=== PATIENT | male | born 1940 | race Caucasian/White ===

== ENCOUNTER 2017-07-11 16:57 | Emergency (ER) | payer MEDICARE ==
[2017-07-11] MEDS ORDERED: Acetaminophen TAB* 325 MG PO ONE (20:06)
[2017-07-11] MEDS ORDERED: Acetaminophen TAB* 325 MG ONE (20:07)
[2017-07-11 20:30] LABS: Hematocrit 34 % (42-52); Hemoglobin 11.5 g/dl (14.0-18.0); Mean Corpuscular HGB Conc 34 g/dl (31-36); Mean Corpuscular Hemoglobin 31 pg (27-31); Mean Corpuscular Volume 90 fL (80-94); Mean Platelet Volume 9 um3 (7.4-10.4); Red Blood Count 3.75 10^6/ul (4.0-5.4); Red Cell Distribution Width 14 % (10.5-15); White Blood Count 7.1 10^3/ul (3.5-10.8)
[2017-07-11 20:42] LABS: Albumin 4.1 g/dL (3.2-5.2); BUN/Creatinine Ratio 18.1 (8-20); Calcium 9.8 mg/dL (8.6-10.3); EGFR African American 56.3 (>60); EGFR Non-African American 43.8 (>60); Globulin 3.1 g/dL (2-4); Magnesium 1.4 mg/dL (1.9-2.7); Potassium 4.4 mmol/L (3.5-5.0); Total Bilirubin 0.4 mg/dL (0.2-1.0); Total Protein 7.2 g/dL (6.4-8.9)
--- NOTE | 2017-07-11 20:54 | RAD ---
INDICATION: Fever COMPARISON: August 25, 2015 TECHNIQUE: An AP portable view obtained at 2042 hours is submitted. FINDINGS: Bones/Soft Tissues: There are no acute bony findings. Cardiomediastinal: The cardiomediastinal silhouette is normal. Lungs: There are no infiltrates. Pleura: There are no pleural effusions. Other: None IMPRESSION: NO ACTIVE DISEASE. INTERVAL RESOLUTION OF A PREVIOUSLY IDENTIFIED RIGHT-SIDED INFILTRATE
[2017-07-11] MEDS ORDERED: NS 0.9% 1000 ML* 1,000 ML IV ONE (21:17)
[2017-07-11] MEDS ORDERED: Oseltamivir CAP* 75 MG PO ONE (21:22)
[2017-07-11] MEDS ORDERED: oxyCODONE/Acetamin 5/325 MG* TAB PO ONE (21:23)
[2017-07-11 21:27] LABS: Urine Bacteria Absent (Absent); Urine Bilirubin Negative (Negative); Urine Glucose Negative (Negative); Urine Nitrite Negative (Negative)
[2017-07-11] MEDS ORDERED: Morphine INJ* 4 MG/ML 1 ML CARPUJECT IV ONE (21:34)
[2017-07-11 22:45] VITALS: BP 139/59
--- NOTE | 2017-07-12 04:31 | ED ---
Kimberlee Rodriguez Emily, scribed for Phyllis Bryant MD on 07/11/17 at 2107 . HPI Febrile Illness - HPI Summary HPI Summary: This patient is a 77 year old M [facility] accompanied by with a chief complaint of cough and fever that began this morning. The patient rates the pain 0/10 in severity. Symptoms aggravated by nothing. Symptoms alleviated by nothing. Patient reports nausea, general myalgias, headache, sore throat, and bruising. Patient denies vomiting, diarrhea, blurred vision, double vision, ear ache, neck pain, CP, abd pain, back pain, and negative urinary symptoms. Pt denies sick contacts at home. - History of Current Complaint Chief Complaint: EDUpperRespComplaint Time Seen by Provider: 07/11/17 20:01 Hx Obtained From: Patient Onset/Duration: Started Hours Ago, Still Present Timing: Constant Initial Severity: Mild Current Severity: Mild Pain Intensity: 0 Pain Scale Used: 0-10 Numeric Aggravating Factors: Nothing Alleviating Factors: Nothing Associated Signs and Symptoms: Weakness - Positive nausea, general myalgias, headache, sore throat, and bruising. Negative vomiting, diarrhea, blurred vision , double vision, ear ache, neck pain, CP, abd pain, back pain, and urinary symptoms. - Allergy/Home Medications Allergies/Adverse Reactions: Allergies Allergy/AdvReac Type Severity Reaction Status Date / Time Atorvastatin [From Lipitor] Allergy Unknown Verified 07/11/17 17:22 Reaction Details Rosuvastatin [From Crestor] Allergy Unknown Verified 07/11/17 17:22 Reaction Details PMH/Surg Hx/FS Hx/Imm Hx Previously Healthy: No Endocrine/Hematology History: Reports: Hx Diabetes Denies: Hx Anticoagulant Therapy, Hx Blood Disorders, Hx Blood Transfusions, Hx Bone Marrow Disease, Hx Systemic Lupus Erythematosus, Hx Sickle Cell Disease , Hx Thyroid Disease, Hx Anemia, Hx Unexplained Bleeding, Other Endocrine/ Hematological Disorders Cardiovascular History: Reports: Hx Hypertension Denies: Hx Aneurysm, Hx Angina, Hx Angioplasty, Hx Auto Implanted Cardiovert Defib, Hx Cardiac Arrest, Hx Cardiomegaly, Hx Congenital Heart Disease, Hx Congestive Heart Failure, Hx Coronary Artery Disease, Hx Deep Vein Thrombosis, Hx Embolism, Hx Hypercholesterolemia, Hx Hypotension, Hx Pacemaker/ICD, Hx Peripheral Vascular Disease, Hx Rheumatic Fever, Hx Syncope, Hx Valvular Heart Disease, Other Cardiovascular Problems/Disorders Musculoskeletal History: Reports: Hx Arthritis, Hx Back Problems, Hx Orthopedic Injury - pelvic fx Denies: Hx Rheumatoid Arthritis, Hx Bursitis, Hx Congenital Bone Abnormalities, Hx Fibromyalgia, Hx Gout, Hx Osteoporosis, Hx Scoliosis, Hx Tendonitis, Other Musculoskeletal History Sensory History: Reports: Hx Contacts or Glasses Denies: Hx Cataracts, Hx Eye Injury, Hx Eye Prosthesis, Hx Glaucoma, Hx Legally Blind, Hx Macular Degeneration, Hx Vision Problem, Hx Deafness, Hx Hearing Aid, Hx Hearing Problem, Other Sensory Impairments Opthamlomology History: Reports: Hx Contacts or Glasses Denies: Hx Cataracts, Hx Eye Injury, Hx Eye Prosthesis, Hx Glaucoma, Hx Legally Blind, Hx Macular Degeneration, Hx Vision Problem, Other Sensory Impairments Neurological History: 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 reconstruction of pelvic fx with plates 1986 Hx Anesthesia Reactions: No Infectious Disease History: No Infectious Disease History: Denies: Traveled Outside the [place] in Last 30 Days - Family History Known Family History: Positive: Other - Lung CA - Social History Occupation: Retired Lives: With Family Alcohol Use: None Substance Use Type: Reports: None Smoking Status (MU): Former Smoker Type: Cigarettes Have You Smoked in the Last Year: No Review of Systems Positive: Fever Negative: Blurred Vision, Diplopia Positive: Sore Throat. Negative: Ear Ache Negative: Chest Pain Positive: Cough Positive: Nausea. Negative: Abdominal Pain, Vomiting, Diarrhea Positive: no symptoms reported Positive: Myalgia Positive: Bruising Positive: Headache Negative: Anxious, Depressed All Other Systems Reviewed And Are Negative: No Physical Exam - Summary Physical Exam Summary: Appearance: Alert, conversive, nontoxic appearing Skin: Warm, dry, no mottling, no rashes. Bruising to bilateral arms. HEENT: EOMI, PERRL, moist mucous membranes. Oral mucosa is slightly dry. Neck: No masses on the neck, supple Respiratory: Clear to auscultation, breath sounds present, no rales, no rhonchi , no wheezes Cardiovascular: RRR, pulses are symmetrical in both lower and upper extremities Abdomen: Soft, non-tender Bowel Sounds: Present Musculoskeletal: No CVA tenderness, no obvious deformity, moving all extremities in a grossly normal manner Neurological: A&Ox3, CN II-XII Intact, moving all extremities symmetrically Psychiatric: Normal affect and mood Triage Information Reviewed: Yes Vital Signs On Initial Exam: Initial Vitals Temp Pulse Resp BP Pulse Ox 100.8 F 81 16 200/84 97 07/11/17 17:05 07/11/17 17:05 07/11/17 17:05 07/11/17 17:05 07/11/17 17:05 Vital Signs Reviewed: Yes - Jasbir Coma Scale Coma Scale Total: 15 Diagnostics - Vital Signs Vital Signs Temp Pulse Resp BP Pulse Ox 07/11/17 20:00 185/43 07/11/17 19:59 103.7 F 91 14 95 07/11/17 19:05 102.4 F 72 16 168/51 97 07/11/17 17:05 100.8 F 81 16 200/84 97 - Laboratory Lab Results: Lab Results 07/11/17 07/11/17 07/11/17 Range/Units 20:16 20:16 20:30 WBC 7.1 (3.5-10.8) 10^3/ul RBC 3.75 L (4.0-5.4) 10^6/ul Hgb 11.5 L (14.0-18.0) g/dl Hct 34 L (42-52) % MCV 90 (80-94) fL MCH 31 (27-31) pg MCHC 34 (31-36) g/dl RDW 14 (10.5-15) % Plt Count 186 (150-450) 10^3/ul MPV 9 (7.4-10.4) um3 Neut % (Auto) 82.0 (38-83) % Lymph % (Auto) 3.2 L (25-47) % [place] % (Auto) 11.5 H (1-9) % Eos % (Auto) 2.5 (0-6) % Baso % (Auto) 0.8 (0-2) % Absolute Neuts (auto) 5.8 (1.5-7.7) 10^3/ul Absolute Lymphs (auto) 0.2 L (1.0-4.8) 10^3/ul Absolute Monos (auto) 0.8 (0-0.8) 10^3/ul Absolute Eos (auto) 0.2 (0-0.6) 10^3/ul Absolute Basos (auto) 0.1 (0-0.2) 10^3/ul Absolute Nucleated RBC 0.01 10^3/ul Nucleated RBC % 0.1 Sodium 132 L (133-145) mmol/L Potassium 4.4 (3.5-5.0) mmol/L Chloride 98 L (101-111) mmol/L Carbon Dioxide 25 (22-32) mmol/L Anion Gap 9 (2-11) mmol/L BUN 28 H (6-24) mg/dL Creatinine 1.55 H (0.67-1.17) mg/dL Est GFR ( Amer) 56.3 (>60) Est GFR (Non-Af Amer) 43.8 (>60) BUN/Creatinine Ratio 18.1 (8-20) Glucose 170 H (70-100) mg/dL Calcium 9.8 (8.6-10.3) mg/dL Magnesium 1.4 L (1.9-2.7) mg/dL Total Bilirubin 0.40 (0.2-1.0) mg/dL AST 14 (13-39) U/L ALT 7 (7-52) U/L Alkaline Phosphatase 57 (34-104) U/L Total Protein 7.2 (6.4-8.9) g/dL Albumin 4.1 (3.2-5.2) g/dL Globulin 3.1 (2-4) g/dL Albumin/Globulin Ratio 1.3 (1-3) Influenza A (Rapid) Positive H (Negative) Influenza B (Rapid) Negative (Negative) Result Diagrams: 07/11/17 20:16 07/11/17 20:16 Lab Statement: Any lab studies that have been ordered have been reviewed, and results considered in the medical decision making process. - Radiology CXR Radiology Interpretation Completed By: Radiologist - CXR reveals, per radiologist, no active disease. Interval resolution of a previously identified right-sided infiltrate. Dr. Bryant has reviewed this radiology report. Re-Evaluation - Re-Evaluation First Eval Re-Evaluation Time: 21:37 Change: Unchanged Comment: Discussed plan of care with pt. Course/Dx - Course Assessment/Plan: This patient is a 77 year old M [facility] accompanied by with a chief complaint of cough and fever that began this morning. Physical Exam Findings. Bruising to bilateral arms. Oral mucosa is slightly dry. CXR reveals, per radiologist, no active disease. Interval resolution of a previously identified right-sided infiltrate. Test results with no significant abnormalities except for positive influenza A. In the ED course the patient was given fluids, Tamiflu, Percocet, and Tylenol. Notified pt of plan to adminster fluids, tamiflu, and morphine. Pt will be discharged. Pt is agreeable with this plan. - Diagnoses Provider Diagnoses: Influenza A, Dehydration Discharge - Discharge Plan Condition: Stable Disposition: HOME Prescriptions: Oseltamivir CAP* [Tamiflu CAP*] 75 mg PO BID #10 cap Patient Education Materials: Influenza (ED) Referrals: Dorothea Joaquin MD [Primary Care Provider] - Additional Instructions: Take the tamiflu as instructed. return if worse or any new symptoms. It is important to follow up with your doctor in 1-2 days. return if worse or any new symptoms. Drink plenty of fluids. The documentation as recorded by the Kimberlee bojorquez Emily accurately reflects the service I personally performed and the decisions made by , Phyllis Bryant MD.
== END 2017-07-11 22:40 | disposition home or self-care (01) ==
LOC: ED 16:57
DX: R11.0 Nausea (principal); R51 Headache; R53.1 Weakness; Z87.891 Personal history of nicotine dependence; R05 Cough; J09.X2 Influenza due to identified novel influenza A virus with other respiratory manifestations; E86.0 Dehydration
CPT/HCPCS: 36415; 71010; 80053; 81003; 81015; 83735; 85025; 87040; 87502; 96361; 96374; 99283; A9270-GY; J2270

== ENCOUNTER 2017-08-10 17:40 | Inpatient (IN) | payer MEDICARE ==
[2017-08-10] MEDS ORDERED: Ondansetron INJ* 2 MG/ML VIAL IV ONE ×2 (19:50→21:15)
[2017-08-10] MEDS ORDERED: NS 0.9% 1000 ML* 2,000 ML IV ONE (19:50)
[2017-08-10 20:34] LABS: ABS Basophils 0.1 10^3/ul (0-0.2); ABS Eosinophils 0 10^3/ul (0-0.6); ABS Lymphocytes 1.4 10^3/ul (1.0-4.8); ABS Monocytes 1.1 10^3/ul (0-0.8); ABS Neutrophils 10.7 10^3/ul (1.5-7.7); ABS Nucleated RBC 0 10^3/ul; Eosinophil % 0.1 % (0-6); Hematocrit 45 % (42-52); Lymphocyte % 10.2 % (25-47); Mean Corpuscular HGB Conc 34 g/dl (31-36); Mean Corpuscular Hemoglobin 29 pg (27-31); Mean Corpuscular Volume 87 fL (80-94); Mean Platelet Volume 8 um3 (7.4-10.4); Nucleated Red Blood Cells % 0; Platelet Count 450 10^3/ul (150-450); Red Cell Distribution Width 14 % (10.5-15); White Blood Count 13.3 10^3/ul (3.5-10.8)
--- NOTE | 2017-08-10 20:51 | RAD ---
Indication: Abdominal pain, vomiting. CT of the abdomen and pelvis was performed without oral or IV contrast administration. Coronal and sagittal reconstructed images were obtained. The lung bases demonstrate scarring in the left lung base. No pleural fluid is identified. The heart demonstrates no pericardial effusion. Liver is normal in size. No focal lesions or intrahepatic ductal dilatation although the exam is limited due to lack of IV contrast. Gallbladder demonstrates no calcified gallstones. No pericholecystic fluid or wall thickening is identified. The pancreas demonstrates no mass or pancreatic ductal dilatation. Common duct is not dilated. The gallbladder demonstrates no calcified gallstones. The kidneys demonstrates no hydronephrosis in either kidney. No focal masses are noted. No adrenal lesions are noted. Atherosclerotic aorta is noted. There is suggestion of wall thickening of the colon with pericolonic infiltration of fat especially around the ascending colon. There is also edematous duodenum noted. No hernias are noted. CT of the pelvis demonstrates no dilated loops of bowel. No hernias are noted. Urinary bladder is partially collapsed with wall thickening. Marked degenerative changes of the left hip joint is noted. The bony structures are grossly unremarkable. IMPRESSION: No evidence of obstructive uropathy is noted. There is suggestion of wall thickening of the colon especially the right colon and of the duodenum. Possibility of gastroenteritis or colitis should be considered. Marked degenerative changes of left hip is noted.
[2017-08-10 20:55] LABS: EGFR Non-African American 58.3 (>60)
--- NOTE | 2017-08-10 21:02 | RAD ---
Indication: Vomiting, tachycardia. Single frontal view of the chest performed at 2004 hours was reviewed. Comparison is made with previous exam dated July 11, 2017. No mediastinal shift is noted. Heart is of normal size and configuration. Lung martinez appear clear. IMPRESSION: NO ACTIVE CARDIOPULMONARY DISEASE IS NOTED.
[2017-08-10] MEDS ORDERED: Magnesium Sulfate 2 GM IV* 2 GM/50 ML BAG IVPB ONE (21:05)
[2017-08-10 21:09] LABS: INR 0.9 (0.77-1.02)
[2017-08-10] MEDS ORDERED: Labetalol IV* 5 MG/ML 20 ML VIAL IV PUSH ONE (21:13)
[2017-08-10] MEDS ORDERED: Labetalol IV* 5 MG/ML 20 ML VIAL IV PUSH PRN (21:16)
[2017-08-10] MEDS ORDERED: Morphine INJ* 4 MG/ML 1 ML CARPUJECT IV ONE (21:23)
[2017-08-10 22:10] LABS: Urine Appearance Cloudy; Urine Blood 2+ (Negative); Urine Color Yellow; Urine Ketones Trace (Negative); Urine Protein 3+(>=500 mg/dL) (Negative); Urine Specific Gravity 1.033 (1.010-1.030); Urine Urobilinogen Negative (Negative)
[2017-08-10] MEDS ORDERED: Ciprofloxacin 400MG IVPREMIX(* 400 MG/200 ML BAG IVPB ONE (22:44)
--- NOTE | 2017-08-10 23:02 | ED ---
Pia Rodriguez Thomas, scribed for Carlos Dumas MD on 08/10/17 at 1954 . GI/ HPI - HPI Summary HPI Summary: The patient is a 77 year old male presenting to the emergency department complaining of abdominal pain, nausea, vomiting, and diarrhea for the last two days. The patient has been unable to keep fluids down. He was evaluated earlier today at his PMDs office, where he was given Zofran to no relief of symptoms. The patient additionally complains of intermittent lightheadedness. The patient denies fever, chills, and bloody stools. - History of Current Complaint Chief Complaint: EDNauseaVomitDiarrh Time Seen by Provider: 08/10/17 19:42 Stated Complaint: VOMITTING Hx Obtained From: Patient Onset/Duration: Started Days Ago - 2, Still Present Timing: Constant Current Severity: Moderate Pain Intensity: 8 Associated Signs and Symptoms: Positive: Other: - Abd pain, nausea, vomiting, diarrhea, lightheadedness; NEGATIVE: fever, chills, bloody stools Aggravating Factor(s): Nothing Alleviating Factor(s): Nothing - Allergy/Home Medications Allergies/Adverse Reactions: Allergies Allergy/AdvReac Type Severity Reaction Status Date / Time Atorvastatin [From Lipitor] Allergy Unknown Verified 08/10/17 17:42 Reaction Details Rosuvastatin [From Crestor] Allergy Unknown Verified 08/10/17 17:42 Reaction Details PMH/Surg Hx/FS Hx/Imm Hx Previously Healthy: No Endocrine/Hematology History: Reports: Hx Diabetes Denies: Hx Anticoagulant Therapy, Hx Blood Disorders, Hx Blood Transfusions, Hx Bone Marrow Disease, Hx Systemic Lupus Erythematosus, Hx Sickle Cell Disease , Hx Thyroid Disease, Hx Anemia, Hx Unexplained Bleeding, Other Endocrine/ Hematological Disorders Cardiovascular History: Reports: Hx Hypertension Denies: Hx Aneurysm, Hx Angina, Hx Angioplasty, Hx Auto Implanted Cardiovert Defib, Hx Cardiac Arrest, Hx Cardiomegaly, Hx Congenital Heart Disease, Hx Congestive Heart Failure, Hx Coronary Artery Disease, Hx Deep Vein Thrombosis, Hx Embolism, Hx Hypercholesterolemia, Hx Hypotension, Hx Pacemaker/ICD, Hx Peripheral Vascular Disease, Hx Rheumatic Fever, Hx Syncope, Hx Valvular Heart Disease, Other Cardiovascular Problems/Disorders Musculoskeletal History: Reports: Hx Arthritis, Hx Back Problems, Hx Orthopedic Injury - pelvic fx Denies: Hx Rheumatoid Arthritis, Hx Bursitis, Hx Congenital Bone Abnormalities, Hx Fibromyalgia, Hx Gout, Hx Osteoporosis, Hx Scoliosis, Hx Tendonitis, Other Musculoskeletal History Sensory History: Reports: Hx Contacts or Glasses Denies: Hx Cataracts, Hx Eye Injury, Hx Eye Prosthesis, Hx Glaucoma, Hx Legally Blind, Hx Macular Degeneration, Hx Vision Problem, Hx Deafness, Hx Hearing Aid, Hx Hearing Problem, Other Sensory Impairments Opthamlomology History: Reports: Hx Contacts or Glasses Denies: Hx Cataracts, Hx Eye Injury, Hx Eye Prosthesis, Hx Glaucoma, Hx Legally Blind, Hx Macular Degeneration, Hx Vision Problem, Other Sensory Impairments Neurological History: 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 reconstruction of pelvic fx with plates 1986 Hx Anesthesia Reactions: No Infectious Disease History: No Infectious Disease History: Denies: Traveled Outside the [place] in Last 30 Days - Family History Known Family History: Positive: Other - Lung CA - Social History Alcohol Use: None Substance Use Type: Reports: None Smoking Status (MU): Former Smoker Type: Cigarettes Have You Smoked in the Last Year: No Review of Systems Positive: Other - lightheadedness. Negative: Fever, Chills Positive: Abdominal Pain, Vomiting, Diarrhea, Nausea. Negative: Other - bloody stools All Other Systems Reviewed And Are Negative: Yes Physical Exam - Summary Physical Exam Summary: General: Moderate ill-appearing. Mild to moderate pain distress. Skin: warm, color reflects adequate perfusion, dry Head: normal Eyes: EOMI, NITZA ENT: Dry oral mucosa. Neck: supple, nontender Respiratory: CTA, breath sounds present Cardiovascular: Tachycardia. Regular rhythm. Abdomen: Soft. Mild diffuse tenderness. Bowel: Hypoactive bowel sounds. Musculoskeletal: normal, strength/ROM intact Neurological: normal, sensory/motor intact, A&O x3 Psychological: affect/mood appropriate Triage Information Reviewed: Yes Vital Signs On Initial Exam: Initial Vitals Temp Pulse Resp BP Pulse Ox 97.9 F 106 16 212/99 100 08/10/17 17:42 08/10/17 17:42 08/10/17 17:42 08/10/17 17:42 08/10/17 17:42 Vital Signs Reviewed: Yes Diagnostics - Vital Signs Vital Signs Temp Pulse Resp BP Pulse Ox 08/10/17 19:26 97.8 F 124 28 234/97 97 08/10/17 17:42 97.9 F 106 16 212/99 100 - Laboratory Lab Results: Lab Results 08/10/17 08/10/17 08/10/17 Range/Units 20:20 20:20 20:20 WBC (3.5-10.8) 10^3/ul RBC (4.0-5.4) 10^6/ul Hgb (14.0-18.0) g/dl Hct (42-52) % MCV (80-94) fL MCH (27-31) pg MCHC (31-36) g/dl RDW (10.5-15) % Plt Count (150-450) 10^3/ul MPV (7.4-10.4) um3 Neut % (Auto) (38-83) % Lymph % (Auto) (25-47) % [place] % (Auto) (1-9) % Eos % (Auto) (0-6) % Baso % (Auto) (0-2) % Absolute Neuts (auto) (1.5-7.7) 10^3/ul Absolute Lymphs (auto) (1.0-4.8) 10^3/ul Absolute Monos (auto) (0-0.8) 10^3/ul Absolute Eos (auto) (0-0.6) 10^3/ul Absolute Basos (auto) (0-0.2) 10^3/ul Absolute Nucleated RBC 10^3/ul Nucleated RBC % INR (Anticoag Therapy) 0.90 (0.77-1.02) APTT 25.3 L (26.0-36.3) seconds Sodium 130 L (133-145) mmol/L Potassium 4.2 (3.5-5.0) mmol/L Chloride 94 L (101-111) mmol/L Carbon Dioxide 25 (22-32) mmol/L Anion Gap 11 (2-11) mmol/L BUN 26 H (6-24) mg/dL Creatinine 1.21 H (0.67-1.17) mg/dL Est GFR ( Amer) 75.0 (>60) Est GFR (Non-Af Amer) 58.3 (>60) BUN/Creatinine Ratio 21.5 H (8-20) Glucose 216 H (70-100) mg/dL Lactic Acid (0.5-2.0) mmol/L Calcium 10.1 (8.6-10.3) mg/dL Magnesium 1.4 L (1.9-2.7) mg/dL Total Bilirubin 0.60 (0.2-1.0) mg/dL AST 16 (13-39) U/L ALT 12 (7-52) U/L Alkaline Phosphatase 61 (34-104) U/L Troponin I 0.06 H* (<0.04) ng/mL C-Reactive Protein 9.99 H (< 5.00) mg/L B-Natriuretic Peptide 530 H ( - 100) pg/mL Total Protein 7.5 (6.4-8.9) g/dL Albumin 3.9 (3.2-5.2) g/dL Globulin 3.6 (2-4) g/dL Albumin/Globulin Ratio 1.1 (1-3) Lipase 88 H (11.0-82.0) U/L Urine Color Urine Appearance Urine pH (5-9) Ur Specific [place] (1.010-1.030) Urine Protein (Negative) Urine Ketones (Negative) Urine Blood (Negative) Urine Nitrate (Negative) Urine Bilirubin (Negative) Urine Urobilinogen (Negative) Ur Leukocyte Esterase (Negative) Urine WBC (Auto) (Absent) Urine RBC (Auto) (Absent) Ur Squamous Epith Cells (Absent) Urine Bacteria (Absent) Urine Glucose (Negative) 08/10/17 08/10/17 08/10/17 Range/Units 20:20 20:20 21:41 WBC 13.3 H (3.5-10.8) 10^3/ul RBC 5.10 (4.0-5.4) 10^6/ul Hgb 15.0 (14.0-18.0) g/dl Hct 45 (42-52) % MCV 87 (80-94) fL MCH 29 (27-31) pg MCHC 34 (31-36) g/dl RDW 14 (10.5-15) % Plt Count 450 (150-450) 10^3/ul MPV 8 (7.4-10.4) um3 Neut % (Auto) 80.9 (38-83) % Lymph % (Auto) 10.2 L (25-47) % [place] % (Auto) 8.3 (1-9) % Eos % (Auto) 0.1 (0-6) % Baso % (Auto) 0.5 (0-2) % Absolute Neuts (auto) 10.7 H (1.5-7.7) 10^3/ul Absolute Lymphs (auto) 1.4 (1.0-4.8) 10^3/ul Absolute Monos (auto) 1.1 H (0-0.8) 10^3/ul Absolute Eos (auto) 0 (0-0.6) 10^3/ul Absolute Basos (auto) 0.1 (0-0.2) 10^3/ul Absolute Nucleated RBC 0 10^3/ul Nucleated RBC % 0 INR (Anticoag Therapy) (0.77-1.02) APTT (26.0-36.3) seconds Sodium (133-145) mmol/L Potassium (3.5-5.0) mmol/L Chloride (101-111) mmol/L Carbon Dioxide (22-32) mmol/L Anion Gap (2-11) mmol/L BUN (6-24) mg/dL Creatinine (0.67-1.17) mg/dL Est GFR ( Amer) (>60) Est GFR (Non-Af Amer) (>60) BUN/Creatinine Ratio (8-20) Glucose (70-100) mg/dL Lactic Acid 2.0 (0.5-2.0) mmol/L Calcium (8.6-10.3) mg/dL Magnesium (1.9-2.7) mg/dL Total Bilirubin (0.2-1.0) mg/dL AST (13-39) U/L ALT (7-52) U/L Alkaline Phosphatase (34-104) U/L Troponin I (<0.04) ng/mL C-Reactive Protein (< 5.00) mg/L B-Natriuretic Peptide ( - 100) pg/mL Total Protein (6.4-8.9) g/dL Albumin (3.2-5.2) g/dL Globulin (2-4) g/dL Albumin/Globulin Ratio (1-3) Lipase (11.0-82.0) U/L Urine Color Yellow Urine Appearance Cloudy Urine pH 6.0 (5-9) Ur Specific [place] 1.033 H (1.010-1.030) Urine Protein 3+(>=500 mg/dl) H (Negative) Urine Ketones Trace H (Negative) Urine Blood 2+ H (Negative) Urine Nitrate Negative (Negative) Urine Bilirubin Negative (Negative) Urine Urobilinogen Negative (Negative) Ur Leukocyte Esterase Negative (Negative) Urine WBC (Auto) 1+(6-10/hpf) H (Absent) Urine RBC (Auto) 2+(6-10/hpf) H (Absent) Ur Squamous Epith Cells Present H (Absent) Urine Bacteria Absent (Absent) Urine Glucose 3+(>=500 mg/dl) H (Negative) Result Diagrams: 08/10/17 20:20 08/10/17 20:20 Lab Statement: Any lab studies that have been ordered have been reviewed, and results considered in the medical decision making process. - Radiology CXR Xray Interpretation: No Acute Changes - No evidence of cardiopulmonary disease is identified. Dr. Dumas has reviewed this report. Radiology Interpretation Completed By: Radiologist - CT CT Abd/Pel CT Interpretation: No Acute Changes - No evidence of obstructive uropathy is noted. Dr. Dumas has reviewed this report. CT Interpretation Completed By: Radiologist - EKG 19:53 Cardiac Rate: NL EKG Rhythm: Sinus Rhythm - [address] Segment: Normal Ectopy: PACs GIGU Course/Dx - Course Course Of Treatment: Medications reviewed. Allergies noted. BP noted and advised follow up with PMD. DISCUSSED RESULTS WITH PATIENT AND HIS FAMILY. 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 CRITICAL CARE TIME LESS THAN 30 MINUTES. - Diagnoses Provider Diagnoses: Uncontrolled hypertension, Colitis, Abdominal pain, Headache Discharge - Discharge Plan Condition: Stable Disposition: ADMITTED TO [facility] Referrals: Dorothea Joaquin MD [Primary Care Provider] - The documentation as recorded by the Pia bojorquez Thomas accurately reflects the service I personally performed and the decisions made by Alesia encarnacion William, MD.
--- NOTE | 2017-08-10 23:34 | HP ---
H&P (Free Text) History and Physical: PCP: Lorena Joaquin MD Date/Time: 08/10/2017 2330 CC: "stomach virus" HPI: Mr Ambriz is a 77YO male HX CVA s/p intra-cerebral stents x3, cerebral aneurysm being monitored, pulmonary embolism, DM2, ulcerative colitis, HTN, & HLD presents reporting onset Monday of diffuse abdominal pain. Monday he began having loose stools and N/V. He continued to worsen with subjective F/C & sweats. He denies chest pain, SOB, palpitations, focal W/N/T, change in speech/ swallow/vision, or other issues. While in ED he was noted to have blood pressures in excess of 200 systolic which his states are very high compared to his normal, but were present at his PCPs office Monday. At one point in the ED his systolic maxed at 260 and he became hypo-responsive which resolved by bringing his pressure down with IV labetalol. CT brain WO was negative for acute finding. CT abd/pel WO revealed colitis. He will be admitted to ICU for hypertensive emergency on nicardipine GTT and treated with IVFs & ABX for colitis and dehydration. PMedHx CVA s/p intra-cranial stents x3 cerebral aneurysm w/ annual monitoring pulmonary embolism DM2 ulcerative colitis HTN HLD Ambulatory Orders Amlodipine Besylate 10 mg PO BID 11/27/13 Aspirin TAB* 325 mg PO DAILY 11/27/13 Clonidine HCl 0.2 mg PO BID 11/27/13 Clopidogrel Bisulfate [Clopidogrel] 75 mg PO DAILY 11/27/13 Hydrocodone-Acetaminophen [Hydrocodone/Acetaminophen] 2 tab PO Q4HR PRN Metformin HCl 500 mg PO QID 11/27/13 [place]-3 Fatty Acids [Fish Oil] 1 cap PO DAILY 11/27/13 Quinapril HCl 40 mg PO BID 11/27/13 Vitamin D 1 tab PO DAILY 11/27/13 Furosemide TAB* [Lasix TAB*] 40 mg PO DAILY 08/25/15 Cyanocobalamin TAB* [Vitamin B12 TAB*] 1,000 mcg PO DAILY #30 tab 08/27/15 Oseltamivir CAP* [Tamiflu CAP*] 75 mg PO BID #10 cap 07/11/17 Prednisone 80 mg PO DAILY 08/11/17 Allergies Atorvastatin [From Lipitor] Allergy (Verified 08/10/17 17:42) Unknown Reaction Details Rosuvastatin [From Crestor] Allergy (Verified 08/10/17 17:42) Unknown Reaction Details PSurgHx intra-cranial stents x3 R carotid endarterectomy ORIF L hip SocHx: quit smoking >30 years ago, denies alcohol & recreational drugs; lives with his ; 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 Father passed at 68 2nd asthma. ROS: as above, otherwise reviewed and all were negative vitals: Vital Signs Temp 37.1 C 08/11/17 00:56 Pulse 78 08/11/17 03:15 Resp 20 08/11/17 03:15 BP 175/85 08/11/17 03:15 Pulse Ox 95 08/11/17 03:15 Intake & Output 08/10/17 08/10/17 08/11/17 11:59 23:59 11:59 Intake Total 2049 Output Total 200 Balance 2049 - Weight 74.843 kg 70.8 kg Intake: IV Fluids 2049 Output: Urine 200 Constitutional: NAD, normally developed, well-nourished white male HEENM: atraumatic; sclera/conjunctiva: anicteric/clear; hearing: clinically intact; oropharynx: clear, mucosa moist Neck: soft tissue: non-tender; thyroid: normal Pulmonary: clear to auscultation bilaterally, good aeration, no accessory muscle use CV: RR/RR, normal S1S2, no carotid bruit, no jugular venous distention, 2+ B DP/ PT, no edema Abdominal: soft, non-distended, non-tender, no rebound/guarding/rigidity, normoactive bowel sounds, no hepatosplenomegaly or masses, no costovertebral angle tenderness Musculoskeletal: general: grossly intact, no pain with palpation Integumental: normal appearance and texture of exposed skin Psychiatric orientation: AA&O to PPS affect: calm mood: cooperative eye contact: good content: reliable responses: timely insight: good Testing: Lab Results 08/10/17 08/10/17 08/10/17 Range/Units 20:20 20:20 20:20 WBC (3.5-10.8) 10^3/ul RBC (4.0-5.4) 10^6/ul Hgb (14.0-18.0) g/dl Hct (42-52) % MCV (80-94) fL MCH (27-31) pg MCHC (31-36) g/dl RDW (10.5-15) % Plt Count (150-450) 10^3/ul MPV (7.4-10.4) um3 Neut % (Auto) (38-83) % Lymph % (Auto) (25-47) % [place] % (Auto) (1-9) % Eos % (Auto) (0-6) % Baso % (Auto) (0-2) % Absolute Neuts (auto) (1.5-7.7) 10^3/ul Absolute Lymphs (auto) (1.0-4.8) 10^3/ul Absolute Monos (auto) (0-0.8) 10^3/ul Absolute Eos (auto) (0-0.6) 10^3/ul Absolute Basos (auto) (0-0.2) 10^3/ul Absolute Nucleated RBC 10^3/ul Nucleated RBC % INR (Anticoag Therapy) 0.90 (0.77-1.02) APTT 25.3 L (26.0-36.3) seconds Sodium 130 L (133-145) mmol/L Potassium 4.2 (3.5-5.0) mmol/L Chloride 94 L (101-111) mmol/L Carbon Dioxide 25 (22-32) mmol/L Anion Gap 11 (2-11) mmol/L BUN 26 H (6-24) mg/dL Creatinine 1.21 H (0.67-1.17) mg/dL Est GFR ( Amer) 75.0 (>60) Est GFR (Non-Af Amer) 58.3 (>60) BUN/Creatinine Ratio 21.5 H (8-20) Glucose 216 H (70-100) mg/dL Lactic Acid (0.5-2.0) mmol/L Calcium 10.1 (8.6-10.3) mg/dL Magnesium 1.4 L (1.9-2.7) mg/dL Total Bilirubin 0.60 (0.2-1.0) mg/dL AST 16 (13-39) U/L ALT 12 (7-52) U/L Alkaline Phosphatase 61 (34-104) U/L Troponin I 0.06 H* (<0.04) ng/mL C-Reactive Protein 9.99 H (< 5.00) mg/L B-Natriuretic Peptide 530 H ( - 100) pg/mL Total Protein 7.5 (6.4-8.9) g/dL Albumin 3.9 (3.2-5.2) g/dL Globulin 3.6 (2-4) g/dL Albumin/Globulin Ratio 1.1 (1-3) Lipase 88 H (11.0-82.0) U/L Urine Color Urine Appearance Urine pH (5-9) Ur Specific [place] (1.010-1.030) Urine Protein (Negative) Urine Ketones (Negative) Urine Blood (Negative) Urine Nitrate (Negative) Urine Bilirubin (Negative) Urine Urobilinogen (Negative) Ur Leukocyte Esterase (Negative) Urine WBC (Auto) (Absent) Urine RBC (Auto) (Absent) Ur Squamous Epith Cells (Absent) Urine Bacteria (Absent) Urine Glucose (Negative) 08/10/17 08/10/17 08/10/17 Range/Units 20:20 20:20 21:41 WBC 13.3 H (3.5-10.8) 10^3/ul RBC 5.10 (4.0-5.4) 10^6/ul Hgb 15.0 (14.0-18.0) g/dl Hct 45 (42-52) % MCV 87 (80-94) fL MCH 29 (27-31) pg MCHC 34 (31-36) g/dl RDW 14 (10.5-15) % Plt Count 450 (150-450) 10^3/ul MPV 8 (7.4-10.4) um3 Neut % (Auto) 80.9 (38-83) % Lymph % (Auto) 10.2 L (25-47) % [place] % (Auto) 8.3 (1-9) % Eos % (Auto) 0.1 (0-6) % Baso % (Auto) 0.5 (0-2) % Absolute Neuts (auto) 10.7 H (1.5-7.7) 10^3/ul Absolute Lymphs (auto) 1.4 (1.0-4.8) 10^3/ul Absolute Monos (auto) 1.1 H (0-0.8) 10^3/ul Absolute Eos (auto) 0 (0-0.6) 10^3/ul Absolute Basos (auto) 0.1 (0-0.2) 10^3/ul Absolute Nucleated RBC 0 10^3/ul Nucleated RBC % 0 INR (Anticoag Therapy) (0.77-1.02) APTT (26.0-36.3) seconds Sodium (133-145) mmol/L Potassium (3.5-5.0) mmol/L Chloride (101-111) mmol/L Carbon Dioxide (22-32) mmol/L Anion Gap (2-11) mmol/L BUN (6-24) mg/dL Creatinine (0.67-1.17) mg/dL Est GFR ( Amer) (>60) Est GFR (Non-Af Amer) (>60) BUN/Creatinine Ratio (8-20) Glucose (70-100) mg/dL Lactic Acid 2.0 (0.5-2.0) mmol/L Calcium (8.6-10.3) mg/dL Magnesium (1.9-2.7) mg/dL Total Bilirubin (0.2-1.0) mg/dL AST (13-39) U/L ALT (7-52) U/L Alkaline Phosphatase (34-104) U/L Troponin I (<0.04) ng/mL C-Reactive Protein (< 5.00) mg/L B-Natriuretic Peptide ( - 100) pg/mL Total Protein (6.4-8.9) g/dL Albumin (3.2-5.2) g/dL Globulin (2-4) g/dL Albumin/Globulin Ratio (1-3) Lipase (11.0-82.0) U/L Urine Color Yellow Urine Appearance Cloudy Urine pH 6.0 (5-9) Ur Specific [place] 1.033 H (1.010-1.030) Urine Protein 3+(>=500 mg/dl) H (Negative) Urine Ketones Trace H (Negative) Urine Blood 2+ H (Negative) Urine Nitrate Negative (Negative) Urine Bilirubin Negative (Negative) Urine Urobilinogen Negative (Negative) Ur Leukocyte Esterase Negative (Negative) Urine WBC (Auto) 1+(6-10/hpf) H (Absent) Urine RBC (Auto) 2+(6-10/hpf) H (Absent) Ur Squamous Epith Cells Present H (Absent) Urine Bacteria Absent (Absent) Urine Glucose 3+(>=500 mg/dl) H (Negative) ECG, personally reviewed: NSR rate 91, mild ST depression V4-6, occasional PAC & junctional escape CXR, personally reviewed: IMPRESSION: NO ACTIVE CARDIOPULMONARY DISEASE IS NOTED. CT brain WO, personally reviewed: FINDINGS: There is no intra- or extra-axial hemorrhage or collection. No mass lesion or midline shift. Area of encephalomalacia in the high right parietal lobe compatible with old infarct. Old right cerebellar lacunar infarct. There is moderate cortical atrophy. The ventricles are normal in size and midline in position. Normal amin-white differentiation. The calvarium is intact. Right vertebral artery stent. The visualized paranasal sinuses and mastoid air cells are clear. CT abd/pel WO, personally reviewed: IMPRESSION: No evidence of obstructive uropathy is noted. There is suggestion of wall thickening of the colon especially the right colon and of the duodenum. Possibility of gastroenteritis or colitis should be considered. Marked degenerative changes of left hip is noted. Impression: 77M presenting with hypertensive emergency & concomitant colitis, likely infectious DIAGNOSIS & PLAN Primary hypertensive emergency : HX cerebral aneurysm w/ outpatient monitoring : nicardipine GTT with parameters : continue quinapril, amlodipine, & clonindine : hold furosemide in setting of N/V/D from colitis : control of N/V : supplemental oxygen : supportive care colitis w/ dehydration : IV ciprofloxacin & metronidazole : IVFs : supportive care elevated troponin : likely 2nd demand ischemia from severe HTN : telemetry : trend Secondary CVA s/p intra-cranial stents x3 : continue aspirin & clopidogrel HX pulmonary embolism : SCDs & heparin SQ DM2 : continue metformin : check A1c : consistent carb diet : ACHS glucometry : correctional insulin ulcerative colitis : no acute issues HLD : heart healthy diet Ambulatory Orders Prednisone 80 mg PO DAILY 08/11/17 Admission Rational: inpatient for hypertensive emergency in patient at very high risk of morbidity/mortality; inappropriate for outpatient setting DVTp: SCDs Code Status: full HCP:
[2017-08-11] MEDS: niCARdipine 0.1MG/ML IVPREMIX* 20 MG/200 ML BAG IV SCH ×6 (01:07→12:37)
[2017-08-11] MEDS: NS 0.9% 1000 ML* 1,000 ML IV SCH ×3 (02:29→13:50)
[2017-08-11] MEDS ORDERED: CMCS: Melatonin (NF) 3 MG TAB PO PRN (03:55)
[2017-08-11] MEDS ORDERED: Albuterol 2.5 MG/3 ML NEB.SOL* (0.083%) INH PRN (03:55)
[2017-08-11] MEDS ORDERED: oxyCODONE TAB* 5 MG TAB PO PRN (03:55)
[2017-08-11] MEDS ORDERED: Acetaminophen TAB* 325 MG PO PRN (03:55)
[2017-08-11] MEDS: Ondansetron INJ* 2 MG/ML VIAL IV PRN ×2 (04:10→08:39)
[2017-08-11 04:38] LABS: ABS Basophils 0.1 10^3/ul (0-0.2); ABS Eosinophils 0 10^3/ul (0-0.6); ABS Lymphocytes 1.4 10^3/ul (1.0-4.8); ABS Neutrophils 10.9 10^3/ul (1.5-7.7); ABS Nucleated RBC 0 10^3/ul; Eosinophil % 0.1 % (0-6); Hematocrit 41 % (42-52); Hemoglobin 13.5 g/dl (14.0-18.0); Lymphocyte % 10.1 % (25-47); Mean Corpuscular HGB Conc 33 g/dl (31-36); Mean Corpuscular Hemoglobin 29 pg (27-31); Mean Corpuscular Volume 88 fL (80-94); Mean Platelet Volume 8 um3 (7.4-10.4); Nucleated Red Blood Cells % 0; Platelet Count 378 10^3/ul (150-450); Red Blood Count 4.64 10^6/ul (4.0-5.4); Red Cell Distribution Width 14 % (10.5-15); White Blood Count 13.4 10^3/ul (3.5-10.8)
[2017-08-11 04:53] LABS: INR 0.95 (0.77-1.02)
[2017-08-11 05:02] LABS: EGFR Non-African American 58.9 (>60)
[2017-08-11] MEDS: metroNIDAZOLE IV 500 MG/100ML* 500 MG/100 ML BAG IVPB SCH ×3 (05:07→21:18)
[2017-08-11] MEDS: CMCS: Pantoprazole TAB (NF) 40 MG TAB PO SCH (06:09)
--- NOTE | 2017-08-11 07:42 | RAD ---
INDICATION: Headaches COMPARISON: None TECHNIQUE: Noncontrast axial source images were acquired from the skull base to the vertex. FINDINGS: Ventricles/sulci: There is cortical atrophy with compensatory dilatation of the CSF spaces. Brain parenchyma: There is no acute focal parenchymal finding, evidence of intracranial mass, or intracranial mass effect. There are chronic microvascular ischemic changes. There is a remote high right parietal infarct with resultant encephalomalacia. Intracranial hemorrhage:None. Extra-axial spaces: There are no abnormal extra axial fluid collections or evidence of extra-axial mass. Calvarium: There is no calvarial fracture or other calvarial abnormality. Scalp: There is no evidence of scalp or extracalvarial soft tissue abnormality. Paranasal sinuses/mastoid: The paranasal sinuses and mastoid air cells are clear. Other: There are prominent vertebral arterial calcifications on the right. IMPRESSION: Cortical atrophy with chronic microvascular ischemic changes. No acute findings
[2017-08-11] MEDS ORDERED: Ondansetron INJ* 2 MG/ML VIAL IV PRN (08:30)
[2017-08-11] MEDS ORDERED: Ondansetron INJ* 2 MG/ML VIAL ONE (08:37)
[2017-08-11] MEDS ORDERED: predniSONE TAB* 20 MG PO SCH (09:00)
[2017-08-11] MEDS: amLODIPine TAB* 5 MG PO SCH ×2 (09:31→20:15)
[2017-08-11] MEDS: Aspirin TAB* 325 MG PO SCH (09:33)
[2017-08-11] MEDS: Lisinopril TAB* 10 MG PO SCH ×2 (09:33→20:15)
[2017-08-11] MEDS: Clopidogrel TAB* 75 MG PO SCH (09:33)
[2017-08-11] MEDS: metFORMIN* 500 MG TAB PO SCH ×3 (09:33→20:15)
[2017-08-11] MEDS: cloNIDine TAB* 0.1 MG PO SCH ×2 (09:37→20:15)
[2017-08-11] MEDS ORDERED: Scopolamine 1.5 mg* PATCH TRANSDERM SCH (10:00)
[2017-08-11] MEDS ORDERED: hydrALAZINE IV* 20 MG/ML VIAL IV SLOW PU PRN (10:06)
[2017-08-11] MEDS: Ciprofloxacin IV(*) 400 MG in D5W 250 ML BAG* 160 ML IVPB SCH ×2 (11:34→23:25)
[2017-08-11] MEDS: Carvedilol TAB* 6.25 MG PO SCH ×2 (11:34→20:16)
--- NOTE | 2017-08-11 15:23 | PN ---
Subjective Date of Service: 08/11/17 Interval History: Pt with improved nausea after scopalomine patch and continued zofran prns. Able to tolerate po meds. Pt with headache prior to admission. Very tired now. No sick contacts. Has neuro ophthalmologist and Neurologist in [place], [place]. Titrated up to 15 then weaned off the nicardipine gtt. Objective Active Medications: Acetaminophen (Tylenol Tab*) 650 mg PO Q6H PRN PRN Reason: FEVER/PAIN Last Admin: 08/11/17 04:10 Dose: 650 mg Albuterol (Ventolin 2.5 Mg/3 Ml Neb.Deborah*) 2.5 mg INH Q2H PRN PRN Reason: SOB/WHEEZING Amlodipine Besylate (Norvasc Tab*) 5 mg PO BID [facility] Last Admin: 08/11/17 09:31 Dose: 5 mg Aspirin (Aspirin Tab*) 325 mg PO DAILY [facility] Last Admin: 08/11/17 09:33 Dose: 325 mg Carvedilol (Coreg Tab*) 6.25 mg PO BID [facility] Last Admin: 08/11/17 11:34 Dose: 6.25 mg Clonidine HCl (Catapres Tab*) 0.2 mg PO BID [facility] Last Admin: 08/11/17 09:37 Dose: 0.2 mg Clopidogrel Bisulfate (Plavix Tab*) 75 mg PO DAILY [facility] Last Admin: 08/11/17 09:33 Dose: 75 mg Heparin Sodium (Porcine) (Heparin Vial(*)) 5,000 units SUBCUT Q8HR [facility] Hydralazine HCl (Apresoline Iv*) 10 mg IV SLOW PU Q2H PRN PRN Reason: SYSTOLIC BP GREATER THAN: Sodium Chloride (Ns 0.9% 1000 Ml*) 1,000 mls @ 125 mls/hr IV PER RATE [facility] Last Admin: 08/11/17 13:50 Dose: 125 mls/hr Ciprofloxacin 400 mg/ Dextrose 200 mls @ 200 mls/hr IVPB Q12H [facility] Last Admin: 08/11/17 11:34 Dose: 200 mls/hr Metronidazole/Sodium Chloride (Flagyl 500 Mg Ivpb*) 500 mg in 100 mls @ 100 mls /hr IVPB Q8H [facility] Last Admin: 08/11/17 13:49 Dose: 100 mls/hr Lisinopril (Prinivil Tab*) 20 mg PO BID [facility] Last Admin: 08/11/17 09:33 Dose: 20 mg Melatonin (Melatonin (Nf)) 3 mg PO BEDTIME PRN; Protocol PRN Reason: Sleep Metformin HCl (Glucophage*) 500 mg PO QID [facility] Last Admin: 08/11/17 12:36 Dose: 500 mg Ondansetron HCl (Zofran Inj*) 4 mg IV Q4H PRN PRN Reason: NAUSEA Oxycodone HCl (Roxycodone Tab*) 5 mg PO Q4H PRN PRN Reason: PAIN Pantoprazole Sodium (Protonix Tab (Nf)) 40 mg PO DAILY@0600 [facility] Last Admin: 08/11/17 06:09 Dose: 40 mg Pharmacy Profile Note (Scopolamine Patch Remove*) 1 note PATCH OFF .AFTER 72 HOURS [facility] Scopolamine (Transderm-Scop 1.5 Mg Patch*) 1 patch TRANSDERM Q72H [facility] Last Admin: 08/11/17 09:29 Dose: 1 patch Vital Signs - 8 hr 08/11/17 08/11/17 08/11/17 07:30 07:42 07:46 Temperature 98.8 F Pulse Rate 80 87 Respiratory 19 17 Rate Blood Pressure 171/77 170/75 (mmHg) O2 Sat by Pulse 95 96 Oximetry 08/11/17 08/11/17 08/11/17 08:00 08:03 08:14 Temperature Pulse Rate 85 88 84 Respiratory 18 22 22 Rate Blood Pressure 187/92 166/66 (mmHg) O2 Sat by Pulse 98 98 96 Oximetry 08/11/17 08/11/17 08/11/17 08:30 08:42 08:46 Temperature Pulse Rate 89 85 86 Respiratory 18 21 17 Rate Blood Pressure 190/89 192/85 187/104 (mmHg) O2 Sat by Pulse 99 98 93 Oximetry 08/11/17 08/11/17 08/11/17 09:00 09:15 09:31 Temperature Pulse Rate 85 91 89 Respiratory 17 18 19 Rate Blood Pressure 188/76 175/79 183/72 (mmHg) O2 Sat by Pulse 95 98 98 Oximetry 08/11/17 08/11/17 08/11/17 09:46 10:00 10:01 Temperature Pulse Rate 83 80 85 Respiratory 23 16 17 Rate Blood Pressure 188/71 163/65 (mmHg) O2 Sat by Pulse 97 97 96 Oximetry 0108/11/17 08/11/17 10:15 10:30 10:45 Temperature Pulse Rate 86 79 86 Respiratory 15 21 20 Rate Blood Pressure 164/82 151/83 160/67 (mmHg) O2 Sat by Pulse 98 97 97 Oximetry 08/11/17 08/11/17 08/11/17 10:53 11:00 11:10 Temperature Pulse Rate 82 82 Respiratory 22 18 11 Rate Blood Pressure 138/45 170/51 (mmHg) O2 Sat by Pulse 95 98 Oximetry 08/11/17 08/11/17 08/11/17 11:16 11:30 11:45 Temperature Pulse Rate 76 78 82 Respiratory 20 17 20 Rate Blood Pressure 154/64 139/68 143/62 (mmHg) O2 Sat by Pulse 97 96 96 Oximetry 08/11/17 08/11/17 08/11/17 12:00 12:15 12:30 Temperature 98.6 F Pulse Rate 75 76 82 Respiratory 20 20 22 Rate Blood Pressure 137/62 148/67 160/67 (mmHg) O2 Sat by Pulse 95 95 96 Oximetry 08/11/17 08/11/17 08/11/17 12:45 13:00 13:16 Temperature Pulse Rate 78 77 73 Respiratory 20 22 18 Rate Blood Pressure 145/59 154/55 152/61 (mmHg) O2 Sat by Pulse 97 96 97 Oximetry 08/11/17 08/11/17 08/11/17 13:31 13:45 14:00 Temperature Pulse Rate 82 74 68 Respiratory 16 17 18 Rate Blood Pressure 121/103 146/58 146/56 (mmHg) O2 Sat by Pulse 98 98 96 Oximetry Oxygen Devices in Use Now: None Appearance: Very tired appearing. Eyes: No Scleral Icterus, PERRLA Neck: NL Appearance and Movements; NL JVP, Trachea Midline Respiratory: Symmetrical Chest Expansion and Respiratory Effort, Clear to Auscultation Cardiovascular: NL Sounds; No Murmurs; No JVD, RRR Abdominal: NL Sounds; No Tenderness; No Distention, No Hepatosplenomegaly Extremities: No Edema, No Clubbing, Cyanosis Skin: No Rash or Ulcers, No Nodules or Sclerosis Neurological: Alert and Oriented x 3, NL Sensation, NL Muscle Strength and Tone Nutrition: Taking PO's Result Diagrams: 08/11/17 04:25 08/11/17 04:25 Additional Lab and Data: Microbiology and Other Data: Microbiology 08/11/17 00:50 Nasal Screen MRSA (PCR)(MEÑO) - Final Nasal Mrsa Negative Assess/Plan/Problems-Billing Assessment: 77 yo male PMH CVA, intercerbral stents, cerebral aneursym, PE, DM, HTN, HLD p/ w abdominal pain, N/V, diarrhea and hypertensive emergency (unable to keep his 4 home antihypertensives down) requiring nicardipine gtt in ICU initially. N/V now controlled and off gtt back on oral meds. - Patient Problems (1) Hypertensive emergency Current Visit: Yes Status: Acute Code(s): I16.1 - HYPERTENSIVE EMERGENCY SNOMED Code(s): 273126185814174 Comment: s/p nicardipine gtt in ICU. Transfer to floor. continue lisinopril 20mg po bid (substitute for quinapril 40mg bid), amlodipine 5mg po bid (though listed as taking 10mg bid), clonidine 0.2mg BID, added coreg 6.25mg BID held lasix given N/V/diarrhea/emesis hydralazine 10mg q2hr prn for SBM >170 (2) Colitis Current Visit: Yes Status: Acute Code(s): K52.9 - NONINFECTIVE GASTROENTERITIS AND COLITIS, UNSPECIFIED SNOMED Code(s): 02851258 Comment: Continue cipro, flagyl. (3) Nausea & vomiting Current Visit: Yes Status: Acute Code(s): R11.2 - NAUSEA WITH VOMITING, UNSPECIFIED SNOMED Code(s): 91843397 Comment: continue zofran, scopalomine patch. CT with e/o colitis. (4) Cerebral aneurysm Current Visit: Yes Status: Acute Comment: stable on CTH. BP control. Neuro checks q4 (5) History of CVA (cerebrovascular accident) Current Visit: Yes Status: Acute Code(s): Z86.73 - PRSNL HX OF TIA (TIA), AND CEREB INFRC W/O RESID DEFICITS SNOMED Code(s): 242063056 Comment: continue aspirin and plavix. (6) Diabetes Current Visit: No Status: Acute Priority: Medium Code(s): E11.9 - TYPE 2 DIABETES MELLITUS WITHOUT COMPLICATIONS SNOMED Code(s): 56979339 Comment: was continued on home metformin on admission. add POCT and lispro SSI qachs Status and Disposition: medicine inpatient. transfer to floor. Attending: Dhruv Tesfaye
[2017-08-11] MEDS ORDERED: Dextrose 50% Syringe 50 ML* 25 GM/50 ML SYRINGE IV PUSH PRN (17:53)
[2017-08-11] MEDS: Insulin LISPRO* 1 UNITS UNIT SUBCUT SCH (21:17)
[2017-08-12] MEDS: NS 0.9% 1000 ML* 1,000 ML IV SCH (04:20)
[2017-08-12] MEDS: metroNIDAZOLE IV 500 MG/100ML* 500 MG/100 ML BAG IVPB SCH (05:29)
[2017-08-12] MEDS: CMCS: Pantoprazole TAB (NF) 40 MG TAB PO SCH (05:33)
[2017-08-12] MEDS ORDERED: Heparin VIAL(*) 5000 UNITS/ML VIAL (FIVE THOUSAND) SUBCUT SCH (06:00)
[2017-08-12] MEDS: metFORMIN* 500 MG TAB PO SCH ×3 (08:06→13:02)
[2017-08-12] MEDS: Insulin LISPRO* 1 UNITS UNIT SUBCUT SCH ×2 (08:29→13:01)
[2017-08-12] MEDS: Clopidogrel TAB* 75 MG PO SCH (08:29)
[2017-08-12] MEDS: Aspirin TAB* 325 MG PO SCH (08:29)
[2017-08-12] MEDS: amLODIPine TAB* 5 MG PO SCH (08:29)
[2017-08-12] MEDS: Lisinopril TAB* 10 MG PO SCH (08:30)
[2017-08-12] MEDS: cloNIDine TAB* 0.1 MG PO SCH (08:30)
[2017-08-12] MEDS: Carvedilol TAB* 6.25 MG PO SCH (08:30)
[2017-08-12 08:31] VITALS: BP 157/61
[2017-08-12] MEDS: Ciprofloxacin IV(*) 400 MG in D5W 250 ML BAG* 160 ML IVPB SCH (11:04)
--- NOTE | 2017-08-13 01:20 | DS ---
DISCHARGE SUMMARY: DATE OF ADMISSION: 08/10/17 DATE OF DISCHARGE: 08/12/17 ADMITTING PHYSICIAN: Kenji Salgado MD ATTENDING PHYSICIAN: Dhruv Tesfaye MD PRIMARY CARE PHYSICIAN: Dr. Joaquin. CHIEF COMPLAINT: Nausea, vomiting, hypertension in the setting of inability to keep down oral medications. PRINCIPAL DIAGNOSIS: Hypertensive emergency; likely viral gastroenteritis versus other colitis. HISTORY OF PRESENT ILLNESS AND HOSPITAL COURSE: Joes Ambriz is a 77-year-old male with past medical history of stroke, status post intracerebral stents x3, cerebral aneurysm, diabetes mellitus, ulcerative colitis, hypertension, hyperlipidemia, who presented with episode of diffuse abdominal pain, loose stools, nausea, vomiting, subjective fevers, chills, diaphoresis. He denied any chest pain, shortness of breath, palpitations. He presented to his primary care doctor and was found to be hypertensive, was referred to the emergency room at [facility] where he was found to have systolics well above 200 (maxed out at 260), at which point in time he became hyporesponsive and he was given 40 mg IV labetalol and transferred to the intensive care unit on nicardipine drip. He was treated with IV Zofran and then a scopolamine patch, which improved his nausea. He was able to start taking his p.o. medications and the nicardipine drip was able to be removed by the mid afternoon of hospital day #2, at which point in time he was transferred to medical floor and continued to rapidly improve with blood pressures in the mostly 140s to 150s. There was addition of Coreg 6.25 mg p.o. b.i.d. to his home medications, he was on only on half of his home amlodipine, reportedly which was 10 mg twice a day. He was given only 5 mg twice a day here and recommended this dose on discharge. He had a CT of his abdomen and pelvis on admission, which demonstrated some thickening of the right colon and duodenum with suggestion of possible gastroenteritis or colitis and he was started on Cipro and Flagyl upon admission. He will be continued on a 5-day course of p.o. Cipro and Flagyl upon discharge for a total of 7 days of antibiotics. The patient had a chest x-ray, which showed no active cardiopulmonary disease. CT of his head, which demonstrated some cortical atrophy with chronic microvascular ischemic changes, no acute findings. There was a remote right parietal infarct with resultant encephalomalacia. The patient is being discharged with a plan to follow up with Dr. Joaquin early next week. DISCHARGE MEDICATIONS: Include: 1. Amlodipine 5 mg p.o. b.i.d. (of note, this is half of his previous home dose ). 2. Aspirin 325 mg p.o. daily. 3. Carvedilol 6.25 mg p.o. b.i.d. (new). 4. Clonidine 0.2 mg p.o. b.i.d. 5. Plavix 75 mg p.o. daily. 6. Metformin 500 mg p.o. 4 times daily. 7. Quinapril 40 mg p.o. b.i.d. 8. Ciprofloxacin 500 mg p.o. b.i.d. for 5 more days/10 tablets. 9. Lasix 40 mg p.o. daily. 10. Hydrocodone and acetaminophen 2 tablets p.o. q.4 h. p.r.n. back pain. 11. [place]-3 fatty acid 1 capsule p.o. daily. 12. Sopalamine patch 1.5 mg transdermal patch q.72 h. for 2 patches. 13. Flagyl 500 mg p.o. t.i.d. 15 tablets/5 days. DISCHARGE DIET: Carbohydrate consistent, heart healthy, no salt. ACTIVITY: No restrictions. FOLLOWUP: Please follow up with Dr. 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 Joaquin 's suggestions. TIME SPENT ON DISCHARGE: Thirty five minutes. [id number]/[facility] #: [id number] [facility]ITALMerced
[2017-08-14] MEDS ORDERED: Scopolamine PATCH Remove* 1 NOTE MISC PATCH OFF SCH (09:00)
== END 2017-08-12 14:45 | disposition home or self-care (01) | DRG 392 ==
LOC: ED 17:40 → ICU 23:32 → MEDTELE 08-11 17:35
PROVIDERS: ADMIT Hospitalist; ATTEND Internal Medicine
DX: A08.4 Viral intestinal infection, unspecified (principal); I67.1 Cerebral aneurysm, nonruptured; G93.89 Other specified disorders of brain; E86.0 Dehydration; I16.1 Hypertensive emergency; K51.90 Ulcerative colitis, unspecified, without complications; E11.9 Type 2 diabetes mellitus without complications; I10 Essential (primary) hypertension; E78.5 Hyperlipidemia, unspecified; R74.8 Abnormal levels of other serum enzymes; M19.90 Unspecified osteoarthritis, unspecified site; K52.9 Noninfective gastroenteritis and colitis, unspecified; Z79.82 Long term (current) use of aspirin; Z86.73 Personal history of transient ischemic attack (TIA), and cerebral infarction without residual deficits; Z86.711 Personal history of pulmonary embolism; Z88.8 Allergy status to other drugs, medicaments and biological substances; Z80.49 Family history of malignant neoplasm of other genital organs; Z82.5 Family history of asthma and other chronic lower respiratory diseases; Z87.891 Personal history of nicotine dependence; Z80.1 Family history of malignant neoplasm of trachea, bronchus and lung; Z79.02 Long term (current) use of antithrombotics/antiplatelets; Z79.84 Long term (current) use of oral hypoglycemic drugs
CPT/HCPCS: 36415; 70450; 71045; 74176; 80048; 80053; 81003; 81015; 83036; 83605; 83690; 83735; 83880; 84484; 85025; 85610; 85730; 86140; 87040; 87641; 93005; A9270-GY; J0744; J1644; J2270; J2405; J3475; J3490; J7512

== ENCOUNTER 2017-12-08 10:38 | Emergency (ER) | payer MEDICARE ==
[2017-12-08] MEDS ORDERED: Aspirin 81 mg CHEW TAB* 81 MG TAB.CHEW PO ONE (11:17)
[2017-12-08 11:38] VITALS: BP 158/63
--- NOTE | 2017-12-08 14:51 | UC ---
Pia Rodriguez Thomas, scribed for Kimmy Soler DO on 12/08/17 at 1116 . General HPI - HPI Summary HPI Summary: The patient is a 77 year old male who went to bed last night without any symptoms. In the middle of night, the patient began to experience chills, generalized weakness, diaphoresis, a mild headache, and tingling to his bilateral upper extremities and abdomen. He had some dull epigastric pain but this pain resolved. He no longer has the tingling at urgent care. He took his temperature at home and it was 101. He reports feeling unsteady on his feet. The patient denies dizziness, shortness of breath, chest pain, jaw/neck/back pain, and focal weakness. Past medical history includes CVA, A-Fib, colitis, brain aneurysm, HTN, DM, and peripheral vascular disease. He was recently changed from Plavix to Eliquis. He is on ASA 81. - History of Current Complaint Stated Complaint: ABD PAIN WEAK ARM SORE Time Seen by Provider: 12/08/17 10:42 Hx Obtained From: Patient Onset/Duration: Lasting Hours, Still Present Timing: Constant Current Severity: Moderate Aggravating: None Alleviating: None Associated Signs & Symptoms: Positive: Other - Chills, diaphoresis, MENON, tingling , epigastric pain, fever, unsteady on feet; NEGATIVE: dizziness, SOB, CP, jaw/ neck/back pain, focal weakness - Allergy/Home Medications Allergies/Adverse Reactions: Allergies Allergy/AdvReac Type Severity Reaction Status Date / Time atorvastatin AdvReac Muscle Ache Verified 12/08/17 12:19 rosuvastatin [From Crestor] AdvReac Muscle Ache Verified 12/08/17 12:19 Home Medications: Home Medications Apixaban* [Eliquis] 5 mg PO BID 12/08/17 [History Confirmed 12/08/17] Ferrous Sulfate TAB* 325 mg PO DAILY 12/08/17 [History Confirmed 12/08/17] PMH/Surg Hx/FS Hx/Imm Hx Previously Healthy: No - A-Fib, colitis, brain aneurysm, HTN, CVA, DM, and PVD Other History Of: Negative For: Anticoagulant Therapy - Surgical History Surgical History: Yes Surgery Procedure, Year, and Place: 4-5 yrs ago stents in brain placed [place] ( 2009 - AFTER MRI @[facility] [place] reconstruction of pelvic fx with plates 1986 - Family History Known Family History: Positive: Other - Lung CA - Social History Alcohol Use: None Substance Use Type: None Smoking Status (MU): Former Smoker Type: Cigarettes Have You Smoked in the Last Year: No When Did the Patient Quit Smoking/Using Tobacco: 30 yrs ago - Immunization History Most Recent Influenza Vaccination: none Most Recent Tetanus Shot: unknown Most Recent Pneumonia Vaccination: none Review of Systems Constitutional: Fever, Chills, Other - Diaphoresis, generalized weakness Neurological: Headache, Other - Unsteady on feet Is Patient Immunocompromised?: No All Other Systems Reviewed And Are Negative: Yes Physical Exam - Summary Physical Exam Summary: Appearance: He appears to be chronically ill, and acutely ill on top of that. No Pain Distress, Well-Nourished Eyes: conjunctiva clear, no discharge ENT: Hearing grossly normal, no muffled/hoarse voice. Neck: Normal, Supple. There is not a carotid bruit. Respiratory/Lung Sounds: Lungs clear, Normal breath sounds, No respiratory distress, No accessory muscle use Cardiovascular: Irregularly irregular rhythm, regular rate, No murmur Abdomen: Nontender, Soft, no guarding, not distended Musculoskeletal: He has obvious hip and spine dysfunction that is chronic. There is not any edema or calf tenderness. Neurological: A&Ox3, CN II-XII INTACT. SENSORY/MOTOR INTACT, although he has some decreased strength in the left lower extremity that the patient reports to be longstanding. REFLEXES INTACT, NO CEREBELLAR SIGNS, FACIAL SYMMETRY Psychiatric: Normal, age appropriate behavior Skin: Warm, Diaphoretic, Normal color. He has multiple bruises to bilateral upper extremities (likely due to anticoagulation). Triage Information Reviewed: Yes Vital Signs Reviewed: Yes Diagnostics - Laboratory Diagnostic Studies Completed/Ordered: EKG. Obtained at 10:45. A-Fib at [address] changes, no changes since prior EKG and 10/05/17. Course/Dx - Course Course Of Treatment: The patient is a 77 year old male with a history of A-Fib, HTN, and DM who went to bed last night without any symptoms. In the middle of night, the patient began to experience chills, generalized weakness, diaphoresis , a mild headache, fever, epigastric pain, and tingling to his bilateral upper extremities and abdomen. He had some dull epigastric pain but this pain resolved. He reports feeling unsteady on his feet. He was given four baby aspirins at urgent care. He was satting in the low 90s so he was put on oxygen. We obtained IV access. EKG was obtained and it shows A-Fib at [address] changes and no changes since prior EKG on 10/05/17. The patient was transferred by ambulance to [facility] ED for further workup and management. The patient is agreeable to this plan. - Differential Dx - Multi-Symptom Provider Diagnoses: Weakness, epigastric pain, atypical chest pain (rule out ACS ) Discharge - Sign-Out/Discharge Documenting (check all that apply): Discharge/Admit/Transfer - Patient will be taken by ambulance to [facility] ED - Discharge Plan Condition: Fair Disposition: TRANS HIGHER LVL OF CARE FAC Discharge Disposition Comment: Patient will travel by ambulance to [facility] ED Referrals: Dorothea Joaquin MD [Primary Care Provider] - The documentation as recorded by the Pia bojorquez Thomas accurately reflects the service I personally performed and the decisions made by , Kimmy Soler DO.
== END 2017-12-08 11:38 | disposition short-term general hospital (02) ==
LOC: UCEAST 10:38
DX: R53.1 Weakness (principal); R10.13 Epigastric pain; R07.89 Other chest pain; Z86.73 Personal history of transient ischemic attack (TIA), and cerebral infarction without residual deficits; I48.91 Unspecified atrial fibrillation; Z79.01 Long term (current) use of anticoagulants; Z79.82 Long term (current) use of aspirin; I10 Essential (primary) hypertension; E11.9 Type 2 diabetes mellitus without complications; I73.9 Peripheral vascular disease, unspecified; Z86.79 Personal history of other diseases of the circulatory system; Z88.8 Allergy status to other drugs, medicaments and biological substances
CPT/HCPCS: 93005; 99214; A9270-GY; G0463

== ENCOUNTER 2017-12-08 12:11 | Emergency (ER) | payer MEDICARE ==
[2017-12-08 13:27] LABS: ABS Basophils 0 10^3/ul (0-0.2); ABS Eosinophils 0 10^3/ul (0-0.6); ABS Lymphocytes 0.9 10^3/ul (1.0-4.8); ABS Nucleated RBC 0 10^3/ul; Eosinophil % 0.5 % (0-6); Hematocrit 36 % (42-52); Hemoglobin 11.8 g/dl (14.0-18.0); Lymphocyte % 10.4 % (25-47); Mean Corpuscular HGB Conc 33 g/dl (31-36); Mean Corpuscular Hemoglobin 30 pg (27-31); Mean Corpuscular Volume 89 fL (80-94); Mean Platelet Volume 8.7 um3 (7.4-10.4); Nucleated Red Blood Cells % 0; Platelet Count 171 10^3/ul (150-450); Red Blood Count 3.97 10^6/ul (4.0-5.4); Red Cell Distribution Width 16 % (10.5-15)
[2017-12-08] MEDS ORDERED: NS 0.9% 1000 ML* 1,000 ML IV ONE (13:29)
[2017-12-08 13:35] LABS: INR 1.15 (0.77-1.02)
[2017-12-08 13:53] LABS: EGFR Non-African American 44.5 (>60)
--- NOTE | 2017-12-08 14:08 | RAD ---
HISTORY: Neurological symptoms, fever, shortness of breath, generalized illness COMPARISONS: August 10, 2017 VIEWS: 1: frontal portable view of the chest at 1:50 PM FINDINGS: LINES AND TUBES: None. CARDIOMEDIASTINAL SILHOUETTE: The cardiomediastinal silhouette is normal for portable technique. PLEURA: The costophrenic angles are sharp. No pleural abnormalities are noted. LUNG PARENCHYMA: The lungs are clear. ABDOMEN: The upper abdomen is clear. There is no subphrenic gas. BONES AND SOFT TISSUES: No bone or soft tissue abnormalities are noted. IMPRESSION: NO ACTIVE CARDIOPULMONARY DISEASE.
--- NOTE | 2017-12-08 14:26 | RAD ---
HISTORY: Altered mental status COMPARISONS: August 10, 2017 TECHNIQUE: Multiple contiguous axial CT scans were obtained of the head without intravenous contrast. FINDINGS: HEMORRHAGE/INFARCT: There is no hemorrhage or acute infarct. MASSES/SHIFT: There is no mass or shift. EXTRA-AXIAL SPACES: There are no extra-axial fluid collections. SULCI AND VENTRICLES: The sulci and ventricles are normal in size and position for the patient's stated age. CEREBRUM: There is right posterior frontal and anterior parietal encephalomalacia consistent with remote infarct, stable BRAINSTEM: There are no focal parenchymal abnormalities. CEREBELLUM: There are chronic infarcts of the cerebral hemispheres. VESSELS: There is calcification of the cavernous segments of the internal carotid arteries bilaterally and of the distal right vertebral artery. PARANASAL SINUSES: The paranasal sinuses are clear. ORBITS: The orbits are unremarkable. BONES AND SOFT TISSUE: No bone or soft tissue abnormalities are noted. OTHER: None IMPRESSION: 1. NO ACUTE INTRACRANIAL PATHOLOGY. 2. STABLE MULTIFOCAL CHRONIC INFARCTS.
[2017-12-08] MEDS ORDERED: Labetalol IV* 5 MG/ML 20 ML VIAL IV PUSH ONE (14:50)
[2017-12-08 20:33] VITALS: BP 169/76
--- NOTE | 2017-12-09 02:21 | CONS ---
CONSULTATION REPORT: DATE OF CONSULT: 12/08/17 - EMERGENCY DEPT PATIENT OF: Dr. Pineda. HISTORY OF PRESENT ILLNESS: This is a 77-year-old man, who I was asked to evaluate for bilateral arm numbness with some possible speech problems. I came in with this concern that there may have been some basilar artery stroke; however, when I came, both the and the patient note that he had no numbness and no problems speaking or alternation of conscious. They note that since 3 a.m., he has had some bilateral arm cramping and leg cramping associated with a low-grade fever. He has also had some chronic upper abdominal pain. He has had stroke and cerebral aneurysm, being monitored in [place], and he has had 3 cerebral stents. He has had no residual from his stroke. He is status post endarterectomy for carotid stenosis with asymptomatic stroke on the right side. He had no symptoms associated with that. His problems include colitis, history of stroke, aneurysm, diabetes, peripheral artery disease, hypertension, kidney injuries, and anemia. He has had a low-grade fever, but no cough or other clear explanation. His care team includes Dr. Joaquin. He has left hip pain and it has affected his walking has caused some chronic pain there as well. MEDICATIONS: 1. He has had recent onset of atrial fibrillation and he is on Eliquis 5 mg twice a day. 2. He is on aspirin 81 mg daily. 3. He has high blood pressure and he is on furosemide 40 mg daily. 4. Accupril 40 mg b.i.d. 5. Aldactone 12.5 daily. 6. Norvasc 5 mg b.i.d. 7. Clonidine 0.2 b.i.d. 8. Metformin 500 four times a day. ALLERGIES: He is allergic to ROSUVASTATIN and ATORVASTATIN. REVIEW OF SYSTEMS: Negative in all 14 spheres other than HPI. PHYSICAL EXAM: Temperature 99.2, pulse 75, respirations 17, blood pressure 175/ 79. He is alert and oriented with normal speech and comprehension. Cranial nerves II through XII were intact. Motor exam revealed normal tone, strength, and finger-to- nose. Chest: Clear. Cardiovascular: Irregular rate. Abdomen is soft with positive bowel sounds. DIAGNOSTIC STUDIES/LAB DATA: I reviewed his CT scan, which showed an old right frontal and anterior parietal stroke. Blood work included white count of 9, hematocrit of 36, platelets of 171, INR 1.15. Chemistry: Sodium of 138, BUN 37, creatinine 1.53, otherwise intact, glucose 159. IMPRESSION AND PLAN: With Dr. Pineda, we interviewed the patient and his . He clearly states that he had no numbness within the past day or two and not in general and he has had no speaking problems or confusion. The nurse said that when asked about if he had chest pain, said yes, so I went back in and asked if he had chest pain and he then said he had some upper abdominal pain, which his said he has been chronic and old. I do not think that he is having ongoing acute neurological problems as best I can tell. I think his history has been confusing, but we are not recommending any further neurological testing at this point. Dr. Marquez is on-call beginning in 20 minutes just in case something changes. Thank you for sharing his case. [id number]/[facility] #: [id number] RAY
--- NOTE | 2017-12-15 01:09 | ED ---
John Rodriguez Natalie, scribed for Braydon Olea MD on 12/08/17 at 1412 . Abdominal Pain/Male - HPI Summary HPI Summary: The patient is a 77 y/o M presenting to the ED from [facility] c/o RLQ abd and arm pain starting at 03:00 this morning. He had fallen asleep in the chair, woke up and went to bed, then woke up with terrible tingling pains where he couldn't move and felt off. The pains lasted into this morning. Pt additionally c/o CP, arm pain, diaphoresis and headache. He denies vomiting. In the ED, the tingling has stopped. He isn't sure if he's had a similar experience before. He has hx of stroke in the left side, where he couldn't move anything. All feeling came back after the stroke. He broke his left hip, and has used a cane for walking. He also has hx of Afib, colitis, diabetes, and HTN. He does not drink, and is a past smoker. - History of Current Complaint Chief Complaint: EDGeneral Stated Complaint: ABD PAIN Hx Obtained From: Patient Onset/Duration: Sudden Onset, Lasting Hours - starting at 03:00, Still Present Timing: Constant Severity Initially: Moderate Severity Currently: Moderate Pain Intensity: 0 Pain Scale Used: 0-10 Numeric Location: Discrete At: RLQ Radiates: No Aggravating Factor(s): Nothing Alleviating Factor(s): Nothing Associated Signs And Symptoms: Positive: Diaphoresis, Chest Pain, Other - headache, arm pain. Negative: Vomiting - Allergies/Home Medications Allergies/Adverse Reactions: Allergies Allergy/AdvReac Type Severity Reaction Status Date / Time atorvastatin AdvReac Muscle Ache Verified 12/14/17 11:09 rosuvastatin [From Crestor] AdvReac Muscle Ache Verified 12/14/17 11:09 Home Medications: Home Medications cloNIDine TAB* [Catapres 0.1 MG TAB*] 0.2 mg PO BID 12/08/17 [History Confirmed 12/08/17] metFORMIN* [Glucophage 500 MG TAB *] 500 mg PO QID 12/08/17 [History Confirmed 12/08/17] PMH/Surg Hx/FS Hx/Imm Hx Endocrine/Hematology History: Reports: Hx Diabetes Denies: Hx Anticoagulant Therapy, Hx Blood Disorders, Hx Blood Transfusions, Hx Bone Marrow Disease, Hx Systemic Lupus Erythematosus, Hx Sickle Cell Disease , Hx Thyroid Disease, Hx Anemia, Hx Unexplained Bleeding, Other Endocrine/ Hematological Disorders Cardiovascular History: Reports: Hx Hypertension, Hx Peripheral Vascular Disease Denies: Hx Aneurysm, Hx Angina, Hx Angioplasty, Hx Auto Implanted Cardiovert Defib, Hx Cardiac Arrest, Hx Cardiomegaly, Hx Congenital Heart Disease, Hx Congestive Heart Failure, Hx Coronary Artery Disease, Hx Deep Vein Thrombosis, Hx Embolism, Hx Hypercholesterolemia, Hx Hypotension, Hx Pacemaker/ICD, Hx Rheumatic Fever, Hx Syncope, Hx Valvular Heart Disease Comment Only: Other Cardiovascular Problems/Disorders - TIA Musculoskeletal History: Reports: Hx Arthritis, Hx Back Problems, Hx Orthopedic Injury - pelvic fx Denies: Hx Rheumatoid Arthritis, Hx Bursitis, Hx Congenital Bone Abnormalities, Hx Fibromyalgia, Hx Gout, Hx Osteoporosis, Hx Scoliosis, Hx Tendonitis, Other Musculoskeletal History Sensory History: Reports: Hx Contacts or Glasses Denies: Hx Cataracts, Hx Eye Injury, Hx Eye Prosthesis, Hx Glaucoma, Hx Legally Blind, Hx Macular Degeneration, Hx Vision Problem, Hx Deafness, Hx Hearing Aid, Hx Hearing Problem, Other Sensory Impairments Opthamlomology History: Reports: Hx Contacts or Glasses Denies: Hx Cataracts, Hx Eye Injury, Hx Eye Prosthesis, Hx Glaucoma, Hx Legally Blind, Hx Macular Degeneration, Hx Vision Problem, Other Sensory Impairments Neurological History: Reports: Hx Transient Ischemic Attacks (TIA) Denies: Hx Dementia, Hx Developmental Delay, Hx Headaches, Hx Migraine, Hx Nerve Disease, Hx Seizures, Hx Spinal Cord Injury, Other Neuro Impairments/ Disorders Psychiatric History: Denies: Hx Panic Disorder - Surgical History Surgery Procedure, Year, and Place: 4-5 yrs ago stents in brain [facility] ( 2009 [place] [place] reconstruction of pelvic fx with plates 1986. Carotiod Surgery. Right leg surgery Hx Anesthesia Reactions: No Infectious Disease History: No Infectious Disease History: Denies: Traveled Outside the [place] in Last 30 Days - Family History Known Family History: Positive: Other - Lung CA - Social History Alcohol Use: None Substance Use Type: Reports: None Hx Tobacco Use: No Smoking Status (MU): Former Smoker Type: Cigarettes Have You Smoked in the Last Year: No Review of Systems Positive: Skin Diaphoresis Positive: Chest Pain Positive: Abdominal Pain. Negative: Vomiting Positive: Other - arm pain/tingling Positive: Headache All Other Systems Reviewed And Are Negative: Yes Physical Exam - Summary Physical Exam Summary: Appearance: Well-appearing, Well-nourished Skin: Warm Eyes: Normal ENT: Normal Neck: Supple, nontender Respiratory: Clear to auscultation Cardiovascular: No murmurs. Normal distal pulses in tibial and radial bilaterally. Irregular to regular rhythm on monitor. Normal heart sounds. Abdomen: Soft, mild diffuse tenderness in lower abdomen. No rebound or guarding. Musculoskeletal: Normal, Strength/ROM Intact. Normal sensation in upper extremities. Mild weakness in right lower extremities secondary to chronic hip pain. Neurological: Normal, A&Ox3. Cranial nerves 2-12 intact. No dysarthria. Negative [place] Stroke Scale. No obvious neurological deficits. Psychiatric: Normal General: No acute distress Triage Information Reviewed: Yes Vital Signs On Initial Exam: Initial Vitals Temp Pulse Resp BP Pulse Ox 99.2 F 73 18 185/78 97 12/08/17 12:12 12/08/17 12:12 12/08/17 12:12 12/08/17 12:12 12/08/17 12:12 Vital Signs Reviewed: Yes Diagnostics - Vital Signs Vital Signs Temp Pulse Resp BP Pulse Ox 12/08/17 12:35 82 24 177/85 96 12/08/17 12:12 99.2 F 73 18 185/78 97 - Laboratory Lab Results: Lab Results 12/08/17 12/08/17 12/08/17 Range/Units 13:16 13:16 13:16 WBC 9.0 (3.5-10.8) 10^3/ul RBC 3.97 L (4.0-5.4) 10^6/ul Hgb 11.8 L (14.0-18.0) g/dl Hct 36 L (42-52) % MCV 89 (80-94) fL MCH 30 (27-31) pg MCHC 33 (31-36) g/dl RDW 16 H (10.5-15) % Plt Count 171 (150-450) 10^3/ul MPV 8.7 (7.4-10.4) um3 Neut % (Auto) 77.4 (38-83) % Lymph % (Auto) 10.4 L (25-47) % [place] % (Auto) 11.2 H (0-7) % Eos % (Auto) 0.5 (0-6) % Baso % (Auto) 0.5 (0-2) % Absolute Neuts (auto) 7.0 (1.5-7.7) 10^3/ul Absolute Lymphs (auto) 0.9 L (1.0-4.8) 10^3/ul Absolute Monos (auto) 1.0 H (0-0.8) 10^3/ul Absolute Eos (auto) 0 (0-0.6) 10^3/ul Absolute Basos (auto) 0 (0-0.2) 10^3/ul Absolute Nucleated RBC 0 10^3/ul Nucleated RBC % 0 INR (Anticoag Therapy) 1.15 H (0.77-1.02) Sodium 138 L (139-145) mmol/L Potassium 4.6 (3.5-5.0) mmol/L Chloride 104 (101-111) mmol/L Carbon Dioxide 26 (22-32) mmol/L Anion Gap 8 (2-11) mmol/L BUN 37 H (6-24) mg/dL Creatinine 1.53 H (0.67-1.17) mg/dL Est GFR ( Amer) 57.2 (>60) Est GFR (Non-Af Amer) 44.5 (>60) BUN/Creatinine Ratio 24.2 H (8-20) Glucose 159 H (70-100) mg/dL Calcium 10.2 (8.6-10.3) mg/dL Total Bilirubin 0.40 (0.2-1.0) mg/dL AST 26 (13-39) U/L ALT 16 (7-52) U/L Alkaline Phosphatase 50 (34-104) U/L Troponin I 0.03 (<0.04) ng/mL Total Protein 6.8 (6.4-8.9) g/dL Albumin 4.1 (3.2-5.2) g/dL Globulin 2.7 (2-4) g/dL Albumin/Globulin Ratio 1.5 (1-3) Result Diagrams: 12/08/17 13:16 12/08/17 13:16 Lab Statement: Any lab studies that have been ordered have been reviewed, and results considered in the medical decision making process. - Radiology CXR Xray Interpretation: No Acute Changes - No active cardiopulmonary disease. ED physician has reviewed this report. Radiology Interpretation Completed By: Radiologist - CT Brain CT CT Interpretation: No Acute Changes - 1. No acute intracranial pathology. 2. Stable multifocal chronic infarcts. ED physician has reviewed this report. CT Interpretation Completed By: Radiologist - EKG 13:08 Cardiac Rate: Other Rate - Atrial fibrillation EKG Rhythm: Atrial Fibrillation EKG Interpretation: Probable LVH with secondary repol abnormality. EKG Comparison: No Significant Change - TWI LH-V6 seen on prior EKG. Re-Evaluation - Re-Evaluation First Eval Re-Evaluation Time: 18:11 Change: Improved - The pt states he is improving. Abdominal Pain Fem Course/Dx - Course Assessment/Plan: after an extensive conversation with the patient and his , it became clear that patient was brought to the ED for 1 day of fever, and that other symptoms were chronic complaints that the patient has had for many months. workup negative, pt feels well, I instructed to the pt and his to return for any worsening or concerning sxs, they agree to and understand dc instructions - Diagnoses Provider Diagnoses: Fever Discharge - Sign-Out/Discharge Documenting (check all that apply): Discharge/Admit/Transfer - Discharge Plan Condition: Improved Disposition: HOME Patient Education Materials: Fever in Adults (ED) Referrals: Dorothea Joaquin MD [Primary Care Provider] - Additional Instructions: PLEASE RETURN TO THE EMERGENCY ROOM IF YOU HAVE ANY WORSENING OR CONCERNING SYMPTOMS PLEASE MAKE AN APPOINTMENT FIRST THING IN THE MORNING TO BE SEEN BY YOUR PRIMARY CARE DOCTOR WITHIN 1 WEEK - Billing Disposition and Condition Condition: IMPROVED Disposition: HOME The documentation as recorded by the John bojorquez Natalie accurately reflects the service I personally performed and the decisions made by Emmie encarnacion Dong, MD.
== END 2017-12-08 20:59 | disposition home or self-care (01) ==
LOC: ED 12:11
DX: R50.9 Fever, unspecified (principal); R10.31 Right lower quadrant pain; M79.603 Pain in arm, unspecified; I10 Essential (primary) hypertension; E11.9 Type 2 diabetes mellitus without complications; I48.91 Unspecified atrial fibrillation; Z86.73 Personal history of transient ischemic attack (TIA), and cerebral infarction without residual deficits; Z79.82 Long term (current) use of aspirin; Z79.84 Long term (current) use of oral hypoglycemic drugs; Z79.899 Other long term (current) drug therapy; Z87.891 Personal history of nicotine dependence; Z88.8 Allergy status to other drugs, medicaments and biological substances
CPT/HCPCS: 36415; 70450; 71045; 80053; 84484; 85025; 85379; 85610; 86617; 86618; 87502; 93005; 96360; 96361; 99285

== ENCOUNTER 2018-08-29 12:59 | Observation (INO) | payer MEDICARE ==
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
[2018-08-29] MEDS ORDERED: NS 0.9% 1000 ML** 1,000 ML IV ONE (14:04)
[2018-08-29 14:58] LABS: Activated Partial Thrombo Time 30.3 seconds (26.0-36.3); INR 1.11 (0.77-1.02)
[2018-08-29 15:04] LABS: ABS Basophils 0.1 10^3/ul (0-0.2); ABS Eosinophils 0.4 10^3/ul (0-0.6); ABS Lymphocytes 1.8 10^3/ul (1.0-4.8); ABS Monocytes 0.6 10^3/ul (0-0.8); ABS Neutrophils 4.1 10^3/ul (1.5-7.7); ABS Nucleated RBC 0 10^3/ul; Eosinophil % 5.5 %; Hematocrit 36 % (42-52); Hemoglobin 11.9 g/dl (14.0-18.0); Lymphocyte % 25.6 %; Mean Corpuscular HGB Conc 34 g/dl (31-36); Mean Corpuscular Hemoglobin 31 pg (27-31); Mean Corpuscular Volume 91 fL (80-94); Mean Platelet Volume 9.3 fL (7.4-10.4); Nucleated Red Blood Cells % 0; Platelet Count 174 10^3/ul (150-450); Red Blood Count 3.91 10^6/ul (4.00-5.40); Red Cell Distribution Width 15 % (10.5-15)
[2018-08-29 15:12] LABS: Troponin I 0.03 ng/mL (<0.04)
[2018-08-29] MEDS ORDERED: Hydrocodone/Acetamin 10/325 1 TAB PO ONE (15:16)
[2018-08-29 15:24] LABS: Albumin 4.4 g/dL (3.2-5.2); Albumin/Globulin Ratio 1.8 (1-3); BUN/Creatinine Ratio 22.9 (8-20); Calcium 9.7 mg/dL (8.6-10.3); EGFR African American 44.8 (>60); Globulin 2.4 g/dL (2-4); Total Bilirubin 0.3 mg/dL (0.2-1.0); Total Protein 6.8 g/dL (6.4-8.9)
[2018-08-29 15:26] LABS: Potassium 5.5 mmol/L (3.5-5.0)
[2018-08-29] MEDS ORDERED: Iodixanol* (CONTRAST) 320 MG/ML 100 ML SDV IV ONE (15:55)
[2018-08-29] MEDS ORDERED: Patiromer POWDER* 8.4 GM PAK PO ONE (16:00)
[2018-08-29] MEDS ORDERED: Hydrocodone/Acetamin 10/325 1 TAB PO PRN (18:40)
[2018-08-29] MEDS ORDERED: Dextrose 50% Syringe 50 ML* 25 GM/50 ML SYRINGE IV PUSH PRN (18:45)
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
[2018-08-29 19:42] LABS: Urine Appearance Clear; Urine Bilirubin Negative (Negative); Urine Blood Negative (Negative); Urine Color Yellow; Urine Glucose Negative (Negative); Urine Ketones Negative (Negative); Urine Nitrite Negative (Negative); Urine Protein Negative (Negative); Urine Specific Gravity 1.026 (1.010-1.030); Urine Urobilinogen Negative (Negative)
[2018-08-29] MEDS ORDERED: cloNIDine TAB* 0.1 MG PO SCH (21:00)
--- NOTE | 2018-08-29 21:40 | CONS ---
NEUROLOGY CONSULTATION NOTE: DATE OF CONSULT: 08/29/18 CONSULTING PROVIDER: Dr. Wing. REASON FOR CONSULT: Transient vertigo. CHIEF COMPLAINT: Vertigo and right-sided neck pain. HISTORY OF PRESENT ILLNESS: Mr. 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 Trujillo in [place], hypertension, atrial fibrillation on Eliquis 2.5 mg twice daily, who presented to [facility] as a code amin today for sudden onset of vertigo. The patient was driving at 11:30 a.m. Suddenly, he developed a spinning sensation associated with right-sided anterior neck pain. The pain is ache in nature, nonradiating, 4/10 in severity, constant, and still persists today. The patient 's onset was at 11:31. He denied any visual disturbance. He denied any focal weakness or paresthesias. In the ED, the patient had a CTA of the head that showed no acute intracranial abnormality with hypodensity in the left occipital and right parieto-occipital region as well as small hypodensity in the right cerebellum. The patient was not a candidate for IV TPA as his NIH stroke scale today was 0. He is not a candidate for thrombectomy as he does not have any significant neurological deficits and the CT of head is still pending. I reviewed the patient's previous record as well as history. The patient had a CTA of the neck completed on 04/16/18. During that time, the patient stated that he has had a sudden onset of right homonymous hemianopia. 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 The CTA of the head and neck completed on 04/16/18 showed a complete occlusion of the proximal segment of the right external carotid artery with collateral reconstitution, approximately 60% stenosis of the left internal carotid artery, high-grade stenosis in the dominant right vertebral artery distally and occluded left vertebral artery. The patient was previously evaluated by Dr. Rae on 12/08/[address] Nieto on 06/15/18. When he was seen by Dr. Nieto, the patient was having headaches and he was discharged home to see Dr. Trujillo. In November [address] Rae, the patient was evaluated for numbness in both upper extremities and then resolved. The diagnosis was unclear at that time, but Dr. Rae did not think that he had ongoing acute neurological problems. The patient's current point of care glucose is 112. PAST MEDICAL HISTORY: Multiple ischemic strokes, hypertension, dyslipidemia, peripheral vascular disease, vertebral artery occlusion on the left and stenotic on the right, internal carotid artery stenosis on the left, chronic renal insufficiency reported by Dr. Nieto's note, but he informed me that he does not have any history of kidney disease. MEDICATIONS: 1. Amlodipine 5 mg p.o. b.i.d. 2. Klonopin 0.2 mg p.o. b.i.d. 3. Metformin 500 mg p.o. 4 times a day. 4. Spironolactone 12.5 mg p.o. daily. 5. Hydrocodone/acetaminophen 2 tablets p.o. q.4 hours. 6. Quinapril 20 mg p.o. daily. 7. Furosemide 20 mg p.o. daily. 8. Clopidogrel 75 mg p.o. daily. 9. Pantoprazole 40 mg p.o. daily. Please note that Eliquis is not on the medication list, but the patient reports taking Eliquis 2.5 mg twice daily. ALLERGIES: ATORVASTATIN and ROSUVASTATIN. FAMILY HISTORY: No family history of stroke or seizures. SOCIAL HISTORY: The patient was a former smoker, he quit 40 years ago. He denied any excessive alcohol use. He lives with his spouse. He is retired. REVIEW OF SYSTEMS: A 14-point review of systems was obtained and otherwise negative except for what is mentioned in the HPI. PHYSICAL EXAMINATION: Vitals: Temperature of 96.9, heart rate of 60, respiratory rate of 22, blood pressure 157/70. General: A well-nourished, well -developed man in no apparent distress. Head atraumatic, normocephalic. He has some tenderness to the occipital notch region on the left more than the right. Eyes: Conjunctivae/corneas are clear. Neck: Supple and symmetrical with no carotid bruits. He does have a previous CA on the right with a well- appearing clean scar. Cardiovascular: Irregular rhythm with bradycardia with rates going down to the 40s. Extremities: Normal range of motion with no cyanosis. Skin: No skin lesions or lacerations. Psych: Affect is broad and normal mood. Neurologic Examination: Mental Status: Awake, alert, and oriented to person, place, time and general circumstances. Speech and language including expression, naming, repetition, and comprehension were assessed and found to be normal. Cranial Nerves: Normal confrontation bilaterally. There is a right homonymous hemianopia. No ptosis. Sensation is intact on the forehead, cheeks, and jaw region bilaterally. No facial droop. He is able to hear throughout the history process. Symmetrical palate elevation. Tongue is symmetrical and midline with no atrophy or fasciculation. Motor: No abnormal movement or pronator drift. The patient has a hip injury on the left side and is unable to move the left leg, but is able to give some normal strength to distal lower extremity as well as all throughout the other extremities. No pronator drift. Reflexes: Right/left 1/1, biceps 1/1, triceps 1/1, patella 1/1 , ankle 0/0, plantarflexor/flexor, sensation is intact throughout. Coordination : Normal [id number] and rapid alternating movement. Gait was not assessed as the patient was emergently assessed in the ED for acute stroke. ASSESSMENT/PLAN: Mr. Jose Ambriz is a 78-year-old man with history of hypertension, dyslipidemia, multiple recurrent strokes due to intracranial stenosis mostly involving the vertebral arteries and mostly the strokes are in the posterior hemisphere, who presented with sudden onset of transient vertigo that lasted approximately 2 minutes. The patient's NIH stroke scale was 0. He is currently not a candidate for IV TPA due to his being on Eliquis as well as a normal NIH stroke scale. He was not evaluated urgently for large vessel occlusion because he has no deficits. The differential diagnosis here was concerning vertebrobasilar insufficiency in a patient that has complete occlusion of the left vertebral artery as well as high-grade stenosis of the right vertebral artery. He did come in with brain stem symptoms, so brain stem transient ischemic attacks involving the pontine perforators is highly on the differential. Other differential diagnosis including a systemic process such as bradycardia or bradyarrhythmia-induced reduced cerebral perfusion to the posterior fossa given the patient was bradycardic in the ER. Unfortunately, there is nothing to change in his medication regimen other than possibly increasing the Eliquis since he is only taking it 2.5 mg twice daily and it is recommended given his age and weight that he probably should take it 5 mg twice daily; however, he is on Plavix. The combination of Plavix and Eliquis will significantly increase his risk for intracranial hemorrhage. I personally contacted Dr. Trujillo to obtain a second opinion and discussed the case with him. In the meantime, the patient should be admitted for 24-hour observation to monitor his heart rate as well as to make sure he does not have any progression or recurrence of symptoms. Please admit to the hospitalist service. Perform neuro checks every 4 hours. Maintain his blood pressure in a normal range. Please order CTA head and neck. Also order an MRI of the brain without contrast. No need for PT/OT/LIBRARY TECHNICAL ASSISTANT evaluation and treatment at this time since the patient is back to his normal self. I would not change his medication regimen, but give him his Plavix dose now instead of later on today. He stated that he took his Eliquis dose this morning. Other differential diagnosis include ruling out any carotid dissection or complete occlusion of the vertebral artery given his right-sided neck pain. Other differential for that is also degenerative disk disease of the cervical spine. He does not have any focal weakness or reflex asymmetry to suggest myelopathy. Discussed with the patient, his spouse, and Dr. Wing. Also discussed with Corry, the humanities coordinator. TIME SPENT: A total of 65 minutes of critical care time was spent evaluating the patient, obtaining history, examining the patient, and making decision regarding IV TPA. The patient is not a candidate. Also discussed the treatment plan with the patient and his spouse at the bedside. [id number]/[facility] #: [id number] RAY
[2018-08-29] MEDS: Apixaban* 2.5 MG TAB PO SCH (21:49)
[2018-08-29] MEDS: Insulin LISPRO* 1 UNITS UNIT SUBCUT SCH (21:49)
--- NOTE | 2018-08-29 22:37 | PN ---
Hospitalist Progress Note Date of Service: 08/29/18 Having frequent pauses and bradycardia, will discontinue clonidine
[2018-08-30] MEDS: Insulin LISPRO* 1 UNITS UNIT SUBCUT SCH ×2 (07:39→12:21)
[2018-08-30] MEDS: Apixaban* 2.5 MG TAB PO SCH (08:38)
--- NOTE | 2018-08-30 08:57 | PN ---
Subjective Date of Service: 08/30/18 Interval History: No more neuro sx's. No lightheadedness, LOC, Walks to [place]. Uses cane. Family History: Findings - Father age 68 of asthma, mother of uterine cancer. Social History: Findings - Quit smoking 30-40 yrs ago. No alcohol abuse. Lives with his who is his SDM. Past Medical History: Findings - L pelvis/hip fx many yrs ago, ORIF, had his PE then. R CEA and vein graft in [facility], intracranial stents x 3 at [facility]. Objective Active Medications: Hydrocodone Bitart/Acetaminophen (Chelsea 10/325 (Nf)) 1 tab PO Q4HR PRN PRN Reason: PAIN Amlodipine Besylate (Norvasc Tab*) 10 mg PO DAILY [facility] Dextrose (D50w Syringe 50 Ml*) 12.5 gm IV PUSH .FOR FS < 60 - SS PRN PRN Reason: FS < 60 Furosemide (Lasix Tab*) 20 mg PO DAILY [facility] Insulin Human Lispro (Humalog*) 0 units SUBCUT [facility]; Protocol Last Admin: 08/30/18 07:39 Dose: Not Given Lisinopril (Prinivil Tab*) 20 mg PO DAILY [facility] Pantoprazole Sodium (Protonix Tab*) 40 mg PO DAILY [facility] Vital Signs - 8 hr 08/30/18 08/30/18 03:34 07:32 Temperature 98.1 F Pulse Rate 44 79 Respiratory 16 Rate Blood Pressure 151/66 183/77 (mmHg) O2 Sat by Pulse 100 Oximetry Oxygen Devices in Use Now: None Appearance: Alert, partly up in bed. In good spirits. Looks comfortable. Eyes: No Scleral Icterus Neck: NL Appearance and Movements; NL JVP, No Thyroid Enlargement, Masses Respiratory: Symmetrical Chest Expansion and Respiratory Effort, Clear to Auscultation, Clear to Percussion Cardiovascular: NL Sounds; No Murmurs; No JVD, No Edema - irreg Extremities: No Edema, No Clubbing, Cyanosis, - - L hip deformity as before. Skin: No Rash or Ulcers, No Nodules or Sclerosis, - Neurological: Alert and Oriented x 3, NL Sensation Result Diagrams: 08/29/18 14:23 08/29/18 14:23 Assess/Plan/Problems-Billing Assessment: - Patient Problems (1) History of CVA (cerebrovascular accident) Current Visit: No Status: Acute Code(s): Z86.73 - PRSNL HX OF TIA (TIA), AND CEREB INFRC W/O RESID DEFICITS SNOMED Code(s): 949570050 Comment: Hold clopidogrel until decision on PPM made. Not on ASA at home, gave him 650 mg ASA in the car today. Tele. Dr. Wolff will discuss case with outside neurologists again 08/30. (2) Atrial fibrillation Current Visit: Yes Status: Acute Code(s): I48.91 - UNSPECIFIED ATRIAL FIBRILLATION SNOMED Code(s): 67136965 Comment: HR about 45-55, frequent pauses 1.4 - 2.4 sec. Not symptomatic. Tele. On no chronotropic meds. Hold apixaban until decison on PPM made. Some pauses over 3 sec, period of HR > 140. Dr. Guerra consulted, discussed case with him 08/30. (3) Cerebral aneurysm Current Visit: No Status: Acute Comment: Tele. Neuro checks q4 h. (4) Diabetes Current Visit: No Status: Acute Priority: Medium Code(s): E11.9 - TYPE 2 DIABETES MELLITUS WITHOUT COMPLICATIONS SNOMED Code(s): 11402815 Comment: Hold metformin. Lispro by SS.
[2018-08-30] MEDS ORDERED: Lisinopril TAB* 10 MG PO SCH (09:00)
[2018-08-30] MEDS ORDERED: Pantoprazole TAB * 40 MG TAB PO SCH (09:00)
[2018-08-30] MEDS ORDERED: Clopidogrel TAB* 75 MG PO SCH ×2 (09:00→11:00)
[2018-08-30] MEDS ORDERED: Furosemide TAB* 20 MG PO SCH (09:00)
[2018-08-30] MEDS ORDERED: amLODIPine TAB* 5 MG PO SCH ×2 (09:00)
[2018-08-30] MEDS ORDERED: Apixaban* 5 MG TAB PO SCH (11:00)
[2018-08-30 12:26] VITALS: BP 185/66
--- NOTE | 2018-08-30 12:26 | ECHO ---
Patient: YADIEL PAL Rec#: [id number] : 1940 Date: 08/30/2018 Age: 78y Height: 175 cm / 68.9 in Weight: 76 kg / 167.5 lbs Sex: M BSA: 1.91 Room#: [facility] Admit Date#: 08/29/2018 Type: Inpatient Referring: Anthony Washington MD Reading: Tacos Guerra MD Pin Attacher: Smita Hernandez RDCS,RDMS CC: Dorothea Joaquin MD Transthoracic Echocardiogram Indication: ABN EKG, CVA BP: 183/77 HR: 83 Rhythm: A-Fib Findings History: Mutiple CVAs, AFIB, DM, HTN, HLD, carotid stenosis, PVD Technical Comments: The study quality is fair. Left Ventricle: The left ventricular chamber size is normal. Mild to moderate concentric left ventricular hypertrophy is observed. Global left ventricular wall motion and contractility are within normal limits. There is normal left ventricular systolic function. The estimated ejection fraction is 60-65%. The assessment of diastolic function is non-diagnostic. Left Atrium: The left atrial chamber size is normal. Right Ventricle: The right ventricular chamber size and systolic function are within normal limits. Right Atrium: The right atrium is mild to moderately dilated. Aortic Valve: The aortic valve is trileaflet. The aortic valve leaflets are mildly thickened. Systolic excursion of the aortic valve is normal. There is aortic annular calcification. There is no evidence of aortic regurgitation. There is no evidence of aortic stenosis. Mitral Valve: There is mitral annular calcification. The mitral valve leaflets are mildly thickened. There is a trace of mitral regurgitation. Tricuspid Valve: The tricuspid valve leaflets are normal. There is trace tricuspid regurgitation. Unable to estimate the right ventricular systolic pressure. Pulmonic Valve: The pulmonic valve structure is not well visualized. There is no evidence of pulmonic regurgitation. There is no pulmonic stenosis. Pericardium: There is no significant pericardial effusion. Aorta: The aortic root appears normal. There is no dilatation of the aortic arch. Pulmonary Artery: The main pulmonary artery is not well visualized. Venous: The inferior vena cava appears normal in size. There is a greater than 50% respiratory change in the inferior vena cava dimension. Conclusions There is normal left ventricular systolic function. The estimated ejection fraction is 60-65%. Global left ventricular wall motion and contractility are within normal limits. Mild to moderate concentric left ventricular hypertrophy is observed. The left ventricular chamber size is normal. The right atrium is mild to moderately dilated. Functionally benigh heart valves. Since the prior echocardiogram completed 08/25/15, there appears to be little change. Measurements Name Value Normal Range RVIDd (AP) 2D 2.8 cm (0.9 - 2.6) RVDdMajor (2D) 2.2 cm (2.2 - 4.4) RAd ISD 4CH 5.5 cm (3.4 - 4.9) RA (A4C)W 4.3 cm (2.9 - 4.6) IVSd (2D) 1.5 cm (0.6 - 1) LVPWd (2D) 1.2 cm (0.6 - 1) LVIDd (2D) 4.3 cm (3.6 - 5.4) LVIDs (2D) 2.8 cm - LV FS (2D) 34 % (25 - 45) Aortic Annulus 2.3 cm (1.4 - 2.6) Ao root diameter (2D) 3.2 cm (2.1 - 3.5) Ascending Ao 2.9 cm (2.1 - 3.4) Aortic arch 2.6 cm (1.8 - 3.4) LAd ISD 4CH 5.3 cm (2.9 - 5.3) LA ISD 4CH W 4.1 cm (2.5 - 4.5) Name Value Normal Range LA ESV BP (A/L) index 30 ml/m2 - Name Value Normal Range MV E-wave Vmax 0.9 m/sec - MV deceleration time 123 msec - LV lateral e' Vmax 0.06 m/sec - LV E:e' lateral ratio 14 ratio - Name Value Normal Range AV Vmax 1 m/sec - AV peak gradient 4 mmHg - LVOT Vmax 0.8 m/sec - LVOT peak gradient 2.6 mmHg - JULIENNE Vmax 0.5 m/sec - Name Value Normal Range RAP 8 mmHg - IVC diameter 1.9 cm - Name Value Normal Range PV Vmax 0.8 m/sec - PV peak gradient 2.6 mmHg -
[2018-08-30 12:58] LABS: BUN/Creatinine Ratio 21.8 (8-20); Calcium 9.3 mg/dL (8.6-10.3); EGFR African American 56.2 (>60); EGFR Non-African American 46.5 (>60); Potassium 4.2 mmol/L (3.5-5.0)
--- NOTE | 2018-08-30 14:13 | PN ---
Subjective Date of Service: 08/30/18 Length of Stay: 1 Days Neurology is following for transient vertigo that resolved. Interval History: He is resting comfortable. He has no neck pain. He has not had any recurrence of vertigo. HR still ranges from 40-140's. He is asymptomatic. Review of Systems: Denied CP, SOB, or palpitations. Family History: Findings - Father age 68 of asthma, mother of uterine cancer. Social History: Findings - Quit smoking 30-40 yrs ago. No alcohol abuse. Lives with his who is his SDM. Past Medical History: Findings - L pelvis/hip fx many yrs ago, ORIF, had his PE then. R CEA and vein graft in [facility], intracranial stents x 3 at [facility]. Objective Active Medications: Hydrocodone Bitart/Acetaminophen ([place]ow 10/325 (Nf)) 1 tab PO Q4HR PRN PRN Reason: PAIN Amlodipine Besylate (Norvasc Tab*) 10 mg PO DAILY [facility] Last Admin: 08/30/18 09:44 Dose: 10 mg Apixaban (Eliquis*) 5 mg PO BID [facility] Last Admin: 08/30/18 11:53 Dose: 5 mg Clopidogrel Bisulfate (Plavix Tab*) 75 mg PO DAILY [facility] Last Admin: 08/30/18 11:53 Dose: 75 mg Dextrose (D50w Syringe 50 Ml*) 12.5 gm IV PUSH .FOR FS < 60 - SS PRN PRN Reason: FS < 60 Furosemide (Lasix Tab*) 20 mg PO DAILY [facility] Last Admin: 08/30/18 09:32 Dose: 20 mg Insulin Human Lispro (Humalog*) 0 [facility]UT [facility]; Protocol Last Admin: 08/30/18 12:21 Dose: 6 units Lisinopril (Prinivil Tab*) 20 mg PO DAILY [facility] Last Admin: 08/30/18 09:32 Dose: 20 mg Pantoprazole Sodium (Protonix Tab*) 40 mg PO DAILY [facility] Last Admin: 08/30/18 09:31 Dose: 40 mg Vital Signs 08/30/18 08/30/18 08/30/18 07:32 08:00 11:45 Temperature 97.5 F Pulse Rate 79 79 Respiratory 20 Rate Blood Pressure 183/77 185/66 (mmHg) O2 Sat by Pulse 99 98 Oximetry Intake and Output Last 24 Hours 08/28/18 08/29/18 08/30/18 08/31/18 06:59 06:59 06:59 06:59 Intake Total 1000 Balance 1000 Weight 166 lb 9.6 oz Intake: IV Fluids 1000 Oral 0 Oxygen Devices in Use Now: None Neurology Exam: General: Well appearing thin man in no acute distress. HEENT: Normocephalic/atraumatic, sclera anicteric, mucous membranes moist Neck: Supple Chest: Clear to auscultation bilaterally Cardiovascular: Regular rate and rhythm without murmurs, rubs, gallops Extremities: No clubbing, cyanosis, or edema Neurological Findings: Awake, Alert, Oriented x3 Speech: fluent without dysrhythmia, repetition intact Cranial Nerve: PERRL, right homonomous hemianopsia (chronic) EOM-I, no facial asymmetry. Motor: s/s throughout, proximal and distal extremities x4 tone/bulk normal Sensation: intact to LT/PP bilaterally upper and lower extremities Deep Tendon Reflex: 1+ symmetric in the upper/lower extremities, Babinski - down going Finger to nose, rapid alternating movements intact without tremor, no dysdiadochokinesia Gait: wide based gait. No ataxia. Uses a cane. Result Diagrams: 08/29/18 14:23 08/30/18 12:26 Diagnostic Imaging: CTA head and neck 08/29/2018: No evidence of carotid or vertebral artery dissection. Left vertebral artery occluded. Transthoracic ECHO: EF 60-65% Assessment/Plan 1. Brainstem TIA presenting with sudden onset vertigo that lasted for less than 2 minutes. He is at high risk for stroke given his history of bilateral occipital stroke, left vertebral artery occlusion, and right vertebral artery stenosis s/p stent placement 2. Right neck pain- most likely cervicogenic headache. Ruled out dissection with CTA head and neck. Symptoms resolved. 3. Hx of atrial fibrillation with episodes of kathryn and tachycardia. I am concerned that he is symptomatic from the episodes of bradycardia given his intracranial stenosis. Recommendations: - Discussed the case with Dr. Guerra from Cardiology. We're not sure why the patient is on a subtherapeutic dose of Eliquis. Although he is at high risk for stroke with full dose Eliquis, to prevent any cardioembolic stroke, I recommend increasing it to [address] Guerra agreed. - The patient should continue Plavix. I spent 25 minutes discussing the risk of ICH with the combination of Eliquis and Plavix. I even informed them that that risk would be lower with aspirin. Mr. Ambriz had already discussed this with his neurosurgeon Dr. Gilmore who recommended Plavix. The patient was having recurrent TIAs on Aspirin, but he was on lower dose of Eliquis. - Secondary stroke prevention were maximized. Patient is currently asymptomatic. He will be going home today. No need for MRI studies since his symptoms quickly recovered. We do not suspect that the symptoms are related to a brain tumor. The patient last had an MRI brain on 02/26/2018. MRI was not obtained yesterday when the patient was admitted as the MRI machine was down. The patient is ready for discharged this morning. Time spent: 25 minutes of which >50% was spent reviewing the medical history, examining the patient, and discussing the treatment team as mentioned above. The family agreed with the above plan. He was instructed to come back to the ED immediately if he develops any symptoms of increased headache, neck pain, double vision, swallowing difficulty, or weakness or paresthesia. He verbalized understanding.
--- NOTE | 2018-08-30 14:39 | DS ---
CC: Dr. Kuhn; Dr. Macias. DISCHARGE SUMMARY: DATE OF ADMISSION: DATE OF DISCHARGE: 08/30/18 HISTORY AND HOSPITAL COURSE: This 78-year-old man presented after a 1-1/2-minute episode of feeling he was spinning around, he was driving the car, his was in the car. He pulled the car to the si de of the road and stopped. His drove him home and then to the emergency room. He had no furth er neurologic symptoms while in the hospital up through the time of discharge. There was no loss of consciousness or dizziness. He has had similar problems, he said, a few times before. One time in [facility], he remembers he had his carotid endarterectomy and in the recovery area started to have a stroke and had the same spinning type of symptoms. He was immediately brought back to the OR and had a vein graft to the right carotid. Dr. Wolff saw the patient in consultation in the emergency room. The patient had a CTA of the head. This did not show any significant findings. He had a CT scan of the brain. Dr. Wolff consulted wi the patient's outside neurologist. It was felt to keep him on the same medications. He is at a d elicate balance between the risk of bleeding and the risk of stroke. His apixaban dose was increased to 5 mg b.i.d. as he only met 1 of the 3 criteria for dose reduction. Dr. Guerra saw the patient in consultation and agreed with this. The patient's creatinine was 1.79 on the day of admission, but wa s 1.47 the following day. He did receive a dose of Kayexalate in the emergency room because his pota ssium was 5.5, he received at least 1 L of normal saline. His potassium on the day of discharge was 4.2. BUN has come down to 32. He is pretty much at his baseline in terms of his renal function. On telemetry, the patient is in chronic atrial fibrillation. His rate varies widely from the 30s to the 140s without any real precipitating factor. He had pauses of up to 3.5 seconds. He was asymptom atic through all of these rate changes. It is possible that he has a more extreme rate abnormality at times causing neurologic symptoms. I aye baltazar consider putting a loop recorder in him. We may need to hold his apixaban for a day or two for this to be done. That should be up to the long wall shear operator's discretion. I have arranged for him to have an earlier appointment with Dr. Macias on 09/05/18 at 9:30 a.m. FINAL DIAGNOSES: 1. History of cerebrovascular accident and concerning symptoms. 2. Atrial fibrillation. 3. Cerebral aneurysm. 4. Diabetes. DISCHARGE MEDICATIONS: 1. Apixaban 5 mg b.i.d. 2. Amlodipine 5 mg b.i.d. 3. Metformin 500 mg q.i.d. to start on 09/01/18. 4. Hydrocodone/acetaminophen 10/325 as prescribed. 5. Quinapril 20 mg daily. 6. Clopidogrel 75 mg daily. 7. Pantoprazole 40 mg daily. The following medications have been discontinued: 1. Clonidine. 2. Spironolactone. 3. Furosemide. CONDITION ON DISCHARGE: Stable. DISPOSITION ON DISCHARGE: Discharge to home. [id number]/[facility] #: [id number]
--- NOTE | 2018-08-30 15:39 | CONS ---
CC: Dr. Zaki Macias * CARDIOLOGY CONSULTATION: DATE OF CONSULT: 08/30/18 REFERRING PHYSICIAN: Dr. Louie Washington. REASON FOR CARDIOLOGY CONSULTATION: Atrial fibrillation with tachybrady features. HISTORY OF PRESENT ILLNESS: Mr. Ambriz is a pleasant 78-year-old gentleman admitted to [facility] yesterday after having a 1.5- to 2-minute episode of vertiginous type symptoms with spinning in his visual field while driving at 11 AM. This self- resolved. He has been brought to the hospital and it is felt that he has had a TIA. We were kindly asked to see the patient because he has had atrial fibrillation and while his average heart rate is in the 90s, on review of telemetry for the past at least 12 hours, he does have some periods where his heart rate can get up to 140s with exertion, but then he has other periods where his heart rate is in the 40s, especially at night with pauses no longer than 3.42 seconds. Patient himself denies fainting, lightheadedness, or other symptoms of chronotropic incompetence. He also denies any recurrence of visual spinning including during his relative bradycardia as well as he denies chest pain and describes his breathing is okay.Of note, he is accompanied by his daughter. PAST MEDICAL HISTORY: Past cardiac history is significant for chronic atrial fibrillation. He follows with my partner, Dr. Zaki Macias of [facility], whom he saw several months ago. 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 He has a history of cerebral aneurysm with stenting , mild aortic stenosis, and pulmonary embolus in 1986 post hip surgery when the patient states he was trapped in mud, pulmonary HTN, ulcerative colitis. MEDICATIONS: Outpatient medications include: 1. Amlodipine 5 mg p.o. b.i.d. 2. Klonopin 0.2 mg p.o. b.i.d. 3. Metformin 500 mg p.o. 4 times a day. 4. Aldactone 12.5 mg once a day. 5. Quinapril 20 mg once a day. 6. Lasix 20 mg once a day. 7. Plavix 75 mg once a day. 8. Protonix 40 mg once a day. 9. Eliquis 2.5 mg po bid. ALLERGIES: To medications are reported as ATORVASTATIN and ROSUVASTATIN. FAMILY HISTORY: Negative for cardiac disease or stroke. There is a family history of cancer and diabetes. SOCIAL HISTORY: The patient quit smoking 40 years ago. He does not abuse alcohol nor use illicit drugs. He is and lives with his . 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 He has not graduated high school. He does not participate in regular exercise at this time and there is a cane at his bedside which he uses. REVIEW OF SYSTEMS: Patient has had prior stoke. He denies a prior history of cancer. He denies vomiting, blood with coughing, bright red blood per rectum, bleeding stomach ulcers, renal calculi, cholelithiasis, asthma, emphysema. He has had prior pneumonia and he was hospitalized for that. Denies tuberculosis, sleep apnea, home oxygen use. He has diabetes. He has hypertension. He denies prior MT, congestive heart failure, cardiac surgery, cardiac murmurs. He denies any palpitations including with his diagnosis of chronic atrial fibrillation. He denies psychiatric illnesses, lupus, psoriasis, seizures, Parkinson disease, myasthenia gravis, thyroid disorders, liver disorders, kidney disorders, claudication symptoms. He has had pulmonary embolus in the past as described above in 1986, none since. He does have left lower extremity edema. He has a history of heartburn. All other review of systems are negative x14, except as per this documentation. PHYSICAL EXAM: Height 5 feet 9 inches, weight 166 pounds. Temperature 98.1 degrees Fahrenheit, pulse is ranging from 42 to 79. Again, telemetry review shows average heart rate of 90s with no pause greater than 3.42 seconds identified and at times, his pulse can get up into the 140s with his chronic atrial fibrillation. O2 saturation 100%, blood pressure 183/77 to 155/52. HEENT: Shows a cranium that is normocephalic and atraumatic. He has moist mucosal membranes. Neck veins are not distended. There is a right carotid bruit. Visible skin warm and well perfused. Affect is appropriate. He appears oriented. No significant kyphoscoliosis on back exam. Lungs are clear to auscultation. No wheezes, no rales. Cardiac Exam: S1, S2. Irregular rate, controlled. No significant murmurs, rubs, or gallops. PMI is undisplaced. Abdomen is soft, nondistended, appears benign. Extremities without significant edema. Neuro grossly non-focal (other per the neurology service whom he has also seen this admission). Pulses appear grossly intact. DIAGNOSTIC STUDIES/LAB DATA: Patient completed a transthoracic echocardiogram on 11/24/07. It showed hyperdynamic left ventricular ejection fraction with biatrial enlargement, mild pulmonary hypertension with estimated PA systolic pressure of 42 to 47 mmHg. Twelve-lead EKG reviewed 08/29/18 shows atrial fibrillation at 58 beats per minute with LVH and some T-wave changes. This appears similar to prior EKG completed 06/15/08. Suspect T-wave changes related to LVH. Telemetry reviewed, longest pause 3.42 seconds. White blood cell count 7.0, hematocrit 37, platelet count 174. Sodium 135, potassium 5.5, chloride 102, bicarbonate 26, BUN 41, creatinine 1.79. Troponin 0.03 x2. BNP 519 (likely related to AF/pulmonary HTN). IMPRESSION: Mr. Ambriz is a pleasant 78-year-old gentleman with a history of chronic atrial fibrillation admitted with concern for neurological symptoms i.e. TIA and he has an extensive past neurological history. At this time, there does not appear to be any evidence of chronotropic incompetence including by symptoms. 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 At this time , there is no firm indication met for a pacemaker and his overall average heart rate in the 90s seems reasonable. RECOMMENDATIONS: 1. Regarding his chronic AF with tachy-kathryn features, will tolerate his heart rate as is and again, his average heart rate is in the 90 beats per minute with longest pause 3.42 seconds, with concern for vagotonia and [place] effect as described above. If his heart rate will be persistently elevated, could try Lopressor 12.5 mg p.o. daily, but again at this time, especially in the absence of symptoms and overall reasonable average heart rate, I think this can be monitored for now. 2. Other managements as per the hospitalist service and neurological service. I have discussed the case with both Dr. Washington and Dr. Guzman respectively of those services. 3. Cardiac dykes, it is okay to increase the Eliquis 5 mg p.o. b.i.d. (in answer to his neurologist's question to me) if felt hemostatically feasible by his hospitalist attending physician as there is some concern that his neurological event may have been related to subtherapeutic anticoagulation status. He also has a history of pulmonary embolus in the past. 4. Recommend adjustment of diuretics as I suspect he is vagal from the intravascular volume depletion and dose of clonidine may need to be reduced in the future as clearly can promote bradyarrhythmias. 5. 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 Macias, following discharge regarding his chronic AF with tachy-kathryn features as outlined above. Dear Dr. Washington, many thanks for asking me to participate in the cardiovascular consultative care of Mr. Ambriz. Please do not hesitate to contact me if you have any questions or concerns regarding the patient's cardiovascular consultative care. [id number]/[facility] #: [id number] MTDMerced
[2018-08-30] MEDS ORDERED: cloNIDine TAB* 0.1 MG PO SCH (21:00)
== END 2018-08-30 14:19 | disposition home or self-care (01) ==
LOC: ED 12:59 → MEDTELE 18:36
PROVIDERS: ADMIT Internal Medicine; ATTEND Internal Medicine
DX: I48.2 Chronic atrial fibrillation (principal); Z86.73 Personal history of transient ischemic attack (TIA), and cerebral infarction without residual deficits; I67.1 Cerebral aneurysm, nonruptured; I73.9 Peripheral vascular disease, unspecified; E11.9 Type 2 diabetes mellitus without complications; R42 Dizziness and giddiness; E78.5 Hyperlipidemia, unspecified; M54.2 Cervicalgia; R51 Headache; I10 Essential (primary) hypertension; Z86.79 Personal history of other diseases of the circulatory system; Z87.891 Personal history of nicotine dependence
CPT/HCPCS: 36415; 70450; 70496; 70498; 71045; 80048; 80053; 81003; 83605; 83880; 84484; 85025; 85610; 85730; 86850; 86900; 86901; 93005; 93306; 96374; 99284; A9270-GY; G0378; Q9967

== ENCOUNTER 2018-12-23 21:58 | Inpatient (IN) | payer MEDICARE ==
[2018-12-23] MEDS ORDERED: cefTRIAXone(*) 1 GM in NS 0.9% 50 ML* 50 ML IVPB ONE (22:10)
[2018-12-23] MEDS ORDERED: NS 0.9% 1000 ML** 1,000 ML IV.FLUID IV ONE (22:10)
[2018-12-23] MEDS ORDERED: Azithromycin 500 mg/250 ml NS 500 MG/250 ML BAG IVPB ONE (22:10)
--- OUTSIDE RECORDS SUMMARY | 2018-12-23 22:11 | XMS REPORT | Continuity of Care Document ---
:1940 External Reference #:[id number] Author Name Anitha Gamez O.D. Address [address] [place] [address] Care Team Providers Name Role Phone Dorothea Joaquin M.D. Primary Care Physician Unavailable Payers Date Identification Numbers Payment Provider Subscriber Policy Number: [id number] [facility] Jose Ambriz PayID: [id number] [address] [address] [place] [address] Problems Active Problems Provider Date Type 2 diabetes mellitus Onset: Atrial fibrillation Onset: Essential hypertension Onset: Colitis Onset: Homonymous hemianopia Jose Larson M.D. 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 ETOH Use Denies alcohol use Tobacco Use Start: Unknown Patient has never smoked Recreational Drug Use Denies Drug Use Smoking Status Reviewed: 12/13/18 Patient has never smoked Allergies, Adverse Reactions, Alerts Description No Known Drug Allergies Medications Active Medications SIG Qnty Indications Ordering Provider Date Clonidine HCL Unknown 0.2mg Tablets Metformin HCL Unknown 500mg Tablets Amlodipine Besylate Unknown 5mg Tablets Furosemide Unknown 40mg Tablets Hydrocodone-Acetaminoph Unknown en 7.5-325mg Tablets Quinapril HCL Unknown 20mg Tablets Eliquis Unknown 5mg Tablets Turmeric Curcumin 2 by mouth every Unknown 500mg day Capsules Vitamin D3 Unknown 1000Unit Capsules History Medications Spironolactone 25mg Tablets Unknown - Pantoprazole Sodium 40mg Unknown - 05/[address] Procedures Date Code Description Status 12/18/2018 30537 Patient No Show For Appt Completed 12/13/2018 17639 Est Patient Comprehensive Exam Completed 11/07/2018 92782 Patient No Show For Appt Completed 05/03/2018 51810 Determination Of Refractive State Completed 02/21/2018 98779 Visual Field Exam Extended Completed 02/20/2018 16565 New Patient Comprehensive Exam Completed Plan of Treatment Future Appointment(s):12/13/2019 9:00 am - Anitha Gamez O.D. at Jose Larson MD, pc12/20/2018 - Anitha Gamez O.D.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, right side
--- OUTSIDE RECORDS SUMMARY | 2018-12-23 22:11 | XMS REPORT | Continuity of Care Document ---
:1940 External Reference #:[id number] Author Name Anitha Gamez O.D. Address [address] [place] [address] Care Team Providers Name Role Phone Dorothea Joaquin M.D. Primary Care Physician Unavailable Payers Date Identification Numbers Payment Provider Subscriber Policy Number: [id number] [facility] Jose Ambriz PayID: [id number] [address] [address] [place] [address] Problems Active Problems Provider Date Type 2 [...] Sodium 40mg Unknown - 05/[address] Lorenzo Date Code Description Status 11/07/2018 93433 Patient No Show For Appt Completed 05/03/2018 43760 Determination Of Refractive State Completed 02/21/2018 58531 Visual Field Exam Extended Completed 02/20/2018 09256 New Patient Comprehensive Exam Completed Plan of Treatment 12/13/2018 - Anitha Gamez O.D.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, right sideComments:Smoking can increase the risk of developing or worsening any eye related disease, as well as affect your overall health. If you are a smoker , we strongly recommend that you quit.If you are not a smoker, we strongly recommend that you do not start.Follow up:next available VF onlyE11.9 Type 2 diabetes mellitus without complicationsComments:You have diabetes. I do not detect any changes in both of your retinas from diabetes at this time. Proper control of your diabetes is important for the health of your eyes. Changes in your eyes from diabetes can happen without symptoms, so it is important that you have your eyes examined.Follow up:1 year You can expect to have your eyes dilated at your next visit. If Dr. Gamez orders any additional testing, it may require extra time. We recommend that you bring sunglasses, as dilation drops often make you light sensitive until they wear off. We always recommend you bring someone to drive you home if you are uncomfortable driving with your eyes dilated. If you have any questions before your next visit, feel free to call our office at .h25.13 Age-related nuclear cataract, bilateralComments:You have nuclear sclerosis, which is hardening of your natural lens. This is normal as a person ages.
--- NOTE | 2018-12-23 22:16 | ED ---
Complex/Multi-Sys Presentation - HPI Summary HPI Summary: This patient is a 78 year old M brought to ED via EMS with a chief complaint of weakness since this afternoon. Patient reports feeling tired this weekend but a lot worse today. The weakness is all over. Patient reports subjective fever, shaking, and chills. Patient recently had PNA last week. He had SOB then, and patient received antibiotics. Patient reports feeling better after treatment, but he has worsened. In the room, patient reports mild SOB. The patient rates the pain 0/10 in severity. Symptoms aggravated by nothing. Symptoms alleviated by nothing. Patient reports mild SOB. Patient denies N/V. PMHx of DM, a-fib, HTN , PNA. FHx of lung CA. Patient rarely drinks alcohol, is a former smoker, and does not use substances. - History Of Current Complaint Time Seen by Provider: 12/23/18 22:04 Hx Obtained From: Patient Onset/Duration: Gradual Onset, Still Present, Worse Since Timing: Constant Aggravating Factor(s): Nothing Alleviating Factor(s): Nothing Associated Signs And Symptoms: Positive: Weakness, Fever. Negative: Nausea, Vomiting Related History: Recent Illness - PNA - Allergies/Home Medications Allergies/Adverse Reactions: Allergies Allergy/AdvReac Type Severity Reaction Status Date / Time atorvastatin AdvReac Muscle Ache Verified 06/15/18 14:55 rosuvastatin [From Crestor] AdvReac Muscle Ache Verified 06/15/18 14:55 Home Medications: Home Medications Furosemide TAB* [Lasix TAB*] 40 mg PO DAILY 12/23/18 [History Confirmed 12/23/18 ] Ranitidine TAB (NF) [Zantac TAB (NF)] 150 mg PO DAILY PRN 12/23/18 [History Confirmed 12/23/18] Spironolactone TAB* [Aldactone TAB 25 MG*] 12.5 mg PO DAILY 12/23/18 [History Confirmed 12/23/18] PMH/Surg Hx/FS Hx/Imm Hx Endocrine/Hematology History: Reports: Hx Diabetes Denies: Hx Anticoagulant Therapy, Hx Blood Disorders, Hx Blood Transfusions, Hx Bone Marrow Disease, Hx Systemic Lupus Erythematosus, Hx Sickle Cell Disease , Hx Thyroid Disease, Hx Anemia, Hx Unexplained Bleeding, Other Endocrine/ Hematological Disorders Cardiovascular History: Reports: Hx Atrial Fibrillation, Hx Hypertension, Hx Peripheral Vascular Disease Denies: Hx Aneurysm, Hx Angina, Hx Angioplasty, Hx Auto Implanted Cardiovert Defib, Hx Cardiac Arrest, Hx Cardiomegaly, Hx Congenital Heart Disease, Hx Congestive Heart Failure, Hx Coronary Artery Disease, Hx Deep Vein Thrombosis, Hx Embolism, Hx Hypercholesterolemia, Hx Hypotension, Hx Pacemaker/ICD, Hx Rheumatic Fever, Hx Syncope, Hx Valvular Heart Disease Comment Only: Other Cardiovascular Problems/Disorders - TIA Respiratory History: Reports: Hx Pneumonia Denies: Hx Asthma History: Reports: Hx Renal Disease - abnormal gfr Denies: Hx Dialysis Musculoskeletal History: Reports: Hx Arthritis, Hx Back Problems, Hx Orthopedic Injury - pelvic fx Denies: Hx Rheumatoid Arthritis, Hx Bursitis, Hx Congenital Bone Abnormalities, Hx Fibromyalgia, Hx Gout, Hx Osteoporosis, Hx Scoliosis, Hx Tendonitis, Other Musculoskeletal History Sensory History: Reports: Hx Contacts or Glasses Denies: Hx Cataracts, Hx Eye Injury, Hx Eye Prosthesis, Hx Glaucoma, Hx Legally Blind, Hx Macular Degeneration, Hx Vision Problem, Hx Deafness, Hx Hearing Aid, Hx Hearing Problem, Other Sensory Impairments Opthamlomology History: Reports: Hx Contacts or Glasses Denies: Hx Cataracts, Hx Eye Injury, Hx Eye Prosthesis, Hx Glaucoma, Hx Legally Blind, Hx Macular Degeneration, Hx Vision Problem, Other Sensory Impairments Neurological History: Reports: Hx Transient Ischemic Attacks (TIA) Denies: Hx Dementia, Hx Developmental Delay, Hx Headaches, Hx Migraine, Hx Nerve Disease, Hx Seizures, Hx Spinal Cord Injury, Other Neuro Impairments/ Disorders Psychiatric History: Denies: Hx Panic Disorder - Surgical History Surgery Procedure, Year, and Place: 2008 stents behind left eye placed [place] (OK'D BY DR MARIE FOR 1.5 ONLY)OP REPORT - DR MCADAMS - LOWGAP - BARE METAL - MRI CONDITIONAL - 1.5T & 3.0 720 GAUSS/CM. reconstruction of pelvic fx with plates 1986. Carotid endarectomy Surgery - right. metal FB noticed in skull(patient does not recall injury) on MRI 02/26/18-DR Marie said ok was in the soft tissue Hx Anesthesia Reactions: No Infectious Disease History: Denies: Traveled Outside the [place] in Last 30 Days - Family History Known Family History: Positive: Other - Lung CA - Social History Alcohol Use: Rare Hx Substance Use: No Substance Use Type: Reports: None Hx Tobacco Use: Yes Smoking Status (MU): Former Smoker Type: Cigarettes Have You Smoked in the Last Year: No Review of Systems Constitutional: Other - Shaking Positive: Fever, Chills Positive: Shortness Of Breath Negative: Vomiting, Nausea Positive: Weakness All Other Systems Reviewed And Are Negative: Yes Physical Exam - Summary Physical Exam Summary: Appearance: ill-appearing man, febrile, no respiratory distress Skin: Warm, dry, no obvious rash Eyes: sclera anicteric, no conjunctival pallor ENT: mucous membranes moist Neck: deferred Respiratory: bronchial breath sounds and egophony in right lower chest Cardiovascular: Appears well perfused, pulses are nml Abdomen: Soft, nontender Musculoskeletal: Moving all 4 extremities without obvious discomfort Extremities: warmth and swelling with pitting edema and mild erythema in left lower extremity Neurological: Awake and alert, mentation is normal, speech is fluent and appropriate Psychiatric: affect is normal, does not appear anxious or depressed Triage Information Reviewed: Yes Vital Signs On Initial Exam: Initial Vitals Temp Pulse Resp BP Pulse Ox 100.9 F 106 22 179/124 95 12/23/18 22:10 12/23/18 22:10 12/23/18 22:10 12/23/18 22:10 12/23/18 22:10 Vital Signs Reviewed: Yes Diagnostics - Laboratory Result Diagrams: 12/23/18 22:20 12/23/18 22:20 Lab Statement: Any lab studies that have been ordered have been reviewed, and results considered in the medical decision making process. - Radiology CXR Radiology Interpretation Completed By: ED Physician Summary of Radiographic Findings: Right lower lobe infiltrate, pending official radiology report. - EKG 2216 Cardiac Rate: Tachycardia - 112 BPM EKG Rhythm: Atrial Fibrillation Summary of EKG Findings: Atrial fibrillation at 112 BPM with rapid ventricular response, otherwise normal EKG. Complex Multi-Symp Course/Dx Course Of Treatment: This patient is a 78 year old M brought to ED via EMS with a chief complaint of weakness since this afternoon after having PNA dx last week. EKG revealed: Atrial fibrillation at 112 BPM with rapid ventricular response, otherwise normal EKG. In the ED course, patient received Zithromax, fluids, and Rocephin. CXR revealed: Right lower lobe infiltrate, pending official radiology report. Discussed patient case with Dr. Mallory, who accepts the patient for admission to [facility]. Patient will be admitted with dx of PNA. Patient understands and agrees with this plan. - Diagnoses Provider Diagnoses: PNA (pneumonia), Severe sepsis - Physician Notifications Discussed Care Of Patient With: Evon Mallory Time Discussed With Above Provider: 23:03 Instructed by Provider To: Admit As Inpatient - Discussed patient case with Dr. Mallory, who accepts the patient for admission to [facility]. - Critical Care Time Critical Care Time: 30-74 min Discharge - Sign-Out/Discharge Documenting (check all that apply): Patient Departure - Admit Patient Received Moderate/Deep Sedation with Procedure: No - Discharge Plan Condition: Fair Disposition: ADMITTED TO [facility] Referrals: Dorothea Joaquin MD [Primary Care Provider] - - Billing Disposition and Condition Condition: FAIR Disposition: Admitted to [facility] - Attestation Statements Document Initiated by Jose: Yes Documenting Scribe: Mino Lopes Provider For Whom Jose is Documenting (Include Credential): Ruy Cardozo MD Scribe Attestation: Mino Rodriguez, scribed for Ruy Cardozo MD on 12/24/18 at 0317. Scribe Documentation Reviewed: Yes Provider Attestation: The documentation as recorded by the Mino bojorquez accurately reflects the service I personally performed and the decisions made by Ruy encarnacion MD Status of Scribe Document: Viewed
[2018-12-23 22:28] LABS: ABS Basophils 0.1 10^3/ul (0-0.2); ABS Lymphocytes 0.7 10^3/ul (1.0-4.8); ABS Monocytes 0.6 10^3/ul (0-0.8); ABS Neutrophils 9.1 10^3/ul (1.5-7.7); Eosinophil % 0.2 %; Hematocrit 36 % (42-52); Hemoglobin 12.1 g/dL (14.0-18.0); Lymphocyte % 6.3 %; Mean Corpuscular HGB Conc 33 g/dL (31-36); Mean Corpuscular Hemoglobin 30 pg (27-31); Mean Corpuscular Volume 91 fL (80-94); Mean Platelet Volume 8.4 fL (7.4-10.4); Platelet Count 189 10^3/uL (150-450); Red Blood Count 4.01 10^6 /uL (4.18-5.48); Red Cell Distribution Width 14 % (10.5-15); White Blood Count 10.4 10^3/uL (3.5-10.8)
[2018-12-23 22:36] LABS: INR 1.27 (0.82-1.09)
[2018-12-23 22:47] LABS: ALT 16 U/L (7-52); AST 31 U/L (13-39); Albumin 4.4 g/dL (3.2-5.2); Albumin/Globulin Ratio 1.6 (1-3); Alkaline Phosphatase 61 U/L (34-104); Anion Gap 11 mmol/L (2-11); BUN/Creatinine Ratio 18.9 (8-20); Blood Urea Nitrogen 24 mg/dL (6-24); C Reactive Protein 3.34 mg/L (<8.01); CO2 Carbon Dioxide 22 mmol/L (22-32); Calcium 9.6 mg/dL (8.6-10.3); Chloride 101 mmol/L (101-111); EGFR African American 66.5 (>60); Globulin 2.7 g/dL (2-4); Glucose 171 mg/dL (70-100); Potassium 4.4 mmol/L (3.5-5.0); Sodium 134 mmol/L (135-145); Total Protein 7.1 g/dL (6.4-8.9)
[2018-12-23 22:50] LABS: Troponin I 0.05 ng/mL (<0.04)
[2018-12-23 23:31] LABS: Urine Appearance Clear; Urine Bacteria Absent (Absent); Urine Bilirubin Negative (Negative); Urine Blood Negative (Negative); Urine Color Yellow; Urine Glucose Negative (Negative); Urine Ketones 1+ (Negative); Urine Nitrite Negative (Negative); Urine Protein 2+(100 mg/dL) (Negative); Urine Red Blood Cell Absent (Absent); Urine Specific Gravity 1.014 (1.010-1.030); Urine Squamous Epithelial Cell Present (Absent); Urine Urobilinogen Negative (Negative); Urine White Blood Cell Absent (Absent)
[2018-12-23 23:35] LABS: Influenza A Molecular NEGATIVE (Negative); Influenza B Molecular NEGATIVE (Negative)
[2018-12-23] MEDS ORDERED: Lactated Ringers 1000 ML Bag* 1,000 ML IV SCH (23:45)
[2018-12-23] MEDS ORDERED: Iodixanol* (CONTRAST) 320 MG/ML 100 ML SDV IV ONE (23:49)
[2018-12-23] MEDS ORDERED: Senna TAB PO PRN (23:53)
[2018-12-23] MEDS ORDERED: Al Hydrox/Mg Hydrox/Simet LIQ* 30 ML UDC PO PRN (23:53)
[2018-12-23] MEDS ORDERED: Acetaminophen TAB* 325 MG PO PRN (23:53)
[2018-12-23] MEDS ORDERED: Ondansetron INJ* 2 MG/ML VIAL IV PRN (23:53)
[2018-12-23] MEDS ORDERED: Docusate CAP* 100 MG PO PRN (23:53)
[2018-12-24 00:03] LABS: Magnesium 1.4 mg/dL (1.9-2.7)
[2018-12-24 00:17] LABS: TSH (Thyroid Stimulating Horm) 0.86 mcIU/mL (0.34-5.60)
[2018-12-24] MEDS ORDERED: Magnesium Sulfate IV* 3 GM in NS 0.9% 100 ML* 100 ML IVPB ONE (00:27)
[2018-12-24] MEDS ORDERED: Magnesium Sulfate IV* 0.5 GM/ML 2 ML VIAL (1 GM) ONE (00:57)
[2018-12-24] MEDS ORDERED: methylPREDNISolone 125 MG* 2 ML VIAL IV ONE (01:50)
[2018-12-24 02:15] LABS: Troponin I 0.33 ng/mL (<0.04)
--- NOTE | 2018-12-24 02:21 | PN ---
Progress Note - Progress Note Date of Service: 12/24/18 Note: Bump in troponin - likely demand ishcemia. CTA - no PE but severe emphysema with mod bronchial wall thickening and patchy consolidation. Will give Solumedrol 125 mg x 1 and start prednisone. Will trend troponin and obtain echo. Patient on Eliquis and plavix.
--- NOTE | 2018-12-24 02:23 | HP ---
CC: Dr. Dorothea Joaquin HISTORY AND PHYSICAL: DATE OF ADMISSION: 12/23/18 TIME OF EVALUATION: 2200 PRIMARY CARE PHYSICIAN: Dorothea Joaquin MD CHIEF COMPLAINT: Shortness of breath. HISTORY OF PRESENT ILLNESS: This is a 78-year-old male with a past medical history of atrial fibrill ation, on anticoagulation and diabetes, who presented to the emergency room with worsening shortness of breath, weakness, and low-grade temp. The who is at the bedside provides most of the history, states about a month ago, he developed right-sided chest pain. She states he had somewhat of a coug h, but no significant cough and he had felt short of breath. He was started on amoxicillin at that t mayte and seen by his primary. He did get better and then shortly thereafter developed more coughing a nd right-sided pain. They returned to the primary care physician's office and they state that they h eard persistent pneumonia there and diagnosed him with walking pneumonia and states he was started on levofloxacin, she thinks 500 mg and completed this course about 2 weeks ago. Again, he did seem some what better, but not completely resolved. This morning, he was feeling okay and then this evening, liyah leon became febrile with a temp of greater than 100, more weak and short of breath and they decided to c ome to the emergency room for further evaluation. He has had a decrease in appetite. No nausea, vom iting, diarrhea. No abdominal pain. No urinary symptoms. No falls. The patient denies any right-s ided chest pain at this time. Otherwise, review of systems is negative. In the emergency room, the patient had labs, imaging. He was given 2400 mL of normal saline, ceftriaxone 1 g, azithromycin and referred to the hospitalist service for further evaluation. PAST MEDICAL HISTORY: 1. Hypertension. 2. Atrial fibrillation, on anticoagulation. 3. Peripheral arterial disease. 4. Diabetes. 5. CKD. 6. History of chronic left hip pain. 7. History of a CVA with intervention. 8. History of vertebral artery occlusion and carotid stenosis. 9. History of cerebral aneurysm, status post stenting. 10. History of a PE in 1986, followed post hip surgery. 11. Mild pulmonary hypertension. MEDICATIONS: 1. Spironolactone 12.5 mg p.o. daily. 2. Lasix 40 mg p.o. daily. 3. Amlodipine 5 mg p.o. b.i.d. 4. Quinapril 20 mg p.o. b.i.d. 5. Plavix 75 mg p.o. daily. 6. Glucophage 500 mg p.o. 4 times a day 7. Eliquis 5 mg p.o. b.i.d. 8. Zantac 150 mg daily as needed. 9. [place] 10/325 two tabs q.4 hours as needed. ALLERGIES: ATORVASTATIN, ROSUVASTATIN. SOCIAL HISTORY: The patient lives at home with his , who is healthcare proxy and ambulates with a cane. He quit smoking more than 40 years ago. No alcohol or illicit drug use. Code status, full code. FAMILY HISTORY: Reviewed and noncontributory. REVIEW OF SYSTEMS: A 14-point review of systems as mentioned in the HPI, otherwise negative. PHYSICAL EXAMINATION GENERAL: Mild ill-appearing man, in no acute distress, intermittently moaning, and children at the bedside. VITAL SIGNS: T-max 100.9, pulse rate 102, respiratory rate 15, oxygen saturation 96% on OxyMask, blo od pressure 167/72. HEENT: Head: Normocephalic. Pupils equal and reactive. Anicteric. Oropharynx: Mucous membranes m oist. NECK: Supple. No lymphadenopathy. RESPIRATORY: Diminished breath sounds. Poor aeration. No increased work of breathing. No tachypne a. CARDIAC: Irregularly irregular rate and rhythm. Soft systolic murmur heard throughout. ABDOMEN: Soft, nontender, nondistended. EXTREMITIES: +1 DP's. Left lower extremity more edematous and swollen than his right lower extremit y. NEUROLOGIC: Alert and oriented x3. No gross focal neurologic deficits. LABORATORY DATA: White count 10.4, hemoglobin 12.1, hematocrit 36, platelets 189. INR is 1.27. Sod ium 134, potassium 4.4, chloride 101, bicarb 22, BUN 24, creatinine 1.27, glucose 171. Troponin 0.05 . Lactate is 1.5. UA shows +1 ketones. Flu is negative. RADIOGRAPHIC DATA: Chest x-ray, there is question of a right lower lobe pneumonia. EKG shows atrial fibrillation with a rate of 112. ASSESSMENT AND PLAN: This is a 78-year-old male with a past medical history of atrial fibrillation, on anticoagulation, who presents to the emergency room with worsening shortness of breath in the sett ing of a new onset of fever. 1. Shortness of breath with fever. Assessment: Concerning that this has been ongoing for about a m ont on 2 rounds of antibiotics, which raises a flag that other etiologies aside from community-acqui red pneumonia is occurring including a pulmonary embolism, though the patient is on Eliquis. The oth er concern is that he has left lower extremity asymmetry and swelling, which is further concerning fo r DVT/PE. He also has a history of this in the past. Plan: I spoke with the family and the patient to obtain a CTA to rule out a PE. If that is negative, I would continue him on ceftriaxone, azithro mycin. I also will start him on a short burst of prednisone as there is some evidence that improves morbidity, mortality related to community-acquired pneumonia. We will follow up on his blood culture s, check Legionella, pneumococcal antigen, and repeat his labs in the morning. If he does have a pul monary embolism, we will stop his Eliquis and start him on heparin drip and bridge him to Coumadin. 2. Chronic medical problems. Diabetes. We will place him on lispro sliding scale. Hold his Glucop ailyn. 3. Hypertension. Continue his Norvasc and substitute for his quinapril. We will hold his Lasix and Aldactone in the setting of sepsis related to his community- acquired pneumonia. 4. Chronic hip pain. Continue his [place]. 5. Gastroesophageal reflux disease. Continue ranitidine as needed. 6. FEN. Diabetic diet with IV fluids. 7. DVT prophylaxis. The patient scores moderate risk. He is currently on Eliquis. 8. Code status. Full code. PATIENT TIME: Greater than 30 minutes was spent doing the history and physical, more than half the t mayte was direct patient contact. [id number]/[facility] #: [id number]
[2018-12-24] MEDS ORDERED: Heparin VIAL(*) 5000 UNITS/ML VIAL (FIVE THOUSAND) SUBCUT SCH (06:00)
[2018-12-24 06:45] LABS: ABS Lymphocytes 0.6 10^3/ul (1.0-4.8); ABS Monocytes 0.4 10^3/ul (0-0.8); ABS Neutrophils 10.5 10^3/ul (1.5-7.7); Eosinophil % 0.1 %; Hematocrit 37 % (42-52); Hemoglobin 12.3 g/dL (14.0-18.0); Lymphocyte % 5.1 %; Mean Corpuscular HGB Conc 33 g/dL (31-36); Mean Corpuscular Hemoglobin 30 pg (27-31); Mean Corpuscular Volume 91 fL (80-94); Mean Platelet Volume 8.7 fL (7.4-10.4); Platelet Count 162 10^3/uL (150-450); Red Blood Count 4.08 10^6 /uL (4.18-5.48); Red Cell Distribution Width 14 % (10.5-15); White Blood Count 11.5 10^3/uL (3.5-10.8)
[2018-12-24 07:09] LABS: BUN/Creatinine Ratio 16.9 (8-20); EGFR African American 72.4 (>60); EGFR Non-African American 59.9 (>60); Magnesium 1.8 mg/dL (1.9-2.7)
[2018-12-24 07:18] LABS: Troponin I 0.67 ng/mL (<0.04)
[2018-12-24] MEDS: Hydrocodone/Acetamin 10/325 1 TAB PO PRN (08:25)
[2018-12-24] MEDS: predniSONE TAB* 20 MG PO SCH (08:27)
[2018-12-24] MEDS: Apixaban* 5 MG TAB PO SCH ×2 (08:28→19:50)
[2018-12-24] MEDS: amLODIPine TAB* 5 MG PO SCH ×2 (08:28→19:50)
[2018-12-24] MEDS ORDERED: Clopidogrel TAB* 75 MG PO SCH (09:00)
[2018-12-24] MEDS ORDERED: Lisinopril TAB* 10 MG PO SCH (09:00)
[2018-12-24] MEDS ORDERED: Magnesium Sulfate 2 GM IV* 2 GM/50 ML BAG IVPB ONE (10:24)
--- NOTE | 2018-12-24 11:01 | PN ---
Subjective Date of Service: 12/24/18 Interval History: Mr. Ambriz is feeling slightly better today. SOB and cough have improved, though still present. No sputum production. Does endorse some diaphoresis, but denies CP, N/V, dizziness, arm pain, jaw pain. Has not been OOB. Good appetite. Has been feeling increased SOB since this winter, especially on exertion. Has had occupational exposure to asbestos, but was a light smoker and quit 40 years ago. Nursing reports increasing trops, though asymptomatic. Tele: afib in the 80-90s. Family History: Unchanged from Admission Social History: Unchanged from Admission Past Medical History: Unchanged from Admission Objective Active Medications: Acetaminophen (Tylenol Tab*) 650 mg PO Q4H PRN FEVER/PAIN Hydrocodone Bitart/Acetaminophen ([place] 10/325 (Nf)) 2 tab PO Q4HR PRN PAIN Al Hydrox/Mg Hydrox/Simethicone (Maalox Plus*) 30 ml PO Q6H PRN INDIGESTION Amlodipine Besylate (Norvasc Tab*) 5 mg PO BID BALA Apixaban (Eliquis*) 5 mg PO BID BALA Clopidogrel Bisulfate (Plavix Tab*) 75 mg PO 1200 BALA Docusate Sodium (Colace Cap*) 100 mg PO BID PRN CONSTIPATION Famotidine (Pepcid Tab*) 20 mg PO DAILY PRN; Protocol HEARTBURN Lactated Ringer's (Lactated Ringers 1000 Ml Bag*) 1,000 mls @ 125 mls/hr IV PER RATE BALA Azithromycin 250 mg/ Sodium (Chloride) 250 mls @ 250 mls/hr IVPB Q24H BALA Ceftriaxone Sodium 1 gm/ (Sodium Chloride) 50 mls @ 200 mls/hr IVPB Q24H BALA Magnesium Sulfate (Magnesium Sulfate 2 Gm Iv*) 2 gm in 50 mls @ 50 mls/hr IVPB ONCE ONE Lisinopril (Prinivil Tab*) 20 mg PO DAILY BALA Ondansetron HCl (Zofran Inj*) 4 mg IV Q4H PRN NAUSEA/VOMITING Prednisone (Deltasone Tab*) 40 mg PO DAILY BALA Senna (Senokot Tab*) 1 tab PO BID PRN CONSTIPATION Vital Signs - 8 hr 12/24/18 12/24/18 12/24/18 03:00 03:09 03:24 Temperature Pulse Rate 93 Respiratory 9 13 8 Rate Blood Pressure 179/72 169/82 (mmHg) O2 Sat by Pulse 95 Oximetry 12/24/18 12/24/18 12/24/18 03:39 03:54 04:00 Temperature Pulse Rate 81 Respiratory 12 11 16 Rate Blood Pressure 168/69 168/98 (mmHg) O2 Sat by Pulse 95 Oximetry 12/24/18 12/24/18 12/24/18 04:09 04:24 04:36 Temperature Pulse Rate 88 Respiratory 10 10 8 Rate Blood Pressure 170/96 190/69 189/78 (mmHg) O2 Sat by Pulse 98 Oximetry 12/24/18 12/24/18 12/24/18 04:39 04:53 05:25 Temperature 100.4 F 99.4 F Pulse Rate 92 91 71 Respiratory 13 20 22 Rate Blood Pressure 170/87 170/87 168/74 (mmHg) O2 Sat by Pulse 97 98 92 Oximetry 12/24/18 12/24/18 08:00 08:25 Temperature Pulse Rate Respiratory 18 18 Rate Blood Pressure (mmHg) O2 Sat by Pulse 92 Oximetry Oxygen Devices in Use Now: None Appearance: Elderly male laying in bed in NAD Eyes: No Scleral Icterus Ears/Nose/Mouth/Throat: Mucous Membranes Moist Neck: NL Appearance and Movements; NL JVP, Trachea Midline Respiratory: Symmetrical Chest Expansion and Respiratory Effort, - - Coarse crackles bilat bases, otherwise clear Cardiovascular: NL Sounds; No Murmurs; No JVD, RRR Abdominal: NL Sounds; No Tenderness; No Distention Skin: No Rash or Ulcers Neurological: Alert and Oriented x 3 Lines/Tubes/Other Access: Clean, Dry and Intact Peripheral IV Nutrition: Taking PO's Result Diagrams: 12/25/18 06:20 12/25/18 06:20 Assess/Plan/Problems-Billing Assessment: Mr. Ambriz is a 78 yo M with PMH of HTN, afib, PAD, DM, CKD, CVA, cerebral aneurysm, and carotid stenosis; who presented to the ED with c/o SOB and was found to have pneumonia, now with elevated troponins. - Patient Problems (1) Community acquired pneumonia Code(s): J18.9 - PNEUMONIA, UNSPECIFIED ORGANISM Comment: - Presented with SOB and cough, symptoms occurring over the last month and failing outpatient treatment with amoxicillin - CTA shows bronchial wall thickening in lower lobes consistent with infection/ inflammation and severe emphysema - Negative Strep pneumonia and legionella urine antigens - Continue ceftriaxone, azithromycin (2) COPD exacerbation Code(s): J44.1 - CHRONIC OBSTRUCTIVE PULMONARY DISEASE W (ACUTE) EXACERBATION Comment: - Secondary to pneumonia - No past history of COPD, but CTA shows severe emphysema - Distant smoking history >40 years ago and occupational exposure to asbestos - Will need outpatient follow up for formal diagnosis with PFTs - Continue prednisone (3) Elevated troponin Code(s): R79.89 - OTHER SPECIFIED ABNORMAL FINDINGS OF BLOOD CHEMISTRY Comment : - Asymptomatic - Peaked at 0.82 - Questionable T wave changes on EKG - Appreciate Cardiology consult (4) Sepsis Comment: - Resolved - Met criteria on admission with fever, tachycardia, tachypnea; source is pneumonia - Plan as above (5) Hypertension Code(s): I10 - ESSENTIAL (PRIMARY) HYPERTENSION Comment: - Hypertensive - Increase lisinopril and amlodipine; add PRN hydralazine; resume furosemide (6) Abnormal CT scan of lung Code(s): R91.8 - OTHER NONSPECIFIC ABNORMAL FINDING OF LUNG FIELD Comment: - 2.4cm right lobe thyroid nodule will need outpatient f/u with US - 5.7mm RLL lung nodule will need repeat CT in 6-12mo - These results and follow ups were discussed with the patient and his family (7) Diabetes Code(s): E11.9 - TYPE 2 DIABETES MELLITUS WITHOUT COMPLICATIONS Comment: - Poor glucose control in the setting of steroids - Hold metformin - Start Lispro SS (8) Atrial fibrillation Code(s): I48.91 - UNSPECIFIED ATRIAL FIBRILLATION Comment: - Rate controlled - Continue Eliquis (9) History of CVA (cerebrovascular accident) Code(s): Z86.73 - PRSNL HX OF TIA (TIA), AND CEREB INFRC W/O RESID DEFICITS Comment: - Continue Eliquis, Plavix (10) DVT prophylaxis Code(s): Z29.9 - ENCOUNTER FOR PROPHYLACTIC MEASURES, UNSPECIFIED Comment: - Eliquis (11) Full code status Code(s): Z78.9 - OTHER SPECIFIED HEALTH STATUS Comment: Status and Disposition: Inpatient. Anticipate d/c home when medically stable. Attending: Selene Forbes
[2018-12-24] MEDS: Clopidogrel TAB* 75 MG PO SCH (11:40)
[2018-12-24 11:42] LABS: Troponin I 0.77 ng/mL (<0.04)
--- NOTE | 2018-12-24 14:04 | ECHO ---
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 CVA. History: Chest pain. Murmur. Atrial fibrillation. Risk factors: Diabetes mellitus. Conclusions Summary: 1. Left ventricle: The cavity size is normal. Wall thickness is moderately increased. Systolic function is normal. The estimated ejection fraction is 55-60%. Wall motion is normal; there are no regional wall motion abnormalities. 2. Mitral valve: There is trivial regurgitation. 3. Aortic valve: There is no evidence of stenosis. 4. Tricuspid valve: There is mild-moderate regurgitation. 5. Pulmonary arteries: Systolic pressure is mildly increased, estimated to be 40 mm Hg. The peak pressure during systole by Doppler is 40.0 mm Hg. 6. Compared to study of 08/30/18, there is little change. Study data: Transthoracic echocardiogram. Procedure: Transthoracic echocardiography was performed. Image quality was good. Complete 2D, spectral Doppler, and color flow Doppler. Patient status: Inpatient. Patient room number: 419-2. Rhythm: Atrial fibrillation. Findings Left ventricle: The cavity size is normal. Wall thickness is moderately increased. Systolic function is normal. The estimated ejection fraction is 55-60%. Wall motion is normal; there are no regional wall motion abnormalities. Left ventricular diastolic function parameters are indeterminate. Right ventricle: Well visualized. The cavity size is normal. Wall thickness is normal. Systolic function is normal. Ventricular septum: Well visualized. Left atrium: Well visualized. The atrium is moderately dilated. Right atrium: Well visualized. The atrium is mildly dilated. Atrial septum: Well visualized. No defect or patent foramen ovale is identified. Mitral valve: Well visualized. The leaflets are mildly thickened. No echocardiographic evidence for prolapse. There is no evidence of stenosis. There is trivial regurgitation. Aortic valve: Well visualized. The valve is trileaflet. The leaflets are normal thickness. There is no evidence of stenosis. There is no significant regurgitation. Tricuspid valve: Well visualized. The leaflets are normal thickness. There is no evidence of stenosis. There is mild-moderate regurgitation. Pulmonic valve: Well visualized. The leaflets are normal thickness. There is no evidence of stenosis. There is trivial regurgitation. Aorta: The aorta is well visualized and normal size. Aortic arch: The aortic arch is appears normal. The aortic root is not dilated. Pericardium: There is no pericardial effusion. No evidence of pleural fluid accumulation. Pulmonary arteries: Well visualized. Systolic pressure is mildly increased, estimated to be 40 mm Hg. Systemic veins: Not well visualized. Measurements Left ventricle Value Ref Aortic valve Value Ref KENYA, LAX (L) 4.1 cm 4.2 - Andria diam, ED 2.2 cm ----- 5.8 Andria diam/bsa, ED 1.2 cm/m^2 ----- ESD, LAX 2.8 cm 2.5 - Peak v, S 1.07 m/sec ----- 4.0 VTI, S 15.4 cm ----- FS, LAX 33 % 25 - 43 Mean grad, S 1.0 mm Hg ----- PW, ED, LAX (H) 1.7 cm 0.6 - Peak grad, S 5.0 mm Hg ----- 1.0 FS 33 % 25 - 43 Mitral valve Value Ref Mid-wall FS 9 % -------- Peak E 1.17 m/sec ----- PW, ED (H) 1.7 cm 0.6 - Decel time 219 ms ----- 1.0 Peak grad, D 5.5 mm Hg ----- PW/ID, ED 0.41 -------- E', lat andria, TDI (L) 9.8 cm/sec >=10.0 Pulmonic valve Value Re f E/e', lat andria, TDI 12 -------- Peak v, S 0.93 m/sec ----- E', med andria, TDI 10.3 cm/sec >=7.0 Peak grad, S 3.0 mm Hg -- --- E/e', med andria, TDI 11 -------- E', avg, TDI 10.1 cm/sec -------- Tricuspid valve Value Ref E/e', avg, TDI 12 <=14 TR peak v (H) 3.16 m/sec &l t;=2.8 Peak RV-RA grad, S 40 mm Hg ----- LVOT Value Ref Max TR stevo 3.35 m/sec ----- Peak stevo, S 0.89 m/sec -------- Mean grad, S 1 mm Hg -------- Aortic root Value Ref Root diam 3.2 cm <4.0 Ventricular septum Value Ref Root max diam, ED 3.2 cm <4.0 IVS, ED (H) 1.5 cm 0.6 - 1.0 Ascending aorta Value Ref AAo AP diam, S 3.2 cm ----- Right ventricle Value Ref AAo AP diam/bsa, S 1.7 cm/m^2 ----- KENYA, LAX 3.6 cm -------- KENYA minor ax, A4C (H) 3.6 cm 1.9 - Aortic arch Value Ref mid 3.5 Arch diam 2.8 cm ----- Pressure, S 43 mm Hg -------- Decending aorta Value Ref Left atrium Value Ref Gurvinder peak stevo 0.37 m/sec ----- ML dim, A4C 5.0 cm -------- SI dim, A4C 7.2 cm -------- Pulmonary artery Value Ref Vol/bsa, ES, 1-p (H) 57 ml/m^2 12 - 37 Pressure, S 40.0 mm Hg ----- A4C Vol/bsa, ES, A/L (H) 48 ml/m^2 16 - 34 Inferior vena cava Value Ref Diam 1.8 cm ----- Right atrium Value Ref SI dim, ES (H) 6.4 cm 3.4 - 5.3 ML dim, ES, A4C 4.4 cm 2.6 - 4.4 SI dim, ES, A4C (H) 6.4 cm 3.4 - 5.3 SI dim/bsa, ES, A4C (H) 3.4 cm/m^2 1.8 - 3.0 Estimated RAP 3 mm Hg -------- Legend: (L) and (H) nader values outside specified reference range. Prepared and electronically signed by Zaki Macias MD 12/24/2018 14:03
[2018-12-24 14:15] LABS: Troponin I 0.82 ng/mL (<0.04)
[2018-12-24] MEDS ORDERED: hydrALAZINE IV* 20 MG/ML VIAL IV SLOW PU PRN (16:12)
[2018-12-24 17:14] LABS: Troponin I 0.67 ng/mL (<0.04)
[2018-12-24] MEDS: Famotidine TAB* 20 MG PO PRN (18:18)
[2018-12-24] MEDS: cefTRIAXone(*) 1 GM in NS 0.9% 50 ML* 50 ML IVPB SCH (19:51)
[2018-12-24] MEDS ORDERED: Dextrose 50% Syringe 50 ML* 25 GM/50 ML SYRINGE IV PUSH PRN (21:14)
[2018-12-24] MEDS ORDERED: Lisinopril TAB* 10 MG PO ONE (21:15)
[2018-12-24] MEDS: Azithromycin IV(*) 250 MG in NS 0.9% 250 ML* 250 ML IVPB SCH (22:21)
[2018-12-25] MEDS: hydrALAZINE IV* 20 MG/ML VIAL IV SLOW PU PRN ×2 (04:02→11:40)
[2018-12-25 07:08] LABS: ABS Lymphocytes 1.5 10^3/ul (1.0-4.8); ABS Monocytes 1.1 10^3/ul (0-0.8); ABS Neutrophils 12.7 10^3/ul (1.5-7.7); Eosinophil % 0.2 %; Hematocrit 36 % (42-52); Hemoglobin 12.3 g/dL (14.0-18.0); Lymphocyte % 9.7 %; Mean Corpuscular HGB Conc 34 g/dL (31-36); Mean Corpuscular Hemoglobin 30 pg (27-31); Mean Corpuscular Volume 89 fL (80-94); Mean Platelet Volume 8.8 fL (7.4-10.4); Platelet Count 188 10^3/uL (150-450); Red Blood Count 4.06 10^6 /uL (4.18-5.48); Red Cell Distribution Width 14 % (10.5-15); White Blood Count 15.4 10^3/uL (3.5-10.8)
[2018-12-25 07:20] LABS: BUN/Creatinine Ratio 23.2 (8-20); EGFR African American 76.9 (>60); EGFR Non-African American 63.6 (>60); Potassium 3.8 mmol/L (3.5-5.0)
[2018-12-25] MEDS: Insulin LISPRO* 1 UNITS UNIT SUBCUT SCH ×4 (07:56→21:30)
[2018-12-25] MEDS: Apixaban* 5 MG TAB PO SCH ×2 (08:17→21:31)
[2018-12-25] MEDS: amLODIPine TAB* 5 MG PO SCH ×2 (08:17→21:31)
[2018-12-25] MEDS: predniSONE TAB* 20 MG PO SCH (08:17)
[2018-12-25] MEDS ORDERED: Lisinopril TAB* 10 MG PO SCH (09:00)
[2018-12-25] MEDS ORDERED: Furosemide TAB* 40 MG PO SCH (09:00)
[2018-12-25] MEDS ORDERED: Aminophylline IV* 25 MG/ML 10 ML VIAL ONE (09:17)
[2018-12-25] MEDS ORDERED: Regadenoson* 0.4 MG/5 ML SYRINGE ONE (09:17)
[2018-12-25] MEDS: Clopidogrel TAB* 75 MG PO SCH (11:34)
[2018-12-25] MEDS: Lactated Ringers 1000 ML Bag* 1,000 ML IV SCH ×2 (11:40→21:24)
[2018-12-25] MEDS: Hydrocodone/Acetamin 10/325 1 TAB PO PRN (11:56)
--- NOTE | 2018-12-25 15:04 | PN ---
Subjective Date of Service: 12/25/18 Interval History: Mr. Ambriz is feeling ok today. He has had a headache most of the morning which is constant, 7/10. No relieved by Tylenol or [place]. He denies SOB. Occasional cough which is improving. No CP at rest, though did have some CP during his stress test. Denies N/V. Appetite is good. Nursing reports continued hypertension and headache despite medication. Tele: Afib in the 70-80s. Family History: Unchanged from Admission Social History: Unchanged from Admission Past Medical History: Unchanged from Admission Objective Active Medications: Acetaminophen (Tylenol Tab*) 650 mg PO Q4H PRN FEVER/PAIN Hydrocodone Bitart/Acetaminophen ([place] 10/325 (Nf)) 2 tab PO Q4HR PRN PAIN Al Hydrox/Mg Hydrox/Simethicone (Maalox Plus*) 30 ml PO Q6H PRN INDIGESTION Amlodipine Besylate (Norvasc Tab*) 10 mg PO BID BALA Apixaban (Eliquis*) 5 mg PO BID BALA Clopidogrel Bisulfate (Plavix Tab*) 75 mg PO 1200 BALA Dextrose (D50w Syringe 50 Ml*) 12.5 gm IV PUSH .FOR FS < 60 - SS PRN FS < 60 Docusate Sodium (Colace Cap*) 100 mg PO BID PRN CONSTIPATION Ezetimibe (Zetia Tab*) 10 mg PO 1700 BALA Famotidine (Pepcid Tab*) 20 mg PO DAILY PRN; Protocol HEARTBURN Furosemide (Lasix Tab*) 40 mg PO DAILY BALA Hydralazine HCl (Apresoline Iv*) 10 mg IV SLOW PU Q4HR PRN BLOOD PRESSURE Azithromycin 250 mg/ Sodium (Chloride) 250 mls @ 250 mls/hr IVPB Q24H [facility] Ceftriaxone Sodium 1 gm/ (Sodium Chloride) 50 mls @ 200 mls/hr IVPB Q24H [facility] Lactated Ringer's (Lactated Ringers 1000 Ml Bag*) 1,000 mls @ 100 mls/hr IV PER RATE [facility] Insulin Human Lispro (Humalog*) 0 units SUBCUT ACHS BALA; Protocol Lisinopril (Prinivil Tab*) 30 mg PO DAILY [facility] Metoprolol Tartrate (Lopressor Tab*) 12.5 mg PO Q12HR BALA Ondansetron HCl (Zofran Inj*) 4 mg IV Q4H PRN NAUSEA/VOMITING Prednisone (Deltasone Tab*) 40 mg PO DAILY BALA Senna (Senokot Tab*) 1 tab PO BID PRN CONSTIPATION Vital Signs - 8 hr 12/25/18 12/25/18 12/25/18 07:45 08:18 09:09 Temperature 98.2 F Pulse Rate 81 Respiratory 20 20 Rate Blood Pressure 188/80 (mmHg) O2 Sat by Pulse 98 98 Oximetry 12/25/18 12/25/18 12/25/18 11:27 11:56 14:25 Temperature 97.5 F Pulse Rate 65 Respiratory 19 18 16 Rate Blood Pressure 185/80 (mmHg) O2 Sat by Pulse 99 Oximetry 12/25/18 14:55 Temperature Pulse Rate Respiratory Rate Blood Pressure 175/60 (mmHg) O2 Sat by Pulse Oximetry Oxygen Devices in Use Now: None Appearance: Elderly male laying in bed in NAD Eyes: No Scleral Icterus Ears/Nose/Mouth/Throat: Mucous Membranes Moist Neck: NL Appearance and Movements; NL JVP, Trachea Midline Respiratory: Symmetrical Chest Expansion and Respiratory Effort, Clear to Auscultation Cardiovascular: NL Sounds; No Murmurs; No JVD, - - Irregular rhythm Abdominal: NL Sounds; No Tenderness; No Distention Extremities: No Edema Skin: No Rash or Ulcers Neurological: Alert and Oriented x 3 Lines/Tubes/Other Access: Clean, Dry and Intact Peripheral IV Nutrition: Taking PO's Result Diagrams: 12/25/18 06:20 12/25/18 06:20 Assess/Plan/Problems-Billing Assessment: Mr. Ambriz is a 78 yo M with PMH of HTN, afib, PAD, DM, CKD, CVA, cerebral aneurysm, and carotid stenosis; who presented to the ED with c/o SOB and was found to have pneumonia, now with elevated troponins. - Patient Problems (1) Community acquired pneumonia Code(s): J18.9 - PNEUMONIA, UNSPECIFIED ORGANISM Comment: - Presented with SOB and cough, symptoms occurring over the last month and failing outpatient treatment with amoxicillin - CTA shows bronchial wall thickening in lower lobes consistent with infection/ inflammation and severe emphysema - Negative Strep pneumonia and legionella urine antigens - Continue ceftriaxone, azithromycin (2) COPD exacerbation Code(s): J44.1 - CHRONIC OBSTRUCTIVE PULMONARY DISEASE W (ACUTE) EXACERBATION Comment: - Secondary to pneumonia - No past history of COPD, but CTA shows severe emphysema - Distant smoking history >40 years ago and occupational exposure to asbestos - Will need outpatient follow up for formal diagnosis with PFTs - Continue prednisone (3) Elevated troponin Code(s): R79.89 - OTHER SPECIFIED ABNORMAL FINDINGS OF BLOOD CHEMISTRY Comment : - Asymptomatic - Peaked at 0.82 - Questionable T wave changes on EKG - Stress test today shows small area of reversible hypoperfusion, but low risk - Appreciate Cardiology consult; no plan for intervention at this time d/t very complex medical picture but will need close outpatient follow up - Start metoprolol per Cardiology (4) Abdominal bruit Code(s): R09.89 - OTH SYMPTOMS AND SIGNS INVOLVING THE CIRC AND RESP SYSTEMS Comment: - Noted on exam today - Renal artery stenosis may be contributing factor to HTN - Renal US tomorrow (5) Sepsis Comment: - Resolved - Met criteria on admission with fever, tachycardia, tachypnea; source is pneumonia - Plan as above (6) Hypertension Code(s): I10 - ESSENTIAL (PRIMARY) HYPERTENSION Comment: - Hypertensive - Continue lisinopril, amlodipine, hydralazine, furosemide; add metoprolol per Cardiology (7) Abnormal CT scan of lung Code(s): R91.8 - OTHER NONSPECIFIC ABNORMAL FINDING OF LUNG FIELD Comment: - 2.4cm right lobe thyroid nodule will need outpatient f/u with US - 5.7mm RLL lung nodule will need repeat CT in 6-12mo - These results and follow ups were discussed with the patient and his family (8) Atrial fibrillation Code(s): I48.91 - UNSPECIFIED ATRIAL FIBRILLATION Comment: - Rate controlled - Continue Eliquis; start metoprolol (9) Diabetes Code(s): E11.9 - TYPE 2 DIABETES MELLITUS WITHOUT COMPLICATIONS Comment: - Poor glucose control in the setting of steroids - Hold metformin - Contiune Lispro SS (10) History of CVA (cerebrovascular accident) Code(s): Z86.73 - PRSNL HX OF TIA (TIA), AND CEREB INFRC W/O RESID DEFICITS Comment: - Continue Eliquis, Plavix; start Zetia per Cardiology (11) DVT prophylaxis Code(s): Z29.9 - ENCOUNTER FOR PROPHYLACTIC MEASURES, UNSPECIFIED Comment: - Eliquis (12) Full code status Code(s): Z78.9 - OTHER SPECIFIED HEALTH STATUS Comment: Status and Disposition: Inpatient. Anticipate d/c home when medically stable, timeframe unknown. Attending: Meg Matos
[2018-12-25] MEDS ORDERED: Metoprolol Tartrate IV* 1 MG/ML 5 ML VIAL IV PRN (15:05)
--- NOTE | 2018-12-25 16:40 | CONS ---
CONSULTATION REPORT: DATE OF CONSULT: 12/25/18 PRIMARY ATTENDING [place]: Dr. Zaki Macias.* (DICTATED BY TY SEBASTIAN NP) PRIMARY NEUROLOGIST: Dr. Wolff. PRIMARY NEUROSURGEON: Dr. Trujillo, [place], [place]. CHIEF COMPLAINT: Sudden onset dyspnea with chills and diaphoresis. HISTORY OF PRESENT ILLNESS: This is a pleasant 78-year-old male patient who follows Dr. Macias of our practice due to notable history of paroxysmal AFib, hypertension, diabetes mellitus, prior right carotid endarterectomy with multiple prior cerebral events. He has known vertebral artery occlusion on the left side and stenosis involving the right vertebral artery with known moderate 50% to 69% stenosis involving the left internal carotid artery. He states that in October 2018, he was treated for pneumonia with a course of antibiotic therapy by his primary physician. He added that symptoms resolved and he was doing well up until Monday. He states on Monday while at a mud race, apparently he developed chills and diaphoresis. He went home, had a second episode around 3: 30 p.m. with associated shortness of breath. Upon further review of symptomatology, he reports new onset dyspnea on exertion that has been progressive in regards to severity over the course of 6 months. He adds that in the past month he had not even been able to ambulate to his garage without stopping due to dyspnea on exertion. He denies chest pain. While being evaluated in the emergency department on 12/23/18, according to emergency room medical records, his temperature was 100.9, pulse of 106, blood pressure of 179/ 24. He had basic blood work drawn. Troponin was elevated at 0.05. It peaked at 0.82 on 12/24/18. White blood cell count was initially normal, however, today at 15.4. His influenza A and B rapid screens were negative. He underwent chest and thoracic CTA on 12/23/18, which was negative for pulmonary embolism or aortic dissection. There was a 2.4 cm nodule involving the right lobe of thyroid, in addition there was severe emphysema with upper lobe prominence. A 5.7 mm indeterminant pulmonary nodule superior segment of the right lower lobe per radiology report. Venous Doppler of left lower extremity was negative for DVT. The patient was admitted to telemetry and we were asked to see the patient in consultation due to troponin elevation. The patient has been hypertensive during hospital stay. Most recent blood pressure was 188/80. He underwent Lexiscan nuclear stress test this morning. He had baseline ECG changes that were exacerbated with administration of regadenoson. The patient did develop complaints of chest pain that warranted 50 mg of aminophylline. Myocardial perfusion imaging is pending at this time. Again, he denies any history of prior chest pain, predominantly new onset progressive dyspnea on exertion with sudden onset of chills, diaphoresis, and shortness of breath on . Denies recent cough, sputum production, nausea, vomiting or diarrhea. Last echocardiogram according to our medical records is 12/24/18. At that time , LVEF was 55% to 60%. No regional wall motion abnormalities per report. There was [id number] tricuspid regurgitation, no aortic stenosis, trivial mitral insufficiency, right ventricular systolic pressure was 40 mmHg. In regards to prior ischemic evaluation, he states remotely he had a stress test; however, more than up to 10 years ago. The patient has been in AFib with rapid ventricular rate, but denies palpitations or sensation of heart racing. PAST MEDICAL HISTORY: Notable for: 1. Hypertension. 2. Diabetes. 3. Ulcerative colitis. 4. PE after hip fracture in 1986. 5. Chronic kidney disease, stage 3. 6. 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 7. Carotid artery stenosis. 8. Cerebral aneurysm. 9. Paroxysmal AFib. PAST SURGICAL HISTORY: 1. Right carotid endarterectomy. 2. Intracranial, vertebral artery stenting. HOME MEDICATIONS: According to initial medical records: 1. Aldactone 12.5 mg a day. 2. Lasix 40 mg a day. 3. Norvasc 5 mg b.i.d. 4. Quinapril 20 mg b.i.d. 5. Plavix 75 mg daily. 6. Metformin 500 mg 4 times a day. 7. Eliquis 5 mg p.o. b.i.d. 8. Ranitidine 150 mg daily p.r.n. 9. Lortab 10/325 mg tablet q.4 h. p.r.n. ALLERGIES: Include: 1. LIPITOR, which causes myalgias. 2. CRESTOR, myalgias. FAMILY HISTORY: Noncontributory. SOCIAL HISTORY: The patient is a former tobacco user that quit at age 31. 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 He is , lives at home with his , denies alcohol or drug use. He remains active at home although he admits that due to new onset dyspnea on exertion, he has been more sedentary than usual and is unable to ambulate to his garage without stopping due to dyspnea. REVIEW OF SYSTEMS: All systems have been reviewed and otherwise negative except as mentioned in the HPI. PHYSICAL EXAM: Temperature 98.2, pulse 81, respirations 20, oxygenation 98% on room air, blood pressure 188/80. General: The patient is lying in bed in [facility] upon entering the room, had just completed regadenoson stress ECG. He was diaphoretic, slightly tachypneic and had been reporting chest pain is improving since the administration of regadenoson. HEENT: Head is atraumatic and normocephalic. Oral mucosa is moist. Tongue is midline. Neck: Supple. Trachea midline. Positive left carotid bruit. No thyromegaly noted on exam. Cardiac: Normal S1 and S2. irregular rate and rhythm. No murmur, rub or gallop noted. Lungs: Auscultated posteriorly, no evidence of adventitious breath sounds. Respirations nonlabored at a rate of 20. /GI: Abdomen is soft , nontender. Normoactive bowel sounds x4. There is a positive right renal artery bruit on exam. Extremities: No pedal edema, no clubbing, no cyanosis. Peripheral Vascular: 2+ brachial and dorsalis pedis pulses palpated bilaterally and symmetrically. Neuro: No focal neuro deficits noted. I state this because he was complaining of a headache although again this is after administration of regadenoson. DIAGNOSTIC STUDIES/LAB DATA: Blood work obtained at [facility]. CBC on 12/25/18: White count 15.4, hemoglobin 12.3, hematocrit 36, platelets 188. INR on 12/23/18, 1.27. On 12/25/18, BMP: Sodium 136, potassium 3.8, chloride 105, carbon dioxide 21, BUN 10, creatinine 1.1, glucose 141. Again troponin peaked on 12/24/18 at 0.82. TSH was 0.86 on 12/23/18. C-reactive protein was normal on 12/23/18. ECG reviewed on 12/24/18, EKG reveals AFib, heart rate 99. There is lateral minimal ST segment depression with T-wave inversion; however, upon review of prior ECGs, it appears that the patient has known lateral T-wave inversion. Lexiscan nuclear stress test pending. ASSESSMENT AND PLAN: 1. Troponinemia with complaints of new onset dyspnea on exertion that has been accelerating over the past 6 months, now occurring with activities that he used to be able to tolerate, such as ambulating to his garage. He denies chest pain. On 12/23/18, he presented due to weakness with diaphoresis and shortness of breath. He had a temperature of 100.6. Troponin peaked at 0.82 on 12/24/18. EKG does not reveal acute changes. He has known lateral T-wave inversion upon review of prior ECGs. The patient did have concerning regadenoson stress ECG today with complaints of chest pain and further progression of baseline abnormalities. We will await myocardial perfusion imaging as a final ischemic interpretation. Recommend continuing clopidogrel therapy. The patient has been hypertensive with AFib with poor rate control. We will add Lopressor 12.5 mg p.o. b.i.d. Please note that during his prior hospitalization in August 2018, he had a period of tachybrady syndrome with a 3.4-second pause. He will need to be monitored closely on telemetry. We will make formal recommendations after MPI is available and follow closely. He is currently asymptomatic, chest pain resolved prior to leaving the stress lab. 2. History of paroxysmal atrial fibrillation. CHADS-VASc score of 7. On Eliquis 5 mg p.o. b.i.d. We will add Lopressor 12.5 mg p.o. b.i.d. and monitor closely. 3. Resistant hypertension. Amlodipine and lisinopril have been uptitrated. The patient has positive renal artery bruit on physical examination. We will update renal Duplex, add Lopressor and follow closely. 4. History of multiple cerebrovascular accidents with statin intolerance. Recommend LDL less than 70. It is unclear whether or not the patient has been on Zetia therapy. There has been mortality reduction in patients with cerebrovascular events on Zetia therapy, plus we would recommend 10 mg a day if the patient is agreeable. 5. Disposition. Pending course. Dr. Zaki Macias has personally seen and examined the patient and agrees with the above assessment and plan. Thank you for this kind consultation. We will follow the patient closely. Add Lopressor therapy and await for myocardial perfusion imaging and renal Duplex. TY SEBASTIAN NP [id number]/[facility] #: [id number] RAY
--- NOTE | 2018-12-25 17:13 | CONS ---
CC: Dr. Joaquin * CONSULTATION REPORT: DATE OF CONSULT: 12/25/18 INDICATION FOR CONSULTATION: AFib, shortness of breath, positive troponins. HISTORY OF PRESENT ILLNESS: Please see Raisa Landin, nurse practitioner's full consultation for details of the patient's presentation, past medical history, and physical exam. The patient has a history of chronic atrial fibrillation, history of severe peripheral vascular disease with carotid endarterectomy in the past. He was admitted to the hospital with shortness of breath and chest pain. The patient was diagnosed with pneumonia. He was also noted to have elevated troponin levels, maximum troponin was 0.8. The patient underwent an echocardiogram, which showed essentially normal LV systolic function, no significant valvular abnormalities, mild pulmonary hypertension. The patient underwent a chemical nuclear stress test, which did show a moderate area of ischemia to his inferolateral wall with normal LV function and a normal TID. IMPRESSION AND PLAN: After full review of his cardiac status, cardiac testing and lab work, it is my recommendation that the patient be continued on maximal medical therapy. I think it is highly likely that the patient does have coronary artery disease given his history of peripheral vascular disease. At this point, I do not think it is warranted to pursue cardiac catheterization as it is a high risk procedure in this patient. The patient is scheduled for a renal artery ultrasound due to a bruit that was heard on exam. The patient is already on appropriate medications as an outpatient. The patient is on Eliquis, Plavix, MULUGETA inhibitor, diuretics. The patient will be started on low-dose beta-blockers here in the hospital with close observation of his heart rate. In the past, the patient had been somewhat intolerant of AV regina agents because of bradycardia. Further recommendations after his renal ultrasound. The patient is hypertensive, blood pressure of 170/90. The patient may benefit from adding an ARB on top of his MULGUETA inhibitor for control of his blood pressure. We will be glad to see the patient in followup as an outpatient. [id number]/[facility] #: [id number] RAY
[2018-12-25] MEDS: Ezetimibe TAB* 10 MG PO SCH (17:47)
[2018-12-25] MEDS ORDERED: Metoprolol Tartrate TAB* 25 MG PO SCH (21:00)
[2018-12-25] MEDS: cefTRIAXone(*) 1 GM in NS 0.9% 50 ML* 50 ML IVPB SCH (21:25)
[2018-12-25] MEDS: Azithromycin IV(*) 250 MG in NS 0.9% 250 ML* 250 ML IVPB SCH (22:12)
[2018-12-25] MEDS: Famotidine TAB* 20 MG PO PRN (22:22)
[2018-12-26] MEDS: hydrALAZINE IV* 20 MG/ML VIAL IV SLOW PU PRN (03:40)
[2018-12-26] MEDS: Hydrocodone/Acetamin 10/325 1 TAB PO PRN ×2 (06:23→10:42)
[2018-12-26 06:54] LABS: ABS Lymphocytes 1.6 10^3/ul (1.0-4.8); ABS Neutrophils 14.2 10^3/ul (1.5-7.7); Eosinophil % 0.2 %; Hematocrit 39 % (42-52); Hemoglobin 12.7 g/dL (14.0-18.0); Lymphocyte % 9.6 %; Mean Corpuscular HGB Conc 33 g/dL (31-36); Mean Corpuscular Hemoglobin 30 pg (27-31); Mean Corpuscular Volume 91 fL (80-94); Platelet Count 229 10^3/uL (150-450); Red Cell Distribution Width 15 % (10.5-15); White Blood Count 16.8 10^3/uL (3.5-10.8)
[2018-12-26 07:01] LABS: BUN/Creatinine Ratio 20.2 (8-20); Calcium 9.8 mg/dL (8.6-10.3); EGFR African American 83.8 (>60); EGFR Non-African American 69.3 (>60); Potassium 3.4 mmol/L (3.5-5.0)
[2018-12-26] MEDS: Insulin LISPRO* 1 UNITS UNIT SUBCUT SCH ×4 (07:43→20:52)
[2018-12-26] MEDS ORDERED: Potassium Chlor TAB* 20 MEQ TAB.ER PO ONE (08:17)
--- NOTE | 2018-12-26 08:34 | PN ---
<Raisa Landin - Last Filed: 12/26/18 13:17> Subjective Date of Service: 12/26/18 - Abnormal stress test, troponin elevation, PNA Interval History: Patient states he did not sleep well last night due to environmental noise. He denies chest pain, dizziness, palpitations or sensation of heart racing. He continues to report ongoing headache( frontal) that is constant in nature described as " sharp" . Denies changes in vision, weakness, speech abnormalities. His daughter is at his bedside. He has a specimen container filled with clear-thick brown sputum. He now reports + productive cough. He offers no other complaints at this time. Medications Active Medications: Acetaminophen (Tylenol Tab*) 650 mg PO Q4H PRN PRN Reason: FEVER/PAIN Last Admin: 12/25/18 07:40 Dose: 650 mg Hydrocodone Bitart/Acetaminophen ([place]ill[place] 10/325 (Nf)) 2 tab PO Q4HR PRN PRN Reason: PAIN Last Admin: 12/26/18 06:23 Dose: 2 tab Al Hydrox/Mg Hydrox/Simethicone (Maalox Plus*) 30 ml PO Q6H PRN PRN Reason: INDIGESTION Amlodipine Besylate (Norvasc Tab*) 10 mg PO DAILY [facility] Apixaban (Eliquis*) 5 mg PO BID [facility] Last Admin: 12/25/18 21:31 Dose: 5 mg Clopidogrel Bisulfate (Plavix Tab*) 75 mg PO 1200 [facility] Last Admin: 12/25/18 11:34 Dose: 75 mg Dextrose (D50w Syringe 50 Ml*) 12.5 gm IV PUSH .FOR FS < 60 - SS PRN PRN Reason: FS < 60 Docusate Sodium (Colace Cap*) 100 mg PO BID PRN PRN Reason: CONSTIPATION Ezetimibe (Zetia Tab*) 10 mg PO 1700 [facility] Last Admin: 12/25/18 17:47 Dose: 10 mg Famotidine (Pepcid Tab*) 20 mg PO DAILY PRN; Protocol PRN Reason: HEARTBURN Last Admin: 12/25/18 22:22 Dose: 20 mg Hydralazine HCl (Apresoline Iv*) 10 mg IV SLOW PU Q4HR PRN PRN Reason: BLOOD PRESSURE Last Admin: 12/26/18 03:40 Dose: 10 mg Azithromycin 250 mg/ Sodium (Chloride) 250 mls @ 250 mls/hr IVPB Q24H [facility] Last Admin: 12/25/18 22:12 Dose: 250 mls/hr Ceftriaxone Sodium 1 gm/ (Sodium Chloride) 50 mls @ 200 mls/hr IVPB Q24H [facility] Last Admin: 12/25/18 21:25 Dose: 200 mls/hr Lactated Ringer's (Lactated Ringers 1000 Ml Bag*) 1,000 mls @ 100 mls/hr IV PER RATE [facility] Last Admin: 12/25/18 21:24 Dose: 100 mls/hr Insulin Human Lispro (Humalog*) 0 units SUBCUT ACHS [facility]; Protocol Last Admin: 12/26/18 07:43 Dose: Not Given Lisinopril (Prinivil Tab*) 40 mg PO DAILY [facility] Metoprolol Tartrate (Lopressor Iv*) 5 mg IV Q6H PRN PRN Reason: Systolic Bp Greater Than: 170 Metoprolol Tartrate (Lopressor Tab*) 25 mg PO DAILY [facility] Metoprolol Tartrate (Lopressor Tab*) 12.5 mg PO DAILY [facility] Ondansetron HCl (Zofran Inj*) 4 mg IV Q4H PRN PRN Reason: NAUSEA/VOMITING Pravastatin Sodium (Pravachol (Nf)) 40 mg PO DAILY [facility]; Protocol Prednisone (Deltasone Tab*) 40 mg PO DAILY [facility] Last Admin: 12/25/18 08:17 Dose: 40 mg Senna (Senokot Tab*) 1 tab PO BID PRN PRN Reason: CONSTIPATION Objective Vital Signs: Temp Pulse Resp BP Pulse Ox 99.1 F 94 18 182/72 98 12/26/18 07:45 12/26/18 07:45 12/26/18 07:45 12/26/18 07:45 12/26/18 07:45 Oxygen Devices in Use Now: None Appearance: lying in bed, daughter at bedside. NAD, A+O x3 Ears/Nose/Mouth/Throat: NL Teeth, Lips, Gums, Mucous Membranes Moist Neck: NL Appearance and Movements; NL JVP, Trachea Midline, No Thyroid Enlargement, Masses Respiratory: - - Diminished in right upper lobe otherwise CTA, non labored Cardiovascular: - - Tachycardic S1, S2 Irregular rate and rhythm. No murmur, gallop or rub Abdominal: NL Sounds; No Tenderness; No Distention, No Hepatosplenomegaly Extremities: No Edema Skin: No Rash or Ulcers Neurological: Alert and Oriented x 3 Lines/Tubes/Other Access: Clean, Dry and Intact Peripheral IV Laboratory Results: 12/26/18 06:05 12/26/18 06:05 INR (Anticoag Therapy) 1.27 (0.82-1.09) H 12/23/18 22:20 APTT 36.0 seconds (26.0-38.0) 12/23/18 22:20 Total Bilirubin 0.60 mg/dL (0.2-1.0) 12/23/18 22:20 AST 31 U/L (13-39) 12/23/18 22:20 ALT 16 U/L (7-52) 12/23/18 22:20 Alkaline Phosphatase 61 U/L (34-104) 12/23/18 22:20 Total Protein 7.1 g/dL (6.4-8.9) 12/23/18 22:20 Albumin 4.4 g/dL (3.2-5.2) 12/23/18 22:20 Globulin 2.7 g/dL (2-4) 12/23/18 22:20 Albumin/Globulin Ratio 1.6 (1-3) 12/23/18 22:20 TSH 0.86 mcIU/mL (0.34-5.60) 12/23/18 22:20 12/23/18 12/24/18 12/24/18 22:20 01:47 06:17 Troponin I 0.05 H* 0.33 H* 0.67 H* 12/24/18 12/24/18 12/24/18 11:09 13:38 16:45 Troponin I 0.77 H* 0.82 H* 0.67 H* Laboratory Results - last 24 hr 12/25/18 12/25/18 12/25/18 11:32 16:58 20:33 WBC RBC Hgb Hct MCV MCH MCHC RDW Plt Count MPV Neut % (Auto) Lymph % (Auto) [place] % (Auto) Eos % (Auto) Baso % (Auto) Absolute Neuts (auto) Absolute Lymphs (auto) Absolute Monos (auto) Absolute Eos (auto) Absolute Basos (auto) Absolute Nucleated RBC Nucleated RBC % Sodium Potassium Chloride Carbon Dioxide Anion Gap BUN Creatinine Est GFR ( Amer) Est GFR (Non-Af Amer) BUN/Creatinine Ratio Glucose POC Glucose (mg/dL) 222 H 241 H 310 H Calcium 12/26/18 12/26/18 12/26/18 06:05 06:05 07:36 WBC 16.8 H RBC 4.30 Hgb 12.7 L Hct 39 L MCV 91 MCH 30 MCHC 33 RDW 15 Plt Count 229 MPV 9.0 Neut % (Auto) 84.3 Lymph % (Auto) 9.6 [place] % (Auto) 5.7 Eos % (Auto) 0.2 Baso % (Auto) 0.2 Absolute Neuts (auto) 14.2 H Absolute Lymphs (auto) 1.6 Absolute Monos (auto) 1.0 H Absolute Eos (auto) 0.0 Absolute Basos (auto) 0.0 Absolute Nucleated RBC 0.0 Nucleated RBC % 0.0 Sodium 136 Potassium 3.4 L Chloride 103 Carbon Dioxide 20 L Anion Gap 13 H BUN 21 Creatinine 1.04 Est GFR ( Amer) 83.8 Est GFR (Non-Af Amer) 69.3 BUN/Creatinine Ratio 20.2 H Glucose 124 H POC Glucose (mg/dL) 132 H Calcium 9.8 Diagnostic Imaging: *[facility]* [place] [address] Fax #: [phone] Transthoracic Echocardiogram Patient: Pb, Height: 69 in / Jose Ortiz 175.3 cm : 1940 Weight: 154.7 lb / Study Date: 12/24/2018 70.3 kg Age: 78 BP: 168 / 74 Gender: M BMI/BSA: 22.9 kg/m^2 HR: 73 bpm / 1.85 m^2 *Motion Graphics Designer: * Smita Walton RDCS *Referring Physician: * Evon Mallory *Reading Physician: * Zaki Macias MD Indications: Chest Pain, unspecified. CVA. History: Chest pain. Murmur. Atrial fibrillation. Risk factors: Diabetes mellitus. Conclusions Summary: 1. Left ventricle: The cavity size is normal. Wall thickness is moderately increased. Systolic function is normal. The estimated ejection fraction is 55-60%. Wall motion is normal; there are no regional wall motion abnormalities. 2. Mitral valve: There is trivial regurgitation. 3. Aortic valve: There is no evidence of stenosis. 4. Tricuspid valve: There is mild-moderate regurgitation. 5. Pulmonary arteries: Systolic pressure is mildly increased, estimated to be 40 mm Hg. The peak pressure during systole by Doppler is 40.0 mm Hg. 6. Compared to study of 08/30/18, there is little change. This report is only to be considered final once signed by the Provider(s) as displayed in the "<Electronically Signed by >" field (s). Absence of a signature indicates the report is in a draft status and still needs to be finalized. In the event this document was created by someone other than the signing Provider, the individual initiating the document will be listed in the "Entered by:" or "Dictated by:" martinez. 12/25/2018 Lexiscan stress test; Per report small area of reversible ischemia in apical region with septal hypokinesis. Stress Regadenson portion was concerning for ischemia however baseline abnormalities preclude assessment per report. EKG Data: 12/24/2018; Afib rate 99 with inferior TW flattening and lateral TW depression comparable to prior EKG. isolated PVC. Assessment/Plan #1 Troponinemia with abnormal lexiscan stress test 12/25/2018 + apical ischemia and septal hypokinesis. Troponin peaked on 12/24/2018 at .82. No c/o Chest pain. Retrospectively he informed me over the past 6 months he has had MARKS that has progressed to the point of not being able to ambulate to garage without stopping. He denies ever having chest pain. He did develop chest pain with administration of regadenoson. Patient needs eventual LHC. There will need to be coordination of care with primary neurologist Dr. Wolff. Patient informed me yesterday he had a stroke in Aug 2018. I did review medical records from that time it is not clear that he actually had a stroke. Given eventual need for LHC I set up a f/u with Dr. Trujillo given potential need for DAPT if patient needs cardiac stent ( patient is also on Eliquis). will start Pravastatin 40mg/day, continue Zetia 10mg/day and Lopressor 12.5mg Po BID. #2 h/o PAF; HR has been in 80-110's. Chads Vasc 7 on eliquis 5mg PO BID. During Aug 2018 admission it appears there was a component of SSS with HR ranging from 30-130s with 3.5 second pauses. There has been events since initiation of Lopressor therapy. There was concern for possible hypoperfusion to posterior fossa related to kathryn arrhythmia during 08/2018 admit thus will monitor closely. #3 Uncontrolled HTN; SBP 160-180's. On Lisinopril 30mg/day Norvasc 10mg/ BID, Lopressor 12.5mg Po BID. Will increase Lisinopril to 40mg/day. Decrease Norvasc to 10/day ( Max dose) continue Lopressor 12.5mg PO BID. I was going to increase Lopressor however given concern last admit for symptomatology being related to hypoperfusion from bradyarrythmias will continue Lopressor 12.5mg Po BID and monitor closely. Patient to have renal duplex today r/o DANIEL. #4 PNA; On antibiotics. Rapid flu test negative. Differ to hospitalist. #5 Ongoing c/o headache; no focal neuro deficits. Denies h/o headaches. BP is hypertensive. I increased Lisinopril to 40mg/day. 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 #6 Disposition pending course. Will d/w Dr. Salcido. Attending: Denise Salcido <Denise Salcido - Last Filed: 12/26/18 18:10> Medications Active Medications: Acetaminophen (Tylenol Tab*) 650 mg PO Q4H PRN PRN Reason: FEVER/PAIN Last Admin: 12/25/18 07:40 Dose: 650 mg Hydrocodone Bitart/Acetaminophen (Lillie 10/325 (Nf)) 2 tab PO Q4HR PRN PRN Reason: PAIN Last Admin: 12/26/18 10:42 Dose: 2 tab Al Hydrox/Mg Hydrox/Simethicone (Maalox Plus*) 30 ml PO Q6H PRN PRN Reason: INDIGESTION Amlodipine Besylate (Norvasc Tab*) 10 mg PO DAILY [facility] Last Admin: 12/26/18 10:42 Dose: 10 mg Apixaban (Eliquis*) 5 mg PO BID [facility] Last Admin: 12/26/18 10:42 Dose: 5 mg Clopidogrel Bisulfate (Plavix Tab*) 75 mg PO 1200 [facility] Last Admin: 12/26/18 13:14 Dose: 75 mg Dextrose (D50w Syringe 50 Ml*) 12.5 gm IV PUSH .FOR FS < 60 - SS PRN PRN Reason: FS < 60 Docusate Sodium (Colace Cap*) 100 mg PO BID PRN PRN Reason: CONSTIPATION Ezetimibe (Zetia Tab*) 10 mg PO 1700 [facility] Last Admin: 12/25/18 17:47 Dose: 10 mg Famotidine (Pepcid Tab*) 20 mg PO DAILY [facility]; Protocol PRN Reason: HEARTBURN Last Admin: 12/25/18 22:22 Dose: 20 mg Hydralazine HCl (Apresoline Iv*) 10 mg IV SLOW PU Q4HR PRN PRN Reason: BLOOD PRESSURE Last Admin: 12/26/18 03:40 Dose: 10 mg Azithromycin 250 mg/ Sodium (Chloride) 250 mls @ 250 mls/hr IVPB Q24H [facility] Last Admin: 12/25/18 22:12 Dose: 250 mls/hr Ceftriaxone Sodium 1 gm/ (Sodium Chloride) 50 mls @ 200 mls/hr IVPB Q24H [facility] Last Admin: 12/25/18 21:25 Dose: 200 mls/hr Insulin Human Lispro (Humalog*) 0 units SUBCUT ACHS [facility]; Protocol Last Admin: 12/26/18 13:14 Dose: 3 units Lisinopril (Prinivil Tab*) 40 mg PO DAILY [facility] Last Admin: 12/26/18 10:41 Dose: 40 mg Melatonin (Melatonin) 3 mg PO BEDTIME [facility] Metoprolol Tartrate (Lopressor Iv*) 5 mg IV Q6H PRN PRN Reason: Systolic Bp Greater Than: 170 Metoprolol Tartrate (Lopressor Tab*) 12.5 mg PO BID [facility] Last Admin: 12/26/18 10:41 Dose: 12.5 mg Ondansetron HCl (Zofran Inj*) 4 mg IV Q4H PRN PRN Reason: NAUSEA/VOMITING Pravastatin Sodium (Pravachol (Nf)) 40 mg PO DAILY [facility]; Protocol Prednisone (Deltasone Tab*) 30 mg PO DAILY [facility] Senna (Senokot Tab*) 1 tab PO BID PRN PRN Reason: CONSTIPATION Objective Vital Signs: Temp Pulse Resp BP Pulse Ox 98.0 F 72 18 162/74 98 12/26/18 15:35 12/26/18 15:35 12/26/18 15:35 12/26/18 15:51 12/26/18 15:35 Laboratory Results: 12/26/18 06:05 12/26/18 06:05 INR (Anticoag Therapy) 1.27 (0.82-1.09) H 12/23/18 22:20 APTT 36.0 seconds (26.0-38.0) 12/23/18 22:20 Total Bilirubin 0.60 mg/dL (0.2-1.0) 12/23/18 22:20 AST 31 U/L (13-39) 12/23/18 22:20 ALT 16 U/L (7-52) 12/23/18 22:20 Alkaline Phosphatase 61 U/L (34-104) 12/23/18 22:20 Total Protein 7.1 g/dL (6.4-8.9) 12/23/18 22:20 Albumin 4.4 g/dL (3.2-5.2) 12/23/18 22:20 Globulin 2.7 g/dL (2-4) 12/23/18 22:20 Albumin/Globulin Ratio 1.6 (1-3) 12/23/18 22:20 TSH 0.86 mcIU/mL (0.34-5.60) 12/23/18 22:20 12/23/18 12/24/18 12/24/18 22:20 01:47 06:17 Troponin I 0.05 H* 0.33 H* 0.67 H* 12/24/18 12/24/18 12/24/18 11:09 13:38 16:45 Troponin I 0.77 H* 0.82 H* 0.67 H* Assessment/Plan I saw and examined the patient personally. MENON's resolved. No CP. Breathing is improved, no further fevers. Coughing up phlegm with dark/ed component. The patient's is very concerned about his HR being fast and labile and his BP being elevated. She asked for CT abdomen results, I reviewed diffuse plaque in aorta, mesenteric and iliac arteries. For troponins and mildly abnormal stress test I agree with Dr Macias and above that medical management advised. I am going to decrease Pravastatin to 2x / week due to hx of myalgias and intolerance of daily Lipator and Crestor in the past. AFIB: Per Dr Macias's notes this is chronic with tachybrady component. On chronic anticoagulation. I explained afib to the patient's . Lability not unexpected with pneumonia/pulmonary issues. Future consideration/recommendation of pacemaker implantation to allow for more optimal rate lowering agents (and this could help with ischemic management). Atherosclerosis and lipids: Statin retrial as above. If statin intolerant, future option could include PCSK9 inhibitor. HTN: Titration of meds in progress as above, home BP's per pt 140-150 SBP, I would use this as a goal due to NURSE NAVIGATOR plaque, may need higher than normal BP's to perfuse. 30 minutes spent with the patient in the presence of his family personally in addition to the time spent by Raisa Landin NP above.
[2018-12-26] MEDS ORDERED: Metoprolol Tartrate TAB* 25 MG PO SCH ×2 (09:00→22:00)
[2018-12-26] MEDS: predniSONE TAB* 20 MG PO SCH (10:41)
[2018-12-26] MEDS: Metoprolol Tartrate TAB* 25 MG PO SCH ×2 (10:41→20:53)
[2018-12-26] MEDS: Lisinopril TAB* 10 MG PO SCH (10:41)
[2018-12-26] MEDS: amLODIPine TAB* 5 MG PO SCH (10:42)
[2018-12-26] MEDS: Apixaban* 5 MG TAB PO SCH ×2 (10:42→20:54)
--- NOTE | 2018-12-26 12:36 | PN ---
Subjective Date of Service: 12/26/18 Interval History: Mr. Ambriz is feeling much better today. He is in good spirits. He denies any further CP or SOB. No cough. He is hungry as he has been NPO for imaging this morning. Continues to have a headache which is significantly improved. He rates the pain "less than 5/10" but is unable to further quantify. Family is at bedside. No concerns from nursing. Tele: Afib in the 90s. Family History: Unchanged from Admission Social History: Unchanged from Admission Past Medical History: Unchanged from Admission Objective Active Medications: Acetaminophen (Tylenol Tab*) 650 mg PO Q4H PRN FEVER/PAIN Hydrocodone Bitart/Acetaminophen ([place] 10/325 (Nf)) 2 tab PO Q4HR PRN PAIN Al Hydrox/Mg Hydrox/Simethicone (Maalox Plus*) 30 ml PO Q6H PRN INDIGESTION Amlodipine Besylate (Norvasc Tab*) 10 mg PO DAILY [facility] Apixaban (Eliquis*) 5 mg PO BID [facility] Clopidogrel Bisulfate (Plavix Tab*) 75 mg PO 1200 [facility] Dextrose (D50w Syringe 50 Ml*) 12.5 gm IV PUSH .FOR FS < 60 - SS PRN FS < 60 Docusate Sodium (Colace Cap*) 100 mg PO BID PRN CONSTIPATION Ezetimibe (Zetia Tab*) 10 mg PO 1700 [facility] Famotidine (Pepcid Tab*) 20 mg PO DAILY [facility] Hydralazine HCl (Apresoline Iv*) 10 mg IV SLOW PU Q4HR PRN BLOOD PRESSURE Azithromycin 250 mg/ Sodium (Chloride) 250 mls @ 250 mls/hr IVPB Q24H [facility] Ceftriaxone Sodium 1 gm/ (Sodium Chloride) 50 mls @ 200 mls/hr IVPB Q24H [facility] Insulin Human Lispro (Humalog*) 0 units SUBCUT ACHS [facility]; Protocol Lisinopril (Prinivil Tab*) 40 mg PO DAILY [facility] Metoprolol Tartrate (Lopressor Iv*) 5 mg IV Q6H PRN Systolic Bp Greater Than: 170 Metoprolol Tartrate (Lopressor Tab*) 12.5 mg PO BID [facility] Ondansetron HCl (Zofran Inj*) 4 mg IV Q4H PRN NAUSEA/VOMITING Pravastatin Sodium (Pravachol (Nf)) 40 mg PO DAILY [facility]; Protocol Prednisone (Deltasone Tab*) 40 mg PO DAILY [facility] Senna (Senokot Tab*) 1 tab PO BID PRN CONSTIPATION Vital Signs - 8 hr 12/26/18 12/26/18 12/26/18 06:23 06:26 07:45 Temperature 99.1 F Pulse Rate 94 Respiratory 18 18 Rate Blood Pressure 160/80 182/72 (mmHg) O2 Sat by Pulse 98 Oximetry 12/26/18 12/26/18 12/26/18 08:00 10:42 11:42 Temperature 98.1 F Pulse Rate 70 Respiratory 18 16 18 Rate Blood Pressure 143/85 (mmHg) O2 Sat by Pulse 98 99 Oximetry Oxygen Devices in Use Now: None Appearance: Elderly male sitting in bed in NAD Eyes: No Scleral Icterus Ears/Nose/Mouth/Throat: Mucous Membranes Moist Neck: NL Appearance and Movements; NL JVP, Trachea Midline Respiratory: Symmetrical Chest Expansion and Respiratory Effort, Clear to Auscultation Cardiovascular: NL Sounds; No Murmurs; No JVD, - - Irregular rhythm Abdominal: NL Sounds; No Tenderness; No Distention, - - Visible epigastric pulsations; No bruits appreciated Extremities: No Edema Skin: No Rash or Ulcers Neurological: Alert and Oriented x 3 Lines/Tubes/Other Access: Clean, Dry and Intact Peripheral IV Nutrition: Taking PO's Result Diagrams: 12/26/18 06:05 12/26/18 06:05 Assess/Plan/Problems-Billing Assessment: Mr. Ambriz is a 78 yo M with PMH of HTN, afib, PAD, DM, CKD, CVA, cerebral aneurysm, and carotid stenosis; who presented to the ED with c/o SOB and was found to have pneumonia, now with elevated troponins. - Patient Problems (1) Elevated troponin Code(s): R79.89 - OTHER SPECIFIED ABNORMAL FINDINGS OF BLOOD CHEMISTRY Comment : - Asymptomatic - Peaked at 0.82 - Questionable T wave changes on EKG - Stress test shows small area of reversible hypoperfusion, but low risk - Appreciate Cardiology consult; no plan for intervention at this time d/t very complex medical picture but will need close outpatient follow up; they are actively following and titrating meds - Continue metoprolol (2) Headache Code(s): R51 - HEADACHE Comment: - Suspect secondary to HTN as onset of hypertension and headache correlate and headache is now improved with decrease in blood pressure - Will check CT brain as a precaution as he is on anticoagulation (3) Abdominal bruit Code(s): R09.89 - OTH SYMPTOMS AND SIGNS INVOLVING THE CIRC AND RESP SYSTEMS Comment: - Noted on exam yesterday and pulsation noted on exam today - Very high vascular risk d/t history - Renal US unremarkable for clinically significant stenosis - Check CTA abd/pelvis; spoke with patient and family about the risk of contrast d/t previous CTA this admission, but they would like to proceed with CTA rather than US (4) Community acquired pneumonia Code(s): J18.9 - PNEUMONIA, UNSPECIFIED ORGANISM Comment: - Presented with SOB and cough, symptoms occurring over the last month and failing outpatient treatment with amoxicillin - CTA shows bronchial wall thickening in lower lobes consistent with infection/ inflammation and severe emphysema - Negative Strep pneumonia and legionella urine antigens - Continue ceftriaxone (day 4/7), azithromycin (day 4/5) (5) COPD exacerbation Code(s): J44.1 - CHRONIC OBSTRUCTIVE PULMONARY DISEASE W (ACUTE) EXACERBATION Comment: - Secondary to pneumonia - No past history of COPD, but CTA shows severe emphysema - Distant smoking history >40 years ago and occupational exposure to asbestos - Will need outpatient follow up for formal diagnosis with PFTs - Continue prednisone (decreased to 30mg) (6) Sepsis Comment: - Resolved - Met criteria on admission with fever, tachycardia, tachypnea; source is pneumonia (7) Hypertension Code(s): I10 - ESSENTIAL (PRIMARY) HYPERTENSION Comment: - Hypertensive - Continue lisinopril, amlodipine, hydralazine, furosemide; add metoprolol per Cardiology (8) Abnormal CT scan of lung Code(s): R91.8 - OTHER NONSPECIFIC ABNORMAL FINDING OF LUNG FIELD Comment: - 2.4cm right lobe thyroid nodule will need outpatient f/u with US - 5.7mm RLL lung nodule will need repeat CT in 6-12mo - These results and follow ups were discussed with the patient and his family and they are aware of the necessary f/u (9) Atrial fibrillation Code(s): I48.91 - UNSPECIFIED ATRIAL FIBRILLATION Comment: - Rate controlled - Continue Eliquis, metoprolol (10) Diabetes Code(s): E11.9 - TYPE 2 DIABETES MELLITUS WITHOUT COMPLICATIONS Comment: - Poor glucose control in the setting of steroids - Hold metformin - Contiune Lispro SS (11) History of CVA (cerebrovascular accident) Code(s): Z86.73 - PRSNL HX OF TIA (TIA), AND CEREB INFRC W/O RESID DEFICITS Comment: - Continue Eliquis, Plavix, Zetia; started on pravastatin by Cardiology (has not tolerated other statins in the past) (12) DVT prophylaxis Code(s): Z29.9 - ENCOUNTER FOR PROPHYLACTIC MEASURES, UNSPECIFIED Comment: - Eliquis (13) Full code status Code(s): Z78.9 - OTHER SPECIFIED HEALTH STATUS Comment: Status and Disposition: Inpatient. Anticipate d/c home when medically stable and cleared by Cardiology, possibly as early as tomorrow. Attending: Meg Matos
[2018-12-26] MEDS: Clopidogrel TAB* 75 MG PO SCH (13:14)
[2018-12-26] MEDS ORDERED: Iohexol 350* (CONTRAST) 500 ML MDV IV ONE (14:02)
[2018-12-26] MEDS ORDERED: Iodixanol* (CONTRAST) 320 MG/ML 100 ML SDV IV ONE (14:07)
[2018-12-26] MEDS: Ezetimibe TAB* 10 MG PO SCH (18:00)
[2018-12-26] MEDS: Melatonin 3 MG TAB PO SCH (20:54)
[2018-12-26] MEDS: cefTRIAXone(*) 1 GM in NS 0.9% 50 ML* 50 ML IVPB SCH (20:56)
[2018-12-26] MEDS ORDERED: CMC:Pravastatin (NF) 20 MG TAB PO SCH (21:00)
[2018-12-26] MEDS: Azithromycin IV(*) 250 MG in NS 0.9% 250 ML* 250 ML IVPB SCH (21:30)
[2018-12-27 06:52] LABS: BUN/Creatinine Ratio 21.7 (8-20); Calcium 10.1 mg/dL (8.6-10.3); EGFR Non-African American 67.7 (>60)
[2018-12-27] MEDS: Lisinopril TAB* 10 MG PO SCH (07:41)
[2018-12-27] MEDS: predniSONE TAB* 10 MG PO SCH (07:42)
[2018-12-27] MEDS: Apixaban* 5 MG TAB PO SCH ×2 (07:42→21:07)
[2018-12-27] MEDS: Metoprolol Tartrate TAB* 25 MG PO SCH ×2 (07:42→21:06)
[2018-12-27] MEDS: amLODIPine TAB* 5 MG PO SCH (07:42)
[2018-12-27] MEDS: Hydrocodone/Acetamin 10/325 1 TAB PO PRN (07:42)
[2018-12-27] MEDS: Insulin LISPRO* 1 UNITS UNIT SUBCUT SCH ×4 (07:45→21:04)
[2018-12-27 09:47] LABS: ABS Lymphocytes 1.2 10^3/ul (1.0-4.8); ABS Monocytes 0.8 10^3/ul (0-0.8); ABS Neutrophils 13.8 10^3/ul (1.5-7.7); Eosinophil % 0.3 %; Hematocrit 41 % (42-52); Hemoglobin 13.7 g/dL (14.0-18.0); Lymphocyte % 7.8 %; Mean Corpuscular HGB Conc 33 g/dL (31-36); Mean Corpuscular Hemoglobin 30 pg (27-31); Mean Corpuscular Volume 90 fL (80-94); Mean Platelet Volume 8.3 fL (7.4-10.4); Nucleated Red Blood Cells % 0.1; Platelet Count 260 10^3/uL (150-450); Red Blood Count 4.59 10^6 /uL (4.18-5.48); Red Cell Distribution Width 14 % (10.5-15); White Blood Count 15.9 10^3/uL (3.5-10.8)
--- NOTE | 2018-12-27 10:11 | PN ---
Subjective Date of Service: 12/27/18 Interval History: Pt is feeling well. He denies any SOB at this time. He is not bringing up any sputum. He has not done any walking yet. He did have a headache this am but it is now better. Family History: Unchanged from Admission Social History: Unchanged from Admission Past Medical History: Unchanged from Admission Objective Active Medications: Acetaminophen (Tylenol Tab*) 650 mg PO Q4H PRN PRN Reason: FEVER/PAIN Last Admin: 12/25/18 07:40 Dose: 650 mg Hydrocodone Bitart/Acetaminophen ([place] 10/325 (Nf)) 2 tab PO Q4HR PRN PRN Reason: PAIN Last Admin: 12/27/18 07:42 Dose: 2 tab Al Hydrox/Mg Hydrox/Simethicone (Maalox Plus*) 30 ml PO Q6H PRN PRN Reason: INDIGESTION Amlodipine Besylate (Norvasc Tab*) 10 mg PO DAILY [facility] Last Admin: 12/27/18 07:42 Dose: 10 mg Apixaban (Eliquis*) 5 mg PO BID [facility] Last Admin: 12/27/18 07:42 Dose: 5 mg Clopidogrel Bisulfate (Plavix Tab*) 75 mg PO 1200 [facility] Last Admin: 12/26/18 13:14 Dose: 75 mg Dextrose (D50w Syringe 50 Ml*) 12.5 gm IV PUSH .FOR FS < 60 - SS PRN PRN Reason: FS < 60 Docusate Sodium (Colace Cap*) 100 mg PO BID PRN PRN Reason: CONSTIPATION Ezetimibe (Zetia Tab*) 10 mg PO 1700 [facility] Last Admin: 12/26/18 18:00 Dose: 10 mg Famotidine (Pepcid Tab*) 20 mg PO DAILY PRN; Protocol PRN Reason: HEARTBURN Last Admin: 12/25/18 22:22 Dose: 20 mg Hydralazine HCl (Apresoline Iv*) 10 mg IV SLOW PU Q4HR PRN PRN Reason: BLOOD PRESSURE Last Admin: 12/26/18 03:40 Dose: 10 mg Hydralazine HCl (Apresoline Tab*) 10 mg PO TID [facility] Azithromycin 250 mg/ Sodium (Chloride) 250 mls @ 250 mls/hr IVPB Q24H [facility] Last Admin: 12/26/18 21:30 Dose: 250 mls/hr Ceftriaxone Sodium 1 gm/ (Sodium Chloride) 50 mls @ 200 mls/hr IVPB Q24H [facility] Last Admin: 12/26/18 20:56 Dose: 200 mls/hr Insulin Human Lispro (Humalog*) 0 units SUBCUT ACHS [facility]; Protocol Last Admin: 12/27/18 07:45 Dose: Not Given Lisinopril (Prinivil Tab*) 40 mg PO DAILY [facility] Last Admin: 12/27/18 07:41 Dose: 40 mg Melatonin (Melatonin) 3 mg PO BEDTIME [facility] Last Admin: 12/26/18 20:54 Dose: 3 mg Metoprolol Tartrate (Lopressor Iv*) 5 mg IV Q6H PRN PRN Reason: Systolic Bp Greater Than: 170 Metoprolol Tartrate (Lopressor Tab*) 12.5 mg PO BID [facility] Last Admin: 12/27/18 07:42 Dose: 12.5 mg Ondansetron HCl (Zofran Inj*) 4 mg IV Q4H PRN PRN Reason: NAUSEA/VOMITING Pravastatin Sodium (Pravachol (Nf)) 40 mg PO SuWe@2100 [facility]; Protocol Last Admin: 12/26/18 20:54 Dose: 40 mg Prednisone (Deltasone Tab*) 30 mg PO DAILY [facility] Last Admin: 12/27/18 07:42 Dose: 30 mg Senna (Senokot Tab*) 1 tab PO BID PRN PRN Reason: CONSTIPATION Vital Signs - 8 hr 12/27/18 12/27/18 12/27/18 04:23 07:35 07:42 Temperature 97.3 F 99.0 F Pulse Rate 80 88 Respiratory 16 16 16 Rate Blood Pressure 162/85 192/88 (mmHg) O2 Sat by Pulse 99 98 Oximetry 12/27/18 12/27/18 12/27/18 07:55 09:37 09:48 Temperature Pulse Rate Respiratory 16 16 Rate Blood Pressure 168/76 (mmHg) O2 Sat by Pulse Oximetry Oxygen Devices in Use Now: None Appearance: Elderly thin male sitting up in bed, NAD Eyes: No Scleral Icterus Ears/Nose/Mouth/Throat: Mucous Membranes Moist Respiratory: Symmetrical Chest Expansion and Respiratory Effort, Clear to Auscultation - diminished breath sounds Cardiovascular: NL Sounds; No Murmurs; No JVD, No Edema, - - irregularly irregular, controlled rate Abdominal: NL Sounds; No Tenderness; No Distention Extremities: No Clubbing, Cyanosis Skin: No Nodules or Sclerosis Neurological: Alert and Oriented x 3 Result Diagrams: 12/27/18 09:23 12/27/18 06:07 Microbiology and Other Data: Microbiology 12/23/18 22:33 Aerobic Blood Culture - Preliminary Blood Venous No Growth Day 1 Anaerobic Blood Culture - Preliminary No Growth Day 1 12/23/18 22:20 Aerobic Blood Culture - Preliminary Blood Venous No Growth Day 1 Anaerobic Blood Culture - Preliminary No Growth Day 1 12/23/18 22:33 Legionella Urinary Antigen - Final Urine Negative Legionella Antigen Streptococcus pneumoniae Ag Screen - Final Negative S. pneumo Antigen Assess/Plan/Problems-Billing Mr. Ambriz is a 78 yo M with PMHx of HTN, afib, PAD, DM, CKD, CVA, cerebral aneurysm, and carotid stenosis; who presented to the ED with c/o SOB and was found to have pneumonia, now with elevated troponins. - Patient Problems (1) Community acquired pneumonia Current Visit: Yes Status: Acute Code(s): J18.9 - PNEUMONIA, UNSPECIFIED ORGANISM SNOMED Code(s): 741459464 Comment: By history and imagining it appears the patient had a pneumonia. His respiratory status is improved. He has had 5 days of ceftriaxone and completed the azithromycin. (2) Sepsis Current Visit: Yes Status: Acute Comment: The patient was septic on admission. Now resolved. (3) Elevated troponin Current Visit: Yes Status: Acute Priority: Medium Code(s): R79.89 - OTHER SPECIFIED ABNORMAL FINDINGS OF BLOOD CHEMISTRY SNOMED Code(s): 882628659 Comment: Pt is asymptomatic. He had a troponin that peaked at 0.82 . Stress test showed an area of reversible hypoperfusion. Cardiology saw the patient and plan will be for outpatient follow up. Continue plavix, metoprolol, zetia, lisinopril. (4) Hypertension Current Visit: Yes Status: Acute Priority: Medium Code(s): I10 - ESSENTIAL (PRIMARY) HYPERTENSION SNOMED Code(s): 84354788 Comment: Pt with persistently elevated blood pressures up to 190's systolic. This is on amlodipine 10mg daily, metoprolol 12.5mg BID and lisinopril 40mg daily. Adding losartan had been recommended but he has had issues with elevated creatinine and because of this, will add hydralazine 10mg TID. (5) COPD exacerbation Current Visit: Yes Status: Acute Code(s): J44.1 - CHRONIC OBSTRUCTIVE PULMONARY DISEASE W (ACUTE) EXACERBATION SNOMED Code(s): 574256361 Comment: [place] to be due to pneumonia. Exacerbation has resolved. He has no history of COPD, but CTA shows severe emphysema. 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 He will need outpatient follow up with pulmonology for formal diagnosis with PFTs. Slow prednisone taper. (6) Atrial fibrillation Current Visit: Yes Status: Acute Code(s): I48.91 - UNSPECIFIED ATRIAL FIBRILLATION SNOMED Code(s): 36380301 Comment: HR is controlled. Continue low dose metoprolol and eliquis. (7) Headache Current Visit: Yes Status: Acute Code(s): R51 - HEADACHE SNOMED Code(s): 29450997 Comment: ? secondary to HTN. Continue prn pain control. (8) Abdominal bruit Current Visit: Yes Status: Acute Code(s): R09.89 - OTH SYMPTOMS AND SIGNS INVOLVING THE CIRC AND RESP SYSTEMS SNOMED Code(s): 350291582 Comment: CTA negative for aneurysm but does show significant atherosclerotic disease. Continue zetia. (9) Abnormal CT scan of lung Current Visit: Yes Status: Acute Code(s): R91.8 - OTHER NONSPECIFIC ABNORMAL FINDING OF LUNG FIELD SNOMED Code(s): 271542395 Comment: Pt with a 2.4cm right lobe thyroid nodule will need outpatient f/u with US. He also has a 5.7mm RLL lung nodule will need repeat CT in 6-12mo. These findings were discussed with his family by prior provider. Will include information on the d/c paperwork. (10) Diabetes Current Visit: Yes Status: Acute Priority: Medium Code(s): E11.9 - TYPE 2 DIABETES MELLITUS WITHOUT COMPLICATIONS SNOMED Code(s): 85258964 Comment: Pt on metformin at home. Creatinine is now improved can resume metformin on d/c. Sugars are not optimally controlled on prednisone. (11) DVT prophylaxis Current Visit: Yes Status: Acute Code(s): Z29.9 - ENCOUNTER FOR PROPHYLACTIC MEASURES, UNSPECIFIED SNOMED Code(s): 307196455 Comment: [place] (12) Full code status Current Visit: Yes Status: Acute Code(s): Z78.9 - OTHER SPECIFIED HEALTH STATUS SNOMED Code(s): 408593070 Comment: Status and Disposition: Inpatient. Anticipate d/c home when medically stable and cleared by Cardiology, possibly as early as tomorrow.
[2018-12-27] MEDS: hydrALAZINE TAB* 10 MG PO SCH ×2 (10:15→14:24)
[2018-12-27] MEDS: Clopidogrel TAB* 75 MG PO SCH (12:30)
[2018-12-27] MEDS ORDERED: Zolpidem TAB* 5 MG PO PRN (15:58)
[2018-12-27] MEDS: Ezetimibe TAB* 10 MG PO SCH (17:39)
[2018-12-27] MEDS ORDERED: hydrALAZINE TAB* 25 MG PO SCH (21:00)
[2018-12-27] MEDS: cefTRIAXone(*) 1 GM in NS 0.9% 50 ML* 50 ML IVPB SCH (21:01)
[2018-12-27] MEDS: Melatonin 3 MG TAB PO SCH (21:07)
[2018-12-27] MEDS: cloNIDine TAB* 0.1 MG PO SCH (21:07)
[2018-12-27] MEDS: Azithromycin IV(*) 250 MG in NS 0.9% 250 ML* 250 ML IVPB SCH (22:40)
[2018-12-28] MEDS: Insulin LISPRO* 1 UNITS UNIT SUBCUT SCH (07:54)
[2018-12-28] MEDS: Metoprolol Tartrate TAB* 25 MG PO SCH (07:55)
[2018-12-28] MEDS: amLODIPine TAB* 5 MG PO SCH (07:55)
[2018-12-28] MEDS: Apixaban* 5 MG TAB PO SCH (07:55)
[2018-12-28] MEDS: predniSONE TAB* 10 MG PO SCH (07:55)
[2018-12-28] MEDS: cloNIDine TAB* 0.1 MG PO SCH (07:55)
[2018-12-28] MEDS: Lisinopril TAB* 10 MG PO SCH (07:56)
[2018-12-28 10:17] VITALS: BP 141/68
--- NOTE | 2018-12-28 20:30 | DS ---
CC: Dr. Joaquin; Dr. Macias * DISCHARGE SUMMARY: DATE OF ADMISSION: 12/23/18 DATE OF DISCHARGE: 12/28/18 PRIMARY CARE PROVIDER: Dr. Joaquin. PRINCIPAL DIAGNOSES: 1. Sepsis secondary to pneumonia. 2. Elevated troponin with stress test concerning for underlying coronary artery disease. 3. Difficult to control hypertension. 4. Chronic obstructive pulmonary disease exacerbation. 5. Atrial fibrillation. SECONDARY DIAGNOSES: 1. Abdominal bruit with significant atherosclerosis of the abdominal aorta. 2. A 5.7 mm right lower lobe lung nodule, which will need repeat CT scan in 6 to 12 months. 3. Type 2 diabetes. DISCHARGE MEDICATIONS: 1. Clonidine 0.2 mg p.o. twice daily. 2. Spironolactone 12.5 mg p.o. daily. 3. Lasix 40 mg p.o. daily. 4. Amlodipine 10 mg p.o. daily (change in frequency). 5. Plavix 75 mg p.o. daily. 6. Metformin 500 mg p.o. 4 times daily (unclear if this is the patient's actual home dose). 7. Eliquis 5 mg p.o. b.i.d. 8. Ranitidine 150 mg p.o. daily p.r.n. GERD. 9. [place] 10/325 two tabs p.o. q.4 hours p.r.n. pain. 10. Prednisone 20 mg p.o. daily x2 days, then 10 mg p.o. daily x2 days. 11. Pravastatin 40 mg p.o. Monday and Monday. 12. Metoprolol tartrate 12.5 mg p.o. b.i.d. (new). 13. Lisinopril 40 mg p.o. daily (new). HOSPITAL COURSE: Mr. Ambriz is a 78-year-old male who presented to the emergency room on 12/23/18 with complaints of shortness of breath. He was ultimately admitted for concern of community-acquired pneumonia. The patient was started on ceftriaxone and azithromycin. He also received a short burst of prednisone. He was treated with a 5-day course of azithromycin and ceftriaxone. The patient has dramatic improvement in his respiratory symptoms. Also on admission , the patient was found to have an elevated troponin level of 0.05. This ultimately peaked at 0.82. Because of this, cardiology consultation was requested. The patient was seen in consultation by Dr. Macias, who recommended stress test. The patient underwent nuclear stress test, which revealed small area of reversible apical hypoperfusion suggestive of ischemia. The patient's medication regimen was adjusted. He had difficult to control hypertension throughout his hospitalization; however, the day prior to discharge, the patient 's medications were being reviewed by myself and he stated that he was typically taking clonidine, which was not on his home medication list. Once the clonidine was added back, his blood pressure improved. The patient has been up and ambulating without any chest pain or shortness of breath. Overall, he feels dramatically better. The patient did have a COPD exacerbation related to the pneumonia. The patient carried no history of COPD prior to this hospitalization; however, CTA showed evidence of severe emphysema. The patient may benefit from pulmonology outpatient visit for PFTs and management. The patient will continue on prednisone taper over the next 4 days. In terms of the patient's history of atrial fibrillation, his heart rate was controlled. He was managed with low dose metoprolol and Eliquis. The patient was found to have an abdominal bruit. CTA was negative for evidence of aneurysm, but did show significant atherosclerotic disease. The patient was continued on Zetia and twice weekly pravastatin. The patient was also found to have a 2.4 cm right lobe thyroid nodule and a 5.7 mm right lower lobe lung nodule, which will need repeat imaging. On the day of discharge, the patient is awake, alert and oriented, sitting up in bed, in no acute distress. Cardiac exam revealed a normal S1, S2 with an irregularly irregular rhythm, but a controlled rate. Pulmonary revealed clear lungs bilaterally. Abdomen, bowel sounds present. Abdomen is soft, nontender, nondistended. There was no lower extremity edema. The patient moves all 4 extremities symmetrically. FOLLOWUP CONCERNS: The patient is being discharged home today, 12/28/18. Activity level is as tolerated. Diet is heart-healthy, diabetic. Condition on discharge is stable. The patient should follow up with his PCP, Dr. Joaquin in the next 4 to 7 days and the patient already has an appointment scheduled with Dr. Macias for at 9:15 a.m. TIME SPENT: Thirty five minutes was spent discharging this patient. [id number]/[facility] #: [id number] [facility]
== END 2018-12-28 12:00 | disposition home or self-care (01) | DRG 871 ==
LOC: ED 21:58 → MED 12-24 04:49 → MEDTELE 12-24 10:26
PROVIDERS: ADMIT Pediatrics; ATTEND Hospitalist
DX: A41.9 Sepsis, unspecified organism (principal); J18.9 Pneumonia, unspecified organism; K51.90 Ulcerative colitis, unspecified, without complications; I25.10 Atherosclerotic heart disease of native coronary artery without angina pectoris; I70.0 Atherosclerosis of aorta; R91.1 Solitary pulmonary nodule; E11.9 Type 2 diabetes mellitus without complications; J43.9 Emphysema, unspecified; R09.89 Other specified symptoms and signs involving the circulatory and respiratory systems; E04.1 Nontoxic single thyroid nodule; I12.9 Hypertensive chronic kidney disease with stage 1 through stage 4 chronic kidney disease, or unspecified chronic kidney disease; E11.22 Type 2 diabetes mellitus with diabetic chronic kidney disease; N18.3 Chronic kidney disease, stage 3 (moderate); E11.51 Type 2 diabetes mellitus with diabetic peripheral angiopathy without gangrene; M19.90 Unspecified osteoarthritis, unspecified site; M25.552 Pain in left hip; G89.29 Other chronic pain; I27.20 Pulmonary hypertension, unspecified; K21.9 Gastro-esophageal reflux disease without esophagitis; I08.1 Rheumatic disorders of both mitral and tricuspid valves; I48.0 Paroxysmal atrial fibrillation; Z79.01 Long term (current) use of anticoagulants; Z79.02 Long term (current) use of antithrombotics/antiplatelets; Z79.84 Long term (current) use of oral hypoglycemic drugs; Z87.01 Personal history of pneumonia (recurrent); Z80.1 Family history of malignant neoplasm of trachea, bronchus and lung; Z72.89 Other problems related to lifestyle; Z87.891 Personal history of nicotine dependence; Z88.8 Allergy status to other drugs, medicaments and biological substances; Z86.73 Personal history of transient ischemic attack (TIA), and cerebral infarction without residual deficits; Z96.89 Presence of other specified functional implants; Z86.711 Personal history of pulmonary embolism; Z86.718 Personal history of other venous thrombosis and embolism; Z77.090 Contact with and (suspected) exposure to asbestos
CPT/HCPCS: 36415; 70450; 71046; 71275; 74174; 78452; 80048; 80053; 81003; 81015; 83605; 83735; 84443; 84484; 85025; 85610; 85730; 86140; 87040; 87070; 87106; 87205; 87899; 93005; 93017; 93306; 93975; 99285; A9270-GY; A9502; J0280; J0360; J0456; J0696; J2785; J2930; J3475; J7512; Q9967

== ENCOUNTER 2019-04-30 07:01 | Inpatient (IN) | payer MEDICARE ==
--- OUTSIDE RECORDS SUMMARY | 2019-04-30 07:21 | XMS REPORT | Continuity of Care Document ---
:1940 External Reference #:[id number] Author Name Dorothea Joaquin M.D. 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 Onset: 01/10/2012 Type II diabetes mellitus uncontrolled Dorothea Joaquin M.D. Onset: 2011 Mixed hyperlipidemia Dorothea Joaquin M.D. Onset: 01/10/2012 Low back pain Dorothea Joaquin M.D. Onset: 01/10/2012 Degeneration of lumbar intervertebral disc Dorothea Joaquin M.D. Onset: 01/09 Arthralgia of the lower leg Dorothea Joaquin M.D. Onset: 06/18/2012 Peptic reflux disease Dorothea Joaquin M.D. Onset: 06/18/2012 Edema Dorothea Joaquin M.D. Onset: 11/23/2012 Binocular vision disorder Dorothea Joaquin M.D. Onset: 08/15/2014 Essential hypertension Dorothea Joaquin M.D. Onset: 04/23/2015 Type II diabetes mellitus uncontrolled Dorothea Joaquin M.D. Onset: 2014 Degeneration of lumbosacral intervertebral Dorothea Joaquin M.D. Onset: 04/23 disc Knee pain Dorothea Joaquin M.D. Onset: 04/23/2015 Social History Type Date Description Comments Sex Unknown Tobacco Use Start: Unknown End: Former Cigarette Smoker pt quit smoking 30 Unknown years ago after smoking half a pack a day ETOH Use Denies alcohol use Tobacco Use Start: Unknown End: Patient is a former smoker Unknown Smoking Status Reviewed: 08/10/17 Patient is a former smoker Allergies, Adverse Reactions, Alerts Active Allergies Reaction Severity Comments Date Lipitor 10/19/2011 Crestor 10/19/2011 Medications Active Medications SIG Qnty Indications Ordering Date Provider Vitamin D3 1 cap by mouth 12caps E55.9 Dorothea Joaquin, 03/07/2019 [id number] every week M.D. Capsules Cyanocobalamin inject 1000mcg 1ml D51.9 Dorothea Joaquin, 04/19/2018 1000mcg/ML today given to r M.DGalina Solution deltoid Clopidogrel Bisulfate Take One Tablet 90tabs I10 Dorothea Joaquin, 2017 75mg By Mouth Every M.D. Tablets Day I65.23 I67.1 Ferrous Sulfate Take One Tablet By 90tabs Dorothea Joaquin, 01/15/2018 325(65Fe) Mouth Every Day M.D. mg Tablets Quinapril HCL 1 tab by mouth every 90tabs I10 Dorothea Joaquin, 12/15/2017 20mg Tablets day M.D. I25.10 Lasix 1 tab by mouth 90tabs R60.0 Dorothea Joaquin, 12/15/2017 20mg Tablets three times a wk M.D. I10 Eliquis 1 tab by mouth twice a 60tabs I48.2 Dorothea Joaquin 12/15/2017 5mg Tablets day-cardiology Елена Driver Spironolactone Take One-Half Tablet By 90tabs I25.10 Dorothea Joaquin 2017 25mg Tablets Mouth Every Day M., M.D. R60.0 Amlodipine Besylate Take One Tablet By 180tabs I25.10 Dorothea Joaquin, 5mg Mouth Twice A Day M.D. Tablets Shoe Lift 1 1/2" To 1 use with shoe to M54.5 Dorothea Joaquin, 12/30/2015 5/8" adjust M.D. M25.552 Hydrocodone-Acetaminophen 2 tab by mouth 180tabs M15.9 Dorothea Joaquin 2013 10-325mg Tablets every 4 hours M., M.D. as needed M54.5 M25.562 Metformin HCL Take One Tablet By 360tabs E11.65 Dorothea Joaquin, 2012 500mg Tablets Mouth Four Times A M.D. Day Clonidine HCL take one tablet by 180tabs I10 Dorothea Joaquin, 10/19/2011 0.2mg Tablets mouth twice a day M.D. Metoprolol Tartrate 1/2 tab by mouth 45tabs I10 Dorothea Joaquin, 25mg twice a day M.D. Tablets I25.10 I48.2 Lisinopril 1 by mouth every 90tabs I10 Dorothea Joaquin, 40mg Tablets day M.D. E11.65 I48.2 History Medications Levaquin 1 by mouth 10tabs I10 Dorothea Joaquin, 11/29/2018 - 500mg Tablets every day M.D. 12/09/2018 Amoxicillin 2 by mouth 40tabs I10 Dorothea Joaquin, 11/20/2018 - 500mg Tablets twice a day M.D. 11/30/2018 Azithromycin z vaibhav uad 6tabs Dorothea Joaquin, 10/30/2018 - 250mg Tablets M.D. 11/03/2018 Medications Administered in Office Medication SIG Qnty Indications Ordering Provider Date B12 Dorothea Joaquin M.D. 04/04/2019 Injection B12 Dorothea Joaquin M.D. 03/07/2019 Injection B12 Dorothea Joaquin M.D. 02/05/2019 Injection B12 Dorothea Joaquin M.D. 05/17/2018 Injection B12 Dorothea Joaquin M.D. 04/19/2018 Injection B12 Dorothea Joaquin M.D. 04/19/2018 Injection B12 Dorothea Joaquin M.D. 12/26/2017 Injection B12 Dorothea Joaquin M.D. 10/18/2017 Injection B12 Dorothea Joaquin M.D. 07/18/2017 Injection B12 JemalDorothea gandhi M.D. 07/13/2017 Injection B12 Dorothea Joaquin M.D. 06/13/2017 Injection B12 Dorothea Joaquin M.D. 05/12/2017 Injection B12 Dorothea Joaquin M.D. 03/31/2017 Injection B12 Dorothea Joaquin M.D. 03/17/2017 Injection B12 Dorothea Joaquin M.D. 02/14/2017 Injection B12 Dorothea Joaquin M.D. 01/17/2017 Injection B12 Dorothea Joaquin M.D. 01/06/2017 Injection B12 Dorothea Joaquin M.D. 12/06/2016 Injection B12 Dorothea Joaquin M.D. 11/04/2016 Injection B12 Dorothea Joaquin M.D. 10/07/2016 Injection B12 Dorothea Joaquin M.D. 09/06/2016 Injection B12 Dorothea Joaquin M.D. 08/04/2016 Injection B12 Dorothea Joaquin M.D. 06/03/2016 Injection B12 Dorothea Joaquin M.D. 05/05/2016 Injection Injection Dorothea Joaquin M.D. 06/06/2002 Therapeutic/Prophylactic/Diagos tic Injection Immunizations CPT Code Status Date Vaccine Lot # [id number] Given 04/04/2019 Flu Vaccine 3+Yrs Old(Fluzone) [id number] Given 04/04/2019 Pneumovax [id number] Q2038 Given 07/19/2018 Flu Vaccine 3+Yrs Old(Fluzone) [id number] Refused 05/17/2018 Flu Vaccine [id number] Refused 04/23/2015 Flu Vaccine [id number] Refused 05/14/2014 Flu Vaccine Vital Signs Date Vital Result Comment 04/04/2019 8:36am BP Systolic 152 mmHg BP Diastolic 62 mmHg Height 69 inches 5'9" Weight 162.00 lb BMI (Body Mass Index) 23.9 kg/m2 Heart Rate 77 /min Respiratory Rate 16 /min 03/07/2019 8:43am BP Systolic 134 mmHg BP Diastolic 70 mmHg Height 69 inches 5'9" Weight 165.00 lb BMI (Body Mass Index) 24.4 kg/m2 Heart Rate 60 /min Respiratory Rate 16 /min Results Test Date Facility Test Result H/L Range Note Oral [place] [facility] 02/05/2019 [facility] Comment: See Components Normal 1 Practice Amphetamine Panel 02/05/2019 [facility] Amphetamine Negative ng/ mL Normal 0.5 (Oral -LC/MS/MS) Methamphetamine Negative ng/mL Normal 0.5 Mda Negative ng/mL Normal 1 Mdea Negative ng/mL Normal 0.5 Mdma Negative ng/mL Normal 0.5 2 Benzodiazepine PNL 02/05/2019 [facility] 7-Aminoclonazepam Negative Normal 0.2 (Oral-LC/MS/MS) ng/mL Alprazolam Negative ng/mL Normal 0.2 Clonazepam Negative ng/mL Normal 0.2 Diazepam Negative ng/mL Normal 0.2 Lorazepam Negative ng/mL Normal 0.2 Nordiazepam Negative ng/mL Normal 0.2 Oxazepam Negative ng/mL Normal 0.2 Temazepam Negative ng/mL Normal 0.2 Chlordiazepoxide Negative ng/mL Normal 0.2 Midazolam Negative ng/mL Normal 0.2 Prazepam Negative ng/mL Normal 0.2 Estazolam Negative ng/mL Normal 0.2 3 Barbiturate PNL 02/05/2019 [facility] Butalbital Negative ng/mL Normal 10 (Oral-L C/MS/MS) Pentobarbital Negative ng/mL Normal 10 Phenobarbital Negative ng/mL Normal 10 Secobarbital Negative ng/mL Normal 10 4 Buprenorphine PNL 02/05/2019 [facility] Buprenorphine Negative Normal 0.05 (Oral -LC/MS/MS) ng/mL Norbuprenorphine Negative ng/mL Normal 0.5 Naloxone Negative ng/mL Normal 0.1 5 Cocaine Panel 02/05/2019 [facility] Cocaine Negative ng/mL Normal 0.5 (Oral-LC/MS/MS Benzoylecgonine Negative ng/mL Normal 1 6 Opiate Panel 02/05/2019 [facility] 6-Fidencio (Heroin Negative Normal 0.5 (Oral-LC/MS/MS) Metabolite) ng/mL Codeine Negative ng/mL Normal 0.5 Hydrocodone 36.61 Positive C <SEE NOTE> ng/mL Normal 0.5 7 Hydromorphone Negative Consist <SEE NOTE> ng/mL Normal 0.5 8 Morphine Negative ng/mL Normal 1 Oxycodone Negative ng/mL Normal 0.5 Oxymorphone Negative ng/mL Normal 0.5 9 Methadone Panel 02/05/2019 [facility] Methadone Negative ng/mL Normal 1 (Oral-LC/MS/MS) Eddp Negative ng/mL Normal 0.2 10 Antidepressant PNL 02/05/2019 [facility] Amitriptyline Negative Normal 0.5 (Oral-LC/MS/MS ng/mL Clomipramine Negative ng/mL Normal 0.5 Desipramine Negative ng/mL Normal 0.5 Doxepin Negative ng/mL Normal 0.5 Fluoxetine Negative ng/mL Normal 0.5 Imipramine Negative ng/mL Normal 0.5 Nortriptyline Negative ng/mL Normal 0.5 Sertraline Negative ng/mL Normal 0.5 Trimipramine Negative ng/mL Normal 0.[address] SCR 02/05/2019 [facility] Amphetamine NEGATIVE Normal 50 W/Out THC Barbiturate NEGATIVE Normal 20 Benzodiazepine NEGATIVE Normal 1.5 Cocaine NEGATIVE Normal 5 Methadone NEGATIVE Normal 5 Methamphetamine NEGATIVE Normal 40 Opiate POSITIVE Abnormal 10 Phencyclidine NEGATIVE Normal 1 12 Laboratory test 02/05/2019 [facility] Ethyl Glucuronide Negative ng/mL Normal 10 13 finding Gabapentin Negative ng/mL Normal 0.5 14 Tramadol 02/05/2019 [facility] Tramadol Negative ng/mL Normal 0.5 PDF SEE IMAGE Laboratory 12/24/2018 [facility] Troponin-I 0.33 ng/mL Critical < 0.04 15 test finding (TnI) high Laboratory 12/24/2018 [facility] Lactic Acid 1.3 mmol/L Normal 0.5- 2.0 16 test finding Influenza A & 12/23/2018 [facility] Influenza A NEGATIVE Negative 17 B Request Molecular Influenza B Molecular NEGATIVE Negative Sputum Culture & 12/23/2018 [facility] Sputum Culture SEE RESULT 18 Sensitiv Gram Stain BELOW CBC Auto Diff 12/23/2018 [facility] White Blood 10.4 10^3/uL Normal 3.5-10. Count 8 Red Blood Count 4.01 10^6/uL Low 4.18-5.48 Hemoglobin 12.1 g/dL Low 14.0-18.0 Hematocrit 36 % Low 42-52 Mean Corpuscular Volume 91 fL Normal 80-94 Mean Corpuscular Hemoglobin 30 pg Normal 27-31 Mean Corpuscular HGB Conc 33 g/dL Normal 31-36 Red Cell Distribution Width 14 % Normal 10.5-15 Platelet Count 189 10^3/uL Normal 150-450 Mean Platelet Volume 8.4 fL Normal 7.4-10.4 Abs Neutrophils 9.1 10^3/uL High 1.5-7.7 Abs Lymphocytes 0.7 10^3/uL Low 1.0-4.8 Abs Monocytes 0.6 10^3/uL Normal 0-0.8 Abs Eosinophils 0.0 10^3/uL Normal 0-0.6 Abs Basophils 0.1 10^3/uL Normal 0-0.2 Abs Nucleated RBC 0.0 10^3/uL Granulocyte % 87.4 % Lymphocyte % 6.3 % Monocyte % 5.4 % Eosinophil % 0.2 % Basophil % 0.7 % Nucleated Red Blood Cells % 0.0 Inr/Protime 12/23/2018 [facility] Inr 1.27 High 0.82-1.09 19 Laboratory test 12/23/2018 [facility] Partial 36.0 seconds Normal 26.0-38.0 finding Thrombo Time PTT Lactic Acid 1.5 mmol/L Normal 0.5-2.0 20 Comp Metabolic Panel 12/23/2018 [facility] Sodium 134 mmol/L Low 135- 145 Potassium 4.4 mmol/L Normal 3.5-5.0 Chloride 101 mmol/L Normal 101-111 Co2 Carbon Dioxide 22 mmol/L Normal 22-32 Anion Gap 11 mmol/L Normal 2-11 Glucose 171 mg/dL High 70-100 Blood Urea Nitrogen 24 mg/dL Normal 6-24 Creatinine 1.27 mg/dL High 0.67-1.17 BUN/Creatinine Ratio 18.9 Normal 8-20 Calcium 9.6 mg/dL Normal 8.6-10.3 Total Protein 7.1 g/dL Normal 6.4-8.9 Albumin 4.4 g/dL Normal 3.2-5.2 Globulin 2.7 g/dL Normal 2-4 Albumin/Globulin Ratio 1.6 Normal 1-3 Total Bilirubin 0.60 mg/dL Normal 0.2-1.0 Alkaline Phosphatase 61 U/L Normal 34-104 Alt 16 U/L Normal 7-52 Ast 31 U/L Normal 13-39 Egfr Non- 55.0 >60 Egfr 66.5 >60 21 Laboratory test 12/23/2018 [facility] C Reactive 3.34 mg/L Normal < 8.01 finding Protein Troponin-I (TnI) 0.05 ng/mL Critical high <0.04 22 Urinalysis Profile 12/23/2018 [facility] Urine Color Yellow Urine Appearance Clear Urine Specific [place] 1.014 Normal 1.010-1.030 Urine pH 7.0 Normal 5-9 Urine Urobilinogen Negative Negative Urine Ketones 1+ Abnormal Negative Urine Protein 2+(100 mg/dL) Abnormal Negative Urine Leukocytes Negative Negative Urine Blood Negative Negative Urine Nitrite Negative Negative Urine Bilirubin Negative Negative Urine Glucose Negative Negative Urine White Blood Cell Absent Absent Urine Red Blood Cell Absent Absent Urine Bacteria Absent Absent Urine Squamous Epithelial Cell Present Abnormal Absent Laboratory test finding 12/23/2018 [facility] Magnesium 1.4 mg/dL Low 1.9-2.7 TSH (Thyroid Stim Horm) 0.86 mcIU/mL Normal 0.34-5.60 Blood Culture SEE RESULT BELOW 23 1 Prescribed Medications: Hydrocodone (Hydrocodone), Acetaminophen ( Acetaminophen), LISINOPRIL, AMLODIPINE BESYLATE, METFORMIN, ELIQUIS, SPIRONOLACTONE, QUINAPRIL, Clonidine (Clonidine) 2 Prescribed Medications: Hydrocodone (Hydrocodone), Acetaminophen ( Acetaminophen), LISINOPRIL, AMLODIPINE BESYLATE, METFORMIN, ELIQUIS, SPIRONOLACTONE, QUINAPRIL, Clonidine (Clonidine) 3 Prescribed Medications: Hydrocodone (Hydrocodone), Acetaminophen ( Acetaminophen), LISINOPRIL, AMLODIPINE BESYLATE, METFORMIN, ELIQUIS, SPIRONOLACTONE, QUINAPRIL, Clonidine (Clonidine) 4 Prescribed Medications: Hydrocodone (Hydrocodone), Acetaminophen ( Acetaminophen), LISINOPRIL, AMLODIPINE BESYLATE, METFORMIN, ELIQUIS, SPIRONOLACTONE, QUINAPRIL, Clonidine (Clonidine) 5 Prescribed Medications: Hydrocodone (Hydrocodone), Acetaminophen ( Acetaminophen), LISINOPRIL, AMLODIPINE BESYLATE, METFORMIN, ELIQUIS, SPIRONOLACTONE, QUINAPRIL, Clonidine (Clonidine) 6 Prescribed Medications: Hydrocodone (Hydrocodone), Acetaminophen ( Acetaminophen), LISINOPRIL, AMLODIPINE BESYLATE, METFORMIN, ELIQUIS, SPIRONOLACTONE, QUINAPRIL, Clonidine (Clonidine) 7 36.61 Positive Consistent 8 Negative Consistent 9 Prescribed Medications: Hydrocodone (Hydrocodone), Acetaminophen ( Acetaminophen), LISINOPRIL, AMLODIPINE BESYLATE, METFORMIN, ELIQUIS, SPIRONOLACTONE, QUINAPRIL, Clonidine (Clonidine) 10 Prescribed Medications: Hydrocodone (Hydrocodone), Acetaminophen ( Acetaminophen), LISINOPRIL, AMLODIPINE BESYLATE, METFORMIN, ELIQUIS, SPIRONOLACTONE, QUINAPRIL, Clonidine (Clonidine) 11 Prescribed Medications: Hydrocodone (Hydrocodone), Acetaminophen ( Acetaminophen), LISINOPRIL, AMLODIPINE BESYLATE, METFORMIN, ELIQUIS, SPIRONOLACTONE, QUINAPRIL, Clonidine (Clonidine) 12 Prescribed Medications: Hydrocodone (Hydrocodone), Acetaminophen ( Acetaminophen), LISINOPRIL, AMLODIPINE BESYLATE, METFORMIN, ELIQUIS, SPIRONOLACTONE, QUINAPRIL, Clonidine (Clonidine) 13 Prescribed Medications: Hydrocodone (Hydrocodone), Acetaminophen ( Acetaminophen), LISINOPRIL, AMLODIPINE BESYLATE, METFORMIN, ELIQUIS, SPIRONOLACTONE, QUINAPRIL, Clonidine (Clonidine) 14 Prescribed Medications: Hydrocodone (Hydrocodone), Acetaminophen ( Acetaminophen), LISINOPRIL, AMLODIPINE BESYLATE, METFORMIN, ELIQUIS, SPIRONOLACTONE, QUINAPRIL, Clonidine (Clonidine) 15 Result TnIDx:0.33 Called to [id number] at: 02:14:30 by:[id number] Read back by: [id number] Troponin-I testing on Plasma Separator Tubes (PST) has a known false positive rate of 0.20-0.40%. All positive troponins reflex immediately to secondary confirmatory testing. Using the iZettle DxI 800 Access Immunoassay systems, the 99th percentile upper reference limit was demonstrated to be < 0.03 ng/mL. 16 [facility] Severe Sepsis and Septic Shock Management Bundle Measure requires all lactic acids initially measuring >2.0 mmol/L be repeated. 17 Chute Puller: [id number] 18 SEE RESULT BELOW Name: YADIEL AMBRIZ : [address]: Selene Forbes DO Acct: [id number] Unit: [id number] AGE: 78 Location: [place] [address] Re12/24/18 Dis: 12/28/18 SEX: M Status: DIS IN SPEC: [id number] JUAN: 12/27/18 [facility] DR: Ruy Cardozo MD REQ: [id number] RECD: 12/27/18 STATUS: LARS COSTA DR: Dorothea Joaquin MD _ SOURCE: SPUTUM,EXP SPDESC: ORDERED: Sputum Cult/GS Procedure Result Reported Site Sputum Smear Final 12/27/18- 1052 ML 3+ Epithelial Cells 3+ Neutrophils 3+ Gram Positive Cocci 2+ Gram Positive Bacilli 1+ Yeast Sputum Culture Final 12/29/18- 1251 ML Organism 1 REGGIE TROPICALIS Quantity 1+ Organism 2 NORMAL MAVIS Quantity 2+ * ML - Main Lab . END OF REPORT DEPARTMENT OF PATHOLOGY, [address] [place] [address] Huan Castellanos M.D. Director [facility] # [id number] 19 Standard intensity warfarin therapeutic range: 2.0-3.0 High intensity warfarin therapeutic range: 2.5-3.5 20 [facility] Severe Sepsis and Septic Shock Management Bundle Measure requires all lactic acids initially measuring >2.0 mmol/L be repeated. 21 Because ethnic data is not always readily available, this report includes an eGFR for both -Americans and non- Americans. The National Kidney Disease Education Program (NKDEP) does not endorse the use of the MDRD equation for patients that are not between the ages of 18 and 70, are , have extremes of body size, muscle mass, or nutritional status, or are non- or non-. According to the National Kidney Foundation, irrespective of diagnosis, the stage of the disease is based on the level of kidney function: Stage Description GFR(mL/min/1.73 m(2)) 1 Kidney damage with normal or decreased GFR 90 2 Kidney damage with mild decrease in GFR 60-89 3 Moderate decrease in GFR 30-59 4 Severe decrease in GFR 15-29 5 Kidney failure <15 (or dialysis) 22 Result TnIDx:0.05 Called to [id number]. at: 22:49:52 by:[id number] Read back by:[id number]. Troponin-I testing on Plasma Separator Tubes (PST) has a known false positive rate of 0.20-0.40%. All positive troponins reflex immediately to secondary confirmatory testing. Using the iZettle DxI 800 Access Immunoassay systems, the 99th percentile upper reference limit was demonstrated to be < 0.03 ng/mL. 23 SEE RESULT BELOW Name: YADIEL AMBRIZ : [address]: Selene Forbes DO Acct: [id number] Unit: [id number] AGE: 78 Location: [place] [address] Re12/24/18 Dis: 12/28/18 SEX: M Status: DIS IN SPEC: [id number] JUAN: 12/23/18-2232 [facility] DR: Ruy Cardozo MD REQ: [id number] RECD: 12/23/18 STATUS: LARS COSTA DR: Dorothea Joaquin MD _ SOURCE: BLOOD,[facility]: ORDERED: Blood Cult Procedure Result Reported Site Aerobic Culture Bottle Final 12/28/182235 ML No Growth Day 5 Anaerobic Culture Bottle Final 12/28/182235 ML No Growth Day 5 * ML - Main Lab . END OF REPORT DEPARTMENT OF PATHOLOGY, [address] [place] [address] Huan Castellanos M.D. Director [facility] # [id number] Procedures Date Code Description Status 04/04/2019 10550 Injection DX/Therapeutic/Prophy Completed 03/07/2019 51729 Injection DX/Therapeutic/Prophy Completed 02/05/2019 77008 Injection DX/Therapeutic/Prophy Completed 12/04/2018 93066 Oximetry Pulse Or Ear Completed 11/29/2018 90084 Spirometry Completed 10/30/2018 24474 Tympanometry Completed 10/30/2018 40741 Ear Irrigation Completed 02/22/2016 37614333 Colonoscopy Completed 07/24/2009 99614090 Colonoscopy Completed Medical Devices Description No Information Available Encounters Type Date Location Provider Dx Diagnosis Office Visit 04/04/2019 [place] [facility] Dorothea Joaquin I10 Essential ( primary) 8:30a MGalinaDGalina hypertension E11.65 Type 2 diabetes mellitus with hyperglycemia 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 E03.9 Hypothyroidism, unspecified E78.2 Mixed hyperlipidemia I73.9 Peripheral vascular disease, unspecified M51.37 Other intervertebral disc degeneration, lumbosacral region K21.0 Gastro-esophageal reflux disease with esophagitis E83.42 Hypomagnesemia D64.9 Anemia, unspecified M25.552 Pain in left hip M15.9 Polyosteoarthritis, unspecified N40.0 Benign prostatic hyperplasia without lower urinry tract symp R60.0 Localized edema R53.81 Other malaise H53.30 Unspecified disorder of binocular vision M79.606 Pain in leg, unspecified R26.89 Other abnormalities of gait and mobility M41.9 Scoliosis, unspecified D51.9 Vitamin B12 deficiency anemia, unspecified K59.00 Constipation, unspecified E55.9 Vitamin D deficiency, unspecified R35.1 Nocturia H90.6 Mixed conductive and sensorineural hearing loss, bilateral R13.14 Dysphagia, pharyngoesophageal phase R11.2 Nausea with vomiting, unspecified K52.3 Indeterminate colitis R19.7 Diarrhea, unspecified M25.569 Pain in unspecified knee I48.2 Chronic atrial fibrillation I65.23 Occlusion and stenosis of bilateral carotid arteries I67.1 Cerebral aneurysm, nonruptured N18.2 Chronic kidney disease, stage 2 (mild) K92.2 Gastrointestinal hemorrhage, unspecified 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 hypertension E11.65 Type 2 diabetes mellitus with hyperglycemia 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 E03.9 Hypothyroidism, unspecified E78.2 Mixed hyperlipidemia I73.9 Peripheral vascular disease, unspecified M51.37 Other intervertebral disc degeneration, lumbosacral region K21.0 Gastro-esophageal reflux disease with esophagitis E83.42 Hypomagnesemia D64.9 Anemia, unspecified M25.552 Pain in left hip M15.9 Polyosteoarthritis, unspecified N40.0 Benign prostatic hyperplasia without lower urinry tract symp R60.0 Localized edema R53.81 Other malaise H53.30 Unspecified disorder of binocular vision M79.606 Pain in leg, unspecified R26.89 Other abnormalities of gait and mobility M41.9 Scoliosis, unspecified D51.9 Vitamin B12 deficiency anemia, unspecified K59.00 Constipation, unspecified E55.9 Vitamin D deficiency, unspecified R35.1 Nocturia H90.6 Mixed conductive and sensorineural hearing loss, bilateral R13.14 Dysphagia, pharyngoesophageal phase R11.2 Nausea with vomiting, unspecified K52.3 Indeterminate colitis R19.7 Diarrhea, unspecified M25.569 Pain in unspecified knee I48.2 Chronic atrial fibrillation I65.23 Occlusion and stenosis of bilateral carotid arteries I67.1 Cerebral aneurysm, nonruptured N18.2 Chronic kidney disease, stage 2 (mild) K92.2 Gastrointestinal hemorrhage, unspecified 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, right side K41.30 Unil femoral hernia, w obst, w/o gangrene, not spcf as recur 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 Office Visit 02/05/2019 8:45a [place] [facility] Dorothea Joaquin I10 Essential ( primary) Елена Driver hypertension E11.65 Type 2 diabetes mellitus with hyperglycemia 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 E03.9 Hypothyroidism, unspecified E78.2 Mixed hyperlipidemia I73.9 Peripheral vascular disease, unspecified M51.37 Other intervertebral disc degeneration, lumbosacral region K21.0 Gastro-esophageal reflux disease with esophagitis E83.42 Hypomagnesemia D64.9 Anemia, unspecified M25.552 Pain in left hip M15.9 Polyosteoarthritis, unspecified N40.0 Benign prostatic hyperplasia without lower urinry tract symp R60.0 Localized edema R53.81 Other malaise H53.30 Unspecified disorder of binocular vision M79.606 Pain in leg, unspecified R26.89 Other abnormalities of gait and mobility M41.9 Scoliosis, unspecified D51.9 Vitamin B12 deficiency anemia, unspecified K59.00 Constipation, unspecified E55.9 Vitamin D deficiency, unspecified R35.1 Nocturia H90.6 Mixed conductive and sensorineural hearing loss, bilateral R13.14 Dysphagia, pharyngoesophageal phase R11.2 Nausea with vomiting, unspecified K52.3 Indeterminate colitis R19.7 Diarrhea, unspecified M25.569 Pain in unspecified knee I48.2 Chronic atrial fibrillation I65.23 Occlusion and stenosis of bilateral carotid arteries I67.1 Cerebral aneurysm, nonruptured N18.2 Chronic kidney disease, stage 2 (mild) K92.2 Gastrointestinal hemorrhage, unspecified 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, right side K41.30 Unil femoral hernia, w obst, w/o gangrene, not spcf as recur 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 Office Visit 01/03/2019 8:45a [place] [facility] Dorothea Joaquni I10 Diana ( primary) Елена Driver hypertension E11.65 Type 2 diabetes mellitus with hyperglycemia 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 E78.2 Mixed hyperlipidemia E03.9 Hypothyroidism, unspecified I73.9 Peripheral vascular disease, unspecified M51.37 Other intervertebral disc degeneration, lumbosacral region K21.0 Gastro-esophageal reflux disease with esophagitis E83.42 Hypomagnesemia D64.9 Anemia, unspecified M25.552 Pain in left hip M15.9 Polyosteoarthritis, unspecified N40.0 Benign prostatic hyperplasia without lower urinry tract symp R60.0 Localized edema R53.81 Other malaise H53.30 Unspecified disorder of binocular vision M79.606 Pain in leg, unspecified R26.89 Other abnormalities of gait and mobility M41.9 Scoliosis, unspecified D51.9 Vitamin B12 deficiency anemia, unspecified K59.00 Constipation, unspecified E55.9 Vitamin D deficiency, unspecified Z79.891 correction (current) use of opiate analgesic R35.1 Nocturia H90.6 Mixed conductive and sensorineural hearing loss, bilateral R13.14 Dysphagia, pharyngoesophageal phase R11.2 Nausea with vomiting, unspecified K52.3 Indeterminate colitis R19.7 Diarrhea, unspecified M25.569 Pain in unspecified knee I48.2 Chronic atrial fibrillation I65.23 Occlusion and stenosis of bilateral carotid arteries I67.1 Cerebral aneurysm, nonruptured N18.2 Chronic kidney disease, stage 2 (mild) K92.2 Gastrointestinal hemorrhage, unspecified 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, right side K41.30 Unil femoral hernia, w obst, w/o gangrene, not spcf as recur J18.9 Pneumonia, unspecified organism Office Visit 12/04/2018 8:30a [facility] Dorothea Joaquin I10 Essential ( primary) Елена Driver hypertension E11.65 Type 2 diabetes mellitus with hyperglycemia 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 E78.2 Mixed hyperlipidemia E03.9 Hypothyroidism, unspecified I73.9 Peripheral vascular disease, unspecified M51.37 Other intervertebral disc degeneration, lumbosacral region K21.0 Gastro-esophageal reflux disease with esophagitis E83.42 Hypomagnesemia D64.9 Anemia, unspecified M25.552 Pain in left hip M15.9 Polyosteoarthritis, unspecified N40.0 Benign prostatic hyperplasia without lower urinry tract symp R60.0 Localized edema R53.81 Other malaise H53.30 Unspecified disorder of binocular vision M79.606 Pain in leg, unspecified R26.89 Other abnormalities of gait and mobility M41.9 Scoliosis, unspecified D51.9 Vitamin B12 deficiency anemia, unspecified K59.00 Constipation, unspecified E55.9 Vitamin D deficiency, unspecified Z79.891 correction (current) use of opiate analgesic R35.1 Nocturia H90.6 Mixed conductive and sensorineural hearing loss, bilateral R13.14 Dysphagia, pharyngoesophageal phase R11.2 Nausea with vomiting, unspecified K52.3 Indeterminate colitis R19.7 Diarrhea, unspecified M25.569 Pain in unspecified knee I48.2 Chronic atrial fibrillation I65.23 Occlusion and stenosis of bilateral carotid arteries I67.1 Cerebral aneurysm, nonruptured N18.2 Chronic kidney disease, stage 2 (mild) K92.2 Gastrointestinal hemorrhage, unspecified 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, right side K41.30 Unil femoral hernia, w obst, w/o gangrene, not spcf as recur J18.9 Pneumonia, unspecified organism R06.02 Shortness of breath R05 Cough Office Visit 11/29/2018 1:15p [facility] Dorothea Joaquin I10 Diana ( primary) Елена Driver hypertension E11.65 Type 2 diabetes mellitus with hyperglycemia 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 E78.2 Mixed hyperlipidemia E03.9 Hypothyroidism, unspecified I73.9 Peripheral vascular disease, unspecified M51.37 Other intervertebral disc degeneration, lumbosacral region K21.0 Gastro-esophageal reflux disease with esophagitis E83.42 Hypomagnesemia D64.9 Anemia, unspecified M25.552 Pain in left hip M15.9 Polyosteoarthritis, unspecified N40.0 Benign prostatic hyperplasia without lower urinry tract symp R60.0 Localized edema R53.81 Other malaise H53.30 Unspecified disorder of binocular vision M79.606 Pain in leg, unspecified R26.89 Other abnormalities of gait and mobility M41.9 Scoliosis, unspecified D51.9 Vitamin B12 deficiency anemia, unspecified K59.00 Constipation, unspecified E55.9 Vitamin D deficiency, unspecified Z79.891 correction (current) use of opiate analgesic R35.1 Nocturia H90.6 Mixed conductive and sensorineural hearing loss, bilateral R13.14 Dysphagia, pharyngoesophageal phase R11.2 Nausea with vomiting, unspecified K52.3 Indeterminate colitis R19.7 Diarrhea, unspecified M25.569 Pain in unspecified knee I48.2 Chronic atrial fibrillation I65.23 Occlusion and stenosis of bilateral carotid arteries I67.1 Cerebral aneurysm, nonruptured N18.2 Chronic kidney disease, stage 2 (mild) K92.2 Gastrointestinal hemorrhage, unspecified 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, right side K41.30 Unil femoral hernia, w obst, w/o gangrene, not spcf as recur J18.9 Pneumonia, unspecified organism R06.02 Shortness of breath R05 Cough Office Visit 11/20/2018 9:00a [facility] Dorothea Joaquin I10 Diana ( primary) Елена Driver hypertension E11.65 Type 2 diabetes mellitus with hyperglycemia 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 E78.2 Mixed hyperlipidemia E03.9 Hypothyroidism, unspecified I73.9 Peripheral vascular disease, unspecified M51.37 Other intervertebral disc degeneration, lumbosacral region K21.0 Gastro-esophageal reflux disease with esophagitis E83.42 Hypomagnesemia D64.9 Anemia, unspecified M25.552 Pain in left hip M15.9 Polyosteoarthritis, unspecified N40.0 Benign prostatic hyperplasia without lower urinry tract symp R60.0 Localized edema R53.81 Other malaise H53.30 Unspecified disorder of binocular vision M79.606 Pain in leg, unspecified R26.89 Other abnormalities of gait and mobility M41.9 Scoliosis, unspecified D51.9 Vitamin B12 deficiency anemia, unspecified K59.00 Constipation, unspecified E55.9 Vitamin D deficiency, unspecified Z79.891 correction (current) use of opiate analgesic R35.1 Nocturia H90.6 Mixed conductive and sensorineural hearing loss, bilateral R13.14 Dysphagia, pharyngoesophageal phase R11.2 Nausea with vomiting, unspecified K52.3 Indeterminate colitis R19.7 Diarrhea, unspecified M25.569 Pain in unspecified knee I48.2 Chronic atrial fibrillation I65.23 Occlusion and stenosis of bilateral carotid arteries I67.1 Cerebral aneurysm, nonruptured N18.2 Chronic kidney disease, stage 2 (mild) K92.2 Gastrointestinal hemorrhage, unspecified 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 E78.2 Mixed hyperlipidemia E03.9 Hypothyroidism, unspecified I73.9 Peripheral vascular disease, unspecified M51.37 Other intervertebral disc degeneration, lumbosacral region K21.0 Gastro-esophageal reflux disease with esophagitis E83.42 Hypomagnesemia D64.9 Anemia, unspecified M25.552 Pain in left hip M15.9 Polyosteoarthritis, unspecified N40.0 Benign prostatic hyperplasia without lower urinry tract symp R60.0 Localized edema R53.81 Other malaise H53.30 Unspecified disorder of binocular vision M79.606 Pain in leg, unspecified R26.89 Other abnormalities of gait and mobility M41.9 Scoliosis, unspecified D51.9 Vitamin B12 deficiency anemia, unspecified K59.00 Constipation, unspecified E55.9 Vitamin D deficiency, unspecified Z79.891 correction (current) use of opiate analgesic R35.1 Nocturia H90.6 Mixed conductive and sensorineural hearing loss, bilateral R13.14 Dysphagia, pharyngoesophageal phase R11.2 Nausea with vomiting, unspecified K52.3 Indeterminate colitis R19.7 Diarrhea, unspecified M25.569 Pain in unspecified knee I48.2 Chronic atrial fibrillation I65.23 Occlusion and stenosis of bilateral carotid arteries I67.1 Cerebral aneurysm, nonruptured N18.2 Chronic kidney disease, stage 2 (mild) K92.2 Gastrointestinal hemorrhage, unspecified 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, right side Office Visit 10/18/2018 8:45a [facility] Dorothea Joaquin I10 Essential ( primary) Елена Driver hypertension E11.65 Type 2 diabetes mellitus with hyperglycemia 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 E78.2 Mixed hyperlipidemia E03.9 Hypothyroidism, unspecified I73.9 Peripheral vascular disease, unspecified M51.37 Other intervertebral disc degeneration, lumbosacral region K21.0 Gastro-esophageal reflux disease with esophagitis E83.42 Hypomagnesemia D64.9 Anemia, unspecified M25.552 Pain in left hip M15.9 Polyosteoarthritis, unspecified N40.0 Benign prostatic hyperplasia without lower urinry tract symp R60.0 Localized edema R53.81 Other malaise H53.30 Unspecified disorder of binocular vision M79.606 Pain in leg, unspecified R26.89 Other abnormalities of gait and mobility M41.9 Scoliosis, unspecified D51.9 Vitamin B12 deficiency anemia, unspecified K59.00 Constipation, unspecified E55.9 Vitamin D deficiency, unspecified Z79.891 correction (current) use of opiate analgesic R35.1 Nocturia H90.6 Mixed conductive and sensorineural hearing loss, bilateral R13.14 Dysphagia, pharyngoesophageal phase R11.2 Nausea with vomiting, unspecified K52.3 Indeterminate colitis R19.7 Diarrhea, unspecified M25.569 Pain in unspecified knee I48.2 Chronic atrial fibrillation I65.23 Occlusion and stenosis of bilateral carotid arteries I67.1 Cerebral aneurysm, nonruptured N18.2 Chronic kidney disease, stage 2 (mild) K92.2 Gastrointestinal hemorrhage, unspecified 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 04/04/2019 E11.65 Type 2 diabetes mellitus with hyperglycemia Dorothea Joaquin M.D. 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 04/04/2019 E78.2 Mixed hyperlipidemia Dorothea Joaquin M.D. 04/04/2019 I73.9 Peripheral vascular disease, unspecified Dorothea Joaquin M.D. 04/04/2019 M51.37 Other intervertebral disc degeneration, Dorothea Joaquin M.D. lumbosacral region 04/04/2019 K21.0 Gastro-esophageal reflux disease with Dorothea Joaquin M.D. esophagitis 04/04/2019 E83.42 Hypomagnesemia Dorothea Joaquin M.D. 04/04/2019 D64.9 Anemia, unspecified Dorothea Joaquin M.D. 04/04/2019 M25.552 Pain in left hip Dorothea Joaquin M.D. 04/04/2019 M15.9 Polyosteoarthritis, unspecified Dorothea Joaquin M.D. 04/04/2019 N40.0 Benign prostatic hyperplasia without lower Dorothea Joaquin M.D. urinary tract symptoms 04/04/2019 R60.0 Localized edema Dorothea Joaquin M.D. 04/04/2019 R53.81 Other malaise Dorothea Joaquin M.D. 04/04/2019 H53.30 Unspecified disorder of binocular vision Dorothea Joaquin M.D. 04/04/2019 M79.606 Pain in leg, unspecified Dorothea Joaquin M.D. 04/04/2019 R26.89 Other abnormalities of gait and mobility Dorothea Joaquin M.D. 04/04/2019 M41.9 Scoliosis, unspecified Dorothea Joaquin M.D. 04/04/2019 D51.9 Vitamin B12 deficiency anemia, unspecified Dorothea Joaquin M.D. 04/04/2019 K59.00 Constipation, unspecified Dorothea Joaquin M.D. 04/04/2019 E55.9 Vitamin D deficiency, unspecified Dorothea Joaquin M.D. 04/04/2019 R35.1 Nocturia Dorothea Joaquin M.D. 04/04/2019 H90.6 Mixed conductive and sensorineural hearing Dorothea Joaquin M.D. loss, bilateral 04/04/2019 R13.14 Dysphagia, pharyngoesophageal phase Dorothea Joaquin M.D. 04/04/2019 R11.2 Nausea with vomiting, unspecified Dorothea Joaquin M.D. 04/04/2019 K52.3 Indeterminate colitis Dorothea Joaquin M.D. 04/04/2019 R19.7 Diarrhea, unspecified Dorothea Joaquin M.D. 04/04/2019 M25.569 Pain in unspecified knee Dorothea Joaquin M.D. 04/04/2019 I48.2 Chronic atrial fibrillation Dorothea Joaquin M.D. 04/04/2019 I65.23 Occlusion and stenosis of bilateral carotid Dorothea Joaquin M.D. arteries 04/04/2019 I67.1 Cerebral aneurysm, nonruptured Dorothea Joaquin M.D. 04/04/2019 N18.2 Chronic kidney disease, stage 2 (mild) Dorothea Joaquin M.D. 04/04/2019 K92.2 Gastrointestinal hemorrhage, unspecified Dorothea Joaquin M.D. 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 side 04/04/2019 K41.30 Unilateral femoral hernia, with obstruction, Dorothea Joaquin M.D. without gangrene, not specified as recurrent 04/04/2019 Z79.891 correction (current) use of opiate analgesic Dorothea Joaquin M.D. 04/04/2019 Z23 Encounter for immunization Dortohea Joaquin M.D. 03/07/2019 I10 Essential (primary) hypertension JemalDorothea gandhi M.D. 03/07/2019 E11.65 Type 2 diabetes mellitus with hyperglycemia Dorothea Joaquin M.D. 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 03/07/2019 E78.2 Mixed hyperlipidemia Dorothea Joaquin M.D. 03/07/2019 I73.9 Peripheral vascular disease, unspecified Dorothea Joaquin M.D. 03/07/2019 M51.37 Other intervertebral disc degeneration, Dorothea Joaquin M.D. lumbosacral region 03/07/2019 K21.0 Gastro-esophageal reflux disease with Dorothea Joaquin M.D. esophagitis 03/07/2019 E83.42 Hypomagnesemia Dorothea Joaquin M.D. 03/07/2019 D64.9 Anemia, unspecified Dorothea Joaquin M.D. 03/07/2019 M25.552 Pain in left hip Dorothea Joaquin M.D. 03/07/2019 M15.9 Polyosteoarthritis, unspecified Dorothea Joaquin M.D. 03/07/2019 N40.0 Benign prostatic hyperplasia without lower Dorothea Joaquin M.D. urinary tract sym 03/07/2019 R60.0 Localized edema Dorothea Joaquin M.D. 03/07/2019 R53.81 Other malaise Dorothea Joaquin M.D. 03/07/2019 H53.30 Unspecified disorder of binocular vision Dorothea Joaquin M.D. 03/07/2019 M79.606 Pain in leg, unspecified Dorothea Joaquin M.D. 03/07/2019 R26.89 Other abnormalities of gait and mobility Dorothea Joaquin M.D. 03/07/2019 M41.9 Scoliosis, unspecified Dorothea Joaquin M.D. 03/07/2019 D51.9 Vitamin B12 deficiency anemia, unspecified Dorothea Joaquin M.D. 03/07/2019 K59.00 Constipation, unspecified Dorothea Joaquin M.D. 03/07/2019 E55.9 Vitamin D deficiency, unspecified Dorothea Joaquin M.D. 03/07/2019 R35.1 Nocturia Dorothea Joaquin M.D. 03/07/2019 H90.6 Mixed conductive and sensorineural hearing Dorothea Joaquin M.D. loss, bilateral 03/07/2019 R13.14 Dysphagia, pharyngoesophageal phase Dorothea Joaquin M.D. 03/07/2019 R11.2 Nausea with vomiting, unspecified Dorothea Joaquin M.D. 03/07/2019 K52.3 Indeterminate colitis Dorothea Joaquin M.D. 03/07/2019 R19.7 Diarrhea, unspecified Dorothea Joaquin M.D. 03/07/2019 M25.569 Pain in unspecified knee Dorothea Joaquin M.D. 03/07/2019 I48.2 Chronic atrial fibrillation Dorothea Joaquin M.D. 03/07/2019 I65.23 Occlusion and stenosis of bilateral carotid Dorothea Joaquin M.D. arteries 03/07/2019 I67.1 Cerebral aneurysm, nonruptured Dorothea Joaquin M.D. 03/07/2019 N18.2 Chronic kidney disease, stage 2 (mild) Dorothea Joaquin M.D. 03/07/2019 K92.2 Gastrointestinal hemorrhage, unspecified Dorothea Joaquin M.D. 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 side 03/07/2019 K41.30 Unilateral femoral hernia, with obstruction, Dorothea Joaquin M.D. without gangren 03/07/2019 Z79.891 correction (current) use of opiate analgesic Dorothea Joaquin M.D. 02/05/2019 I10 Essential (primary) hypertension Dorothea Joaquin M.D. 02/05/2019 E11.65 Type 2 diabetes mellitus with hyperglycemia Dorothea Joaquin M.D. 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 02/05/2019 E78.2 Mixed hyperlipidemia Dorothea Joaquin M.D. 02/05/2019 I73.9 Peripheral vascular disease, unspecified Dorothea Joaquin M.D. 02/05/2019 M51.37 Other intervertebral disc degeneration, Dorothea Joaquin M.D. lumbosacral region 02/05/2019 K21.0 Gastro-esophageal reflux disease with Dorothea Joaquin M.D. esophagitis 02/05/2019 E83.42 Hypomagnesemia Dorothea Joaquin M.D. 02/05/2019 D64.9 Anemia, unspecified Dorothea Joaquin M.D. 02/05/2019 M25.552 Pain in left hip Dorothea Joaquin M.D. 02/05/2019 M15.9 Polyosteoarthritis, unspecified Dorothea Joaquin M.D. 02/05/2019 N40.0 Benign prostatic hyperplasia without lower Dorothea Joaquin M.D. urinary tract sym 02/05/2019 R60.0 Localized edema Dorothea Joaquin M.D. 02/05/2019 R53.81 Other malaise Dorothea Joaquin M.D. 02/05/2019 H53.30 Unspecified disorder of binocular vision Dorothea Joaquin M.D. 02/05/2019 M79.606 Pain in leg, unspecified Dorothea Joaquin M.D. 02/05/2019 R26.89 Other abnormalities of gait and mobility Dorothea Joaquin M.D. 02/05/2019 M41.9 Scoliosis, unspecified Dorothea Joaquin M.D. 02/05/2019 D51.9 Vitamin B12 deficiency anemia, unspecified Dorothea Joaquin M.D. 02/05/2019 K59.00 Constipation, unspecified Dorothea Joaquin M.D. 02/05/2019 E55.9 Vitamin D deficiency, unspecified Dorothea Joaquin M.D. 02/05/2019 R35.1 Nocturia Dorothea Joaquin M.D. 02/05/2019 H90.6 Mixed conductive and sensorineural hearing Dorothea Joaquin M.D. loss, bilateral 02/05/2019 R13.14 Dysphagia, pharyngoesophageal phase Dorothea Joaquin M.D. 02/05/2019 R11.2 Nausea with vomiting, unspecified Dorothea Joaquin M.D. 02/05/2019 K52.3 Indeterminate colitis Dorothea Joaquin M.D. 02/05/2019 R19.7 Diarrhea, unspecified Dorothea Joaquin M.D. 02/05/2019 M25.569 Pain in unspecified knee Dorothea Joaquin M.D. 02/05/2019 I48.2 Chronic atrial fibrillation Dorothea Joaquin M.D. 02/05/2019 I65.23 Occlusion and stenosis of bilateral carotid Dorothea Joaquin M.D. arteries 02/05/2019 I67.1 Cerebral aneurysm, nonruptured Dorothea Joaquin M.D. 02/05/2019 N18.2 Chronic kidney disease, stage 2 (mild) Dorothea Joaquin M.D. 02/05/2019 K92.2 Gastrointestinal hemorrhage, unspecified Dorothea Joaquin M.D. 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 side 02/05/2019 K41.30 Unilateral femoral hernia, with obstruction, Dorothea Joaquin M.D. without gangren 02/05/2019 Z79.891 correction (current) use of opiate analgesic Dorothea Joaquin M.D. 01/03/2019 I10 Essential (primary) hypertension Dorothea Joaquin M.D. 01/03/2019 E11.65 Type 2 diabetes mellitus with hyperglycemia Dorothea Joaquin M.D. 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 01/03/2019 E03.9 Hypothyroidism, unspecified Dorothea Joaquin M.D. 01/03/2019 I73.9 Peripheral vascular disease, unspecified Dorothea Joaquin M.D. 01/03/2019 M51.37 Other intervertebral disc degeneration, Dorothea Joaquin M.D. lumbosacral region 01/03/2019 K21.0 Gastro-esophageal reflux disease with Dorothea Joaquin M.D. esophagitis 01/03/2019 E83.42 Hypomagnesemia Dorothea Joaquin M.D. 01/03/2019 D64.9 Anemia, unspecified Dorothea Joaquin M.D. 01/03/2019 M25.552 Pain in left hip Dorothea Joaquin M.D. 01/03/2019 M15.9 Polyosteoarthritis, unspecified Dorothea Joaquin M.D. 01/03/2019 N40.0 Benign prostatic hyperplasia without lower Dorothea Joaquin M.D. urinary tract sym 01/03/2019 R60.0 Localized edema Dorothea Joaquin M.D. 01/03/2019 R53.81 Other malaise Dorothea Joaquin M.D. 01/03/2019 H53.30 Unspecified disorder of binocular vision Dorothea Joaquin M.D. 01/03/2019 M79.606 Pain in leg, unspecified Dorothea Joaquin M.D. 01/03/2019 R26.89 Other abnormalities of gait and mobility Dorothea Joaquin M.D. 01/03/2019 M41.9 Scoliosis, unspecified Dorothea Joaquin M.D. 01/03/2019 D51.9 Vitamin B12 deficiency anemia, unspecified Dorothea Joaquin M.D. 01/03/2019 K59.00 Constipation, peterified Dorothea Joaquin M.D. 01/03/2019 E55.9 Vitamin D deficiency, unspecDorothea Sheehan M.D. 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 01/03/2019 R35.1 Nocturia Dorothea Joaquin M.D. 01/03/2019 H90.6 Mixed conductive and sensorineural hearing Dorothea Joaquin M.D. loss, bilateral 01/03/2019 R13.14 Dysphagia, pharyngoesophageal phase Dorothea Joaquin M.D. 01/03/2019 R11.2 Nausea with vomiting, unspecified Dorothea Joaquin M.D. 01/03/2019 K52.3 Indeterminate colitis Dorothea Joaquin M.D. 01/03/2019 R19.7 Diarrhea, unspecified Dorothea Joaquin M.D. 01/03/2019 M25.569 Pain in unspecified knee Dorothea Joaquin M.D. 01/03/2019 I48.2 Chronic atrial fibrillation Dorothea Joaquin M.D. 01/03/2019 I65.23 Occlusion and stenosis of bilateral carotid Dorothea Joaquin M.D. arteries 01/03/2019 I67.1 Cerebral aneurysm, nonruptured Dorothea Joaquin M.D. 01/03/2019 N18.2 Chronic kidney disease, stage 2 (mild) Dorothea Joaquin M.D. 01/03/2019 K92.2 Gastrointestinal hemorrhage, unspecified Dorothea Joaquin M.D. 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 side 01/03/2019 K41.30 Unilateral femoral hernia, with obstruction, Dorothea Joaquin M.D. without gangren 01/03/2019 J18.9 Pneumonia, unspecified organism Dorothea Joaquin M.D. 12/04/2018 I10 Essential (primary) hypertension Dorothea Joaquin M.D. 12/04/2018 E11.65 Type 2 diabetes mellitus with hyperglycemia Dorothea Joaquin M.D. 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 12/04/2018 E03.9 Hypothyroidism, unspecified Dorothea Joaquin M.D. 12/04/2018 I73.9 Peripheral vascular disease, unspecified Dorothea Joaquin M.D. 12/04/2018 M51.37 Other intervertebral disc degeneration, Dorothea Joaquin M.D. lumbosacral region 12/04/2018 K21.0 Gastro-esophageal reflux disease with Dorothea Joaquin M.D. esophagitis 12/04/2018 E83.42 Hypomagnesemia Dorothea Joaquin M.D. 12/04/2018 D64.9 Anemia, unspecified Dorothea Joaquin M.D. 12/04/2018 M25.552 Pain in left hip Dorothea Joaquin M.D. 12/04/2018 M15.9 Polyosteoarthritis, unspecified Dorothea Joaquin M.D. 12/04/2018 N40.0 Benign prostatic hyperplasia without lower Dorothea Joaquin M.D. urinary tract sym 12/04/2018 R60.0 Localized edema Dorothea Joaquin M.D. 12/04/2018 R53.81 Other malaise Dorothea Joaquin M.D. 12/04/2018 H53.30 Unspecified disorder of binocular vision Dorothea Joaquin M.D. 12/04/2018 M79.606 Pain in leg, unspecified Dorothea Joaquin M.D. 12/04/2018 R26.89 Other abnormalities of gait and mobility Dorothea Joaquin M.D. 12/04/2018 M41.9 Scoliosis, unspecified Dorothea Joaquin M.D. 12/04/2018 D51.9 Vitamin B12 deficiency anemia, unspecified Dorothea Joaquin M.D. 12/04/2018 K59.00 Constipation, unspecified Dorothea Joaquin M.D. 12/04/2018 E55.9 Vitamin D deficiency, unspecified Dorothea Joaquin M.D. 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 12/04/2018 R35.1 Nocturia Dorothea Joaquin M.D. 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 12/04/2018 R11.2 Nausea with vomiting, unspecified Dorothea Joaquin M.D. 12/04/2018 K52.3 Indeterminate colitis Dorothea Joaquin M.D. 12/04/2018 R19.7 Diarrhea, unspecified Dorothea Joaquin M.D. 12/04/2018 M25.569 Pain in unspecified knee Dorothea Joaquin M.D. 12/04/2018 I48.2 Chronic atrial fibrillation Dorothea Joaquin M.D. 12/04/2018 I65.23 Occlusion and stenosis of bilateral carotid Dorothea Joaquin M.D. arteries 12/04/2018 I67.1 Cerebral aneurysm, nonruptured Dorothea Joaquin M.D. 12/04/2018 N18.2 Chronic kidney disease, stage 2 (mild) Dorothea Joaquin M.D. 12/04/2018 K92.2 Gastrointestinal hemorrhage, unspecified Dorothea Joaquin M.D. 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 side 12/04/2018 K41.30 Unilateral femoral hernia, with obstruction, Dorothea Joaquin M.D. without gangren 12/04/2018 J18.9 Pneumonia, unspecified organism Dorothea Joaquin M.D. 12/04/2018 R06.02 Shortness of breath Dorothea Joaquin M.D. 12/04/2018 R05 Cough Dorothea Joaquin M.D. 11/29/2018 I10 Essential (primary) hypertension Dorothea Joaquin M.D. 11/29/2018 E11.65 Type 2 diabetes mellitus with hyperglycemia Dorothea Joaquin M.D. 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 coronary artery with 11/29/2018 E78.2 Mixed hyperlipidemia Dorohtea Joaquin M.D. 11/29/2018 E03.9 Hypothyroidism, unspecified Dorothea Joaquin M.D. 11/29/2018 I73.9 Peripheral vascular disease, unspecified Dorothea Joaquin M.D. 11/29/2018 M51.37 Other intervertebral disc degeneration, Dorothea Joaquin M.D. lumbosacral region 11/29/2018 K21.0 Gastro-esophageal reflux disease with Dorothea Joaquin M.D. esophagitis 11/29/2018 E83.42 Hypomagnesemia Dorothea Joaquin M.D. 11/29/2018 D64.9 Anemia, unspecified Dorothea Joaquin M.D. 11/29/2018 M25.552 Pain in left hip Dorothea Joaquin M.D. 11/29/2018 M15.9 Polyosteoarthritis, unspecified Dorothea Joaquin M.D. 11/29/2018 N40.0 Benign prostatic hyperplasia without lower Dorothea Joaquin M.D. urinary tract sym 11/29/2018 R60.0 Localized edema Dorothea Joaquin M.D. 11/29/2018 R53.81 Other malaise Dorothea Joaquin M.D. 11/29/2018 H53.30 Unspecified disorder of binocular vision Dorothea Joaquin M.D. 11/29/2018 M79.606 Pain in leg, unspecified Dorothea Joaquin M.D. 11/29/2018 R26.89 Other abnormalities of gait and mobility Dorothea Joaquin M.D. 11/29/2018 M41.9 Scoliosis, unspecified Dorothea Joaquin M.D. 11/29/2018 D51.9 Vitamin B12 deficiency anemia, unspecified Droothea Joaquin M.D. 11/29/2018 K59.00 Constipation, unspecified Dorothea Joaquin M.D. 11/29/2018 E55.9 Vitamin D deficiency, unspecified Dorothea Joaquin M.D. 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 11/29/2018 R35.1 Nocturia Dorothea Joauqin M.D. 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 11/29/2018 R11.2 Nausea with vomiting, unspecified Dorothea Joaquin M.D. 11/29/2018 K52.3 Indeterminate colitis Dorothea Joaquin M.D. 11/29/2018 R19.7 Diarrhea, unspecified Dorothea Joaquin M.D. 11/29/2018 M25.569 Pain in unspecified knee Dorothea Joaquin M.D. 11/29/2018 I48.2 Chronic atrial fibrillation Dorothea Joaquin M.D. 11/29/2018 I65.23 Occlusion and stenosis of bilateral carotid Dorothea Joaquin M.D. arteries 11/29/2018 I67.1 Cerebral aneurysm, nonruptured Dorothea Joaquin M.D. 11/29/2018 N18.2 Chronic kidney disease, stage 2 (mild) Dorothea Joaquin M.D. 11/29/2018 K92.2 Gastrointestinal hemorrhage, unspecified Dorothea Joaquin M.D. 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 side 11/29/2018 K41.30 Unilateral femoral hernia, with obstruction, Dorothea Joaquin M.D. without gangren 11/29/2018 J18.9 Pneumonia, unspecified organism Dorothea Joaquin M.D. 11/29/2018 R06.02 Shortness of breath Dorothea Joaquin M.D. 11/29/2018 R05 Cough Dorothea Joaquin M.D. 11/20/2018 I10 Essential (primary) hypertension Dorothea Joaquin M.D. 11/20/2018 E11.65 Type 2 diabetes mellitus with hyperglycemia Dorothea Joaquin M.D. 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 coronary artery with 11/20/2018 E78.2 Mixed hyperlipidemia Dorothea Joaquin M.D. 11/20/2018 E03.9 Hypothyroidism, unspecified Dorothea Joaquin M.D. 11/20/2018 I73.9 Peripheral vascular disease, unspecified Dorothea Joaquin M.D. 11/20/2018 M51.37 Other intervertebral disc degeneration, Dorothea Joaquin M.D. lumbosacral region 11/20/2018 K21.0 Gastro-esophageal reflux disease with Dorothea Joaquin M.D. esophagitis 11/20/2018 E83.42 Hypomagnesemia Dorothea Joaquin M.D. 11/20/2018 D64.9 Anemia, unspecified Dorothea Joaquin M.D. 11/20/2018 M25.552 Pain in left hip Dorothea Joaquin M.D. 11/20/2018 M15.9 Polyosteoarthritis, unspecified Dorothea Joaquin M.D. 11/20/2018 N40.0 Benign prostatic hyperplasia without lower Dorothea Joaquin M.D. urinary tract sym 11/20/2018 R60.0 Localized edema Dorothea Joaquin M.D. 11/20/2018 R53.81 Other malaise Dorothea Joaquin M.D. 11/20/2018 H53.30 Unspecified disorder of binocular vision Dorothea Joaquin M.D. 11/20/2018 M79.606 Pain in leg, unspecified Dorothea Joaquin M.D. 11/20/2018 R26.89 Other abnormalities of gait and mobility Dorothea Joaquin M.D. 11/20/2018 M41.9 Scoliosis, unspecified Dorothea Joaquin M.D. 11/20/2018 D51.9 Vitamin B12 deficiency anemia, unspecified Dorothea Joaquin M.D. 11/20/2018 K59.00 Constipation, unspecified Dorothea Joaquin M.D. 11/20/2018 E55.9 Vitamin D deficiency, unspecified Dorothea Joaquin M.D. 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 11/20/2018 R35.1 Nocturia Dorothea Joaquin M.D. 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 11/20/2018 R11.2 Nausea with vomiting, unspecified Dorothea Joaquin M.D. 11/20/2018 K52.3 Indeterminate colitis Dorothea Joaquin M.D. 11/20/2018 R19.7 Diarrhea, unspecified Dorothea Joaquin M.D. 11/20/2018 M25.569 Pain in unspecified knee Dorothea Joaquin M.D. 11/20/2018 I48.2 Chronic atrial fibrillation Dorothea Joaquin M.D. 11/20/2018 I65.23 Occlusion and stenosis of bilateral carotid Dorothea Joaquin M.D. arteries 11/20/2018 I67.1 Cerebral aneurysm, nonruptured Dorothea Joaquin M.D. 11/20/2018 N18.2 Chronic kidney disease, stage 2 (mild) Dorothea Joaquin M.D. 11/20/2018 K92.2 Gastrointestinal hemorrhage, unspecified Dorothea Joaquin M.D. 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 side 11/20/2018 J18.9 Pneumonia, unspecified organism Dorothea Joaquin M.D. 11/20/2018 R06.02 Shortness of breath Dorothea Joaquin M.D. 11/20/2018 R05 Cough Dorothea Joaquin M.D. 11/20/2018 K41.30 Unilateral femoral hernia, with obstruction, Dorothea Joaquin M.D. without gangren 10/30/2018 H61.20 Impacted cerumen, unspecified ear Dorothea Joaquin M.D. 10/30/2018 H92.03 Otalgia, bilateral Dorothea Joaquin M.D. 10/30/2018 H66.93 Otitis media, unspecified, bilateral Dorothea Joaquin M.D. 10/30/2018 H81.13 Benign paroxysmal vertigo, bilateral Dorothea Joaquin M.D. 10/30/2018 I10 Essential (primary) hypertension Dorothea Joaquin M.D. 10/30/2018 E11.65 Type 2 diabetes mellitus with hyperglycemia Dorothea Joaquin M.D. 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 10/30/2018 E03.9 Hypothyroidism, unspecified Dorothea Joaquin M.D. 10/30/2018 I73.9 Peripheral vascular disease, unspecified Dorothea Joaquin M.D. 10/30/2018 M51.37 Other intervertebral disc degeneration, Dorothea Joaquin M.D. lumbosacral region 10/30/2018 K21.0 Gastro-esophageal reflux disease with Dorothea Joaquin M.D. esophagitis 10/30/2018 E83.42 Hypomagnesemia Dorothea Joaquin M.D. 10/30/2018 D64.9 Anemia, unspecified Dorothea Joaquin M.D. 10/30/2018 M25.552 Pain in left hip Dorothea Joaquin M.D. 10/30/2018 M15.9 Polyosteoarthritis, unspecified Dorothea Joaquin M.D. 10/30/2018 N40.0 Benign prostatic hyperplasia without lower Dorothea Joaquin M.D. urinary tract sym 10/30/2018 R60.0 Localized edema Dorothea Joaquin M.D. 10/30/2018 R53.81 Other malaise Dorothea Joaquin M.D. 10/30/2018 H53.30 Unspecified disorder of binocular vision Dorothea Joaquin M.D. 10/30/2018 M79.606 Pain in leg, unspecified Dorothea Joaquin M.D. 10/30/2018 R26.89 Other abnormalities of gait and mobility Dorothea Joaquin M.D. 10/30/2018 M41.9 Scoliosis, unspecified Dorothea Joaquin M.D. 10/30/2018 D51.9 Vitamin B12 deficiency anemia, unspecified Dorothea Joaquin M.D. 10/30/2018 K59.00 Constipation, unspecified Dorothea Joaquin M.D. 10/30/2018 E55.9 Vitamin D deficiency, unspecified Dorothea Joaquin M.D. 10/30/2018 Z79.891 correction (current) use of opiate analgesic Dorothea Joaquin M.D. 10/30/2018 R35.1 Nocturia Dorothea Joaquin M.D. 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 10/30/2018 R11.2 Nausea with vomiting, unspecified Dorothea Joaquin M.D. 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 10/30/2018 R19.7 Diarrhea, unspecified Dorothea Joaquin M.D. 10/30/2018 M25.569 Pain in unspecified knee Dorothea Joaquin M.D. 10/30/2018 I48.2 Chronic atrial fibrillation Dorothea Joaquin M.D. 10/30/2018 I65.23 Occlusion and stenosis of bilateral carotid Dorothea Joaquin M.D. arteries 10/30/2018 I67.1 Cerebral aneurysm, nonruptured Dorothea Joaquin M.D. 10/30/2018 N18.2 Chronic kidney disease, stage 2 (mild) Dorothea Joaquin M.D. 10/30/2018 K92.2 Gastrointestinal hemorrhage, unspecified Dorothea Joaquin M.D. 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 side 10/18/2018 I10 Essential (primary) hypertension Dorothea Joaquin M.D. 10/18/2018 E11.65 Type 2 diabetes mellitus with hyperglycemia Dorothea Joaquin M.D. 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 10/18/2018 E03.9 Hypothyroidism, unspecified Dorothea Joaquin M.D. 10/18/2018 I73.9 Peripheral vascular disease, unspecified Dorothea Joaquin M.D. 10/18/2018 M51.37 Other intervertebral disc degeneration, Dorothea Joaquin M.D. lumbosacral region 10/18/2018 K21.0 Gastro-esophageal reflux disease with Dorothea Joaquin M.D. esophagitis 10/18/2018 E83.42 Hypomagnesemia Dorothea Joaquin M.D. 10/18/2018 D64.9 Anemia, unspecified Dorothea Joaquin M.D. 10/18/2018 M25.552 Pain in left hip Dorothea Joaquin M.D. 10/18/2018 M15.9 Polyosteoarthritis, unspecified Dorothea Joaquin M.D. 10/18/2018 N40.0 Benign prostatic hyperplasia without lower Dorothea Joaquin M.D. urinary tract sym 10/18/2018 R60.0 Localized edema Dorothea Joaquin M.D. 10/18/2018 R53.81 Other malaise Dorothea Joaquin M.D. 10/18/2018 H53.30 Unspecified disorder of binocular vision Dorothea Joaquin M.D. 10/18/2018 M79.606 Pain in leg, unspecified Dorothea Joaquin M.D. 10/18/2018 R26.89 Other abnormalities of gait and mobility Dorothea Joaquin M.D. 10/18/2018 M41.9 Scoliosis, unspecified Dorothea Joaquin M.D. 10/18/2018 D51.9 Vitamin B12 deficiency anemia, unspecified Dorothea Joaquin M.D. 10/18/2018 K59.00 Constipation, unspecified Dorothea Joaquin M.D. 10/18/2018 E55.9 Vitamin D deficiency, unspecified Dorothea Joaquin M.D. 10/18/2018 Z79.891 correction (current) use of opiate analgesic Dorothea Joaquin M.D. 10/18/2018 R35.1 Nocturia Dorothea Joaquin M.D. 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 10/18/2018 R11.2 Nausea with vomiting, unspecified Dorothea Joaquin M.D. 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 10/18/2018 R19.7 Diarrhea, unspecified Dorothea Joaquin M.D. 10/18/2018 M25.569 Pain in unspecified knee Dorothea Joaquin M.D. 10/18/2018 I48.2 Chronic atrial fibrillation Dorothea Joaquin M.D. 10/18/2018 I65.23 Occlusion and stenosis of bilateral carotid Dorothea Joaquin M.D. arteries 10/18/2018 I67.1 Cerebral aneurysm, nonruptured Dorothea Joaquin M.D. 10/18/2018 N18.2 Chronic kidney disease, stage 2 (mild) Dorothea Joaquin M.D. 10/18/2018 K92.2 Gastrointestinal hemorrhage, unspecified Dorothea Joaquin M.D. 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 side Plan of Treatment Future Appointment(s):05/02/2019 8:30 am - Dorothea Joaquin M.D. at [place] [id number]/04/2019 - Dorothea Joaquin M.D.I10 Essential (primary) hypertensionComments:CHECK BP TIW ( PRN)DIET AND FLUID COUNSELING LOW SODIUM DIETWT LOSSF/U LABE11.65 Type 2 diabetes mellitus with hyperglycemiaComments: DIET REVIEWED CONTINUE DIETWT LOSSF/U LAB FS qAC AND HS PRN F/U FBWI25.10 Atherosclerotic heart disease of [place] coronary artery without angina pectorisComments:F/U WITH CARDIOLOGY CONTINUE WITH RX AND F/U LABE03.9 Hypothyroidism, unspecifiedComments:STABLE OFF RX F/U TSH/ FT4E78.2 Mixed hyperlipidemiaComments:DIET REVIEWED CONTINUE DIETWT LOSSF/U LAB FBWI73.9 Peripheral vascular disease, unspecifiedComments:SKIN CARE FOOT CARE PODIATRY PRN CAREM51.37 Other intervertebral disc degeneration, lumbosacral regionComments:EXERCISE/HEAT /MESSAGEAVOID HEAVY LIFTING WT LOSSTYLENOL OR MOTRIN PRNK21.0 Gastro-esophageal reflux disease with esophagitisComments:AVOID CAFFEINE, ETOH AND SPICY FOODSTUMS OR MYLANTA PRN CALL WITH PROBLEMS OR BGIARCLTY53.42 HypomagnesemiaComments:F/U LABD64.9 Anemia, sdxmmasqsndC74.552 Pain in left hipComments:EXERCISE/HEAT/MESSAGETYLENOL OR MOTRIN PRNAVOID HEAVY LIFTINGWT LOSSM15.9 Polyosteoarthritis, unspecifiedComments:EXERCISE/HEAT/ MESSAGETYLENOL OR MOTRIN PRNAVOID HEAVY LIFTINGWT LOSSN40.0 Benign prostatic hyperplasia without lower urinary tract symptomsComments:STABLEF/U PSAR60.0 Localized edemaComments:ELEVATE LE PRNELASTIC STOCKING / MULUGETA WRAP PRNF/U LABR53.81 Other malaiseComments:INCRFEASE PO FLUIDCOUNCELLING AND REASSURANCE RESTH53.30 Unspecified disorder of binocular visionComments:USE GLASSES/ CONTACTSF/U WITH FCIXYUEQUJDNYD55.606 Pain in leg, unspecifiedComments:TYLENOL OR MOTRIN PRN EXERCISE/HEAT/INJFNGEA55.89 Other abnormalities of gait and mobilityComments:SAFETY CLEAR PATH @ HOMEAVOID USE OF LOOSE RUGSUSE CANE / WALKER NEEDEDPROVIDE ADEQUATE LIGHT @ HOMEUSE WELL FITTED SHOESCONSIDER USE OF REMOTE CALLING DEVICEARRANGE FOR REGURAL CHECK UP BY FAMILY ORFRIENDS USE CANEM41.9 Scoliosis, unspecifiedComments:EXERCISE/HEAT/MESSAGETYLENOL OR MOTRIN PRNAVOID HEAVY LIFTINGWT LOSSD51.9 Vitamin B12 deficiency anemia, unspecifiedComments:COUNSELED RE DIET/ AVOID ALCOHOL USEK59.00 Constipation, unspecifiedComments:MOM OR MIRALAX PRNHIGH FIBER DIETINCREASE PO KTZPWC33.9 Vitamin D deficiency, unspecifiedComments:INCREASE EXPOSURE TO SUNREVIEW OF DIETR35.1 NocturiaComments:OBSERVE FOR NOWH90.6 Mixed conductive and sensorineural hearing loss, bilateralComments:OBSERVE F/U WITH ENT PRNR13.14 Dysphagia, pharyngoesophageal phaseComments:F/U WITH GISOFT DIETR11.2 Nausea with vomiting, unspecifiedComments:INCREASE PO FLUID JARON DIETK52.3 Indeterminate rrkhxkuP70.7 Diarrhea, unspecifiedComments:INCREASE PO FLUID DIET REVIEW JARON DIET PRNIMMODIUM PRNM25.569 Pain in unspecified kneeComments: EXERCISE/HEAT /MESSAGEAVOID HEAVY LIFTING WT LOSSTYLENOL OR MOTRIN PRNI48.2 Chronic atrial fibrillationComments:CONTINUE RX F/U WITH CARDIOLOGY EKRTZUX30.23 Occlusion and stenosis of bilateral carotid arteriesComments: STABLE AND ASYMPTOMATIC F/U WITH SURGERY WITH YEARLY CAROTID U/SI67.1 Cerebral aneurysm, nonrupturedComments:OBSERVEF/U WITH WVGHLDSCQNLYJ79.2 Chronic kidney disease, stage 2 (mild)Comments:DIET REVIEWED MEDICATION REVIEWEDF/U LABK92.2 Gastrointestinal hemorrhage, unspecifiedComments:AVOID CONSTIPATOIN INCREASE FIBER IN DIETLAXATIVE PRNLUBRICATE ANAL AREA WITH LOTION PRN FOR GHEGFJWW41.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, right sideComments:USE GLASSES F/U WIITH MDZGJSGWCMPZMB42.30 Unilateral femoral hernia, with obstruction, without gangrene, not specified as recurrentComments:HERNIA ZXQZSEZUJWGZ77.891 middle or intermediate school principal (current) use of opiate analgesicComments:REVIEWED MEDICATIONS AND DIRECTIONS WITH PATIENT DUR CHECKED SEE DRUG SCREEN [id number] Encounter for immunizationComments:IMMUNIZATION GIVEN ( SEE LIST )BENEFITS ,RISK AND SIDE EFFECTS DISSCUSED HANDOUT GIVEN Functional Status Functional Condition Comment Date Status Glasses Active Bifocal glasses Active Standard cane is used with the left hand to ambulate Active Mental Status Description No Information Available Referrals Description No Information Available
--- OUTSIDE RECORDS SUMMARY | 2019-04-30 07:21 | XMS REPORT | Continuity of Care Document ---
:1940 External Reference #:[id number] Author Name Zaki Macias M.D. (transmitted by agent of provider Selina Pimentel) Address [address] [place] [id number] Care Team Providers Name Role Phone Dorothea Joaquin MD - Family Medicine Care Team Information Diabetes Territory Manager Problems Description No Information Available Social History Type Date Description Comments Sex Unknown ETOH Use Denies alcohol use Tobacco Use Start: Unknown End: Patient is a former Unknown smoker Recreational Drug Use Denies Drug Use Tobacco Use Start: Unknown End: Patient is a former quit 35 yrs ago Unknown smoker from 2018 Smoking Status Reviewed: 04/26/19 Patient is a former quit 35 yrs ago smoker from 2018 Exercise Type/Frequency Exercises rarely Allergies, Adverse Reactions, Alerts Active Allergies Reaction Severity Comments Date Statins severe myalgias, would never take 10/26/2017 another one Inactive Allergies NKDA 10/26/2017 Medications Active Medications SIG Qnty Indications Ordering Date Provider Pravachol on monday and 90tabs R94.39 Zaki Junior 01/04/2019 40mg Tablets Елена Macias Metoprolol Tartrate 1/2 tablet by 180tabs Selene Forbes, 12/28/2018 25mg mouth twice a DO Tablets day Hydrocodone-Acetaminop 2 tablet po Dorothea Joaquin, 12/04/2018 hen every 4 hours as 10-325mg Tablets needed Eliquis 1 by mouth twice Zaki Junior 08/29/2018 5mg Tablets a day Елена Macias Furosemide 1 by mouth three 90tabs Zaki Junior 07/25/2018 20mg Tablets times a week Елена Macias Clonidine HCL 1 by mouth twice Unknown 07/19/2018 0.2mg a day Tablets Spironolactone 1/2 tablet po Jemal Raymondvarun Driver, 05/19/2018 25mg daily MD Tablets Metformin HCL 1 by mouth qid 180tabs Drew Kelly, 10/25/2017 500mg DO FACC Tablets Amlodipine Besylate 1 by mouth bid 30tabs Drew Kelly, 10/23/2017 5mg DO FACC Tablets Clopidogrel Bisulfate 1 po daily Jemal Raymondvarun Driver, MD 75mg Tablets Lisinopril 1 by mouth every 90tabs Zaki Sandi 40mg Tablets day Елена Macias Prilosec take one capsule Unknown 20mg Capsules DR by mouth once a day Immunizations Description No Information Available Vital Signs Date Vital Result Comment 04/26/2019 9:59am Height 69 inches 5'9" Weight 158.00 lb with shoes Heart Rate 48 /min irregular BP Systolic Sitting 132 mmHg lue reg cuff BP Diastolic Sitting 62 mmHg lue reg cuff BP Systolic Standing 150 mmHg lue reg cuff BP Diastolic Standing 60 mmHg lue reg cuff Respiratory Rate 14 /min BMI (Body Mass Index) 23.3 kg/m2 Ejection Fraction 55-60% echo. 12/24/18 01/04/2019 9:11am Height 69 inches 5'9" Weight 161.00 lb with shoes Heart Rate 60 /min BP Systolic Sitting 130 mmHg Lue reg cuff BP Diastolic Sitting 70 mmHg Lue reg cuff BP Systolic Standing 128 mmHg Lue reg cuff BP Diastolic Standing 62 mmHg Lue reg cuff Respiratory Rate 16 /min BMI (Body Mass Index) 23.8 kg/m2 Ejection Fraction 55-60% date 12/24/18 ECHO Results Description No Information Available Procedures Date Code Description Status 01/11/2019 77624 Holter Monitor Review (24 hr)dr review & interp only Completed 01/10/2019 47133 ECG Monitor/Recording W/Visual Superimposition Completed Scanning 01/04/2019 16726 EKG Tracing & Interpretation Completed 12/25/2018 13902 Treadmill Interp/Report Only Completed 12/25/2018 74997 Stress Test Supervsn W/Out I/R Completed 12/24/2018 84784 ECHO Transthorasic Realtime 2D W Doppler & Color Flow Completed Hosp 12/24/2018 16039 EKG, Interpretation Only Completed 12/13/2018 [id number] Diabetic Retinal Eye Exam Completed Medical Devices Description No Information Available Encounters Type Date Location Provider Dx Diagnosis Office Visit 01/04/2019 [facility] Zaki Junior I10 Essential ( primary) 9:30a Of Bethany Macias M.D. hypertension I48.2 Chronic atrial fibrillation R07.89 Other chest pain R94.39 Abnormal result of other cardiovascular function study Office Visit 12/28/2018 10:03a [facility] J18.9 Pneumonia, Assoc,pc Andrei D.O. unspecified Hospitalists organism A41.9 Sepsis, unspecified organism R79.89 Other specified abnormal findings of blood chemistry I16.0 Hypertensive urgency J44.1 Chronic obstructive pulmonary disease w (acute) exacerbation I48.2 Chronic atrial fibrillation R09.89 Oth symptoms and signs involving the circ and resp systems R91.1 Solitary pulmonary nodule E11.9 Type 2 diabetes mellitus without complications Office Visit 12/27/2018 10:02a [facility] Selene J18.9 Pneumonia, Assoc,pc Andrei D.O. unspecified Hospitalists organism I10 Essential (primary) hypertension J44.1 Chronic obstructive pulmonary disease w (acute) exacerbation I48.91 Unspecified atrial fibrillation R51 Headache R09.89 Oth symptoms and signs involving the circ and resp systems R91.8 Other nonspecific abnormal finding of lung field E11.9 Type 2 diabetes mellitus without complications Office Visit 12/26/2018 11:58a [facility] Denise Salcido, R79.89 Other specified Of Bethany Christiansen abnormal findings of blood chemistry I48.0 Paroxysmal atrial fibrillation I10 Essential (primary) hypertension Office Visit 12/26/2018 10:02a [facility] Niurka Angelina, R79.89 Other specified Assoc,pc FINANCIAL AID abnormal Hospitalists findings of blood chemistry R51 Headache R09.89 Oth symptoms and signs involving the circ and resp systems J18.9 Pneumonia, unspecified organism J44.1 Chronic obstructive pulmonary disease w (acute) exacerbation I10 Essential (primary) hypertension R91.8 Other nonspecific abnormal finding of lung field I48.91 Unspecified atrial fibrillation E11.9 Type 2 diabetes mellitus without complications Z86.73 Prsnl hx of TIA (TIA), and cereb infrc w/o resid deficits Office Visit 12/25/2018 10:01a [facility] Niurka Angelina, J18.9 Pneumonia, Assoc,pc FINANCIAL AID unspecified Hospitalists organism J44.1 Chronic obstructive pulmonary disease w (acute) exacerbation R79.89 Other specified abnormal findings of blood chemistry R09.89 Oth symptoms and signs involving the circ and resp systems I10 Essential (primary) hypertension R91.8 Other nonspecific abnormal finding of lung field I48.91 Unspecified atrial fibrillation E11.9 Type 2 diabetes mellitus without complications Z86.73 Prsnl hx of TIA (TIA), and cereb infrc w/o resid deficits Office Visit 12/25/2018 8:36a [facility] Raisa Landin, R06.09 Other forms of Of [employer] FINANCIAL AID dyspnea R07.9 Chest pain, unspecified R79.89 Other specified abnormal findings of blood chemistry I48.0 Paroxysmal atrial fibrillation I10 Essential (primary) hypertension Z86.73 Prsnl hx of TIA (TIA), and cereb infrc w/o resid deficits Office Visit 12/24/2018 10:01a [facility] Niurka Angelina, J18.9 Pneumonia, Assoc,pc FINANCIAL AID unspecified Hospitalists organism J44.1 Chronic obstructive pulmonary disease w (acute) exacerbation R79.89 Other specified abnormal findings of blood chemistry I10 Essential (primary) hypertension R91.8 Other nonspecific abnormal finding of lung field E11.9 Type 2 diabetes mellitus without complications I48.91 Unspecified atrial fibrillation Z86.73 Prsnl hx of TIA (TIA), and cereb infrc w/o resid deficits Office Visit 12/23/2018 10:00a [facility] Evon Mallory, R06.02 Shortness of Assoc,pc DO breath Hospitalists E11.9 Type 2 diabetes mellitus without complications I10 Essential (primary) hypertension M25.559 Pain in unspecified hip K21.9 Gastro-esophageal reflux disease without esophagitis Assessments Date Code Description Provider 04/26/2019 R94.39 Abnormal result of other Zaki Macias M.D. cardiovascular function study 04/26/2019 I48.91 Atrial fibrillation Zaki Macias M.D. 04/26/2019 R00.1 Bradycardia Zaki Macias M.D. 01/11/2019 R94.39 Abnormal result of other Drew Kelly, DO [facility] cardiovascular function study 01/11/2019 I48.91 Unspecified atrial fibrillation Drew Kelly, DO [facility] 01/10/2019 R94.39 Abnormal result of other Nurse Visit IC cardiovascular function study 01/10/2019 I48.91 Unspecified atrial fibrillation Nurse Visit IC 01/10/2019 R94.39 Abnormal result of other Zaki Macias M.D. cardiovascular function study 01/04/2019 I10 Essential (primary) hypertension Zaki Macias M.D. 01/04/2019 I48.2 Chronic atrial fibrillation Zaki Macias M.D. 01/04/2019 R07.89 Other chest pain Zaki Macias M.D. 01/04/2019 R94.39 Abnormal result of faizan Macias M.D. cardiovascular function study 12/28/2018 J18.9 Pneumonia, unspecified organism Selene Andrei D.O. 12/28/2018 A41.9 Sepsis, unspecified organism Selene Andrei, D.O. 12/28/2018 R79.89 Other specified abnormal findings of Selene Forbes D.O. blood chemistry 12/28/2018 I16.0 Hypertensive urgency Selene Forbes D.O. 12/28/2018 J44.1 Chronic obstructive pulmonary disease Selene Forbes D.O. w (acute) exacerbation 12/28/2018 I48.2 Chronic atrial fibrillation Selene Forbes D.O. 12/28/2018 R09.89 [facility] symptoms and signs involving the Selene Andrei, D.O. circ and resp systems 12/28/2018 R91.1 Solitary pulmonary nodule Selene Forbes D.O. 12/28/2018 E11.9 Type 2 diabetes mellitus without Selene Andrei, D.O. complications 12/27/2018 J18.9 Pneumonia, unspecified organism Selene Andrei, D.O. 12/27/2018 I10 Essential (primary) hypertension Selene Forbes D.O. 12/27/2018 J44.1 Chronic obstructive pulmonary disease Selene Andrei D.O. w (acute) exacerbation 12/27/2018 I48.91 Unspecified atrial fibrillation Sandi LeblancO. 12/27/2018 R51 Headache Sandi LeblancO. 12/27/2018 R09.89 Oth symptoms and signs involving the Selene Forbes D.O. circ and resp systems 12/27/2018 R91.8 Other nonspecific abnormal finding of Selene Forbes D.O. lung field 12/27/2018 E11.9 Type 2 diabetes mellitus without Selene Forbes D.O. complications 12/26/2018 R79.89 Other specified abnormal findings of Denise Salcido M.D. blood chemistry 12/26/2018 I48.0 Paroxysmal atrial fibrillation Denise Salcido M.D. 12/26/2018 I10 Essential (primary) hypertension Denise Salcido M.D. 12/26/2018 R79.89 Other specified abnormal findings of Niurka Angelina, FINAN[employer] AID blood chemistry 12/26/2018 R51 Headache Niurka Angelina, FINANCIAL AID 12/26/2018 R09.89 Oth symptoms and signs involving the Niurka Angelina, FINANCIAL AID circ and resp systems 12/26/2018 J18.9 Pneumonia, unspecified organism Niurka Angelina, FINANCIAL AID 12/26/2018 J44.1 Chronic obstructive pulmonary disease Niurka Angelina, FINANCIAL AID w (acute) exacerbation 12/26/2018 I10 Essential (primary) hypertension Niurka Angelina, FINANCIAL AID 12/26/2018 R91.8 Other nonspecific abnormal finding of Niurka Angelina, FINANCIAL AID lung field 12/26/2018 I48.91 Unspecified atrial fibrillation Niurka Angelina, FINANCIAL AID 12/26/2018 E11.9 Type 2 diabetes mellitus without Niurka Angelina, FIN[employer] AID complications 12/26/2018 Z86.73 Personal history of transient ischemic Niurka Angelina, FINAN[employer] AID attack (TIA), and cer 12/25/2018 R07.89 Other chest pain Zaki Macias M.D. 12/25/2018 I48.91 Unspecified atrial fibrillation Zaki Macias M.D. 12/25/2018 R06.09 Other forms of dyspnea Raisa Landin, FINANCIAL AID 12/25/2018 J18.9 Pneumonia, unspecified organism Niurka Angelina, FINANCIAL AID 12/25/2018 R07.9 Chest pain, unspecified Raisa Thuman, FINANCIAL AID 12/25/2018 J44.1 Chronic obstructive pulmonary disease Niurka Angelina, FINANCIAL AID w (acute) exacerbation 12/25/2018 R79.89 Other specified abnormal findings of Raisa Thuman, FINANCIAL AID blood chemistry 12/25/2018 R79.89 Other specified abnormal findings of Niurka Angelina, FINANCIAL AID blood chemistry 12/25/2018 I48.0 Paroxysmal atrial fibrillation Raisa Thuman, FINANCIAL AID 12/25/2018 R09.89 Ot symptoms and signs involving the Niurka Angelina, FINANCIAL AID circ and resp systems 12/25/2018 I10 Essential (primary) hypertension Raisa Thuman, FINANCIAL AID 12/25/2018 I10 Essential (primary) hypertension Niurka Angelina, FINANCIAL AID 12/25/2018 Z86.73 Personal history of transient ischemic Raisa Thuman, FINAN[employer] AID attack (TIA), and cer 12/25/2018 R91.8 Other nonspecific abnormal finding of Niurka Angelina, FINANCIAL AID lung field 12/25/2018 I48.91 Unspecified atrial fibrillation Niurka Angelina, FINANCIAL AID 12/25/2018 E11.9 Type 2 diabetes mellitus without Niruka Angelina, FINANCIAL AID complications 12/25/2018 Z86.73 Prsnl hx of TIA (TIA), and cereb infrc Niurka Angelina, FINANCIAL AID w/o resid deficits 12/24/2018 R94.31 Abnormal electrocardiogram [ECG] [EKG] Connor Baldwin M.D., [facility], [facility] 12/24/2018 R07.9 Chest pain, unspecified Zaki Macias M.D. 12/24/2018 J18.9 Pneumonia, unspecified organism Niurka Angelina, FINANCIAL AID 12/24/2018 J44.1 Chronic obstructive pulmonary disease Niurka Angelina, FINANCIAL AID w (acute) exacerbation 12/24/2018 R79.89 Other specified abnormal findings of Niurka Angelina, FINANCIAL AID blood chemistry 12/24/2018 I10 Essential (primary) hypertension Niurka Angelina, FINANCIAL AID 12/24/2018 R91.8 Other nonspecific abnormal finding of Niurka Angelina, FINANCIAL AID lung field 12/24/2018 E11.9 Type 2 diabetes mellitus without Niurka Angelina, FINANCIAL AID complications 12/24/2018 I48.91 Unspecified atrial fibrillation Niurka Angelina, FINANCIAL AID 12/24/2018 Z86.73 Prsnl hx of TIA (TIA), and cereb infrc Niurka Alfaro FINANCIAL AID w/o resid deficits 12/23/2018 R06.02 Shortness of breath Evoncristofer Mallory, DO 12/23/2018 E11.9 Type 2 diabetes mellitus without Evon Rooth, DO complications 12/23/2018 I10 Essential (primary) hypertension Evon Rootliyah, DO 12/23/2018 M25.559 Pain in unspecified hip Evon Rooth, DO 12/23/2018 K21.9 Gastro-esophageal reflux disease Evon Rootliyah, DO without esophagitis Plan of Treatment 04/26/2019 - Zaki Macias M.D.R94.39 Abnormal result of other cardiovascular function yqlweR80.91 Atrial bpryhlmsxuuiR42.1 BradycardiaFollow up:6 monthsRecommendations:Stop Metoprolol ( It slow down the heart too low) Coumadin could be a cheaper alternative to Eliquisbut will require frequent blood tests Functional Status Description No Information Available Mental Status Description No Information Available Referrals Description No Information Available
--- OUTSIDE RECORDS SUMMARY | 2019-04-30 07:22 | XMS REPORT | Continuity of Care Document ---
:1940 External Reference #:[id number] Author Name Dorothea Joaquin M.D. 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 [...] by mouth 12caps E55.9 Dorothea Joaquin, 03/07/2019 13078Yqof every week M.D. Capsules Cyanocobalamin inject 1000mcg [...] Ordering Provider Date B12 Dorothea Joaquin M.D. 03/07/2019 Injection B12 Dorothea Joaquin M.D. 02/05/2019 Injection B12 Dorothea Joaquin M.D. 05/17/2018 Injection B12 Dorothea Joaquin M.D. 04/19/2018 Injection B12 Dorothea Joaquin M.D. 04/19/2018 Injection B12 Dorothea Joaquin M.D. 12/26/2017 Injection B12 Dorothea Joaquin M.D. 10/18/2017 Injection B12 Dorothea Joauqin M.D. 07/18/2017 Injection B12 Dorothea Joaquin M.D. 07/13/2017 Injection B12 Dorothea Joaquin M.D. [...] Status Date Vaccine Lot # [id number] Given 07/19/2018 Flu Vaccine 3+Yrs Old(Fluzone) [id number] Refused 05/17/2018 Flu Vaccine 97123 Refused 04/23/2015 Flu Vaccine 26232 Refused 05/14/2014 Flu Vaccine Vital Signs Date Vital Result Comment 03/07/2019 8:43am BP Systolic 134 mmHg BP Diastolic 70 mmHg Height 69 inches 5'9" Weight 165.00 lb BMI (Body Mass Index) 24.4 kg/m2 Heart Rate 60 /min Respiratory Rate 16 /min 02/05/2019 8:43am BP Systolic 168 mmHg BP Diastolic 64 mmHg Height 69 inches 5'9" Weight 161.00 lb BMI (Body Mass Index) 23.8 kg/m2 Heart Rate 76 /min Respiratory Rate 18 /min Results Test Date Facility Test Result H/L Range Note Tramadol 02/05/2019 [facility] Tramadol Negative ng/mL Normal 0.5 PDF SEE IMAGE Laboratory test 02/05/2019 [facility] Ethyl Glucuronide Negative ng/mL Normal 10 1 finding Gabapentin Negative ng/mL Normal 0.[address] SCR 02/05/2019 [facility] Amphetamine NEGATIVE Normal 50 W/Out THC Barbiturate NEGATIVE Normal 20 Benzodiazepine NEGATIVE Normal 1.5 Cocaine NEGATIVE Normal 5 Methadone NEGATIVE Normal 5 Methamphetamine NEGATIVE Normal 40 Opiate POSITIVE Abnormal 10 Phencyclidine NEGATIVE Normal 1 3 Antidepressant PNL 02/05/2019 [facility] Amitriptyline Negative Normal 0.5 (Oral-LC/MS/MS ng/mL Clomipramine Negative ng/mL Normal 0.5 Desipramine Negative ng/mL Normal 0.5 Doxepin Negative ng/mL Normal 0.5 Fluoxetine Negative ng/mL Normal 0.5 Imipramine Negative ng/mL Normal 0.5 Nortriptyline Negative ng/mL Normal 0.5 Sertraline Negative ng/mL Normal 0.5 Trimipramine Negative ng/mL Normal 0.5 4 Methadone Panel 02/05/2019 [facility] Methadone Negative ng/mL Normal 1 (Oral-LC/MS/MS) Eddp Negative ng/mL Normal 0.2 5 Opiate Panel 02/05/2019 [facility] 6-Fidencio (Heroin Negative Normal 0.5 (Oral-LC/MS/MS) Metabolite) ng/mL Codeine Negative ng/mL Normal 0.5 Hydrocodone 36.61 Positive C <SEE NOTE> ng/mL Normal 0.5 6 Hydromorphone Negative Consist <SEE NOTE> ng/mL Normal 0.5 7 Morphine Negative ng/mL Normal 1 Oxycodone Negative ng/mL Normal 0.5 Oxymorphone Negative ng/mL Normal 0.5 8 Cocaine Panel 02/05/2019 [facility] Cocaine Negative ng/mL Normal 0.5 (Oral-LC/MS/MS Benzoylecgonine Negative ng/mL Normal 1 9 Buprenorphine PNL 02/05/2019 [facility] Buprenorphine Negative Normal 0.05 (Oral -LC/MS/MS) ng/mL Norbuprenorphine Negative ng/mL Normal 0.5 Naloxone Negative ng/mL Normal 0.1 10 Barbiturate PNL 02/05/2019 [facility] Butalbital Negative ng/mL Normal 10 (Oral-L C/MS/MS) Pentobarbital Negative ng/mL Normal 10 Phenobarbital Negative ng/mL Normal 10 Secobarbital Negative ng/mL Normal 10 11 Benzodiazepine PNL 02/05/2019 [facility] 7-Aminoclonazepam Negative Normal 0.2 (Oral-LC/MS/MS) ng/mL Alprazolam Negative ng/mL Normal 0.2 Clonazepam Negative ng/mL Normal 0.2 Diazepam Negative ng/mL Normal 0.2 Lorazepam Negative ng/mL Normal 0.2 Nordiazepam Negative ng/mL Normal 0.2 Oxazepam Negative ng/mL Normal 0.2 Temazepam Negative ng/mL Normal 0.2 Chlordiazepoxide Negative ng/mL Normal 0.2 Midazolam Negative ng/mL Normal 0.2 Prazepam Negative ng/mL Normal 0.2 Estazolam Negative ng/mL Normal 0.2 12 Amphetamine Panel 02/05/2019 [facility] Amphetamine Negative ng/ mL Normal 0.5 (Oral -LC/MS/MS) Methamphetamine Negative ng/mL Normal 0.5 Mda Negative ng/mL Normal 1 Mdea Negative ng/mL Normal 0.5 Mdma Negative ng/mL Normal 0.5 13 Oral [place] FML 02/05/2019 [facility] Comment: See Components Normal 14 Practice Laboratory test 12/24/2018 [facility] Lactic Acid 1.3 mmol/L Normal 0.5- 15 finding 2.0 Laboratory test 12/24/2018 [facility] Troponin-I 0.33 ng/mL Critical <0.0 16 finding (TnI) high 4 Laboratory test 12/23/2018 [facility] Magnesium 1.4 mg/dL Low 1.9- finding 2.7 TSH (Thyroid Stim Horm) 0.86 mcIU/mL Normal 0.34-5.60 Blood Culture SEE RESULT BELOW 17 Urinalysis Profile 12/23/2018 [facility] Urine Color Yellow Urine Appearance Clear Urine Specific [place] 1.014 Normal 1.010-1.030 Urine pH 7.0 Normal [...] Epithelial Cell Present Abnormal Absent Laboratory test 12/23/2018 [facility] C Reactive 3.34 mg/L Normal < 8.01 finding Protein Troponin-I (TnI) 0.05 ng/mL Critical high <0.04 18 Comp Metabolic Panel 12/23/2018 [facility] Sodium 134 mmol/L Low 135- 145 Potassium [...] Egfr Non- 55.0 >60 Egfr 66.5 >60 19 Laboratory test 12/23/2018 [facility] Partial 36.0 seconds Normal 26.0-38.0 finding Thrombo Time PTT Lactic Acid 1.5 mmol/L Normal 0.5-2.0 20 Inr/Protime 12/23/2018 [facility] Inr 1.27 High 0.82-1.09 21 CBC Auto Diff 12/23/2018 [facility] White Blood 10.4 10^3/uL Normal 3.5-10.8 Count Red Blood Count 4.01 10^6/uL Low 4.18-5.48 [...] % Nucleated Red Blood Cells % 0.0 Sputum Culture & 12/23/2018 [facility] Sputum Culture SEE RESULT 22 Sensitiv Gram Stain BELOW Influenza A & B 12/23/2018 [facility] Influenza A NEGATIVE Negative 23 Request Molecular Influenza B Molecular NEGATIVE Negative Antidepressants Panel 09/20/2018 [facility] Amitriptyline Negative Normal 20 24 By LC/MS/MS ng/mL Clomipramine Negative ng/mL Normal 20 Desipramine Negative ng/mL Normal 20 Doxepin Negative ng/mL Normal 20 Fluoxetine Negative ng/mL Normal 20 Imipramine Negative ng/mL Normal 20 Norclomipramine Negative ng/mL Normal 20 Nordoxepin Negative ng/mL Normal 20 Nortriptyline Negative ng/mL Normal 20 Sertraline Negative ng/mL Normal 20 Trimipramine Negative ng/mL Normal 20 25 Barbiturates Panel 09/20/2018 [facility] Butalbital Negative ng/ mL Normal 100 By LC/MS/MS Pentobarbital Negative ng/mL Normal 100 Phenobarbital Negative ng/mL Normal 100 Secobarbital Negative ng/mL Normal 100 26 Benzodiazepines 09/20/2018 [facility] 2-Hydroxyethylflurazepam Negative Normal 10 Panel By LC/MS/MS ng/mL 7-Aminoclonazepam Negative ng/mL Normal 10 Alprazolam Negative ng/mL Normal 10 Chlordiazepoxide Negative ng/mL Normal 10 Clonazepam Negative ng/mL Normal 10 Desalkylflurazepam Negative ng/mL Normal 10 Diazepam Negative ng/mL Normal 10 Lorazepam Negative ng/mL Normal 10 Midazolam Negative ng/ml Normal 10 Nordiazepam Negative ng/mL Normal 10 Alpha-hydroxyalprazolam Negative ng/mL Normal 10 Alpha-Hydroxymidazolam Negative ng/mL Normal 10 Alpha-Hydroxytriazolam Negative ng/mL Normal 10 Oxazepam Negative ng/mL Normal 10 Prazepam Negative ng/mL Normal 10 Temazepam Negative ng/mL Normal 10 27 Buprenorphine Panel 09/20/2018 [facility] Buprenorphine Negative ng/mL Normal 5 By LC/MS/MS Naloxone Negative ng/mL Normal 10 Norbuprenorphine Negative ng/mL Normal 5 28 Methadone Panel By 09/20/2018 [facility] Eddp Negative ng/mL Normal 10 LC/MS/MS Methadone Negative ng/mL Normal 10 29 Opiates Panel 09/20/2018 [facility] 6-Fidencio (Heroin Negative ng/mL Normal 5 By LC/MS/MS Metabolite) Codeine Negative ng/mL Normal 50 Hydrocodone 4007 Positive Co <SEE NOTE> ng/mL Normal 50 30 Hydromorphone 2231 Positive Co <SEE NOTE> ng/mL Normal 50 31 Morphine Negative ng/mL Normal 50 Norhydrocodone 1844 Positive Co <SEE NOTE> ng/mL Normal 50 32 Noroxycodone Negative ng/mL Normal 50 Noroxymorphone Negative ng/mL Normal 50 Oxycodone Negative ng/mL Normal 50 Oxymorphone Negative ng/mL Normal 50 33 Specimen Validity 09/20/2018 [facility] Creatinine, Urine 115 mg/ dL Normal >20 Panel Color YELLOW Normal Yellow pH 5.2 Normal 5.0-8.0 Specific [place] 1.018 Normal 1.001-1.035 34 Amphetamine Panel 09/20/2018 [facility] Amphetamine Negative ng/ mL Normal 50 By LC/MS/MS Methamphetamine Negative ng/mL Normal 50 Mdma (Ecstasy) Negative ng/mL Normal 50 Mda Negative ng/ml Normal 50 Mdea Negative ng/mL Normal 50 35 Cocaine Panel 09/20/2018 [facility] Benzoylecgonine Negative Normal 50 36 By LC/MS/MS (Cocaine) ng/mL Urine DRG SCR 09/20/2018 [facility] Amphetamine NEGATIVE Normal 1000 (12PNL-PM) Barbiturate NEGATIVE Normal 200 Benzodiazepine NEGATIVE Normal 200 Buprenorphine NEGATIVE Normal 15 Cannabinoid NEGATIVE Normal 50 Cocaine NEGATIVE Normal 300 Methadone NEGATIVE Normal 300 Opiate POSITIVE Abnormal 300 Oxycodone NEGATIVE Normal 300 Phencyclidine NEGATIVE Normal 25 37 Laboratory test 09/20/2018 [facility] Tramadol Negative ng/mL Normal 5 38 finding Gabapentin Negative ng/mL Normal 100 39 Ethyl Glucuronide Negative ng/mL Normal 500 40 Clonidine 09/20/2018 [facility] Clonidine Negative Inconsi Abnormal Negative 41 <SEE NOTE> PDF SEE IMAGE Urine Drug 09/20/2018 [facility] CNL-Llpqd-1-Cooh Negative ng/mL Normal 5 42 [facility] 1 Prescribed Medications: Hydrocodone (Hydrocodone), Acetaminophen ( [...] METFORMIN, ELIQUIS, SPIRONOLACTONE, QUINAPRIL, Clonidine (Clonidine) 6 36.61 Positive Consistent 7 Negative Consistent 8 Prescribed Medications: Hydrocodone (Hydrocodone), Acetaminophen ( Acetaminophen), LISINOPRIL, AMLODIPINE BESYLATE, METFORMIN, ELIQUIS, SPIRONOLACTONE, QUINAPRIL, Clonidine (Clonidine) 9 Prescribed Medications: Hydrocodone (Hydrocodone), Acetaminophen ( [...] METFORMIN, ELIQUIS, SPIRONOLACTONE, QUINAPRIL, Clonidine (Clonidine) 15 [facility] Severe Sepsis and Septic Shock Management Bundle Measure requires all lactic acids initially measuring >2.0 mmol/L be repeated. 16 Result TnIDx:0.33 Called to [id number] at: 02:14:30 by:[id number] Read back by: [id number] Troponin-I testing on Plasma Separator Tubes (PST) has a known false positive rate of 0.20-0.40%. All positive troponins reflex immediately to secondary confirmatory testing. Using the DinglepharbI 800 Access Immunoassay systems, the 99th percentile upper reference limit was demonstrated to be < 0.03 ng/mL. 17 SEE RESULT BELOW Name: YADIEL AMBRIZ : [address]: Selene Forbes DO Acct: [id number] Unit: [id number] AGE: 78 Location: [place] [address] Re12/24/18 Dis: 12/28/18 SEX: M Status: DIS IN SPEC: [id number] JUAN: 12/23/[address] [facility] [address]: Ruy Cardozo MD REQ: [id number] RECD: 12/23/18 STATUS: LARS COSTA DR: Dorothea Joaquin MD _ SOURCE: BLOOD,VENO SPDES: ORDERED: Blood Cult Procedure Result Reported Site Aerobic Culture Bottle Final 12/28/18- 2235 ML No Growth Day 5 Anaerobic Culture Bottle Final 12/28/18- 2235 ML No Growth Day 5 * ML - Main Lab . END OF REPORT DEPARTMENT OF PATHOLOGY, [address] [place] [address] Huan Castellanos M.D. Director [facility] # [id number] 18 Result TnIDx:0.05 Called to [id number]. at: 22:49:52 by:[id number] Read back by:[email or web address]. Troponin-I testing on Plasma Separator Tubes (PST) has a known false positive rate of 0.20-0.40%. All positive troponins reflex immediately to secondary confirmatory testing. Using the DinglepharbI 800 Access Immunoassay systems, the 99th percentile upper reference limit was demonstrated to be < 0.03 ng/mL. 19 Because ethnic data is not always readily [...] 15-29 5 Kidney failure <15 (or dialysis) 20 [facility] Severe Sepsis and Septic Shock Management Bundle Measure requires all lactic acids initially measuring >2.0 mmol/L be repeated. 21 Standard intensity warfarin therapeutic range: 2.0-3.0 High intensity warfarin therapeutic range: 2.5-3.5 22 SEE RESULT BELOW Name: YADIEL AMBRIZ : [address]: Selene Forbes DO Acct: [id number] Unit: [id number] AGE: 78 Location: [facility] [id number] Re12/24/18 Dis: 12/28/18 SEX: M Status: DIS IN SPEC: [id number] JUAN: 12/27/[address]: Ruy Cardozo MD REQ: [id number] RECD: 12/27/18 STATUS: LARS COSTA DR: Dorothea [...] . END OF REPORT DEPARTMENT OF PATHOLOGY, [address] [place] [address] Huan Castellanos M.D. Director [facility] # [id number] 23 Architecture Technician: [id number] Prescribed Medications: Hydrocodone (Hydrocodone), Acetaminophen ( Acetaminophen), AMLODIPINE BESYLATE, METFORMIN, ELIQUIS, SPIRONOLACTONE, QUINAPRIL, Clonidine (Clonidine) 25 Prescribed Medications: Hydrocodone (Hydrocodone), Acetaminophen ( Acetaminophen), AMLODIPINE BESYLATE, METFORMIN, ELIQUIS, SPIRONOLACTONE, QUINAPRIL, Clonidine (Clonidine) 26 Prescribed Medications: Hydrocodone (Hydrocodone), Acetaminophen ( Acetaminophen), AMLODIPINE BESYLATE, METFORMIN, ELIQUIS, SPIRONOLACTONE, QUINAPRIL, Clonidine (Clonidine) 27 Prescribed Medications: Hydrocodone (Hydrocodone), Acetaminophen ( Acetaminophen), AMLODIPINE BESYLATE, METFORMIN, ELIQUIS, SPIRONOLACTONE, QUINAPRIL, Clonidine (Clonidine) 28 Prescribed Medications: Hydrocodone (Hydrocodone), Acetaminophen ( Acetaminophen), AMLODIPINE BESYLATE, METFORMIN, ELIQUIS, SPIRONOLACTONE, QUINAPRIL, Clonidine (Clonidine) 29 Prescribed Medications: Hydrocodone (Hydrocodone), Acetaminophen ( Acetaminophen), AMLODIPINE BESYLATE, METFORMIN, ELIQUIS, SPIRONOLACTONE, QUINAPRIL, Clonidine (Clonidine) 30 4007 Positive Consistent 31 2231 Positive Consistent Certain patients can metabolize Morphine into Hydromorphone, in which case we would expect to see low levels of Hydromorphone relative to Morphine. 32 1844 Positive Consistent 33 Prescribed Medications: Hydrocodone (Hydrocodone), Acetaminophen ( Acetaminophen), AMLODIPINE BESYLATE, METFORMIN, ELIQUIS, SPIRONOLACTONE, QUINAPRIL, Clonidine (Clonidine) 34 Prescribed Medications: Hydrocodone (Hydrocodone), Acetaminophen ( Acetaminophen), AMLODIPINE BESYLATE, METFORMIN, ELIQUIS, SPIRONOLACTONE, QUINAPRIL, Clonidine (Clonidine) 35 Prescribed Medications: Hydrocodone (Hydrocodone), Acetaminophen ( Acetaminophen), AMLODIPINE BESYLATE, METFORMIN, ELIQUIS, SPIRONOLACTONE, QUINAPRIL, Clonidine (Clonidine) 36 Prescribed Medications: Hydrocodone (Hydrocodone), Acetaminophen ( Acetaminophen), AMLODIPINE BESYLATE, METFORMIN, ELIQUIS, SPIRONOLACTONE, QUINAPRIL, Clonidine (Clonidine) 37 Prescribed Medications: Hydrocodone (Hydrocodone), Acetaminophen ( Acetaminophen), AMLODIPINE BESYLATE, METFORMIN, ELIQUIS, SPIRONOLACTONE, QUINAPRIL, Clonidine (Clonidine) 38 Prescribed Medications: Hydrocodone (Hydrocodone), Acetaminophen ( Acetaminophen), AMLODIPINE BESYLATE, METFORMIN, ELIQUIS, SPIRONOLACTONE, QUINAPRIL, Clonidine (Clonidine) 39 Prescribed Medications: Hydrocodone (Hydrocodone), Acetaminophen ( Acetaminophen), AMLODIPINE BESYLATE, METFORMIN, ELIQUIS, SPIRONOLACTONE, QUINAPRIL, Clonidine (Clonidine) 40 Prescribed Medications: Hydrocodone (Hydrocodone), Acetaminophen ( Acetaminophen), AMLODIPINE BESYLATE, METFORMIN, ELIQUIS, SPIRONOLACTONE, QUINAPRIL, Clonidine (Clonidine) 41 Negative Inconsistent 42 Prescribed Medications: Hydrocodone (Hydrocodone), Acetaminophen ( Acetaminophen), AMLODIPINE BESYLATE, METFORMIN, ELIQUIS, SPIRONOLACTONE, QUINAPRIL, Clonidine (Clonidine) Procedures Date Code Description Status 03/07/2019 97054 Injection DX/Therapeutic/Prophy Completed 02/05/2019 21838 Injection DX/Therapeutic/Prophy Completed 12/04/2018 33551 Oximetry Pulse Or Ear Completed 11/29/2018 40760 Spirometry Completed 10/30/2018 54377 Tympanometry Completed 10/30/2018 42802 Ear Irrigation Completed 02/22/2016 30702021 Colonoscopy Completed 07/24/2009 22877628 Colonoscopy Completed Medical Devices Description No Information Available Encounters Type Date Location Provider Dx Diagnosis Office Visit 03/07/2019 [place] [facility] Dorothea Joaquin I10 Essential ( primary) 8:30a M.DGalina hypertension E11.65 Type 2 diabetes mellitus with hyperglycemia I25.10 [facility] heart disease of [place] coronary artery w/o ang pctrs E03.9 Hypothyroidism, [...] w/o gangrene, not spcf as recur 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] unspecified E55.9 Vitamin D deficiency, unspecified Z79.891 nursing home (current) use of opiate analgesic R35.1 Nocturia [...] Pneumonia, unspecified organism Office Visit 12/04/2018 8:30a [place] [facility] Dorothea Joaquin I10 Diana ( primary) Елена Driver hypertension E11.65 Type 2 diabetes mellitus with hyperglycemia I25.10 [place] heart disease of [place] coronary artery w/o ang pctrs E78.2 Mixed [...] unspecified E55.9 Vitamin D deficiency, unspecified Z79.891 nursing home (current) use of opiate analgesic R35.1 Nocturia [...] breath R05 Cough Office Visit 11/29/2018 1:15p [place] [facility] Dorothea Joaquin I10 Essential ( primary) Елена Driver hypertension E11.65 Type 2 diabetes mellitus with hyperglycemia I25.10 [place] heart disease of [place] coronary artery w/o ang pctrs E78.2 Mixed [...] unspecified E55.9 Vitamin D deficiency, unspecified 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 R35.1 Nocturia [...] defects, right side Office Visit 10/18/2018 8:45a [place] [facility] Dorothea Joaquin I10 Essential ( primary) Елена Driver hypertension E11.65 Type 2 diabetes mellitus with hyperglycemia I25.10 [place] heart disease of [place] coronary artery w/o ang pctrs E78.2 Mixed [...] unspecified E55.9 Vitamin D deficiency, unspecified 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 03/07/2019 E11.65 Type 2 diabetes mellitus with hyperglycemia Dorothea Joaquin M.D. 03/07/2019 I25.10 Atherosclerotic heart disease of [place] Dorothea Joaquin M.D. coronary artery with 03/07/2019 [...] 03/07/2019 E55.9 Vitamin D deficiency, unspecified Dorothea Joaqiun M.D. 03/07/2019 R35.1 Nocturia Dorothea Joaquin M.D. [...] Dorothea Joaquin M.D. 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 02/05/2019 I10 Essential (primary) hypertension Dorothea Joaquin M.D. 02/05/2019 E11.65 Type 2 diabetes mellitus with hyperglycemia Dorothea Joaquin M.D. 02/05/2019 I25.10 Atherosclerotic heart disease of [place] Dorothea Joaquin M.D. coronary artery with 02/05/2019 [...] Dorothea Joaquin M.D. 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 01/03/2019 I10 Essential (primary) hypertension Dorothea Joaquin M.D. 01/03/2019 E11.65 Type 2 diabetes mellitus with hyperglycemia Dorothea Joaquin M.D. 01/03/2019 I25.10 Atherosclerotic heart disease of [place] Dorothea Joaquin M.D. coronary artery with 01/03/2019 [...] unspecified Dorothea Joaquin M.D. 01/03/2019 K59.00 Constipation, unspecified Dorothea Joaquin M.D. 01/03/2019 E55.9 Vitamin D deficiency, unspecified Dorothea Joaquin M.D. 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 12/04/2018 I25.10 Atherosclerotic heart disease of [place] Dorothea Joaquin M.D. coronary artery with 12/04/2018 [...] Joaquin M.D. 12/04/2018 E55.9 Vitamin D deficiency, unspecDorothea Sheehan M.D. 12/04/2018 Z79.891 nursing home (current) use of opiate analgesic Dorothea Joaquin M.D. 12/04/2018 R35.1 Nocturia Dorothea Joaquin M.D. 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 12/04/2018 R11.2 Nausea with vomiting, unspecDorothea Sheehan M.D. 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 11/29/2018 I25.10 Atherosclerotic heart disease of [place] Dorothea Joaquin M.D. coronary artery with 11/29/2018 E78.2 Mixed hyperlipidemia Dorothea Joaquin M.D. 11/29/2018 E03.9 Hypothyroidism, unspecified Dorothea [...] 11/29/2018 D51.9 Vitamin B12 deficiency anemia, unspecified Dorothea Joaquin M.D. 11/29/2018 K59.00 Constipation, unspecified Dorothea Joaquin M.D. 11/29/2018 E55.9 Vitamin D deficiency, unspecified Dorothea Joaquin M.D. 11/29/2018 Z79.891 nursing home (current) use of opiate analgesic Dorothea Joaquin M.D. 11/29/2018 R35.1 Nocturia Dorothea Joaquin M.D. 11/29/2018 H90.6 Mixed conductive and sensorineural [...] M.D. 11/20/2018 I25.10 Atherosclerotic heart disease of [place] Dorothea Joaquin M.D. coronary artery with 11/20/2018 E78.2 Mixed hyperlipidemia Dorothea Joaquin M.D. 11/20/2018 E03.9 Hypothyroidism, unspecified Dorothea Joauqin M.D. 11/20/2018 I73.9 Peripheral vascular disease, unspecified [...] deficiency, unspecified Dorothea Joaquin M.D. 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 11/20/2018 R35.1 Nocturia Dorothea Joqauin M.D. 11/20/2018 H90.6 Mixed conductive and sensorineural [...] M.D. 10/30/2018 I25.10 Atherosclerotic heart disease of [place] Dorothea Joaquin M.D. coronary artery with 10/30/2018 [...] unspecified Dorothea Joaquin M.D. 10/30/2018 K59.00 Constipation, peterified Dorothea Joaquin M.D. 10/30/2018 E55.9 Vitamin D deficiency, unspecified Dorothea Joaquin M.D. 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 10/30/2018 R35.1 Nocturia Dorothea Joaquin M.D. 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 10/30/2018 R11.2 Nausea with vomiting, peterified Dorothea Joaquin M.D. 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 10/30/2018 R19.7 Diarrhea, Dorothea Abbasi M.D. 10/30/2018 M25.569 Pain in unspecified knee [...] M.D. 10/18/2018 I25.10 Atherosclerotic heart disease of cachil dehe Dorothea Joaquin M.D. coronary artery with 10/18/2018 [...] deficiency, unspecified Dorothea Joaquin M.D. 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 side 09/20/2018 I10 Essential (primary) hypertension Dorothea Joaquin M.D. 09/20/2018 E11.65 Type 2 diabetes mellitus with hyperglycemia Dorothea Joaqiun M.D. 09/20/2018 I25.10 Atherosclerotic heart disease of c[place]il dehe Dorothea Joaquin M.D. coronary artery with 09/20/2018 E78.2 Mixed hyperlipidemia Dorothea Joaquin M.D. 09/20/2018 E03.9 Hypothyroidism, unspecified Dorothea Joaquin M.D. 09/20/2018 I73.9 Peripheral vascular disease, unspecified Dorothea Joaquin M.D. 09/20/2018 M51.37 Other intervertebral disc degeneration, Dorothea Joaquin M.D. lumbosacral region 09/20/2018 K21.0 Gastro-esophageal reflux disease with Dorothea Joaquin M.D. esophagitis 09/20/2018 E83.42 Hypomagnesemia Dorothea Joaquin M.D. 09/20/2018 D64.9 Anemia, unspecified Dorothea Joaquin M.D. 09/20/2018 M25.552 Pain in left hip Dorothea Joaquin M.D. 09/20/2018 M15.9 Polyosteoarthritis, unspecified Dorothea Joaquin M.D. 09/20/2018 N40.0 Benign prostatic hyperplasia without lower Dorothea Joaquin M.D. urinary tract sym 09/20/2018 R60.0 Localized edema Dorothea Joaquin M.D. 09/20/2018 R53.81 Other malaise Dorothea Joaquin M.D. 09/20/2018 H53.30 Unspecified disorder of binocular vision Dorothea Joaquin M.D. 09/20/2018 M79.606 Pain in leg, unspecified Dorothea Joaquin M.D. 09/20/2018 R26.89 Other abnormalities of gait and mobility Dorothea Joaquin M.D. 09/20/2018 M41.9 Scoliosis, unspecified Dorothea Joaquin M.D. 09/20/2018 D51.9 Vitamin B12 deficiency anemia, unspecified Dorothea Joaquin M.D. 09/20/2018 K59.00 Constipation, unspecified Dorothea Joaquin M.D. 09/20/2018 E55.9 Vitamin D deficiency, unspecified Dorothea Joaquin M.D. 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 09/20/2018 R35.1 Nocturia Dorothea Joaquin M.D. 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 09/20/2018 R11.2 Nausea with vomiting, unspecified Dorothea Joaquin M.D. 09/20/2018 K52.3 Indeterminate colitis Dorothea Joaquin M.D. 09/20/2018 R19.7 Diarrhea, unspecified Dorothea Joaquin M.D. 09/20/2018 M25.569 Pain in unspecified knee Dorothea Joaquin M.D. 09/20/2018 I48.2 Chronic atrial fibrillation Dorothea Joaquin M.D. 09/20/2018 I65.23 Occlusion and stenosis of bilateral carotid Dorothea Joaquin M.D. arteries 09/20/2018 I67.1 Cerebral aneurysm, nonruptured Dorothea Joaquin M.D. 09/20/2018 N18.2 Chronic kidney disease, stage 2 (mild) Dorothea Joaquin M.D. 09/20/2018 K92.2 Gastrointestinal hemorrhage, unspecified Dorothea Joaquin M.D. 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 side Plan of Treatment Future Appointment(s):04/04/2019 8:30 am - Dorothea Joaquin M.D. at [facility]03/07/2019 - Dorothea Joaquin M.D.I10 Essential (primary) hypertensionComments:CHECK BP TIW ( PRN)DIET AND FLUID COUNSELING LOW SODIUM DIETWT LOSSF/U LABE11.65 Type 2 diabetes mellitus with hyperglycemiaComments: DIET REVIEWED CONTINUE DIETWT LOSSF/U LAB FS qAC AND HS PRN F/U FBWI25.10 Atherosclerotic heart disease of c[place]il de[place] coronary artery withComments:F/U WITH CARDIOLOGY CONTINUE WITH RX AND F/U LABE03.9 Hypothyroidism, unspecifiedComments :STABLE OFF RX F/U TSH/ FT4E78.2 Mixed hyperlipidemiaComments:DIET REVIEWED CONTINUE DIETWT LOSSF/U LAB FBWI73.9 Peripheral vascular disease, unspecifiedComments:SKIN CARE FOOT CARE PODIATRY PRN CAREM51.37 Other intervertebral disc degeneration, lumbosacral regionComments:EXERCISE/HEAT / MESSAGEAVOID HEAVY LIFTING WT LOSSTYLENOL OR MOTRIN PRNK21.0 Gastro-esophageal reflux disease with esophagitisComments:AVOID CAFFEINE, ETOH AND SPICY FOODSTUMS OR MYLANTA PRN CALL WITH PROBLEMS OR AECJCDVCE34.42 HypomagnesemiaComments:F/U LABD64.9 Anemia, pdphqspdkpoW06.552 Pain in left hipComments:EXERCISE/HEAT/MESSAGETYLENOL OR MOTRIN PRNAVOID HEAVY LIFTINGWT LOSSM15.9 Polyosteoarthritis, unspecifiedComments:EXERCISE/HEAT/MESSAGETYLENOL OR MOTRIN PRNAVOID HEAVY LIFTINGWT LOSSN40.0 Benign prostatic hyperplasia without lower urinary tract symComments:STABLEF/U PSAR60.0 Localized edemaComments:ELEVATE LE PRNELASTIC STOCKING / MULUGETA WRAP PRNF/U LABR53.81 Other malaiseComments:INCRFEASE PO FLUIDCOUNCELLING AND REASSURANCE RESTH53.30 Unspecified disorder of binocular visionComments:USE GLASSES/CONTACTSF/U WITH NJMFNXASCNQERB93.606 Pain in leg, unspecifiedComments:TYLENOL OR MOTRIN PRN EXERCISE/HEAT/IMFLFZAR11.89 Other abnormalities of gait and mobilityComments: SAFETY CLEAR PATH @ HOMEAVOID USE OF LOOSE RUGSUSE CANE /WALKER NEEDEDPROVIDE ADEQUATE LIGHT @ HOMEUSE WELL FITTED SHOESCONSIDER USE OF REMOTE CALLING DEVICEARRANGE FOR REGURAL CHECK UP BY FAMILY ORFRIENDS USE CANEM41.9 Scoliosis, unspecifiedComments:EXERCISE/HEAT/MESSAGETYLENOL OR MOTRIN PRNAVOID HEAVY LIFTINGWT LOSSD51.9 Vitamin B12 deficiency anemia, unspecifiedComments: COUNSELED RE DIET/ AVOID ALCOHOL USEK59.00 Constipation, unspecifiedComments: MOM OR MIRALAX PRNHIGH FIBER DIETINCREASE PO EEZWPJ79.9 Vitamin D deficiency, unspecifiedNew Medication:Vitamin D3 21432 Unit - 1 cap by mouth every weekComments:INCREASE EXPOSURE TO SUNREVIEW OF DIETR35.1 NocturiaComments: OBSERVE FOR NOWH90.6 Mixed conductive and sensorineural hearing loss, bilateralComments:OBSERVE F/U WITH ENT PRNR13.14 Dysphagia, pharyngoesophageal phaseComments:F/U WITH GISOFT DIETR11.2 Nausea with vomiting, unspecifiedComments:INCREASE PO FLUID JARON DIETK52.3 Indeterminate gqnljgrJ57.7 Diarrhea, unspecifiedComments:INCREASE PO FLUID DIET REVIEW JARON DIET PRNIMMODIUM PRNM25.569 Pain in unspecified kneeComments:EXERCISE/HEAT / MESSAGEAVOID HEAVY LIFTING WT LOSSTYLENOL OR MOTRIN PRNI48.2 Chronic atrial fibrillationComments:CONTINUE RX F/U WITH CARDIOLOGY DMHQTBS05.23 Occlusion and stenosis of bilateral carotid arteriesComments:STABLE AND ASYMPTOMATIC F/U WITH SURGERY WITH YEARLY CAROTID U/SI67.1 Cerebral aneurysm, nonrupturedComments :OBSERVEF/U WITH AFXFFHELHNVJM47.2 Chronic kidney disease, stage 2 (mild) Comments:DIET REVIEWED MEDICATION REVIEWEDF/U LABK92.2 Gastrointestinal hemorrhage, unspecifiedComments:AVOID CONSTIPATOIN INCREASE FIBER IN DIETLAXATIVE PRNLUBRICATE ANAL AREA WITH LOTION PRN FOR NVMAEZIY67.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, right sideComments:USE GLASSES F/U BASHIR IYOXTGHZLFXWUH42.30 Unilateral femoral hernia, with obstruction, without gangrenComments:HERNIA LZWXXACLBBZD45.891 nursing home (current) use of opiate analgesicComments:REVIEWED MEDICATIONS AND DIRECTIONS WITH PATIENT DUR CHECKED SEE DRUG SCREEN RESULTS Functional Status Functional Condition Comment Date Status Glasses Active Bifocal glasses Active Standard cane is used with the left hand to ambulate Active Mental Status Description No Information Available Referrals Description No Information Available
[2019-04-30] MEDS ORDERED: Piperacillin/Tazobac ADVAN(*) 3.375 GM in NS 0.9% 100 ML* 100 ML IVPB ONE (07:29)
[2019-04-30] MEDS ORDERED: NS 0.9% 1000 ML** 1,000 ML IV.FLUID IV ONE (07:29)
[2019-04-30] MEDS ORDERED: Acetaminophen TAB* 325 MG PO ONE (07:32)
[2019-04-30] MEDS ORDERED: Ondansetron INJ* 2 MG/ML VIAL IV ONE (07:32)
--- NOTE | 2019-04-30 07:32 | ED ---
Abdominal Pain/Male - HPI Summary HPI Summary: Pt. is a 79 y.o male who presents to the ER for acute onset of fever, vomiting, and abdominal pain that started this morning. Pt. denies CP, SOB, or urinary sxs. Past hx of CAD, HTN, anemia, DM. Sxs are moderate in severity. No current modifying factors. - History of Current Complaint Chief Complaint: EDFever Stated Complaint: FEVER/NAUSEA PER EMS Time Seen by Provider: 04/30/19 07:22 Hx Obtained From: Patient Pain Intensity: 8 - Allergies/Home Medications Allergies/Adverse Reactions: Allergies Allergy/AdvReac Type Severity Reaction Status Date / Time atorvastatin AdvReac Muscle Ache Verified 06/15/18 14:55 rosuvastatin [From Crestor] AdvReac Muscle Ache Verified 06/15/18 14:55 Home Medications: Home Medications Cholecalciferol TAB* [Vitamin D TAB*] 5,000 units PO WEEKLY 04/30/19 [History Confirmed 04/30/19] Ferrous Sulfate TAB* 325 mg PO DAILY 04/30/19 [History Confirmed 04/30/19] amLODIPine TAB* [Norvasc 5 mg TAB*] 5 mg PO BID 04/30/19 [History Confirmed 03/11] PMH/Surg Hx/FS Hx/Imm Hx Previously Healthy: Yes Endocrine/Hematology History: Reports: Hx Diabetes Denies: Hx Anticoagulant Therapy, Hx Blood Disorders, Hx Blood Transfusions, Hx Bone Marrow Disease, Hx Systemic Lupus Erythematosus, Hx Sickle Cell Disease , Hx Thyroid Disease, Hx Anemia, Hx Unexplained Bleeding, Other Endocrine/ Hematological Disorders Cardiovascular History: Reports: Hx Atrial Fibrillation, Hx Hypertension, Hx Peripheral Vascular Disease Denies: Hx Aneurysm, Hx Angina, Hx Angioplasty, Hx Auto Implanted Cardiovert Defib, Hx Cardiac Arrest, Hx Cardiomegaly, Hx Congenital Heart Disease, Hx Congestive Heart Failure, Hx Coronary Artery Disease, Hx Deep Vein Thrombosis, Hx Embolism, Hx Hypercholesterolemia, Hx Hypotension, Hx Pacemaker/ICD, Hx Rheumatic Fever, Hx Syncope, Hx Valvular Heart Disease Comment Only: Other Cardiovascular Problems/Disorders - TIA Respiratory History: Reports: Hx Pneumonia Denies: Hx Asthma History: Reports: Hx Chronic Renal Failure, Hx Renal Disease - abnormal gfr Denies: Hx Dialysis Musculoskeletal History: Reports: Hx Arthritis, Hx Back Problems, Hx Orthopedic Injury - pelvic fx Denies: Hx Rheumatoid Arthritis, Hx Bursitis, Hx Congenital Bone Abnormalities, Hx Fibromyalgia, Hx Gout, Hx Osteoporosis, Hx Scoliosis, Hx Tendonitis, Other Musculoskeletal History Sensory History: Reports: Hx Contacts or Glasses Denies: Hx Cataracts, Hx Eye Injury, Hx Eye Prosthesis, Hx Glaucoma, Hx Legally Blind, Hx Macular Degeneration, Hx Vision Problem, Hx Deafness, Hx Hearing Aid, Hx Hearing Problem, Other Sensory Impairments Opthamlomology History: Reports: Hx Contacts or Glasses Denies: Hx Cataracts, Hx Eye Injury, Hx Eye Prosthesis, Hx Glaucoma, Hx Legally Blind, Hx Macular Degeneration, Hx Vision Problem, Other Sensory Impairments Neurological History: Reports: Hx Transient Ischemic Attacks (TIA) Denies: Hx Dementia, Hx Developmental Delay, Hx Headaches, Hx Migraine, Hx Nerve Disease, Hx Seizures, Hx Spinal Cord Injury, Other Neuro Impairments/ Disorders Psychiatric History: Denies: Hx Panic Disorder - Surgical History Surgery Procedure, Year, and Place: 2008 stents behind left eye placed [facility] (OK'D BY DR ABDULLAHI FOR 1.5 ONLY)OP REPORT - DR MCADAMS - [facility] - BARE METAL - MRI CONDITIONAL - 1.5T & 3.0 720 GAUSS/CM. reconstruction of pelvic fx with plates 1986. Carotid endarectomy Surgery - right. metal FB noticed in skull(patient does not recall injury) on MRI 02/26/18-DR Abdullahi said ok was in the soft tissue Hx Anesthesia Reactions: No Infectious Disease History: No Infectious Disease History: Denies: Traveled Outside the [place] in Last 30 Days - Family History Known Family History: Positive: Other - Lung CA, Non-Contributory - Social History Occupation: Retired Lives: With Family Alcohol Use: None Hx Substance Use: No Substance Use Type: Reports: None Hx Tobacco Use: Yes Smoking Status (MU): Former Smoker Type: Cigarettes Have You Smoked in the Last Year: No Review of Systems Positive: Fever, Chills ENT: Negative Cardiovascular: Negative Negative: Palpitations, Chest Pain Respiratory: Negative Negative: Shortness Of Breath, Cough Positive: Abdominal Pain, Vomiting, Diarrhea, Nausea Genitourinary: Negative Negative: dysuria Skin: Negative Neurological: Negative All Other Systems Reviewed And Are Negative: Yes Physical Exam Triage Information Reviewed: Yes Vital Signs On Initial Exam: Initial Vitals Temp Pulse Resp BP Pulse Ox 102.1 F 95 20 182/78 96 04/30/19 07:12 04/30/19 07:12 04/30/19 07:12 04/30/19 07:12 04/30/19 07:12 Vital Signs Reviewed: Yes Appearance: Positive: Well-Nourished - Pt. sitting up in bed in NAD. Answers questions appropriately. present. Skin: Positive: Other - Dry and hot to touch. Head/Face: Positive: Normal Head/Face Inspection Eyes: Positive: Normal, EOMI Neck: Positive: Supple Respiratory/Lung Sounds: Positive: Clear to Auscultation, Breath Sounds Present Cardiovascular: Positive: Normal, RRR Abdomen Description: Positive: Other: - Abd. is soft with marked tenderness to RUQ. No rigidity. Neurological: Positive: Normal, CN Intact II-III Psychiatric: Positive: Affect/Mood Appropriate Diagnostics - Vital Signs Vital Signs Temp Pulse Resp BP Pulse Ox 04/30/19 07:12 102.1 F 95 20 182/78 96 - Laboratory Result Diagrams: 04/30/19 07:51 04/30/19 07:51 Lab Statement: Any lab studies that have been ordered have been reviewed, and results considered in the medical decision making process. Abdominal Pain Male Course/Dx - Course Course Of Treatment: Pt. presenting with vague complaints of fever, nausea and upper abd. pain. Temp. 102.1F, [id number], resp 20, 96% on RA, 182/78. HR in the low one teens in room. Pt. meeting SIRS criteria. Suspect intraabdominal source. Pt. started on 30cc/kg, zosyn. Tylenol and pain medication given. ECG done at 0734 shows afib at a rate of 78bpm, normal axis, no ST elevation or depression. Labs show WBC of 12.4, lactic acid 2.5, troponin 0.08, CRP 180. GB u /s negative. CXR negative for acute findings. CT abd.pelvis obtained for further eval. CT scan shows no intraabdominal findings but does shoe LLL pneumonia. Case discussed with Dr. Matos who accepts pt. for admission. - Diagnoses Differential Diagnosis/HQI/PQRI: Appendicitis, Bowel Obstruction, Diverticulitis , Gall Bladder Disease Provider Diagnoses: Pneumonia, Sepsis Discharge ED - Sign-Out/Discharge Documenting (check all that apply): Patient Departure All imaging exams completed and their final reports reviewed: No - Discharge Plan Condition: Stable Disposition: ADMITTED TO [facility] - Billing Disposition and Condition Condition: STABLE Disposition: Admitted to [facility]
[2019-04-30] MEDS ORDERED: Morphine 4 MG/ML VIAL (1 ml) 4 MG/ML VIAL IV ONE (07:38)
[2019-04-30 08:04] LABS: ABS Basophils 0.2 10^3/ul (0-0.2); ABS Lymphocytes 0.6 10^3/ul (1.0-4.8); ABS Monocytes 1.1 10^3/ul (0-0.8); ABS Neutrophils 10.5 10^3/ul (1.5-7.7); Hematocrit 37 % (42-52); Hemoglobin 12.4 g/dL (14.0-18.0); Lymphocyte % 4.8 %; Mean Corpuscular HGB Conc 34 g/dL (31-36); Mean Corpuscular Hemoglobin 31 pg (27-31); Mean Corpuscular Volume 92 fL (80-94); Platelet Count 188 10^3/uL (150-450); Red Blood Count 4.01 10^6 /uL (4.18-5.48); Red Cell Distribution Width 13 % (10-15); White Blood Count 12.4 10^3/uL (3.5-10.8)
[2019-04-30 08:15] LABS: Activated Partial Thrombo Time 31.1 seconds (26.0-38.0); INR 1.29 (0.82-1.09)
[2019-04-30 08:20] LABS: Albumin 3.9 g/dL (3.2-5.2); Albumin/Globulin Ratio 1.3 (1-3); BUN/Creatinine Ratio 21.2 (8-20); C Reactive Protein 180.24 mg/L (<8.01); Calcium 9.6 mg/dL (8.6-10.3); EGFR African American 63.5 (>60); EGFR Non-African American 52.5 (>60); Potassium 4.1 mmol/L (3.5-5.0); Total Bilirubin 0.7 mg/dL (0.2-1.0); Total Protein 6.9 g/dL (6.4-8.9)
[2019-04-30 08:24] LABS: Troponin I 0.08 ng/mL (<0.04)
[2019-04-30] MEDS ORDERED: Iodixanol* (CONTRAST) 320 MG/ML 100 ML SDV IV ONE (08:40)
[2019-04-30 12:29] LABS: TSH (Thyroid Stimulating Horm) 0.47 mcIU/mL (0.34-5.60)
[2019-04-30 13:10] LABS: Urine Appearance Clear; Urine Bacteria Absent (Absent); Urine Bilirubin Negative (Negative); Urine Blood 2+ (Negative); Urine Color Yellow; Urine Glucose 1+(50 mg/dL) (Negative); Urine Ketones Negative (Negative); Urine Nitrite Negative (Negative); Urine Protein 2+(100 mg/dL) (Negative); Urine Red Blood Cell 1+(3-5/hpf) (Absent); Urine Specific Gravity 1.036 (1.010-1.030); Urine Urobilinogen Negative (Negative); Urine White Blood Cell Trace(0-5/hpf) (Absent)
[2019-04-30 13:18] LABS: Troponin I 0.1 ng/mL (<0.04)
[2019-04-30] MEDS: Azithromycin 500 mg/250 ml NS 500 MG/250 ML BAG IVPB SCH (13:48)
[2019-04-30] MEDS: cefTRIAXone(*) 1 GM in NS 0.9% 50 ML* 50 ML IVPB SCH (13:48)
[2019-04-30] MEDS: cloNIDine TAB* 0.1 MG PO SCH ×2 (14:20→20:01)
[2019-04-30] MEDS: amLODIPine TAB* 5 MG PO SCH ×2 (14:21→20:01)
[2019-04-30] MEDS: oxyCODONE/Acetamin 5/325 MG* TAB PO PRN ×2 (14:21→20:01)
[2019-04-30] MEDS ORDERED: Cholecalciferol TAB* 1000 UNITS PO SCH (15:00)
[2019-04-30 15:13] LABS: Troponin I 0.09 ng/mL (<0.04)
[2019-04-30] MEDS: Acetaminophen TAB* 325 MG PO PRN (18:33)
[2019-04-30] MEDS ORDERED: Dextrose 50% VIAL 50 ml IV PUSH PRN (19:09)
[2019-04-30] MEDS ORDERED: Magnesium Sulf 4 GM/100 ML IV* 4,000 MG/100 ML BAG IVPB ONE (19:30)
[2019-04-30] MEDS: Apixaban* 5 MG TAB PO SCH (20:01)
--- NOTE | 2019-04-30 20:32 | HP ---
CC: Dr. Joaquin * HISTORY AND PHYSICAL: DATE OF ADMISSION: 04/30/19 PROVIDER: Lyla Mccurdy NP. PRIMARY CARE PROVIDER: Dr. Joaquin. ATTENDING PHYSICIAN WHILE IN THE HOSPITAL: Dr. Meg Headley * (dictated by Lyla Mccurdy NP). CHIEF COMPLAINT: Fever, not feeling well. HISTORY OF PRESENT ILLNESS: The patient reports that he has not been feeling well. He complains of fatigue and left hip pain. The patient reports that he has chronic pain from an injury several years ago to his left hip. He reports that his doctor recently decreased his amount of hydrocodone monthly from 240 pills to 180 pills per month. The patient reports since then he had a fever that started last night and that he has not been feeling well for about a week with general malaise. Today, he reports while in the emergency room he had what appeared to be some bright red blood in the stool, but no black or tarry stools. He denies any hemorrhoids. He does report that he has loose stools. He reports chronic shortness of breath, but no worse than normal. He does report increased body and generalized muscle aches. While in the emergency room, the patient had routine lab work drawn. He was found to have a white blood cell count of 12.4 and a lactic acid of 2.5 with an elevated troponin of 0.08 and 0.10 and a fever of 102.1 on admission meeting severe sepsis. Due to these findings, Hospital Medicine was asked to see and evaluate the patient for admission. Of note, the patient in December of 2018 had a nuclear stress test that was low risk with a small area of reversible perfusion. He was seen by Cardiology, who recommended maximal medical therapy. PAST MEDICAL HISTORY: Significant for: 1. Hypertension. 2. Atrial fibrillation, on anticoagulation with Eliquis. 3. Peripheral vascular disease. 4. Type 2 diabetes. 5. Chronic kidney disease. 6. Chronic left hip pain. 7. History of CVA. 8. History of vertebral artery occlusion and carotid stenosis. 9. History of cerebral aneurysm, status post stenting. 10. History of PE in 1986 from his hip surgery. 11. History of mild pulmonary hypertension. PAST SURGICAL HISTORY: 1. Carotid endarterectomy. 2. Hip surgery. HOME MEDICATIONS: 1. Lisinopril 40 mg p.o. daily. 2. Metformin 500 mg p.o. q.i.d. 3. Clonidine 0.2 mg p.o. b.i.d. 4. Hydrocodone 10/325 two tabs p.o. q.4 hours p.r.n. 5. Amlodipine 5 mg p.o. b.i.d. 6. Spironolactone 12.5 mg p.o. daily. 7. Eliquis 5 mg p.o. b.i.d. 8. Furosemide 20 mg 3 times a week. 9. Ferrous sulfate 325 mg p.o. daily. 10. Clopidogrel 75 mg p.o. daily. 11. Vitamin D 5000 units p.o. weekly. ALLERGIES: ATORVASTATIN and ROSUVASTATIN. FAMILY HISTORY: Father with history of an MS. Brother and sister with diabetes. Mother with unknown type of cancer. SOCIAL HISTORY: The patient lives at home with his . He walks with a cane. He quit smoking approximately 40 years ago. He denies any alcohol or illicit drug use. He is a full code. Surrogate decision maker in the event he is unable to make his own decisions is his . REVIEW OF SYSTEMS: A 14-point review of systems was completed. All pertinent positives were mentioned in the HPI. Otherwise were negative. PHYSICAL EXAMINATION GENERAL: At this time, Mr. Ambriz is pale, resting on the stretcher in the emergency room. He does not appear to be in any acute distress. He does appear fatigued. VITAL SIGNS: Temperature was 100.0, blood pressure 168/78, heart rate 82, respirations 16, O2 saturation 98%. HEENT: Head is atraumatic, normocephalic. Eyes: EOMs are intact. Sclerae anicteric and not pale. Oral mucosa appeared to be moist. NECK: Supple. LUNGS: Diminished. He has no tachypnea. CARDIAC: S1, S2. Tachycardia with regular rhythm. No rubs or gallops. ABDOMEN: Soft and nontender. Bowel sounds are present x4. RECTAL: Exam was completed. There is minimal stool in the rectal vault. There was no palpated or signs of gross blood around the rectum. Stool was light brown. Guaiac was sent. EXTREMITIES: Pedal pulses are +2 bilaterally. There is no clubbing or cyanosis. NEUROLOGIC: He is awake, alert, oriented x3. There are no gross focal deficits. SKIN: Intact. DIAGNOSTIC STUDIES/LAB DATA: WBCs are 12.4, RBCs 4.01, hemoglobin 12.4, hematocrit 37, platelet count 188. INR is 1.29, APTT is 31.1. Sodium 130, potassium 4.1, chloride was 96, carbon dioxide was 22, anion gap 12, BUN 28, creatinine 1.32, glucose was 260, lactic acid 2.5, calcium 9.6, magnesium was 1.0. Initial lactic acid was 2.5, repeat was 0.7. Troponin was 0.08, repeat was 0.10. C- reactive protein was 180.24. TSH was 0.47. Urine: Color was yellow, clear; pH was 5.0; specific gravity 1.036; urine protein was 2+; ketones were negative; urine blood was 2+; nitrites, bilirubin, urobilinogen and leukocyte esterase were all negative; urine wbc's were trace; rbc's were 1+ ; urine bacteria was absent; glucose was 1+. He had a chest x-ray, radiologist's impression: No active cardiopulmonary disease. He did have an ultrasound of the gallbladder: Gallbladder is incompletely distended, but grossly normal. He had a CT of the abdomen and pelvis, radiologist's impression: Left lower lobe pneumonia. Wedge shaped defect in the spleen, may represent splenic infarct. Right pleural effusion is noted. 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 No other masses or fluid collections are noted. Marked degeneration in the left hip is noted. He had an electrocardiogram which showed atrial fibrillation at a rate of 100, T - wave inversion in V5 and V6. ASSESSMENT AND PLAN: Mr. Ambriz is a 79-year-old male with a past medical history significant for hypertension; atrial fibrillation, on anticoagulation; peripheral vascular disease; type 2 diabetes; chronic kidney disease; history of cerebrovascular accident and chronic left hip pain, who presented to the emergency room with complaints of not feeling well x1 week and fever that started last night, found to meet severe sepsis criteria. He will be admitted inpatient for: 1. Severe sepsis. This is associated with elevated white count, fever, and left lower lobe pneumonia with a lactic acid of 2.5 on admission. The patient was given Zosyn in the emergency room. I will continue on ceftriaxone and azithromycin. He did receive full fluid bolusing of 2277 in the emergency room. He did have a repeat lactic acid that was within normal limits. I will send urine for strep pneumoniae and legionella. Blood cultures are currently pending. Will also send a sputum culture. We will continue to monitor him on telemetry and observe for any further acute changes. 2. Elevated troponin. The patient does have an elevated troponin. He was seen in December of 2018, again with elevated troponin. He had a nuclear stress test at that time, which was deemed low risk with a small area of reversible perfusion. He was seen in consultation by Cardiology, who recommended maximal medical therapy. Should the patient's troponin continue to trend upwards, I would recommend a reconsultation to Cardiology. I would continue with maximum cardiac therapy with Eliquis, Plavix, and lisinopril as previously prescribed. We will monitor him on telemetry and continue to trend his troponin. I suspect his elevation in troponin could be related to demand ischemia from his underlying sepsis and pneumonia. 3. Hypomagnesemia. The patient does have a magnesium level of 1.0. We will give him 4 g of magnesium and repeat a magnesium level in the a.m. 4. Atrial fibrillation. The patient will continue on Eliquis and Plavix as previously prescribed. The patient is not on any rate control agent at this time. 5. Type 2 diabetes. I will hold the patient's metformin. I will place him on lispro sliding scale with fingersticks a.c. 6. Rectal Bleeding. Patient report bright red blood in the stool today. Rectal exam completed, no bright red blood noted, small amt medium stool noted on exam . stool sent for guaiac. Will repeat h/h in 6 hours if guaiac is positive . 7. FEN: The patient can have a heart-healthy diet. 8. Code status: He is a full code. 9. DVT prophylaxis: He is on Eliquis. TIME SPENT: Time spent on this admission was 60 minutes, greater than half that time was spent at the bedside reviewing events leading thus far to his hospitalization, performing physical exam, and reviewing my plan of care. I have discussed this with my attending Dr. Meg Headley; she is in agreement with my plan. LYLA MCCURDY, STEP FINISHER [id number]/[facility] #: [id number] RAY
--- NOTE | 2019-04-30 22:02 | PN ---
Sepsis Event Evaluation Date of Evaluation: 04/30/19 Time of Evaluation: 11:45 Current Stage of Sepsis: Sepsis Vital Signs - Last 12 Hours: Vital Signs - 12 hr Temp Pulse Resp BP Pulse Ox 04/30/19 20:01 20 04/30/19 18:16 18 04/30/19 18:15 100.4 F 04/30/19 15:09 99.7 F 95 20 147/46 97 04/30/19 14:21 18 04/30/19 12:25 97.3 F 72 18 188/67 100 04/30/19 12:12 98.5 F 81 16 169/77 98 Lactic Acid: 04/30/19 04/30/19 07:51 11:09 Lactic Acid 2.5 H* 0.7 - Cardiopulmonary Exam Capillary Refill: Immediate Respiratory: Symmetrical Chest Expansion and Respiratory Effort, Clear to Auscultation Cardiovascular: NL Sounds; No Murmurs; No JVD, No Edema - Peripheral Pulse Exam Radial Pulses: Bilateral Normal Pedal Pulses: Bilateral Normal Posterior Tibial Pulse: Bilateral Normal - Skin Exam Skin Exam: Normal Turgor, [place] - Jasbir Coma Scale Best Eye Response: 4 - Spontaneous Best Motor Response: 6 - Obeys Commands Best Verbal Response: 5 - Oriented Coma Scale Total: 15 Assess/Plan/Problems-Billing Assessment: - Patient Problems (1) Sepsis Current Visit: Yes Status: Acute Comment: sepsis R/T LLL PNA- resolving - no hypotension noted - fever improving -will continue ceftriaxone and azithromycin IV fluid bolus completed - Blood cultuures pending Repeat lactic acid normal
[2019-04-30 22:42] LABS: Hematocrit 32 % (42-52); Hemoglobin 10.8 g/dL (14.0-18.0)
[2019-05-01] MEDS: Acetaminophen TAB* 325 MG PO PRN ×2 (04:16→15:00)
[2019-05-01] MEDS: oxyCODONE/Acetamin 5/325 MG* TAB PO PRN ×2 (04:26→10:19)
[2019-05-01 07:06] LABS: ABS Lymphocytes 0.5 10^3/ul (1.0-4.8); ABS Monocytes 1.1 10^3/ul (0-0.8); ABS Neutrophils 8.1 10^3/ul (1.5-7.7); Eosinophil % 0.4 %; Hematocrit 33 % (42-52); Hemoglobin 11.5 g/dL (14.0-18.0); Lymphocyte % 5.3 %; Mean Corpuscular HGB Conc 35 g/dL (31-36); Mean Corpuscular Hemoglobin 32 pg (27-31); Mean Corpuscular Volume 91 fL (80-94); Platelet Count 178 10^3/uL (150-450); Red Blood Count 3.59 10^6 /uL (4.18-5.48); Red Cell Distribution Width 13 % (10-15); White Blood Count 9.7 10^3/uL (3.5-10.8)
[2019-05-01 07:15] LABS: Calcium 8.6 mg/dL (8.6-10.3); EGFR African American 59.8 (>60); EGFR Non-African American 49.4 (>60); HDL Cholesterol 28.4 mg/dL; Magnesium 1.9 mg/dL (1.9-2.7); Potassium 4.1 mmol/L (3.5-5.0)
[2019-05-01] MEDS ORDERED: Clopidogrel TAB* 75 MG PO SCH (09:00)
[2019-05-01] MEDS: Insulin LISPRO* 1 UNITS UNIT SUBCUT SCH ×3 (10:13→17:20)
[2019-05-01] MEDS: cloNIDine TAB* 0.1 MG PO SCH ×2 (10:15→19:57)
[2019-05-01] MEDS: amLODIPine TAB* 5 MG PO SCH ×2 (10:16→19:57)
[2019-05-01] MEDS: Apixaban* 5 MG TAB PO SCH (10:16)
[2019-05-01] MEDS: Lisinopril TAB* 10 MG PO SCH (10:17)
[2019-05-01] MEDS: Ferrous Sulfate TAB* 325 MG PO SCH (10:20)
[2019-05-01] MEDS: Spironolactone TAB* 25 MG PO SCH (12:27)
[2019-05-01] MEDS: cefTRIAXone(*) 1 GM in NS 0.9% 50 ML* 50 ML IVPB SCH (13:57)
[2019-05-01] MEDS: Azithromycin 500 mg/250 ml NS 500 MG/250 ML BAG IVPB SCH (15:00)
--- NOTE | 2019-05-01 15:10 | PN ---
Subjective Date of Service: 05/01/19 Interval History: Pt denied n/V, denies abd pain. C/o high fevers and feeling weak x 3-4 days prior to admission. ED doctor noted epigastric tenderness on eval BRBPR resolved Objective Active Medications: Acetaminophen (Tylenol Tab*) 650 mg PO Q8H PRN PRN Reason: MILD PAIN or TEMP > 100.4 Last Admin: 05/01/19 15:00 Dose: 650 mg Amlodipine Besylate (Norvasc Tab*) 5 mg PO BID [facility] Last Admin: 05/01/19 10:16 Dose: 5 mg Apixaban (Eliquis*) 5 mg PO BID [facility] Last Admin: 05/01/19 10:16 Dose: 5 mg Cholecalciferol (Vitamin D Tab*) 5,000 units PO WEEKLY [facility] Clonidine HCl (Catapres Tab*) 0.2 mg PO BID [facility] Last Admin: 05/01/19 10:15 Dose: 0.2 mg Dextrose (Dextrose 50% Vial 50 Ml*) 25 ml IV PUSH .FOR FS < 60 - SS PRN PRN Reason: FS < 60 Ferrous Sulfate (Ferrous Sulfate Tab*) 325 mg PO DAILY [facility] Last Admin: 05/01/19 10:20 Dose: 325 mg Azithromycin (Zithromax 500 Mg/250 Ml) 500 mg in 250 mls @ 250 mls/hr IVPB Q24H [facility] Last Admin: 05/01/19 15:00 Dose: 250 mls/hr Ceftriaxone Sodium 1 gm/ (Sodium Chloride) 50 mls @ 100 mls/hr IVPB Q24H [facility] Last Admin: 05/01/19 13:57 Dose: 100 mls/hr Insulin Human Lispro (Humalog*) 0 units [facility]; Protocol Last Admin: 05/01/19 11:47 Dose: 2 unit Lisinopril (Prinivil Tab*) 40 mg PO DAILY [facility] Last Admin: 05/01/19 10:17 Dose: 40 mg Oxycodone/Acetaminophen (Percocet 5/325 Tab*) 1 tab PO Q4H PRN PRN Reason: PAIN - MODERATE Last Admin: 05/01/19 10:19 Dose: 1 tab Pantoprazole Sodium (Protonix Tab*) 40 mg PO BID [facility] Spironolactone (Aldactone Tab*) 12.5 mg PO DAILY [facility] Last Admin: 05/01/19 12:27 Dose: 12.5 mg Vital Signs - 8 hr 05/01/19 05/01/19 05/01/19 07:35 07:45 08:00 Temperature 97.8 F Pulse Rate 86 Respiratory 20 20 20 Rate Blood Pressure 132/56 (mmHg) O2 Sat by Pulse 91 Oximetry 05/01/19 05/01/19 05/01/19 08:49 10:19 11:15 Temperature 98.8 F Pulse Rate 99 Respiratory 18 18 Rate Blood Pressure 153/70 (mmHg) O2 Sat by Pulse 100 Oximetry 05/01/19 11:29 Temperature 99.6 F Pulse Rate 108 Respiratory 20 Rate Blood Pressure 178/70 (mmHg) O2 Sat by Pulse 96 Oximetry Oxygen Devices in Use Now: None Appearance: 79 yo m in nAD, aAOx3 Eyes: No Scleral Icterus, PERRLA Ears/Nose/Mouth/Throat: NL Teeth, Lips, Gums, Mucous Membranes Moist Neck: NL Appearance and Movements; NL JVP, Trachea Midline Respiratory: Symmetrical Chest Expansion and Respiratory Effort, - - rhonchi at LLL Cardiovascular: - - irregular Abdominal: NL Sounds; No Tenderness; No Distention, No Hepatosplenomegaly Lymphatic: No Cervical Adenopathy Extremities: No Edema, No Clubbing, Cyanosis Skin: No Rash or Ulcers, No Nodules or Sclerosis Neurological: Alert and Oriented x 3, NL Muscle Strength and Tone Result Diagrams: 05/01/19 05:57 05/01/19 05:57 Microbiology and Other Data: Microbiology 04/30/19 08:23 Aerobic Blood Culture - Preliminary Blood Venous No Growth Day 1 Anaerobic Blood Culture - Preliminary No Growth Day 1 04/30/19 07:51 Aerobic Blood Culture - Preliminary Blood Venous No Growth Day 1 Anaerobic Blood Culture - Preliminary No Growth Day 1 04/30/19 12:40 Legionella Urinary Antigen - Final Urine Negative Legionella Antigen Streptococcus pneumoniae Ag Screen - Final Negative S. pneumo Antigen 04/30/19 11:30 Stool Occult Blood (MEÑO) - Final Stool Assess/Plan/Problems-Billing Assessment: Mr. Ambriz is a 79 yo M with PMHx of HTN, afib, PAD, DM, CKD, CVA, cerebral aneurysm, and carotid stenosis; who presented to the ED with fevers and was noted to have PNA - Patient Problems (1) Community acquired pneumonia Comment: with severe sepsis at admission. cont Ceftraixone/Azithro. due to persistent LLL abn noted on CT c/w CT from 2018 -asked / Arlin to see pt. CT chest with no contrast pending (2) Anemia Comment: Hct stable today.but pt reported BRBPR at admission and stool was heme+ . No further bleeding noted. will stop Plavix and eliquis. Start Protonix BID and repeat stool hemoccult I suspect pt has intermittent hemorrhoidal bleed, especially when on Plavix and Eliquis due to poss splenic infarct -will place pt on Lovenox as d/w hematology (3) Atrial fibrillation Comment: HR is controlled. Continue low dose metoprolol and eliquis. (4) Diabetes Comment: Pt on metformin at home. Cont ISS (5) Elevated troponin Comment: Pt is asymptomatic. Likley demand ischemia due to severe sepsis (6) Hypertension Comment: cont clonidine, Norvasc, Aldactone, lisinopril (7) Splenic infarct Comment: CT shows poss splenic infarct consulted hematology Start lovenox, holding eliquis (8) CKD stage 3 due to type 2 diabetes mellitus Comment: creat close to baseline (9) DVT prophylaxis Comment: Lovenox Status and Disposition: inpatient
[2019-05-01] MEDS ORDERED: hydrALAZINE IV* 20 MG/ML VIAL IV SLOW PU PRN (16:29)
--- NOTE | 2019-05-01 16:31 | CONS ---
PULMONARY CONSULTATION REPORT: DATE OF CONSULT: 05/01/19 CONSULTATION REQUESTED BY: Dr. Kristi Marie. REASON FOR CONSULTATION: Evaluation of recurrent pneumonia. HISTORY OF PRESENT ILLNESS: The patient is a 79-year-old male, former smoker, quit smoking 40 years ago with some occupational exposures. The patient presents for evaluation of fever, generalized malaise. The patient was hospitalized in December for pneumonia and sepsis. He was treated with antibiotics. He was also treated for the acute COPD exacerbation at that time. The patient has been doing well until the past week when he has been having worsening generalized malaise. He also had fever for 2 days prior to the presentation. He also is noticing malaise. Also complained of bright red blood in stool. No dark stools. He has chronic dyspnea on exertion that is unchanged. Also reports body ache, myalgias. Denied any sick contacts. The patient also reported cough productive of small amounts of thick yellow to white phlegm. Further evaluation in the emergency room revealed elevated white count at 12.4. The patient was febrile on presentation with T-max of 102, elevated lactic acid at 2.5, troponins mildly elevated. He was admitted for sepsis from presumed pneumonia. The patient had a chest x-ray. I have personally reviewed chest x-ray - the patient with volume loss in the left lower lobe area with hazy density. The patient had a CT scan of the chest for further evaluation. I personally reviewed the CT scan of the chest - the patient with evidence of airspace disease in the left base with associated small left pleural effusion. The patient also with slightly enlarged precarinal and subcarinal lymph node, which were also seen on prior CT from December. The patient with right lower lobe nodule that is unchanged from prior scan. The patient had nuclear stress test in December when he also presented with chest pain, which showed reversible area of perfusion defect. He was recommended to continue on maximal medical therapy at that time. The patient denies any chest pain currently. The patient was initiated on antibiotics for sepsis. He has not been febrile currently. He still feels fatigued and has malaise. Denies significant shortness of breath. He has not been coughing or bringing out phlegm actively. PAST MEDICAL HISTORY: 1. Hypertension. 2. Atrial fibrillation, on Eliquis. 3. Peripheral vascular disease. 4. Type 2 diabetes. 5. Chronic kidney disease. 6. Chronic left hip pain. 7. History of CVA. 8. History of vertebral artery occlusion and carotid stenosis. 9. History of cerebral aneurysm, status post stenting. 10. History of PE in 1986 from hip surgery. 11. History of mild pulmonary hypertension. PAST SURGICAL HISTORY: 1. Carotid endarterectomy. 2. Hip surgery. MEDICATIONS AT HOME: 1. Lisinopril. 2. Metformin. 3. Clonidine. 4. Hydrocodone. 5. Amlodipine. 6. Spironolactone. 7. Eliquis. 8. Furosemide. 9. Ferrous sulfate. 10. Plavix. 11. Vitamin D. ALLERGIES: ATORVASTATIN and ROSUVASTATIN. FAMILY HISTORY: Father with ND. Brother and sister with diabetes. Mother with unknown cancer. SOCIAL HISTORY: He lives at home with his . Significant smoking history, quit 40 years ago. No alcohol or drug abuse. Reports occupational exposures to chemicals, dust, etc. In the past. Denies recent travel. Denies vaping. REVIEW OF SYSTEMS: All 14 systems reviewed, as per HPI. PHYSICAL EXAMINATION: Ill-appearing thin male in bed, in no apparent distress. Vital Signs: Temperature 99.6, pulse 108 beats per minute, respiratory rate 20 per minute, O2 sat 96% on room air, blood pressure 178/72. HEENT: Pupils equal , reactive to light. Mucous membranes are moist. Lungs: Crackles at left base. Cardiovascular: S1, S2 present. Abdomen: Soft, nontender, nondistended. Bowel sounds present. Extremities: Normal range of motion. Skin: No rash. Neuro: Alert, awake, oriented x3. No focal deficits. DIAGNOSTIC STUDIES/LAB DATA: WBC count 12.4 on admission, decreased to 9.7; hemoglobin stable around 11 to 12; platelet count of 178. Sodium 129, was 130 on admission; potassium 4.1; chloride 98; bicarb 24; BUN 25; creatinine 1.39. Blood sugars elevated at 200. Troponin trending down. CRP elevated at 180. UA showed 2+ blood with 1+ rbc and positive also for a glucose. Stool for occult blood was positive. Negative Legionella and Strep pneumo antigen. Blood cultures negative to date. IMPRESSION AND RECOMMENDATIONS: 79-year-old male former smoker with significant emphysema, admitted for evaluation of fever, generalized malaise, being treated for sepsis secondary to pneumonia. The patient reports he had pneumonia in October, then in December and had recurrence again currently. He appears to be having this recurrent pneumonia mostly in the left lower lobe even though last CT in December showed patchy airspace opacities on right side as well. The patient also with bright red blood per rectum, positive guaiac, no further episodes currently. The patient started on treatment for possible community- acquired pneumonia. The patient has not had any further episodes of fever since he was started on antibiotics. Suspicion for aspiration pneumonia remains given that he is on opiates for chronic pain issues. Not see any obvious endobronchial lesion on the CT chest. Bronchiolitis obliterans organizing pneumonia or cryptogenic organizing pneumonia also in the differential given recurrent pneumonias. At this time, I would recommend treating as community- acquired pneumonia. We will repeat followup CT in 6 to 8 weeks to ensure resolution of the opacity. If opacity remains or symptoms recur, then would consider CT-guided biopsy or bronchoscopy for further evaluation and also might need to start him on prednisone for management of presumptive bronchiolitis obliterans organizing pneumonia at that point. No change in management at this time. Would continue treating as pneumonia. Guaiac-positive stool likely hemorrhoid bleed, resolved currently. Thank you for allowing me to participate in the care of your patient. Will follow up with you. [id number]/[facility] #: [id number] RAY
[2019-05-01 16:35] LABS: Anion Gap 5 mmol/L (2-11); BUN/Creatinine Ratio 18.7 (8-20); Blood Urea Nitrogen 26 mg/dL (6-24); CO2 Carbon Dioxide 24 mmol/L (22-32); Calcium 8.5 mg/dL (8.6-10.3); Chloride 99 mmol/L (101-111); EGFR African American 59.8 (>60); EGFR Non-African American 49.4 (>60); Glucose 183 mg/dL (70-100); Potassium 4.4 mmol/L (3.5-5.0); Sodium 128 mmol/L (135-145)
[2019-05-01 19:12] LABS: Total Iron Binding Capacity 291 mcg/dL (250-450); Transferrin 208 mg/dL (203-362)
[2019-05-01 19:31] LABS: Ferritin 158.5 ng/mL (24-336)
[2019-05-01 19:46] LABS: % Iron Saturation 7 % (15-55); Iron < 20 ug/dL (50-212)
[2019-05-01] MEDS: Pantoprazole TAB * 40 MG TAB PO SCH (19:57)
[2019-05-02] MEDS: oxyCODONE/Acetamin 5/325 MG* TAB PO PRN ×2 (00:13→20:12)
[2019-05-02 05:05] LABS: ABS Eosinophils 0.2 10^3/ul (0-0.6); ABS Lymphocytes 0.9 10^3/ul (1.0-4.8); ABS Monocytes 1.1 10^3/ul (0-0.8); ABS Neutrophils 4.7 10^3/ul (1.5-7.7); Eosinophil % 3.1 %; Hematocrit 33 % (42-52); Lymphocyte % 12.3 %; Mean Corpuscular HGB Conc 34 g/dL (31-36); Mean Corpuscular Hemoglobin 31 pg (27-31); Mean Corpuscular Volume 92 fL (80-94); Mean Platelet Volume 9.1 fL (7.4-10.4); Platelet Count 168 10^3/uL (150-450); Red Blood Count 3.58 10^6 /uL (4.18-5.48); Red Cell Distribution Width 13 % (10-15)
[2019-05-02 05:20] LABS: Magnesium 1.9 mg/dL (1.9-2.7)
[2019-05-02] MEDS: Enoxaparin(*) 60 MG/0.6 ML SYR SUBCUT SCH ×2 (07:52→20:12)
[2019-05-02] MEDS: Ferrous Sulfate TAB* 325 MG PO SCH ×2 (07:53→20:12)
[2019-05-02] MEDS: amLODIPine TAB* 5 MG PO SCH ×2 (07:53→20:13)
[2019-05-02] MEDS: Lisinopril TAB* 10 MG PO SCH (07:53)
[2019-05-02] MEDS: cloNIDine TAB* 0.1 MG PO SCH ×2 (07:54→20:12)
[2019-05-02] MEDS: Pantoprazole TAB * 40 MG TAB PO SCH ×2 (07:54→20:12)
[2019-05-02] MEDS: Spironolactone TAB* 25 MG PO SCH (07:55)
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
[2019-05-02] MEDS ORDERED: Enoxaparin(*) 80 MG/0.8 ML SYR SUBCUT SCH (09:00)
[2019-05-02] MEDS: Insulin LISPRO* 1 UNITS UNIT SUBCUT SCH ×3 (09:01→17:14)
[2019-05-02] MEDS: Clopidogrel TAB* 75 MG PO SCH (09:43)
[2019-05-02] MEDS: cefTRIAXone(*) 1 GM in NS 0.9% 50 ML* 50 ML IVPB SCH (13:29)
[2019-05-02] MEDS: Azithromycin 500 mg/250 ml NS 500 MG/250 ML BAG IVPB SCH (14:26)
[2019-05-02] MEDS: Acetaminophen TAB* 325 MG PO PRN (15:22)
--- NOTE | 2019-05-02 16:47 | PN ---
Subjective Date of Service: 05/02/19 Interval History: Pt and his realized today that although pt had been taking the medications as he thought they wee prescribed, his understanding of the prescription was such that he was taking Plavix 1 tab weekly every Monday and Eliquis on Tuesdays and Fridays only -1 tab. He feels much better today. Denies cough. Was still febrile last night. Denies abd pain Objective Active Medications: Acetaminophen (Tylenol Tab*) 650 mg PO Q8H PRN PRN Reason: MILD PAIN or TEMP > 100.4 Last Admin: 05/02/19 15:22 Dose: 650 mg Amlodipine Besylate (Norvasc Tab*) 5 mg PO BID [facility] Last Admin: 05/02/19 07:53 Dose: 5 mg Cholecalciferol (Vitamin D Tab*) 5,000 units PO WEEKLY [facility] Clonidine HCl (Catapres Tab*) 0.2 mg PO BID [facility] Last Admin: 05/02/19 07:54 Dose: 0.2 mg Clopidogrel Bisulfate (Plavix Tab*) 75 mg PO DAILY [facility] Last Admin: 05/02/19 09:43 Dose: 75 mg Dextrose (Dextrose 50% Vial 50 Ml*) 25 ml IV PUSH .FOR FS < 60 - SS PRN PRN Reason: FS < 60 Enoxaparin Sodium (Lovenox(*)) 60 mg SUBCUT Q12H [facility] Last Admin: 05/02/19 07:52 Dose: 60 mg Ferrous Sulfate (Ferrous Sulfate Tab*) 325 mg PO BID [facility] Hydralazine HCl (Apresoline Iv*) 5 mg IV SLOW PU Q6H PRN PRN Reason: HTN Azithromycin (Zithromax 500 Mg/250 Ml) 500 mg in 250 mls @ 250 mls/hr IVPB Q24H [facility] Last Admin: 05/02/19 14:26 Dose: 250 mls/hr Ceftriaxone Sodium 1 gm/ (Sodium Chloride) 50 mls @ 100 mls/hr IVPB Q24H [facility] Last Admin: 05/02/19 13:29 Dose: 100 mls/hr Insulin Human Lispro (Humalog*) 0 units SUBCUT AC [facility]; Protocol Last Admin: 05/02/19 11:47 Dose: Not Given Lisinopril (Prinivil Tab*) 40 mg PO DAILY [facility] Last Admin: 05/02/19 07:53 Dose: 40 mg Oxycodone/Acetaminophen (Percocet 5/325 Tab*) 1 tab PO Q4H PRN PRN Reason: PAIN - MODERATE Last Admin: 05/02/19 00:13 Dose: 1 tab Pantoprazole Sodium (Protonix Tab*) 40 mg PO BID [facility] Last Admin: 05/02/19 07:54 Dose: 40 mg Spironolactone (Aldactone Tab*) 12.5 mg PO DAILY [facility] Last Admin: 05/02/19 07:55 Dose: 12.5 mg Vital Signs - 8 hr 05/02/19 05/02/19 05/02/19 09:05 11:10 14:48 Temperature 97.8 F 99.3 F Pulse Rate 80 Respiratory 16 Rate Blood Pressure 142/67 147/58 (mmHg) O2 Sat by Pulse 96 Oximetry 05/02/19 15:15 Temperature 100 F Pulse Rate 81 Respiratory 16 Rate Blood Pressure 159/65 (mmHg) O2 Sat by Pulse 98 Oximetry Oxygen Devices in Use Now: None Appearance: 79 yo M in nAD, aAOx3 Eyes: No Scleral Icterus, PERRLA Ears/Nose/Mouth/Throat: NL Teeth, Lips, Gums, Mucous Membranes Moist Neck: NL Appearance and Movements; NL JVP, Trachea Midline Respiratory: Symmetrical Chest Expansion and Respiratory Effort, - - rnonchi at LLL Cardiovascular: NL Sounds; No Murmurs; No JVD, - - irregular Abdominal: NL Sounds; No Tenderness; No Distention Lymphatic: No Cervical Adenopathy Extremities: No Edema Skin: No Rash or Ulcers, No Nodules or Sclerosis Neurological: Alert and Oriented x 3, NL Muscle Strength and Tone Result Diagrams: 05/02/19 04:35 05/01/19 16:05 Microbiology and Other Data: Microbiology 04/30/19 08:23 Aerobic Blood Culture - Preliminary Blood Venous No Growth Day 1 Anaerobic Blood Culture - Preliminary No Growth Day 1 04/30/19 07:51 Aerobic Blood Culture - Preliminary Blood Venous No Growth Day 1 Anaerobic Blood Culture - Preliminary No Growth Day 1 04/30/19 12:40 Legionella Urinary Antigen - Final Urine Negative Legionella Antigen Streptococcus pneumoniae Ag Screen - Final Negative S. pneumo Antigen 04/30/19 11:30 Stool Occult Blood (MEÑO) - Final Stool Assess/Plan/Problems-Billing Assessment: Mr. Ambriz is a 79 yo M with PMHx of HTN, afib, PAD, DM, CKD, CVA, cerebral aneurysm, and carotid stenosis; who presented to the ED with fevers and was noted to have PNA - Patient Problems (1) Community acquired pneumonia Comment: with severe sepsis at admission. cont Ceftraixone/Azithro. due to persistent LLL abn noted on CT c/w CT from 2018 -asked / Arlin to see pt. CT chest with no contrast shows known R pulm nodule and pneumonia today pt feels much better, but due to fever>102 last night will monitor for another 24H, especially that pt is at risk of developing splenic abscess with preexisting splenic infarct-as per d/w Dr. Basurto. If pt is still febrile tonight, ID consult would be advised (2) Anemia Comment: Hct stable today.but pt reported BRBPR at admission and stool was heme+ . No further bleeding noted. As per d/w DR. Basurto will hold off Eliquis and cont Lovenox when in hospital. OK to restart Eliquis at d/c Started Protonix BID and repeating stool hemoccult I suspect pt has intermittent hemorrhoidal bleed, especially when on Plavix and Eliquis (3) Atrial fibrillation Comment: HR is controlled. Continue low dose metoprolol and eliquis. (4) Diabetes Comment: Pt on metformin at home. Cont ISS (5) Elevated troponin Comment: Pt is asymptomatic. Likley demand ischemia due to severe sepsis (6) Hypertension Comment: cont clonidine, Norvasc, Aldactone, lisinopril (7) Splenic infarct Comment: CT shows poss splenic infarct appreciate hematology consult: cont lovenox, holding Eliquis till d/c. Due to misunderstanding pt was taking his Plavix once weekly and Eliquis twice a week. Spoke with pt's who will manage his meds from now on. cont Plavix for PVD/carotid disease (8) CKD stage 3 due to type 2 diabetes mellitus Comment: creat close to baseline (9) Hyponatremia Comment: mild, asymptomatic, will monitor (10) DVT prophylaxis Comment: Lovenox Status and Disposition: inpatient
[2019-05-02] MEDS: Cyanocobalamin INJ * 1,000 MCG/ML VIAL 1 ML VIAL IM SCH (20:10)
[2019-05-03] MEDS: oxyCODONE/Acetamin 5/325 MG* TAB PO PRN ×2 (01:24→16:29)
[2019-05-03 05:16] LABS: ABS Basophils 0.1 10^3/ul (0-0.2); ABS Eosinophils 0.4 10^3/ul (0-0.6); ABS Lymphocytes 1.1 10^3/ul (1.0-4.8); ABS Neutrophils 4.8 10^3/ul (1.5-7.7); Eosinophil % 5.2 %; Hematocrit 32 % (42-52); Lymphocyte % 15.3 %; Mean Corpuscular HGB Conc 35 g/dL (31-36); Mean Corpuscular Hemoglobin 31 pg (27-31); Mean Corpuscular Volume 91 fL (80-94); Mean Platelet Volume 8.8 fL (7.4-10.4); Nucleated Red Blood Cells % 0.1; Platelet Count 199 10^3/uL (150-450); Red Blood Count 3.52 10^6 /uL (4.18-5.48); Red Cell Distribution Width 13 % (10-15); White Blood Count 7.5 10^3/uL (3.5-10.8)
[2019-05-03 05:41] LABS: EGFR African American 69.5 (>60); EGFR Non-African American 57.4 (>60); Potassium 4.3 mmol/L (3.5-5.0)
--- NOTE | 2019-05-03 08:12 | PN ---
Subjective Date of Service: 05/03/19 Interval History: HOSPITALIST PROGRESS NOTE Patient seen and examined at bedside. Care reviewed and d/w Benja Viera RN. He feels a little better today. Breathing is easier, but does not feel back to his usual self yet. Family History: Unchanged from Admission Social History: Unchanged from Admission Past Medical History: Unchanged from Admission Objective Active Medications: Acetaminophen (Tylenol Tab*) 650 mg PO Q8H PRN PRN Reason: MILD PAIN or TEMP > 100.4 Last Admin: 05/02/19 15:22 Dose: 650 mg Amlodipine Besylate (Norvasc Tab*) 5 mg PO BID [facility] Last Admin: 05/02/19 20:13 Dose: 5 mg Cholecalciferol (Vitamin D Tab*) 5,000 units PO WEEKLY [facility] Clonidine HCl (Catapres Tab*) 0.2 mg PO BID [facility] Last Admin: 05/02/19 20:12 Dose: 0.2 mg Clopidogrel Bisulfate (Plavix Tab*) 75 mg PO DAILY [facility] Last Admin: 05/02/19 09:43 Dose: 75 mg Cyanocobalamin (Vitamin B12 Inj *) 1,000 mcg IM DAILY [facility] Stop: 05/06/19 23:59 Last Admin: 05/02/19 20:10 Dose: 1,000 mcg Dextrose (Dextrose 50% Vial 50 Ml*) 25 ml IV PUSH .FOR FS < 60 - SS PRN PRN Reason: FS < 60 Enoxaparin Sodium (Lovenox(*)) 60 mg SUBCUT Q12H [facility] Last Admin: 05/02/19 20:12 Dose: 60 mg Ferrous Sulfate (Ferrous Sulfate Tab*) 325 mg PO BID [facility] Last Admin: 05/02/19 20:12 Dose: 325 mg Hydralazine HCl (Apresoline Iv*) 5 mg IV SLOW PU Q6H PRN PRN Reason: HTN Azithromycin (Zithromax 500 Mg/250 Ml) 500 mg in 250 mls @ 250 mls/hr IVPB Q24H [facility] Last Admin: 05/02/19 14:26 Dose: 250 mls/hr Ceftriaxone Sodium 1 gm/ (Sodium Chloride) 50 mls @ 100 mls/hr IVPB Q24H [facility] Last Admin: 05/02/19 13:29 Dose: 100 mls/hr Insulin Human Lispro (Humalog*) 0 units SUBCUT [facility]; Protocol Last Admin: 05/02/19 17:14 Dose: 1 unit Lisinopril (Prinivil Tab*) 40 mg PO DAILY [facility] Last Admin: 05/02/19 07:53 Dose: 40 mg Oxycodone/Acetaminophen (Percocet 5/325 Tab*) 1 tab PO Q4H PRN PRN Reason: PAIN - MODERATE Last Admin: 05/03/19 01:24 Dose: 1 tab Pantoprazole Sodium (Protonix Tab*) 40 mg PO BID [facility] Last Admin: 05/02/19 20:12 Dose: 40 mg Spironolactone (Aldactone Tab*) 12.5 mg PO DAILY [facility] Last Admin: 05/02/19 07:55 Dose: 12.5 mg Vital Signs - 8 hr 05/03/19 05/03/19 05/03/19 00:41 01:24 03:15 Temperature 98.2 F Pulse Rate 67 Respiratory 16 16 20 Rate Blood Pressure 149/61 (mmHg) O2 Sat by Pulse 98 Oximetry 05/03/19 05/03/19 05/03/19 04:40 07:15 07:54 Temperature 97.2 F Pulse Rate 54 Respiratory 16 16 18 Rate Blood Pressure 158/82 (mmHg) O2 Sat by Pulse 95 Oximetry Oxygen Devices in Use Now: None Appearance: Pleasant elderly gentleman sitting up in a chair in NAD. Eyes: No Scleral Icterus Ears/Nose/Mouth/Throat: Mucous Membranes Moist Neck: Trachea Midline Respiratory: Symmetrical Chest Expansion and Respiratory Effort, - - BS+ bilaterally with scattered rhonchi on the left Cardiovascular: - - Normal S1 and S2, irregularly irregular Abdominal: NL Sounds; No Tenderness; No Distention Extremities: No Edema Neurological: Alert and Oriented x 3, NL Muscle Strength and Tone Result Diagrams: 05/03/19 04:56 05/03/19 04:56 Microbiology and Other Data: Microbiology 04/30/19 08:23 Aerobic Blood Culture - Preliminary Blood Venous No Growth Day 1 Anaerobic Blood Culture - Preliminary No Growth Day 1 04/30/19 07:51 Aerobic Blood Culture - Preliminary Blood Venous No Growth Day 1 Anaerobic Blood Culture - Preliminary No Growth Day 1 04/30/19 12:40 Legionella Urinary Antigen - Final Urine Negative Legionella Antigen Streptococcus pneumoniae Ag Screen - Final Negative S. pneumo Antigen 04/30/19 11:30 Stool Occult Blood (MEÑO) - Final Stool Assess/Plan/Problems-Billing Assessment: Mr. Ambriz is a 79 yo M with PMH of HTN, Afib, PAD, type 2 DM, CKD stage 3, Schatzki's ring s/p dilation, CVA, cerebral aneurysm, and carotid stenosis; who presented to the ED with fevers, found to have severe sepsis secondary to community acquired pneumonia. - Patient Problems (1) Severe sepsis Comment: - Present on admission with leukocytosis, fever, and lactic acidosis. - Source was pneumonia. - Resolved. (2) Community acquired pneumonia Comment: - Blood cultures showed no growth, Legionella and pneumococcal Ag are negative. - Continue Ceftriaxone/Azithromycin #4. - Pulm input appreciated - recommended treatment as CAP and repeat CT chest in 6 -8 weeks. If opacity remains or symptoms recur, would consider CT guided biopsy or bronchoscopy. - Afebirle over the past 24h. (3) Splenic infarct Comment: - CT shows possible splenic infarct - Dr Marie d/w Dr Basurto - will continue Lovenox for now. - Lovenox teaching. - Patient states he thought about his medications last night and he thinks he was taking his Plavix and Eliquis daily as prescribed. - At risk for splenic abscess due to splenic infarct, but not signs of recurrent infection at this time. (4) Hypertension Comment: - Controlled. - Continue Clonidine, Amlodipine, Aldactone, Lisinopril. (5) Atrial fibrillation Comment: - HR is controlled. Continue metoprolol and Lovenox. (6) Elevated troponin Comment: - Likley demand ischemia due to severe sepsis. - Check echocardiogram. (7) Diabetes Comment: - Check A1c. - Continue Lispro SS. (8) History of CVA (cerebrovascular accident) Comment: - Continue Plavix. (9) CKD stage 3 due to type 2 diabetes mellitus Comment: - Creatinine close to baseline. (10) Anemia Comment: - H/H stable. - Reported BRBPR at admission and stool was heme+. No further bleeding noted, but FOBT still positive. - February 2016 had EGD showing Schatzki's ring s/p dilation and normal colonoscopy; repeat EGD December 2017 showed Schatzki's ring s/p dilation. - As FOBT is still positive, GI consult requested. If no indication for inpatient procedures, will likely d/c on Lovenox to have EGD +/- colonoscopy as outpatient and then decide if he'll be on Eliquis again. - Presentation suspicious for intermittent hemorrhoidal bleed, especially when on Plavix and Eliquis. (11) DVT prophylaxis Comment: - Lovenox. (12) Full code status Comment: Status and Disposition: Inpatient. updated at bedside.
[2019-05-03] MEDS: Enoxaparin(*) 60 MG/0.6 ML SYR SUBCUT SCH ×2 (09:21→20:28)
[2019-05-03] MEDS: Cyanocobalamin INJ * 1,000 MCG/ML VIAL 1 ML VIAL IM SCH (09:21)
[2019-05-03] MEDS: Insulin LISPRO* 1 UNITS UNIT SUBCUT SCH ×3 (09:22→16:53)
[2019-05-03] MEDS: Spironolactone TAB* 25 MG PO SCH (09:22)
[2019-05-03] MEDS: Lisinopril TAB* 10 MG PO SCH (09:23)
[2019-05-03] MEDS: cloNIDine TAB* 0.1 MG PO SCH ×2 (09:24→20:29)
[2019-05-03] MEDS: Pantoprazole TAB * 40 MG TAB PO SCH ×2 (09:25→20:26)
[2019-05-03] MEDS: Ferrous Sulfate TAB* 325 MG PO SCH ×2 (09:25→20:27)
[2019-05-03] MEDS: Clopidogrel TAB* 75 MG PO SCH (09:26)
[2019-05-03] MEDS: amLODIPine TAB* 5 MG PO SCH ×2 (09:26→20:26)
[2019-05-03] MEDS: cefTRIAXone(*) 1 GM in NS 0.9% 50 ML* 50 ML IVPB SCH (13:06)
[2019-05-03] MEDS: Azithromycin 500 mg/250 ml NS 500 MG/250 ML BAG IVPB SCH (14:35)
--- NOTE | 2019-05-03 16:44 | PN ---
Progress Note - Progress Note Date of Service: 05/03/19 - pulmonary f/u note Note: Pt seen and examined at bedside. Pt reports feeling better, no further episodes of fever. SOB and cough are improved. Active Medications Generic Name Dose Route Start Last Admin Trade Name Freq PRN Reason Stop Dose Admin Acetaminophen 650 mg 04/30/19 11:36 05/02/19 15:22 Tylenol Tab* PO 650 mg Q8H PRN Administration MILD PAIN or TEMP > 100.4 Amlodipine Besylate 5 mg 04/30/19 14:00 05/03/19 09:26 Norvasc Tab* PO 5 mg BID [facility] Administration Cholecalciferol 5,000 units 04/30/19 15:00 Vitamin D Tab* PO WEEKLY [facility] Clonidine HCl 0.2 mg 04/30/19 14:00 05/03/19 09:24 Catapres Tab* PO 0.2 mg BID [facility] Administration Clopidogrel Bisulfate 75 mg 05/02/19 09:00 05/03/19 09:26 Plavix Tab* PO 75 mg DAILY [facility] Administration Cyanocobalamin 1,000 mcg 05/02/19 17:00 05/03/19 09:21 Vitamin B12 Inj * IM 05/06/19 23:59 1,000 mcg DAILY [facility] Administration Dextrose 25 ml 04/30/19 19:09 Dextrose 50% Vial 50 Ml* IV PUSH .FOR FS < 60 - SS PRN FS < 60 Enoxaparin Sodium 60 mg 05/02/19 09:00 05/03/19 09:21 Lovenox(*) SUBCUT 60 mg Q12H [facility] Administration Ferrous Sulfate 325 mg 05/02/19 21:00 05/03/19 09:25 Ferrous Sulfate Tab* PO 325 mg BID [facility] Administration Hydralazine HCl 5 mg 05/01/19 16:29 Apresoline Iv* IV SLOW PU Q6H PRN HTN Azithromycin 500 mg in 250 mls @ 250 mls/hr 04/30/19 14:00 05/03/19 14:35 Zithromax 500 Mg/250 Ml IVPB 250 mls/hr Q24H [facility] Administration Ceftriaxone Sodium 1 gm/ 50 mls @ 100 mls/hr 04/30/19 13:30 05/03/19 13:06 Sodium Chloride IVPB 100 mls/hr Q24H [facility] Administration Insulin Human Lispro 0 units 05/01/19 07:30 05/03/19 13:06 Humalog* SUBCUT 1 unit AC [facility] Administration Protocol Lisinopril 40 mg 05/01/19 09:00 05/03/19 09:23 Prinivil Tab* PO 40 mg DAILY [facility] Administration Oxycodone/Acetaminophen 1 tab 04/30/19 11:36 05/03/19 16:29 Percocet 5/325 Tab* PO 1 tab Q4H PRN Administration PAIN - MODERATE Pantoprazole Sodium 40 mg 05/01/19 21:00 05/03/19 09:25 Protonix Tab* PO 40 mg BID [facility] Administration Spironolactone 12.5 mg 05/01/19 12:15 05/03/19 09:22 Aldactone Tab* PO 12.5 mg DAILY [facility] Administration Vital Signs Temp Pulse Resp BP Pulse Ox 98.6 F 52 18 151/60 100 05/03/19 15:15 05/03/19 15:15 05/03/19 16:29 05/03/19 15:15 05/03/19 15:15 O/E: Pt in NAD HEENT: PERRLA Lungs: Diminished air entry b/l, no wheeze CVS: s1, S2+ Abd: Soft, BS+ Ext: Normal ROM Skin: No rash Neuro: No focal deficits Laboratory Results - last 24 hr 05/02/19 05/03/19 05/03/19 16:42 04:56 04:56 WBC 7.5 RBC 3.52 L Hgb 11.0 L Hct 32 L MCV 91 MCH 31 MCHC 35 RDW 13 Plt Count 199 MPV 8.8 Neut % (Auto) 65.0 Lymph % (Auto) 15.3 [place] % (Auto) 13.8 Eos % (Auto) 5.2 Baso % (Auto) 0.7 Absolute Neuts (auto) 4.8 Absolute Lymphs (auto) 1.1 Absolute Monos (auto) 1.0 H Absolute Eos (auto) 0.4 Absolute Basos (auto) 0.1 Absolute Nucleated RBC 0.0 Nucleated RBC % 0.1 Sodium 134 L Potassium 4.3 Chloride 101 Carbon Dioxide 26 Anion Gap 7 BUN 28 H Creatinine 1.22 H Est GFR ( Amer) 69.5 Est GFR (Non-Af Amer) 57.4 BUN/Creatinine Ratio 23.0 H Glucose 162 H POC Glucose (mg/dL) 184 H Calcium 9.0 05/03/19 05/03/19 07:57 12:06 WBC RBC Hgb Hct MCV MCH MCHC RDW Plt Count MPV Neut % (Auto) Lymph % (Auto) [place] % (Auto) Eos % (Auto) Baso % (Auto) Absolute Neuts (auto) Absolute Lymphs (auto) Absolute Monos (auto) Absolute Eos (auto) Absolute Basos (auto) Absolute Nucleated RBC Nucleated RBC % Sodium Potassium Chloride Carbon Dioxide Anion Gap BUN Creatinine Est GFR ( Amer) Est GFR (Non-Af Amer) BUN/Creatinine Ratio Glucose POC Glucose (mg/dL) 161 H 188 H Calcium I/R: 79 yo M with PMHx of HTN, Afib, PAD, DM, CKD, CVA, cerebral aneurysm, and carotid stenosis; who presented to the ED with fevers, was found to have air space opacities on CT chest consistent with PNA Pt with recurrent PNA- [employer]IE[employer] in differential Pt also with small left pl effusion, not big enough to be tapped Pt with 0.7 nodule in rt lung. Pt feeling better currently No further episodes of GI bleed Pt was seen by Haem for splenic infarct and management of anticoagulation. Will need immunological w/u for evaluation of immune def state given recurrent PNA as out pt Will need f/u CT chest to ensure resolution of PNA If opacity persists, will need bronchoscopy for airway evaluation
--- NOTE | 2019-05-03 21:11 | CONS ---
CC: Dr. Joaquin; Dr. Floyd * GASTROENTEROLOGY CONSULT REPORT: DATE OF CONSULT: 05/03/19 REQUESTING PROVIDER: Dr. Floyd. PRIMARY CARE PROVIDER: Dr. Joaquin. REASON FOR CONSULT: Hemoccult positive stool, 1 episode of rectal bleeding, and anemia. HISTORY OF PRESENT ILLNESS: Mr. Ambriz is a 79-year-old gentleman with a history of atrial fibrillation, peripheral vascular disease, diabetes, and CKD, who is admitted with pneumonia and splenic infarct. Mr. Ambriz is currently admitted for pneumonia. He was admitted for a similar pneumonia episode in December. During that admission in December, he had a stress test given chest pain, which showed a reversible perfusion defect for which maximal medical therapy was recommended. Currently, he is admitted because he developed malaise and fevers at home. A workup with a CT chest demonstrated a left lower lobe infiltrate as well as a large splenic infarct. He has been managed with antibiotics. Apparently, in the ED, he had 1 episode of bright red blood mixed with soft stool. He reports that this was a very small amount. He has not previously seen rectal bleeding nor has he had any since this time. He had 2 bowel movements today which were soft, loose, and brown. He has not seen any melena. At baseline, he has a bowel movement once a week which is normal for him. He denies any abdominal pain, nausea, vomiting, GERD, dysphagia or weight loss. There has been some question if he was appropriately using his Eliquis at home. He says today that he is confident that he was using it twice a day as well as Plavix once daily. He last had EGD and colonoscopy in February 2016. There was a Schatzki ring which was dilated. The colonoscopy was normal. GI consulted given positive Hemoccult stool and anemia (Hgb 11). PAST MEDICAL HISTORY: 1. Hypertension. 2. Atrial fibrillation. 3. Peripheral vascular disease. 4. Type 2 diabetes. 5. Chronic kidney disease. 6. Chronic left hip pain, on narcotics. 7. History of stroke. 8. Coronary artery disease with a recent positive stress test. 9. History of vertebral artery occlusion and carotid stenosis. 10. History of cerebral aneurysm, status post stenting. 11 History of PE in setting of surgery. PAST SURGICAL HISTORY: 1. Carotid endarterectomy. 2. Hip surgery. HOME MEDICATIONS: 1. Lisinopril 40 mg daily. 2. Metformin 500 mg 4 times a day. 3. Clonidine 0.2 mg twice daily. 4. Hydrocodone 10/325 two tabs every 4 hours as needed. 5. Amlodipine 5 mg twice daily. 6. Spironolactone 12.5 mg daily. 7. Eliquis 5 mg twice daily. 8. Furosemide 20 mg 3 times a week. 9. Ferrous sulfate 325 mg daily. 10. Clopidogrel 75 mg daily. 11. Vitamin D 5000 units weekly. ALLERGIES: ATORVASTATIN and ROSUVASTATIN. FAMILY HISTORY: No known GI or liver disease. SOCIAL HISTORY: The patient lives with his . 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 He is a former smoker. No alcohol or drug use. REVIEW OF SYSTEMS: Complete review of systems negative except as mentioned in the HPI. PHYSICAL EXAM: Vital Signs: Afebrile, heart rate 50s to 70s, blood pressure 150s/60, 100% on room air. General: Pleasant gentleman sitting up on bedside eating dinner. No acute distress. HEENT: Mucous membranes moist. Cardiovascular: Irregularly irregular. Breathing: Decreased breath sounds in bases bilaterally. No wheezing. Appears comfortable. Abdomen: Soft, nontender, nondistended. Positive bowel sounds. Extremities: No edema. DIAGNOSTIC STUDIES/LAB DATA: Labs notable for a white count of 12.4 on admission, which is now 7.5. Hemoglobin 12.4 on admission and now 11 with a hematocrit of 32. This has been relatively stable for the last few days. His hemoglobin has fluctuated over the last few years. MCV 91, creatinine 1.22, BUN 28. Iron less than 20, percent sat 7, ferritin 158.5, vitamin B12 144. 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 Gallbladder ultrasound on 04/30/19 demonstrated an incompletely distended but grossly normal gallbladder. IMPRESSION AND RECOMMENDATION: Mr. Ambriz is a 79-year-old gentleman with multiple medical comorbidities, including cardiovascular disease with Plavix and Eliquis use, who is admitted with pneumonia and splenic infarct. GI consulted given mild decrease in his hemoglobin as compared to baseline anemia and positive hemoccult stool. The patient is hemodynamically stable. H&H has been essentially stable over the last few days. He had 1 episode of small volume red blood per rectum while in the ED. He has not had any recurrent bleeding since this time. Bowel movements this morning were described as soft, loose, and brown. I think it is reasonable to purse EGD and colonoscopy in this patient given some decreased iron stores, hemoglobin a bit below his baseline, and question of red blood in his stool. This can be performed in the outpatient setting given his stability. There is some question about if he showed be maintained on Lovenox as opposed to Eliquis until endoscopic procedures are performed. I would defer to Hematology in regards to management of anticoagulation. The patient says that he has been on his Eliquis twice daily as prescribed without any significant bleeding up to this point, so I do not feel strongly one way or the other. It appears that because of his cardiovascular disease, he will need to be continued on the Plavix for the procedure. Will plan to get him in for EGD/colonoscopy within the next few weeks at [facility] [place]. The patient should be started on PPI once daily while the source of anemia is being investigated. Thank you very much for this consult. GI will continue to follow . [id number]/[facility] #: [id number] RAY
[2019-05-03 23:18] LABS: Urine Creatinine Concentration 50.32 mg/dL
[2019-05-04 05:46] LABS: ABS Basophils 0.1 10^3/ul (0-0.2); ABS Eosinophils 0.3 10^3/ul (0-0.6); ABS Monocytes 0.7 10^3/ul (0-0.8); ABS Neutrophils 4.9 10^3/ul (1.5-7.7); Eosinophil % 4.6 %; Hematocrit 36 % (42-52); Hemoglobin 12.4 g/dL (14.0-18.0); Lymphocyte % 14.6 %; Mean Corpuscular HGB Conc 35 g/dL (31-36); Mean Corpuscular Hemoglobin 31 pg (27-31); Mean Corpuscular Volume 90 fL (80-94); Mean Platelet Volume 8.7 fL (7.4-10.4); Nucleated Red Blood Cells % 0.1; Platelet Count 267 10^3/uL (150-450); Red Blood Count 4.02 10^6 /uL (4.18-5.48); Red Cell Distribution Width 13 % (10-15); White Blood Count 7.1 10^3/uL (3.5-10.8)
[2019-05-04 06:01] LABS: BUN/Creatinine Ratio 19.2 (8-20); Calcium 9.6 mg/dL (8.6-10.3); EGFR African American 83.6 (>60); EGFR Non-African American 69.1 (>60)
[2019-05-04] MEDS: Insulin LISPRO* 1 UNITS UNIT SUBCUT SCH ×2 (07:30→11:50)
[2019-05-04] MEDS: Lisinopril TAB* 10 MG PO SCH (08:04)
[2019-05-04] MEDS: Clopidogrel TAB* 75 MG PO SCH (08:05)
[2019-05-04] MEDS: Pantoprazole TAB * 40 MG TAB PO SCH (08:05)
[2019-05-04] MEDS: oxyCODONE/Acetamin 5/325 MG* TAB PO PRN (08:05)
[2019-05-04] MEDS: cloNIDine TAB* 0.1 MG PO SCH (08:05)
[2019-05-04] MEDS: Cyanocobalamin INJ * 1,000 MCG/ML VIAL 1 ML VIAL IM SCH (08:05)
[2019-05-04] MEDS: amLODIPine TAB* 5 MG PO SCH (08:05)
[2019-05-04] MEDS: Enoxaparin(*) 60 MG/0.6 ML SYR SUBCUT SCH (08:05)
[2019-05-04] MEDS: Ferrous Sulfate TAB* 325 MG PO SCH (08:05)
[2019-05-04] MEDS: Spironolactone TAB* 25 MG PO SCH (08:06)
[2019-05-04 11:16] VITALS: BP 147/50
--- NOTE | 2019-05-04 23:12 | DS ---
DISCHARGE SUMMARY: DATE OF ADMISSION: 04/30/19 DATE OF DISCHARGE: 05/04/19 PRIMARY DIAGNOSES: 1. Left lower lobe pneumonia. 2. Sepsis secondary to pneumonia. 3. Hypomagnesemia. 4. Splenic infarct. 5. Possible gastrointestinal bleed. 6. B12 deficiency. 7. Lung nodule. HOSPITAL COURSE: A 79-year-old male with history of hypertension, atrial fibrillation; on anticoagul ation with Eliquis, peripheral vascular disease, type 2 diabetes, chronic kidney disease, chronic lef t hip pain, history of CVA, vertebral artery occlusion, carotid stenosis, cerebellar aneurysm; status post stenting, and history of PE in 1986 from his hip surgery came in to the hospital with complaint s of weakness, shortness of breath, and fever of 102.1. He was noted to have a lactate of 2.5, eleva patti troponin of 0.08 to 0.1 range; in the demand ischemia range, white count is 12.4. The patient dasilva d a x-ray and then had a CT which showed left lower lobe pneumonia and a wedge-shaped defect in the s pleen representing splenic infarct and the patient was admitted for sepsis and left lower lobe pneumo dania. The troponin elevation was thought to be secondary to demand ischemia. The patient also had a s tress test in December 2018, which showed reversible perfusion and at that time had seen cardiology that recommended maximum medical treatment. Recommend the patient to follow up with cardiology as an outpa tient as well. The patient was noted to have a magnesium level of 1. The patient received 4 g of magnesium. For th e pneumonia, the patient was started on ceftriaxone and azithromycin, and the patient's condition sig nificantly improved. The patient had CT imaging as discussed below and the patient was also noted to have a lung nodule and was seen in consultation by Dr. Lindsey Oliveros, pulmonary critical care. The patient has a history of smoking in the past, but has not smoked for 40 years. Bronchiolitis obliter ans organizing pneumonia (BOOP) or cryptogenic organizing pneumonia ([employer]) is in the differential give n recurrent pneumonias. The patient had a prior pneumonia in December. She recommended treating as a co mmunity-acquired pneumonia, but repeating CT scan in 6 to 8 weeks to ensure completion. If the opaci ty remains, could consider CT-guided biopsy or bronchoscopy for further evaluation. May also benefit from checking for immune deficiency in the setting of recurrent pneumonias. The patient is to follo w up with pulmonary, Dr. Oliveros, as an outpatient and the patient knows about this and this has been discussed with the patient. With respect to the splenic infarct, the patient was seen in consultation by hem/onc, Dr. Idalmis davila. As the patient possibly had the splenic infarct despite being on Eliquis, she recommended for the patient to be on Lovenox instead and treat for potential embolic infarct from AFib. If the fever pe rsists, workup for splenic abscess was indicated, but the patient's clinical condition improved. She did not think hypotension or watershed infarct was likely; however, there was some question if the p atient was taking his Eliquis all the time and it was thought that the patient was taking it 2 times a week. The patient then reports to me that he was confused and it was mistaken. He has been taking his Eliquis religiously 2 times a day as prescribed. Dr. Newsome initially suggested that the patient could go back to Eliquis if he was only taking it 2 times a week, but if the patient was taking it ev , to be on the Lovenox and follow up with Dr. Idalmis Basurto as an outpatient. In light of this , the patient will be discharged on b.i.d. Lovenox. Lovenox teaching has been instituted and the heri ent is to follow up with hem/onc as an outpatient in 1 [address] Basurto for further discuss ion. This has been discussed with the patient as well. This also would likely work out better as th e patient was seen by GI and needs endoscopy as an outpatient and [facility] The patient was also noted to be severely iron deficient with TSAT of 7%. The patient will benefit f rom outpatient iron infusions once his infection has resolved. The patient is to discuss this with h is PCP. The patient was also noted to have a low B12 level of 144. The patient received IM B12 in the hospit al and the patient is being discharged on p.o. B12 at 1000 mcg a day. His anemia, the patient was noted to be anemic. There was also some question of bright red blood per rectum. The patient's anemia is multifactorial and the patient is noted to be B12 deficient and iro n deficient and plan is as suggested above. In addition, the patient was seen by gastroenterology, Merced Perera. Please see the consults for full details. The patient was also noted to have a Hemoc cult positive stool in the setting of being on Eliquis and Plavix. GI thought it was reasonable to p ursue an EGD and colonoscopy as an outpatient. The patient's hemoglobin has been stable and in the 1 1 to 12 range and did not need this as an inpatient. We were okay with the patient being on Eliquis or Lovenox if there was no further bleeding, but it would be preferable to be maintained on Lovenox u ntil his endoscopy is performed. They recommended the patient to be on a PPI once a day, and the pat ient is being discharged on a PPI once a day, and the patient is to follow up with Dr. Perera as an outpatient for his EGD and colonoscopy. The patient knows about this and this has been discussed with the patient as well. Overall, the patient's clinical condition is improved with treatment of his pneumonia and the patient 's weakness is improved, and the patient is able to ambulate with no oxygen needs and no shortness of breath, and the patient wishes to go home. In light of this, the patient will be discharged home to day in stable condition. INSTRUCTIONS: 1. The patient is to follow up with GI as an outpatient for EGD and colonoscopy. Plan as discussed antonia sanders. 2. The patient is to follow up with hem/onc, Dr. Basurto, as an outpatient for a further discussion o n Lovenox versus Eliquis and the patient also has iron deficiency and B12 deficiency. 3. The patient is to follow up with his PCP in 3 days in light of his multiple medical problems as o utlined above. 4. The patient has long-term pain and is on chronic opiate medications. As the patient ran out of h is medications, the patient was given a script for some of his [place] until he sees his PCP. 5. The patient is to follow up with cardiology as an outpatient for further evaluation with his hist ory of coronary artery disease and recent stress test. 6. The patient is to follow up with pulmonary, Dr. Oliveros, for his lung nodule and repeat CT in 8 we eks to ensure resolution and if not, the patient would need a bronchoscopy, CT-guided biopsy, and rec ommend followup with pulmonary. CONSULTS OBTAINED DURING HOSPITAL STAY: As detailed above: 1. Dr. Idalmis Basurto, hem/onc. 2. Dr. Lindsey Oliveros, pulmonary. 3. Dr. Perera, gastroenterology. IMAGING OBTAINED DURING HOSPITAL STAY: 1. Gallbladder ultrasound on 04/30/19. Gallbladder incompletely distended, but grossly normal. 2. CT of the abdomen and pelvis on 04/30/19. 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 No other masses or fluid collections. Marked degeneration of the lef t hip. 3. CT chest on 05/01/19. Left lower lobe pneumonia with left pleural effusion, nodule in the superi or segment of the right lower lobe. 4. Chest x-ray on 04/30/19. No cardiopulmonary disease. PHYSICAL EXAMINATION: Vital signs stable at time of discharge, temperature 97.3, pulse 64, respirato ry rate 22, oxygen saturation 100% on room air, blood pressure 147/50. HEENT: NC/AT. Heart: S1, S 2 present, irregularly irregular at the time of exam. Lungs: Clear to auscultation bilaterally. Ab domen: Soft. Extremities: No edema. Neuro: Alert and oriented x3. LABORATORY DATA: Labs: WBC 7.1, hemoglobin 12.4, hematocrit 36, platelets noted to be 267. Sodium 134, potassium 4, chloride 101, CO2 of 24, BUN 20, creatinine 1.04, hemoglobin A1c 7.6. MEDICATION LIST AT TIME OF DISCHARGE: 1. Lisinopril 40 mg daily. 2. Metformin 500 mg p.o. 4 times a day. 3. Clonidine 0.2 mg p.o. b.i.d. 4. Amlodipine 5 mg p.o. b.i.d. 5. Spironolactone 12.5 mg p.o. daily. 6. Lasix 20 mg p.o. 3 times a week. 7. Ferrous sulfate 325 mg p.o. daily. 8. Plavix 75 mg p.o. daily. 9. Vitamin D 5000 units p.o. weekly. 10. Ceftin 500 mg p.o. b.i.d. for 7 more days. 11. Pantoprazole 40 mg p.o. daily. 12. [place] 1 tab p.o. q.4 hours p.r.n. for significant pain, MDD 6. 13. Lovenox 60 mg subcutaneous q.12 days, a prescription for 2 weeks has been given to the patient. 14. B12 at 1000 mcg p.o. daily. 15. Azithromycin 500 mg p.o. daily. DISCHARGE FOLLOWUP: Instructions as discussed above. CONDITION: Stable. DISPOSITION: Home. TIME SPENT: Total time spent on discharge is equal to 60 minutes. [id number]/[facility] #: [id number]
== END 2019-05-04 13:46 | disposition home or self-care (01) | DRG 871 ==
LOC: ED 07:01 → MEDTELE 11:36
PROVIDERS: ADMIT Internal Medicine; ATTEND Internal Medicine
DX: A41.9 Sepsis, unspecified organism (principal); J18.9 Pneumonia, unspecified organism; K62.5 Hemorrhage of anus and rectum; J90 Pleural effusion, not elsewhere classified; I24.8 Other forms of acute ischemic heart disease; I12.9 Hypertensive chronic kidney disease with stage 1 through stage 4 chronic kidney disease, or unspecified chronic kidney disease; R65.20 Severe sepsis without septic shock; I48.91 Unspecified atrial fibrillation; E11.51 Type 2 diabetes mellitus with diabetic peripheral angiopathy without gangrene; E11.22 Type 2 diabetes mellitus with diabetic chronic kidney disease; G89.29 Other chronic pain; M25.552 Pain in left hip; I27.20 Pulmonary hypertension, unspecified; E83.42 Hypomagnesemia; I25.10 Atherosclerotic heart disease of native coronary artery without angina pectoris; M19.90 Unspecified osteoarthritis, unspecified site; D64.9 Anemia, unspecified; D73.5 Infarction of spleen; N18.3 Chronic kidney disease, stage 3 (moderate); E53.8 Deficiency of other specified B group vitamins; R91.1 Solitary pulmonary nodule; Z86.718 Personal history of other venous thrombosis and embolism; Z86.711 Personal history of pulmonary embolism; Z86.73 Personal history of transient ischemic attack (TIA), and cerebral infarction without residual deficits; Z88.8 Allergy status to other drugs, medicaments and biological substances; Z87.891 Personal history of nicotine dependence; Z87.01 Personal history of pneumonia (recurrent); Z80.1 Family history of malignant neoplasm of trachea, bronchus and lung; Z79.84 Long term (current) use of oral hypoglycemic drugs; Z79.02 Long term (current) use of antithrombotics/antiplatelets
CPT/HCPCS: 36415; 71045; 71250; 74177; 76705; 80048; 80053; 80061; 81003; 81015; 82270; 82272; 82570; 82607; 82668; 82728; 83036; 83540; 83550; 83605; 83690; 83735; 84443; 84484; 85014; 85018; 85025; 85610; 85730; 86140; 87040; 87070; 87086; 87205; 87899; 93005; 96365; 96375; 99223; 99284; A9270-GY; J0360; J0456; J0696; J1650; J2270; J2405; J2543; J3420; J3475; Q9967

== ENCOUNTER 2022-03-30 14:25 | Inpatient (IN) ==
[2022-03-30 14:48] LABS: ABS Basophils 0.1 10^3/ul (0-0.2); ABS Eosinophils 0.2 10^3/ul (0-0.6); ABS Lymphocytes 2.4 10^3/ul (1.0-4.8); ABS Monocytes 0.9 10^3/ul (0-0.8); ABS Neutrophils 5.3 10^3/ul (1.5-7.7); Eosinophil % 2.7 %; Hematocrit 37 % (42-52); Hemoglobin 12.6 g/dL (14.0-18.0); Lymphocyte % 26.5 %; Mean Corpuscular HGB Conc 34 g/dL (31-36); Mean Corpuscular Hemoglobin 32 pg (27-31); Mean Corpuscular Volume 94 fL (80-94); Mean Platelet Volume 9.2 fL (7.4-10.4); Platelet Count 177 10^3/uL (150-450); Red Blood Count 3.95 10^6 /uL (4.18-5.48); Red Cell Distribution Width 14 % (10-15); White Blood Count 8.9 10^3/uL (3.5-10.8)
[2022-03-30 15:00] LABS: INR 2.84 (0.89-1.11)
[2022-03-30 15:57] LABS: Albumin 4.5 g/dL (3.2-5.2); Albumin/Globulin Ratio 1.8 (1-3); Calcium 9.6 mg/dL (8.6-10.3); Globulin 2.5 g/dL (2-4); Total Bilirubin 0.4 mg/dL (0.2-1.0); eGFR CKD-EPI 38.9 (>60)
[2022-03-30 16:01] LABS: Potassium 5.2 mmol/L (3.5-5.0)
[2022-03-30 16:22] LABS: High Sensitivity Troponin 1 Hr 1545 pg/mL (<20)
[2022-03-30] MEDS ORDERED: nitroGLYCERIN DRIP 25,000 MCG/250 ML BTL IV SCH ×2 (18:00→22:00)
[2022-03-30] MEDS ORDERED: Furosemide 40 mg/4 ml IV VIAL IV ONE ×2 (18:58→19:01)
[2022-03-30] MEDS ORDERED: Al Hydrox/Mg Hydrox/Simet LIQ 30 ML UDC PO ONE (20:11)
[2022-03-30] MEDS ORDERED: Heparin DRIP 25,000 UNITS BAG 25,000 UNITS/500 ML BAG IV SCH (20:15)
[2022-03-30 21:12] LABS: ABS Basophils 0.1 10^3/ul (0-0.2); ABS Eosinophils 0.3 10^3/ul (0-0.6); ABS Lymphocytes 2.4 10^3/ul (1.0-4.8); ABS Monocytes 0.9 10^3/ul (0-0.8); ABS Neutrophils 5.6 10^3/ul (1.5-7.7); Hematocrit 34 % (42-52); Hemoglobin 11.5 g/dL (14.0-18.0); Lymphocyte % 25.4 %; Mean Corpuscular HGB Conc 34 g/dL (31-36); Mean Corpuscular Hemoglobin 31 pg (27-31); Mean Corpuscular Volume 93 fL (80-94); Mean Platelet Volume 9.4 fL (7.4-10.4); Platelet Count 170 10^3/uL (150-450); Red Blood Count 3.66 10^6 /uL (4.18-5.48); Red Cell Distribution Width 14 % (10-15); White Blood Count 9.3 10^3/uL (3.5-10.8)
[2022-03-30] MEDS ORDERED: Dextrose 50% Syringe 50 ml 25 GM/50 ML SYRINGE IV PUSH PRN (21:12)
[2022-03-30] MEDS ORDERED: Acetaminophen IV 1 GM/100ML 1,000 MG/100 ML BAG IV PRN (21:12)
[2022-03-30 21:26] LABS: Magnesium 1.2 mg/dL (1.9-2.7)
[2022-03-30] MEDS: nitroGLYCERIN DRIP 25,000 MCG/250 ML BTL IV SCH (21:39)
[2022-03-30] MEDS ORDERED: HYDROcodone/ACET. 7.5/325 LIQ 15 ML UDC PO PRN (21:40)
[2022-03-30] MEDS ORDERED: Heparin 5000 UNITS/ML 1 mL VIAL IV SCH (22:00)
[2022-03-30] MEDS: Heparin DRIP 25,000 UNITS BAG 25,000 UNITS/500 ML BAG IV SCH (22:13)
[2022-03-31 04:46] LABS: ABS Basophils 0.1 10^3/ul (0-0.2); ABS Eosinophils 0.3 10^3/ul (0-0.6); ABS Lymphocytes 2.2 10^3/ul (1.0-4.8); ABS Monocytes 0.9 10^3/ul (0-0.8); ABS Neutrophils 3.6 10^3/ul (1.5-7.7); Eosinophil % 4.1 %; Hematocrit 34 % (42-52); Hemoglobin 11.5 g/dL (14.0-18.0); Lymphocyte % 31.3 %; Mean Corpuscular HGB Conc 34 g/dL (31-36); Mean Corpuscular Hemoglobin 31 pg (27-31); Mean Corpuscular Volume 93 fL (80-94); Mean Platelet Volume 9.5 fL (7.4-10.4); Nucleated Red Blood Cells % 0.1; Platelet Count 157 10^3/uL (150-450); Red Cell Distribution Width 14 % (10-15)
[2022-03-31 04:57] LABS: INR 2.69 (0.89-1.11)
[2022-03-31 05:21] LABS: Calcium 9.3 mg/dL (8.6-10.3); Potassium 4.1 mmol/L (3.5-5.0); eGFR CKD-EPI 38.3 (>60)
[2022-03-31] MEDS: Pantoprazole VIAL 40 MG VIAL IV SCH (08:08)
[2022-03-31] MEDS: NS 0.9% 1000 ml BAG 1,000 ML IV SCH ×2 (14:46→21:49)
[2022-03-31] MEDS: nitroGLYCERIN DRIP 25,000 MCG/250 ML BTL IV SCH (21:47)
[2022-04-01 04:26] LABS: ABS Basophils 0.1 10^3/ul (0-0.2); ABS Eosinophils 0.3 10^3/ul (0-0.6); ABS Lymphocytes 2.2 10^3/ul (1.0-4.8); ABS Monocytes 0.9 10^3/ul (0-0.8); Eosinophil % 3.6 %; Hematocrit 33 % (42-52); Hemoglobin 11.2 g/dL (14.0-18.0); Lymphocyte % 26.1 %; Mean Corpuscular HGB Conc 34 g/dL (31-36); Mean Corpuscular Hemoglobin 31 pg (27-31); Mean Corpuscular Volume 92 fL (80-94); Platelet Count 161 10^3/uL (150-450); Red Blood Count 3.61 10^6 /uL (4.18-5.48); Red Cell Distribution Width 14 % (10-15); White Blood Count 8.5 10^3/uL (3.5-10.8)
[2022-04-01 05:08] LABS: Activated Partial Thrombo Time 112.5 seconds (26.0-38.0)
[2022-04-01] MEDS: NS 0.9% 1000 ml BAG 1,000 ML IV SCH ×2 (05:28→13:28)
[2022-04-01 06:04] LABS: eGFR CKD-EPI 42.6 (>60)
[2022-04-01 06:51] LABS: Calcium 8.5 mg/dL (8.6-10.3); Potassium 4.2 mmol/L (3.5-5.0)
[2022-04-01] MEDS: Heparin DRIP 25,000 UNITS BAG 25,000 UNITS/500 ML BAG IV SCH (07:23)
[2022-04-01 07:44] LABS: INR 2.2 (0.89-1.11)
[2022-04-01 08:32] LABS: Magnesium 1.2 mg/dL (1.9-2.7)
[2022-04-01] MEDS: Pantoprazole VIAL 40 MG VIAL IV SCH (09:44)
[2022-04-01] MEDS ORDERED: Magnesium Sulf 4 GM/100 ML IV 4,000 MG/100 ML BAG IVPB ONE (11:00)
[2022-04-01 12:46] LABS: INR 1.71 (0.89-1.11)
[2022-04-01] MEDS ORDERED: Lidocaine 1% MPF 5 ML VIAL ONE (15:09)
[2022-04-01] MEDS ORDERED: Iohexol 350 (CONTRAST) 100 ML PAK IV ONE (15:10)
[2022-04-01] MEDS ORDERED: Heparin 2 UNITS/ML IVPREMIX 3,000 UNIT/1,500 ML BAG IV ONE (15:10)
[2022-04-01] MEDS ORDERED: fentaNYL 100 mcg/2 ml 50 MCG/ML VIAL ONE (15:11)
[2022-04-01] MEDS ORDERED: Midazolam 5 mg/5 ml VIAL 1 mg/ml 5 ml VIAL (5 mg) ONE (15:11)
[2022-04-01] MEDS ORDERED: Heparin 1,000 UNIT/ML 10 ml (10,000 UNITS) CATHLAB/DIALYSIS ONE (15:11)
[2022-04-01] MEDS ORDERED: niCARdipine 0.1MG/ML IVPREMIX 20 MG/200 ML BAG IV ONE (15:12)
[2022-04-01] MEDS ORDERED: nitroGLYCERIN DRIP 25,000 MCG/250 ML BTL ONE (15:12)
[2022-04-01] MEDS ORDERED: hydrALAZINE 20 mg/ml 1 ML Vial IV IV SLOW PU ONE ×2 (19:32→20:03)
[2022-04-01] MEDS: nitroGLYCERIN DRIP 25,000 MCG/250 ML BTL IV SCH (19:55)
[2022-04-01] MEDS ORDERED: hydrALAZINE 20 mg/ml 1 ML Vial IV ONE (20:05)
[2022-04-01 21:20] VITALS: BP 177/85
== END 2022-04-01 20:30 | disposition short-term general hospital (02) | DRG 281 ==
LOC: ED 14:25 → EDHOLD 20:58 → ICU 23:40
PROVIDERS: ADMIT Internal Medicine; ATTEND Internal Medicine